=== PATIENT | female | born 1965 | race Caucasian/White ===

== ENCOUNTER 2023-04-07 09:39 | Outpatient (OUT) | payer BC, SELFPAY ==
[2023-04-07 09:55] LABS: Basophils Absolute Auto 0.1 10^3/uL (0.0-0.1); Basophils Percent Auto 0.5 % (0.2-2.0); Eosinophils Absolute Auto 0.2 10^3/uL (0.0-0.7); Eosinophils Percent Auto 1.9 % (0.9-7.0); Hematocrit 43.7 % (36.0-48.0); Hemoglobin 15.1 g/dL (12.0-16.0); Immature Granulocytes Abs Auto 0.08 10^3/uL (0.00-0.03); Immature Granulocytes Pct Auto 0.7 % (0.0-0.5); Lymphocytes Absolute Auto 2.7 10^3/uL (1.2-3.8); Lymphocytes Percent Auto 24.6 % (20.5-60.0); Mean Corpuscular HGB Conc 34.6 g/dL (29.9-35.2); Mean Corpuscular Hemoglobin 32.3 pg (26.7-34.0); Mean Corpuscular Volume 93.6 fL (81.0-99.0); Mean Platelet Volume 9.2 fL (9.5-13.5); Monocytes Absolute Auto 0.6 10^3/uL (0.3-0.8); Monocytes Percent Auto 5.5 % (1.7-12.0); Neutrophils Absolute Auto 7.4 10^3/uL (1.4-6.5); Neutrophils Percent Auto 66.8 % (43.0-75.0); Platelet Count 371 10^3/uL (150-450); Red Blood Count 4.67 10^6/uL (4.20-5.40); Red Cell Distribution Width 13.6 % (11.0-15.0); White Blood Count 11.1 10^3/uL (4.0-11.0)
[2023-04-07 09:57] LABS: Bilirubin Urine NEGATIVE (NEGATIVE); Blood Urine NEGATIVE (NEGATIVE); Clarity Urine CLEAR (CLEAR); Color Urine YELLOW (YELLOW); Glucose Urine UA NEGATIVE (NEGATIVE); Ketones Urine NEGATIVE (NEGATIVE); Leukocyte Esterase Urine NEGATIVE (NEGATIVE); Nitrite Urine NEGATIVE (NEGATIVE); Protein Urine NEGATIVE (NEG/TRACE); Urobilinogen Urine 0.2 EU/dL (0.2-1.0); pH Urine 5.5 (5.0-9.0)
[2023-04-07 10:01] LABS: Urine Microscopic Indicated NO
[2023-04-07 10:45] LABS: Creatinine Urine Random 89.87 mg/dL (20.00-300.00); Microalbum Creatinine Ratio Ur 14.4 mg/g (0.0-29.9); Microalbumin Urine Random <1.3 mg/dL (<=30.0)
[2023-04-07 12:39] LABS: Anion Gap 10.4; Carbon Dioxide 29.5 mmol/L (21.0-32.0); Chloride 102 mmol/L (98-107); Potassium 3.9 mmol/L (3.5-5.1); Sodium 138 mmol/L (136-145)
[2023-04-07 12:40] LABS: Alanine Aminotransferase 28 U/L (14-59); Albumin Globulin Ratio 1.1; Albumin Level 4.1 g/dL (3.4-5.0); Alkaline Phosphatase 97 U/L (46-116); Aspartate Amino Transferase 15 U/L (15-37); BUN Creatinine Ratio 21.7; Bilirubin Total 0.4 mg/dL (0.2-1.0); Calcium 9.5 mg/dL (8.5-10.1); Estimated GFR (African America >60 (>=60); Estimated GFR (Non-African Ame >60 (>=60); Globulin 3.9 g/dL; Glucose 107 mg/dL (74-106)
[2023-04-07 12:41] LABS: Chol HDL Ratio 3.1; Cholesterol 130 mg/dL (<=200); HDL Cholesterol 42 mg/dL (40-60); TSH W/ REFLEX FT4 2.738 (0.358-3.740); Triglycerides 108 mg/dL (<=150); VLDL CHOLESTEROL 21.6 mg/dL
[2023-04-07 13:56] LABS: Estimated Average Glucose 123 mg/dL; Glycohemoglobin A1C 5.9 % (4.5-6.2)
== END 2023-04-07 09:40 | disposition home or self-care (01) ==
LOC: LAB 09:43
PROVIDERS: PCP Nurse Practitioner; Visit Provider Nurse Practitioner
DX: I10 Essential (primary) hypertension (principal); Z13.29 Encounter for screening for other suspected endocrine disorder; E11.9 Type 2 diabetes mellitus without complications
CPT/HCPCS: 36415; 80053; 80061; 81003; 82043; 82570; 83036; 84443; 85025

== ENCOUNTER 2023-06-02 22:01 | Outpatient (REF) | payer BC, SELFPAY ==
--- OUTSIDE RECORDS SUMMARY | 2023-06-02 22:04 | XMS_ITS | CCD ---
Author Name Unknown Address [address] [place] [address] Organization [facility] Care Team Providers Care [employer] Name Role Phone AICHHOLZ, WHEEL BORER LORI Admitting Unavailable AICHHOLZ, WHEEL BORER LORI Attending Unavailable AICHHOLZ, WHEEL BORER LORI Primary Care Unavailable DR BEE WATTS V Consulting Unavailable AICHHOLZ, WHEEL BORER LORI Consulting Unavailable AICHHOLZ, WHEEL BORER LORI Admitting Unavailable AICHHOLZ, WHEEL BORER LORI Attending Unavailable AICHHOLZ, WHEEL BORER LORI Primary Care Unavailable AICHHOLZ, WHEEL BORER LORI Consulting Unavailable AICHHOLZ, WHEEL BORER LORI Admitting Unavailable AICHHOLZ, WHEEL BORER LORI Attending Unavailable AICHHOLZ, WHEEL BORER LORI Primary Care Unavailable AICHHOLZ, WHEEL BORER LORI Consulting Unavailable Louann Rivas Unavailable ELYSSA HOLCOMB Attending Unavailable ELYSSA HOLCOMB Referring Unavailable SHANTA OSHEA Attending Unavailable AICHHOLZ, LORI Attending Unavailable Medications Current Medications Medication Drug Class(es) Dates Sig (Normalized) Sig (Original) atorvastatin 80 mg oral tablet (1 source) HMG-CoA Reductase Inhibitor Atorvastatin Calcium 80 MG Oral for 90 Days Active lisinopril 2.5 mg oral tablet (1 source) Angiotensin Converting Enzyme Inhibitor Lisinopril 2.5 MG Or al for 90 Days Active 0.25 mg, 0.5 mg dose 1.5 ml semaglutide 1.34 mg/ml pen injector (1 source) Ozempic (0.25 or 0.5 MG/DOSE) 2 MG/1.5ML INJECT 0.5 MG SUBCUTANEOUSLY ONCE A WEEK Subcutaneous for 84 Days Active Problems Active Problems Problem Classification Problem Date Documented Da te Episodic/Chronic Diabetes mellitus without complication (5 sources) Type 2 diabetes mellitus without complications; Translations: [TYPE 2 DM WITHOUT COMPLICATIONS] Onset: 10-01-2021 Chronic Occlusion or stenosis of precerebral arteries (7 sources) Occlusion and stenosis of left carotid artery; Translations: [Bilateral stenosis of carotid arteries] Onset: 06-10-2022 Chronic Other screening for suspected conditions (not mental disorders or infectious disease) (1 source) Encounter for screening mammogram for malignant neoplasm of breast; Translations: [ENC SCR MAMMO MALIG NEOPLASM BREAST] Onset: 06-18-2022 Episodic Substance-related disorders (2 sources) Smoker; Translations: [Nicotine dependence, unspecified, uncomplicated] Chronic Past or Other Problems Problem Classification Problem Date Documented Da te Episodic/Chronic Abdominal pain (1 source) Unspecified abdominal pain; Translations: [UNSPECIFIED ABDOMINAL PAIN] Onset: 11-13-2021 Episodic Nausea and vomiting (4 sources) Nausea; Translations: [NAUSEA] Onset: 11-12-2021 Episodic Results Test Name Value Interpretation Reference Range Facility CBC AUTO DIFFon 06-10-2022 BASO # 0.1 103/ul Normal 0.0-0.1 [facility] Comment on above: Performed By: #### C BC #### [facility] [address] [address] [address] Tracie Montalvo Basophils/100 WBC (Bld) 0.7 % Normal 0.2-2.0 [facility] Comment on above: Performed By: #### C BC #### [facility] [address] [place] [address] Dr. Tracie Montalvo EO # 0.1 103/ul Normal 0.0-0.7 [facility] Comment on above: Performed By: #### C BC #### [facility] [address] [address] [address] Tracie Montalvo Eosinophils/100 WBC (Bld) 0.8 % Critically low 0.9-7.0 [facility] Comment on above: Performed By: #### C BC #### [facility] [address] [address] [address] Tracie Montalvo Erythrocyte distribution width (RBC) [Ratio] 13.7 % Normal 11.0-15.0 [facility] Comment on above: Performed By: #### C BC #### [facility] [address] [place] [address] Dr. Tracie Montalvo Hematocrit (Bld) [Volume fraction] 41.7 % Normal 36.0-48.0 [facility] Comment on above: Performed By: #### C BC #### [facility] [address] [place] [address] Dr. Tracie Montalvo Hemoglobin (Bld) [Mass/Vol] 15.1 g/dL Normal 12.0-16.0 [facility] Comment on above: Performed By: #### C BC #### [facility] [address] [place] [address] Dr. Tracie Montalvo IG # 0.10 10e3/ul Critically high 0.00-0.03 [facility] Comment on above: Performed By: #### C BC #### [facility] [address] [place] [address] Dr. Tracie Montalvo IG % 1.0 % Critically high 0.0-0.5 [facility] Comment on above: Performed By: #### C BC #### [facility] [address] [place] [address] Dr. Tracie Montalvo LYMPH # 2.8 103/ul Normal 1.2-3.8 [facility] Comment on above: Performed By: #### C BC #### [facility] [address] [place] [address] Dr. Tracie Montalvo Lymphocytes/100 WBC (Bld) 26.8 % Normal 20.5-60.0 [facility] Comment on above: Performed By: #### C BC #### [facility] [address] [place] [address] Dr. Tracie Montalvo MANUAL DIFF REQ NO Normal [facility] Comment on above: Performed By: #### C BC #### [facility] [address] [place] [address] Dr. Tracie Montalvo MCH (RBC) [Entitic mass] 32.7 pg Normal 26.7-34.0 [facility] Comment on above: Performed By: #### C BC #### [facility] [address] [place] [address] Dr. Tracie Montalvo MCHC (RBC) [Mass/Vol] 36.2 g/dL Critically high 29.9-35.2 [facility] Comment on above: Performed By: #### C BC #### [facility] [address] [address] [address] Tracie Montalvo MCV (RBC) [Entitic vol] 90.3 fL Normal 81.0-99.0 [facility] Comment on above: Performed By: #### C BC #### [facility] [address] [address] [address] Tracie Montalvo MONO # 0.6 103/ul Normal 0.3-0.8 [facility] Comment on above: Performed By: #### C BC #### [facility] [address] [place] [address] Dr. Tracie Montalvo Monocytes/100 WBC (Bld) 6.0 % Normal 1.7-12.0 [facility] Comment on above: Performed By: #### C BC #### [facility] [address] [address] [address] Tracie Montalvo NEUT # 6.8 103/ul Critically high 1.4-6.5 [facility] Comment on above: Performed By: #### C BC #### [facility] [address] [place] [address] Dr. Tracie Montalvo Neutrophils/100 WBC (Bld) 64.7 % Normal 43.0-75.0 [facility] Comment on above: Performed By: #### C BC #### [facility] [address] [address] [address] Tracie Montalvo Platelet mean volume (Bld) [Entitic vol] 9.1 fL Critically low 9.5-13.5 [facility] Comment on above: Performed By: #### C BC #### [facility] [address] [place] [address] Dr. Tracie Montalvo PLT 318 103/ul Normal 150-450 [facility] Comment on above: Performed By: #### C BC #### [facility] [address] [place] [address] Dr. Tracie Montalvo RBC 4.62 106/ul Normal 4.20-5.40 [facility] Comment on above: Performed By: #### C BC #### [facility] [address] [address] [address] Tracie Montalvo WBC 10.4 103/ul Normal 4.0-11.0 [facility] Comment on above: Performed By: #### C BC #### [facility] [address] [address] [address] Tracie Montalvo GLYCOHEMOGLOBIN A1Con 2022 ADA RECOMMENDATION SEE BELOW Normal [facility] Comment on above: Result Comment: ADA RECOMMENDED LIMIT 4.0 - 6.0 ADA THERAPEUTIC TARGET < 7.0 ACTION SUGGESTED > 7.0 Performed By: #### A 1C ####[facility] [address] [address]Dr. Tracie Montalvo Glucose [Mass/Vol] 114 mg/dL Normal [facility] Comment on above: Performed By: #### A 1C ####[facility] [address] [address]Dr. Tracie Montalvo HbA1c (Bld) [Mass fraction] 5.6 % Normal 4.5-6.2 [facility] Comment on above: Performed By: #### A 1C ####[facility] [address] [id number] Tracie Montalvo LIPID PROFILEon 06-10-2022 CHOL-HDL RATIO NORM SEE BELOW Normal [facility] Comment on above: Result Comment: 3.3 - 4.4 LOW RISK 4.4 - 7.1 AVERAGE RISK 7.1 - 11.0 MODERATE RISK >11.0 HIGH RISK Performed By: #### C MP, LIPID, TSH #### [facility] [address] [address] [address] Tracie Montalvo Cholesterol [Mass/Vol] 151 mg/dL Normal <=200 [facility] Comment on above: Performed By: #### C MP, LIPID, TSH #### [facility] [address] [address] [address] Tracie Montalvo Cholesterol in HDL [Mass/Vol] 33 mg/dL Critically low 40-60 [facility] Comment on above: Performed By: #### C MP, LIPID, TSH #### [facility] [address] [address] [address] Tracie Montalvo Cholesterol in LDL [Mass/Vol] 77.4 mg/dL Normal [facility] Comment on above: Performed By: #### C MP, LIPID, TSH #### [facility] [address] [address] [address] Tracie Montalvo Cholesterol.total/Cho lesterol in HDL [Mass ratio] 4.6 {ratio} Normal [facility] Comment on above: Performed By: #### C MP, LIPID, TSH #### [facility] [address] [address] [address] Tracie Montalvo HDL NORMAL > or = 60 mg/dl - LO W CARDIOVASCULAR RISK <40 mg/dl - HIGH CARDIOVASCULAR RISK Normal [facility] Comment on above: Performed By: #### C MP, LIPID, TSH #### [facility] [address] [address] [address] Tracie Montalvo LDL CALC NORMAL SEE BELOW Normal [facility] Comment on above: Result Comment: <100 mg/dl OPTIMAL 100 - 129 mg/dl NEAR OR ABOVE OPTIMAL 130 - 159 mg/dl BORDERLINE HIGH 160 - 189 mg/dl HIGH >190 mg/dl VERY HIGH Performed By: #### C MP, LIPID, TSH #### [facility] [address] [address] [address] Tracie Montalvo Triglyceride [Mass/Vol] 203 mg/dL Critically high <=150 [facility] Comment on above: Performed By: #### C MP, LIPID, TSH #### [facility] [address] [address] [address] Tracie Montalvo VLDL CALC 40.6 mg/dL Normal [facility] Comment on above: Performed By: #### C MP, LIPID, TSH #### [facility] [address] [address] [address] Tracie Montalvo MG MAMM SCREEN 3D CYN CADon 06-10-2022 MG MAMM SCREEN 3D CYN CAD Patient: MAHESH BENTLEY Exam Date: 06/10/2022 : 1965 Gender:F Ordering : JASMIN MON WHEEL BORER Admission #: [id number] Family : Order #: [id number] CLICK HERE TO VIEW EXAM RADIOLOGY REPORT PROCEDURE: MAMMOGRAM SCREENING 3D BILATERAL CAD COMPARISON: MG MAMM SCREEN CYN W CAD, 04/03/2020. MG MAMM SCREEN 3D CYN CAD, 05/14/2021. INDICATIONS: Screening mammography Calculator Name NCI Breast Cancer Risk Assessment Tool 5 Year Breast Cancer Risk 1.40% Lifetime Breast Cancer Risk 9.80% Personal Breast Cancer No Personal Ovarian Cancer No Treatments None Family Cancers None LOCATION: [facility] BREAST COMPOSITION: Heterogeneously dense,which may obscure small masses. FINDINGS: DIAGNOSTIC CATEGORY 2--BENIGN FINDING. NO CHANGE FROM COMPARISON. Scattered benign-appearing nodules are present. Scattered benign-appearing calcifications are present. Scattered benign-appearing lymph nodes are present. RIGHT BREAST: No significant suspicious finding. LEFT BREAST: No significant suspicious finding. RECOMMENDATIONS: ROUTINE MAMMOGRAM AND CLINICAL EVALUATION IN 12 MONTHS. PLEASE NOTE: A NORMAL MAMMOGRAM DOES NOT EXCLUDE THE POSSIBILITY OF BREAST CANCER. A CLINICALLY SUSPICIOUS PALPABLE LUMP SHOULD BE BIOPSIED. Dictated by: Bee Watts MD on 06/10/2022 at 11:14 Approved by: Bee Watts MD on 06/10/2022 at 11:28 Normal [facility] MICROALBUMIN, RAND URon - mALB <1.3 Normal <=30.0 [facility] Comment on above: Performed By: #### M ALBR #### [facility] [address] [place] [address] Dr. Tracie Montalvo PROF 14(COMP METB)on 023 Albumin [Mass/Vol] 3.9 g/dL Normal 3.4-5.0 [facility] Comment on above: Performed By: #### C MP, LIPID, TSH #### [facility] [address] [address] [address] Tracie Montalvo Albumin/Globulin [Mass ratio] 1.1 {ratio} Normal [facility] Comment on above: Performed By: #### C MP, LIPID, TSH #### [facility] [address] [address] [address] Tracie Montalvo ALP [Catalytic activity/Vol] 79 U/L Normal 46-116 [facility] Comment on above: Performed By: #### C MP, LIPID, TSH #### [facility] [address] [address] [address] Tracie Montalvo ALT [Catalytic activity/Vol] 50 U/L Normal 14-59 [facility] Comment on above: Performed By: #### C MP, LIPID, TSH #### [facility] [address] [address] [address] Tracie Montalvo Anion gap [Moles/Vol] 12.9 mmol/L Normal [facility] Comment on above: Performed By: #### C MP, LIPID, TSH #### [facility] [address] [place] [address] Dr. Tracie Montalvo AST [Catalytic activity/Vol] 16 U/L Normal 15-37 [facility] Comment on above: Performed By: #### C MP, LIPID, TSH #### [facility] [address] [place] [address] Dr. Tracie Montalvo Bilirubin [Mass/Vol] 0.4 mg/dL Normal 0.2-1.0 [facility] Comment on above: Performed By: #### C MP, LIPID, TSH #### [facility] [address] [place] [address] Dr. Tracie Montalvo Calcium [Mass/Vol] 9.5 mg/dL Normal 8.5-10.1 [facility] Comment on above: Performed By: #### C MP, LIPID, TSH #### [facility] [address] [place] [address] Dr. Tracie Montalvo Chloride [Moles/Vol] 104 mmol/L Normal 98-107 [facility] Comment on above: Performed By: #### C MP, LIPID, TSH #### [facility] [address] [place] [address] Dr. Tracie Montalvo CO2 [Moles/Vol] 27.2 mmol/L Normal 21.0-32.0 [facility] Comment on above: Performed By: #### C MP, LIPID, TSH #### [facility] [address] [place] [address] Dr. Tracie Montalvo Creatinine [Mass/Vol] 0.64 mg/dL Normal 0.55-1.02 [facility] Comment on above: Performed By: #### C MP, LIPID, TSH #### [facility] [address] [address] [address] Tracie Montalvo EGFR-AF CAMEROONIAN >60 Normal >=60 [facility] Comment on above: Performed By: #### C MP, LIPID, TSH #### [facility] [address] [address] [address] Tracie Montalvo EGFR-NON AF CAMEROONIAN >60 Normal >=60 [facility] Comment on above: Performed By: #### C MP, LIPID, TSH #### [facility] [address] [address] [address] Tracie Montalvo Globulin (S) [Mass/Vol] 3.5 g/dL Normal [facility] Comment on above: Performed By: #### C MP, LIPID, TSH #### [facility] [address] [address] [address] Tracie Montalvo Glucose [Mass/Vol] 94 mg/dL Normal 74-106 [facility] Comment on above: Performed By: #### C MP, LIPID, TSH #### [facility] [address] [address] [address] Tracie Montalvo Potassium [Moles/Vol] 4.1 mmol/L Normal 3.5-5.1 [facility] Comment on above: Performed By: #### C MP, LIPID, TSH #### [facility] [address] [place] [address] Dr. Tracie Montalvo Protein [Mass/Vol] 7.4 g/dL Normal 6.4-8.2 [facility] Comment on above: Performed By: #### C MP, LIPID, TSH #### [facility] [address] [place] [address] Dr. Tracie Montalvo Sodium [Moles/Vol] 140 mmol/L Normal 136-145 [facility] Comment on above: Performed By: #### C MP, LIPID, TSH #### [facility] [address] [place] [address] Dr. Tracie Montalvo Urea nitrogen [Mass/Vol] 8.0 mg/dL Normal 7.0-18.0 [facility] Comment on above: Performed By: #### C MP, LIPID, TSH #### [facility] [address] [place] [address] Dr. Tracie Montalvo Urea nitrogen/Creatinine [Mass ratio] 12.5 mg/mg Normal [facility] Comment on above: Performed By: #### C MP, LIPID, TSH #### [facility] [address] [place] [address] Dr. Tracie Montalvo TSHon 06-10-2022 TSH 2.317 uIU/mL Normal 0.358-3.740 [facility] Comment on above: Performed By: #### C MP, LIPID, TSH #### [facility] [address] [place] [address] Dr. Tracie Montalvo UA RANDOM W/MICROSCOPICon BACTERIA NONE SEEN Normal NONE SEEN [facility] Comment on above: Performed By: #### U AMIC #### [facility] [address] [place] [address] Dr. Tracie Montalvo Bilirubin Ql (U) Negative Normal NEGATIVE [facility] Comment on above: Performed By: #### U AMIC #### [facility] [address] [place] [address] Dr. Tracie Montalvo CAST NONE SEEN Normal NONE SEEN [facility] Comment on above: Performed By: #### U AMIC #### [facility] [address] [place] [address] Dr. Tracie Montalvo Clarity (U) CLEAR Normal CLEAR [facility] Comment on above: Performed By: #### U AMIC #### [facility] [address] [place] [address] Dr. Tracie Montalvo Color (U) LT. YELLOW Normal YELLOW [facility] Comment on above: Performed By: #### U AMIC #### [facility] [address] [place] [address] Dr. Tracie Montalvo Crystals LM Nom (Urine sed) NONE SEEN Normal NONE SEEN [facility] Comment on above: Performed By: #### U AMIC #### [facility] [address] [address] [address] Tracie Montalvo Epithelial cells LM Ql (Urine sed) NONE SEEN Normal NONE SEEN /RARE [facility] Comment on above: Performed By: #### U AMIC #### [facility] [address] [address] [address] Tarcie Montalvo Glucose Ql (U) Negative Normal NEGATIVE [facility] Comment on above: Performed By: #### U AMIC #### [facility] [address] [address] [address] Tracie Montalvo Hemoglobin Ql (U) Negative Normal NEGATIVE [facility] Comment on above: Performed By: #### U AMIC #### [facility] [address] [address] [address] Tracie Montalvo Ketones Ql (U) Negative Normal NEGATIVE [facility] Comment on above: Performed By: #### U AMIC #### [facility] [address] [address] [address] Tracie Montalvo LEUKOCYTES Negative Normal NEGATIVE [facility] Comment on above: Performed By: #### U AMIC #### [facility] [address] [address] [address] Tracie Montalvo MUCOUS NONE SEEN Normal NONE SEEN [facility] Comment on above: Performed By: #### U AMIC #### [facility] [address] [address] [address] Tracie Montalvo Nitrite Ql (U) Negative Normal NEGATIVE [facility] Comment on above: Performed By: #### U AMIC #### [facility] [address] [address] [address] Tracie Montalvo pH (U) 5.5 [pH] Normal 5-9 [facility] Comment on above: Performed By: #### U AMIC #### [facility] [address] [address] [address] Tracie Montalvo RBC 0-2 Normal 0-2 [facility] Comment on above: Performed By: #### U AMIC #### [facility] [address] [address] [address] Tracie Montalvo SPEC GRAVITY 1.015 Normal 1.005-<=1.[address] [facility] Comment on above: Performed By: #### U AMIC #### [facility] [address] [address] [address] Tracie Montalvo UA PROTEIN Negative Normal NEGATIVE/ TRACE [facility] Comment on above: Performed By: #### U AMIC #### [facility] [address] [address] [address] Tracie Montalvo Urobilinogen Qn (U) 0.2 {Larry'U}/dL Normal 0.2 - 1. 0 [facility] Comment on above: Performed By: #### U AMIC #### [facility] [address] [place] [address] Dr. Tracie Montalvo WBC NONE SEEN Normal NONE SEEN [facility] Comment on above: Performed By: #### U AMIC #### [facility] [address] [address] [address] Tracie Montalvo US CAROTID ART BILon 023 US CAROTID ART CYN EXAMINATION: US PENA TID ART CYN HISTORY: Left carotid artery occlusion COMPARISON: No relevant comparison available. TECHNIQUE: Duplex Doppler ultrasound analysis of carotid and vertebral arteries. . Bilateral carotid arterial duplex examination was performed using B-mode, color flow and spectral analysis. Carotid stenosis is reported according to validated velocity parameters, similar to NASCET criteria. FINDINGS: RIGHT CAROTID ARTERY No significant atherosclerotic plaque Subclavian: PSV: 270.3 cm/s cm/s EDV: 21.7 cm/s cm/s CCA: Prox: PSV: 92.7 cm/s cm/s EDV: 22.8 cm/s cm/s Mid: PSV: 111.6 cm/s cm/s EDV: 42.6 cm/s cm/s Distal: PSV: 99.7 cm/s cm/s EDV: 38.6 cm/s cm/s BULB: PSV: 84.0 cm/s cm/s EDV: 32.7 cm/s cm/s ICA: Prox: PSV: 111.4 cm/s cm/s EDV: 32.7 cm/s cm/s Mid: PSV: 109.4 cm/s cm/s EDV: 30.7 cm/s cm/s Distal: PSV: 98.3 cm/s cm/s EDV: 43.1 cm/s cm/s ECA: PSV: 150.8 cm/s cm/s EDV: 40.6 cm/s cm/s VERTEBRAL: PSV: 53.7 cm/s cm/s EDV: 20.6 cm/s cm/s ICA/CCA ratio: PSV: 1.1 EDV: 0.8 LEFT CAROTID ARTERY Mild to moderate atherosclerotic plaque. Maximum area reduction 56% in the bulb Subclavian: PSV: 160.8 cm/s cm/s EDV: 15.0 cm/s CCA: Prox: PSV: 113.5 cm/s cm/s EDV: 32.7 cm/s Mid: PSV: 111.6 cm/s cm/s EDV: 30.7 cm/s Distal: PSV: 105.6 cm/s cm/s EDV: 32.7 cm/s BULB: PSV: 113.5 cm/s cm/s EDV: 34.7 cm/s ICA: Prox: PSV: 91.4 cm/s cm/s EDV: 31.7 cm/s Mid: PSV: 94.7 cm/s cm/s EDV: 41.3 cm/s Distal: PSV: 94.7 cm/s cm/s EDV: 34.9 cm/s ECA: PSV: 97.9 cm/s EDV: 15.5 VERTEBRAL: PSV: 60.7 cm/s cm/s EDV: 18.8 cm/s ICA/CCA ratio: PSV: 1.1 EDV: 1.1 IMPRESSION: 0-49% flow stenosis bilateral internal carotid arteries Spectral Doppler US Thresholds (Reference: Gavin EG, et al. Radiology 2000; 214:247-252) Stenosis (%) PSV (cm/sec) VICA/VCCA 0-49 <150 <2.5 50-69 150-225 2.5-4.0 >70 >225 >4.0 Electronically authenticated by: BEE WATTS Date: 2022-06-10 16:15 Normal [facility] 11-12-2021 Amylase [Catalytic activity/Vol] 45 U/L Normal 25-115 [facility] Comment on above: Performed By: #### C LORI QUIÑONES, LIPA ####[facility] [address] [address]Dr. Tracie Montalvo GLYCOHEMOGLOBIN A1Con 2021 ADA RECOMMENDATION SEE BELOW Normal [facility] Comment on above: Result Comment: ADA RECOMMENDED LIMIT 4.0 - 6.0 ADA THERAPEUTIC TARGET < 7.0 ACTION SUGGESTED > 7.0 Performed By: #### A 1C #### [facility] [address] [address] [address] Tracie Montalvo Glucose [Mass/Vol] 128 mg/dL Normal [facility] Comment on above: Performed By: #### A 1C #### [facility] [address] [address] [address] Tracie Montalvo HbA1c (Bld) [Mass fraction] 6.1 % Normal 4.5-6.2 [facility] Comment on above: Performed By: #### A 1C #### [facility] [address] [address] [address] Tracie Montalvo LIPASEon 11-12-2021 Lipase [Catalytic activity/Vol] 201.0 U/L Normal 73.0-393.0 [facility] Comment on above: Performed By: #### C LORI QUIÑONES, LIPA #### [facility] [address] [address] [address] Tracie Montalvo PROF 14(COMP METB)on 022 Albumin [Mass/Vol] 4.2 g/dL Normal 3.4-5.0 [facility] Comment on above: Performed By: #### C NURIA LORI, LIPA ####[facility] [address] [place] [address]Dr. Tracie Montalvo Albumin/Globulin [Mass ratio] 1.1 {ratio} Normal [facility] Comment on above: Performed By: #### C NURIA LORI, LIPA ####[facility] [address] [place] [address] [address]Dr. Tracie Montalvo ALP [Catalytic activity/Vol] 76 U/L Normal 46-116 [facility] Comment on above: Performed By: #### C LORI QUIÑONES, LIPA ####[facility] [address] [place] [address]Dr. Tracie Montalvo ALT [Catalytic activity/Vol] 31 U/L Normal 14-59 [facility] Comment on above: Performed By: #### C NURIA LORI, LIPA ####[facility] [address] [place] [address]Dr. Tracie Montalvo Anion gap [Moles/Vol] 14.5 mmol/L Normal Th e [facility] Comment on above: Performed By: #### C LORI QUIÑONES LIPA ####[facility] [address] [place] [address]Dr. Tracie Montalvo AST [Catalytic activity/Vol] 13 U/L Critically low 15-37 [facility] Comment on above: Performed By: #### C NURIA LORI, LIPA ####[facility] [address] [place] [address]Dr. Tracie Montalvo Bilirubin [Mass/Vol] 0.3 mg/dL Normal 0.2-1.0 [facility] Comment on above: Performed By: #### C NURIA LORI, LIPA ####[facility] [address] [place] [address]Dr. Tracie Montalvo Calcium [Mass/Vol] 9.7 mg/dL Normal 8.5-10.1 [facility] Comment on above: Performed By: #### C NURIA LORI, LIPA ####[facility] [address] [place] [address]Dr. Tracie Montalvo Chloride [Moles/Vol] 102 mmol/L Normal 98-107 [facility] Comment on above: Performed By: #### C NURIA LORI, LIPA ####[facility] [address] [place] [address]Dr. Tracie Montalvo CO2 [Moles/Vol] 26.7 mmol/L Normal 21.0-32.0 [facility] Comment on above: Performed By: #### C NURIA LORI, LIPA ####[facility] [address] [id number]. Tracie Montalvo Creatinine [Mass/Vol] 0.74 mg/dL Normal 0.55-1.02 [facility] Comment on above: Performed By: #### C MP, LORI, LIPA ####[facility] [address] [address]Dr. Tracie Montalvo EGFR-AF [place]IAN >60 Normal >=60 [facility] Comment on above: Performed By: #### C MP, LORI, LIPA ####[facility] [address] [address] [id number]. Tracie Montalvo EGFR-NON AF CAMEROONIAN >60 Normal >=60 [facility] Comment on above: Performed By: #### C MP, LORI, LIPA ####[facility] [address] [place] [address]Dr. Tracie Montalvo Globulin (S) [Mass/Vol] 3.7 g/dL Normal [facility] Comment on above: Performed By: #### C MP, LORI, LIPA ####[facility] [address] [place] [address]Dr. Tracie Montalvo Glucose [Mass/Vol] 98 mg/dL Normal 74-106 [facility] Comment on above: Performed By: #### C MP, LORI, LIPA ####[facility] [address] [id number]. Tracie Montalvo Potassium [Moles/Vol] 4.2 mmol/L Normal 3.5-5.1 [facility] Comment on above: Performed By: #### C MP, LORI, LIPA ####[facility] [address] [address] [id number]. Tracie Montalvo Protein [Mass/Vol] 7.9 g/dL Normal 6.4-8.2 [facility] Comment on above: Performed By: #### C MP, LORI, LIPA ####[facility] [address] [place] [address]Dr. Tracie Montalvo Sodium [Moles/Vol] 139 mmol/L Normal 136-145 [facility] Comment on above: Performed By: #### C LORI QUIÑONES, LIPA ####[facility] [address] [place] [address]Dr. Tracie Montalvo Urea nitrogen [Mass/Vol] 15.0 mg/dL Normal 7.0-18.0 [facility] Comment on above: Performed By: #### C MP LORI, LIPA ####[facility] [address] [place] [address]Dr. Tracie Montalvo Urea nitrogen/Creatinine [Mass ratio] 20.3 mg/mg Normal [facility] Comment on above: Performed By: #### C LORI QUIÑONES, LIPA ####[facility] [address] [place] [address]Dr. Tracie Montalvo GLYCOHEMOGLOBIN A1Con 2021 ADA RECOMMENDATION SEE BELOW Normal [facility] Comment on above: Result Comment: ADA RECOMMENDED LIMIT 4.0 - 6.0 ADA THERAPEUTIC TARGET < 7.0 ACTION SUGGESTED > 7.0 Performed By: #### A 1C ####[facility] [address] [place] [address]Dr. Tracie Montalvo Glucose [Mass/Vol] 128 mg/dL Normal [facility] Comment on above: Performed By: #### A 1C ####[facility] [address] [place] [address]Dr. Tracie Montalvo HbA1c (Bld) [Mass fraction] 6.1 % Normal 4.5-6.2 [facility] Comment on above: Performed By: #### A 1C ####[facility] [address] [place] [address]Dr. Tracie Montalvo Coding Summary.on 08-28-2018 Coding Summary. 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 However, the narrative phrase printed from the coding software may appear abbreviated, or result in slightly different terminology. Coded By: Milly Childs Date Saved: 08/28/2018 12:26 pm Normal [facility] MA Mamm Diag w/CAD if perfor med RTon 08-28-2018 MA Mamm Diag w/CAD if performed RT Exam Date/Time: 08/24/2018 11:13 EDT Reason for Exam: ABNORMAL MAMM RIGHT Report IMPRESSION: BIRADS 2 BENIGN FINDINGS, NORMAL INTERVAL FOLLOW-UP FINAL PATHOLOGIC DIAGNOSIS: Right breast lesion #1. 2:00, florid ductal hyperplasia and microcalcifications. Right breast lesion #2. 2:00, florid ductal hyperplasia and microcalcifications. Follow-up: 12 MONTH RECALL CLINICAL HISTORY: ABNORMAL MAMM RIGHT. COMPARISONS: Outside studies including diagnostic right breast mammograms and ultrasound 08/10/2018. TECHNIQUE: Full field CC and ML digital mammograms were obtained of the right breast. FINDINGS: Biopsy marking clips are noted within the medial aspect of the right breast at anterior and middle depths. There are no other significant changes identified given differences in technique and positioning. Dense Breast: No CAD analysis was performed and used in the interpretation. Board Certified Radiologists. Accredited by the ACR and FDA. MAMMOGRAPHY IS VERY IMPORTANT TO YOUR HEALTH. THE CURRENT [place] [employer] OF [employer] AND [employer]WORK GUIDELINES RECOMMENDS ANNUAL MAMMOGRAPHY BEGINNING AT AGE 40. THIS FACILITY UTILIZES A REMINDER SYSTEM TO ENSURE ALL PATIENTS RECEIVE REMINDER NOTIFICATIONS AT THE APPROPRIATE TIME BASED ON THE RECOMMENDATIONS OF THIS EXAM. Exam Date/Time: 08/24/2018 11:13 EDT Report \X09\ FINAL REPORT Dictated: 08/28/2018 1:24 pm Fer Johnson MD Signed (Electronic Signature): 08/28/2018 1:24 pm Signed by: Fer Johnson MD Transcribed by: TY Technologist: GUALBERTO Assessment: BI-RADS Category 2-Benign finding Recommendation: Normal interval follow-up Normal [facility] US Breast biopsy Vac Asst, F irst Lesionon 08-28-2018 US Breast biopsy Vac Asst, First Lesion Exam Date/Time: 08/24/2018 11:29 EDT Reason for Exam: ABNORMAL MAMM RIGHT Addendum ADDENDUM: DISREGARD PREVIOUS REPORT. IMPRESSION: ULTRASOUND-GUIDED RIGHT BREAST BIOPSY X 2. BIOPSY RESULTS ARE BENIGN (SEE DIAGNOSTIC MAMMOGRAM REPORT). CLINICAL HISTORY: ABNORMAL MAMM RIGHT. COMPARISON: Outside studies; most recently 08/10/2018. PROCEDURE: Informed consent was obtained. Sterile technique, local lidocaine anesthesia and ultrasound guidance were used to place a 12 gauge vacuum-assisted biopsy needle directly adjacent to the solid and cystic nodule approximately 4 cm at the 2 o'clock position of the RIGHT breast. Several core samples were obtained in the usual fashion. A marking clip was then deployed. Similar technique was used to complete the biopsy a small hypoechoic nodule within the 2:00 position approximately 3 cm from the nipple. A second marking clip was then deployed. The patient tolerated the procedure without evidence of an immediate complication. Postbiopsy mammograms demonstrated the clips to be in good position. She was discharged home in stable condition with usual instructions. FINAL REPORT Dictated: 08/28/2018 1:28 pm Fer Johnson MD Signed (Electronic Signature): 08/28/2018 1:28 pm Signed by: Fer Johnson MD Transcribed by: TY Technologist: ALMAZ Report IMPRESSION: ULTRASOUND-GUIDED LEFT BREAST BIOPSY X 2. Exam Date/Time: 08/24/2018 11:29 EDT Report BIOPSY RESULTS ARE PENDING. CLINICAL HISTORY: ABNORMAL MAMM RIGHT. COMPARISON: Outside studies; most recently 08/10/2018. PROCEDURE: Informed consent was obtained. Sterile technique, local lidocaine anesthesia and ultrasound guidance were used to place a 12 gauge vacuum-assisted biopsy needle directly adjacent to the solid and cystic nodule approximately 4 cm at the 2 o'clock position of the left breast. Several core samples were obtained in the usual fashion. A marking clip was then deployed. Similar technique was used to complete the biopsy a small hypoechoic nodule within the 2:00 position approximately 3 cm from the nipple. A second marking clip was then deployed. The patient tolerated the procedure without evidence of an immediate complication. Postbiopsy mammograms demonstrated the clips to be in good position. She was discharged home in stable condition with usual instructions. FINAL REPORT Dictated: 08/24/2018 12:56 pm Fer Johnson MD Signed (Electronic Signature): 08/24/2018 12:56 pm Signed by: Fer Johnson MD Transcribed by: TY Technologist: ALMAZ Report last revised on 08/28/2018 13:28 EDT by Fer Johnson MD [facility] Coding Summary.on 08-21-2018 Coding Summary. CODING DATE: 019 [facility] STATUS: Home (Routine DC) PAYOR: Thomas APC DESCRIPTION 5311 Level 1 Lower GI Procedures ADMIT DX: REASON FOR VISIT DX: Z12.11 Encounter for screening for malignant neoplasm of colon FINAL DX: PRINCIPAL: Z12.11 Encounter for screening for malignant neoplasm of colon SECONDARY: K91.71 Accidental puncture and laceration of a digestive system organ or structure during a digestive system procedure K63.1 Perforation of intestine (nontraumatic) Z80.0 Family history of malignant neoplasm of digestive organs Y92.234 Operating room of hospital as the place of occurrence of the external cause PYMT PROC APC STAT DESCRIPTION DOCTOR NAME DATE 50578 Suture of large Kameron OAKLEY MD 08/17/2018 intestine (colorrhaphy) for perforated ulcer, diverticulum, wound, injury or rupture (single or multiple perforations); without colostomy 95435 Transversus abdominis Lopez Casarez DOJosee 08/17/2018 plane (TAP) block (abdominal plane block, rectus sheath block) bilateral; by injections (includes imaging guidance, when performed) XP Separate practitioner, a service that is distinct because it was performed by a different practitioner 91621 Anesthesia for Lopez Casarez DODuncanRick 08/17/2018 intraperitoneal procedures in lower abdomen including laparoscopy; not otherwise specified G0121 5311 T Colorectal cancer Kameron OAKLEY MD 08/17/2018 screening; colonoscopy on individual not meeting criteria for high risk 74 Discontinued Out-Patient [facility] ([facility] Procedure After Administration of Anesthesia NOTE: The code number assigned matches the documented diagnosis and / or procedure in the patient's chart. However, the narrative phrase printed from the coding software may appear abbreviated, or result in slightly different terminology. Revised Coded By: Milly Childs Revised Date Saved: 08/20/2018 03:34 pm [facility] ABO/Rh History Checkon 08-18 ABO/Rh History Check Patient discharged prior Normal [facility] Comment on above: Performed By: #### 2 [id number], [id number], [id number] ####[facility] [address] [place] [address] Inpatient Clinical Summaryon 08-18-2018 Inpatient Clinical Summary [address] [address] Clinical Summary Person Information: Name: ABDOULAYE BENTLEY Age: 53 Years : 1965 12:00 AM Sex: Female PCP: NONE, XXXX Marital Status: Phone: [phone] Race: White Ethnicity: Non- or Language: [place]er Visit Id: Visit Reason: SCREENING Speciality: Acuity: Enc Type: Ambulatory/Same Day Surgery Med Service: Surgery Arrival: 08/17/2018 6:56 AM Discharge: Dispo Type: Address: [address] [place] [id number] Provider Notes: Diagnosis: Perforation of sigmoid colon Problems Active Smoker Smoking Status: Current Every Day Smoker Functional Status: Sensory Deficits: No hearing deficits, No visual deficits History of Falls: Mobility Assistance Prior to Admission: Independent ADLs: Independent Current Level of Assistance for Self-Care/Mobility: Cognitive Status: Allergies No Known Medication Allergies Measurements: Height: 160 cm Weight: 87.7 kg Blood Pressure: 121 mmHg / 78 mmHg BMI: 34.1 kg/m2 Procedures Colonoscopy Tubal ligation Exploratory laparotomy (08/17/2018) Immunizations No Immunizations Documented This Visit Final Med List: acetaminophen-oxycodone (Percocet 325 mg-5 mg Tab) 1 Tabs By Mouth every 4 hours as needed as needed for pain for 5 Days. Take one tab by mouth every four hours as needed for pain. Refills: 0. ciprofloxacin (ciprofloxacin 500 mg Tab) 1 Tabs By Mouth 2 times a day for 5 Days. Take one tab by mouth twice a day. Refills: 0. metronidazole (Flagyl 500 mg Tab) 1 Tabs By Mouth every 6 hours for 5 Days. Take one tab by mouth every six hours for ten days. Refills: 0. polyethylene glycol 3350 (MiraLax oral powder for reconstitution) 17 Gram By Mouth every day. dissolve in water before taking. Refills: 0. Care Team Members: Attending Physician: Kameron OAKLEY MD Consulting Physician: Referring Physician: Kameron OAKLEY MD Follow up: With: Address: When: [place] , [place] With: Address: When: Kameron OAKLEY [address], [address] [place] [address] Business (1) 08/24/2018 9:15 AM Comments: Call for any problems. Type Location Start [place] US Breast (FT) FT.ULTRASOUND 08/24/2018 10:00 AM 08/24/2018 11:00 AM Confirmed [place] Diagnostic (FT) FT.MAMMOGRAM 08/24/2018 10:45 AM 08/24/2018 11:15 AM Confirmed Patient Education Information: Cele - Post Op Instructions (CUSTOM) ciprofloxacin, Flagyl, MiraLax, Percocet Normal [facility] Inpatient Patient Summaryon 08-18-2018 Inpatient Patient Summary [address] [address] Patient Discharge Instructions PERSON INFORMATION Name: ABDOULAYE BENTLEY Date of : 1965 12:00 AM Current Date: 08/18/18 11:11:22 PHYSICIANS Admitting Physician: Kameron OAKLEY MD Primary Care Physician: NONE, XXXX PCP Phone Number: Comment: Discharge Diagnosis: Perforation of sigmoid colon Condition at Discharge: Stable ABDOULAYE BENTLEY has been given the following list of follow-up instructions, prescriptions, and patient education materials: PATIENT FOLLOW-UP INFORMATION Diet: Other: Liquids, soups x 3 days. Advance to regular after that. Discharge Activity: Ambulate as tolerated, Expect mild pain, Expect minimal amount of drainage and/or bleeding, Do not lift more than 5 lbs Discharge Restrictions: No driving for 24 hrs, Do not operate machinery or tools, Do not make important decisions for 24 hours Wound Care Instructions: Remove dressing as instructed Remove Your Dressing In 1 Days Call Your Doctor For: Return to Work: IF UNABLE TO CONTACT YOUR PHYSICIAN AND YOU FEEL IT IS AN EMERGENCY, GO TO THE NEAREST EMERGENCY ROOM OR CALL 911 Home Treatment: Devices/Equipment: Special Services: Additional Instructions: Discharge Instructions-OUTPT Entered On: 08/17/2018 7:12 EDT Performed On: 08/17/2018 7:12 EDT by Kameron OAKLEY MD Discharge Instructions Discharge Diet(s) : Drink liquids and eat a light meal Discharge Restrictions : No driving for 24 hrs, Do not operate machinery or tools, Do not make important decisions for 24 hours Kameron OAKLEY MD - 08/17/2018 7:12 EDT Primary Care Physician to provide the following pending test results: None Follow up: With: Address: When: [place] , [place] With: Address: When: Kameron OAKLEY [address], [address] [place] [address] Business (1) 08/24/2018 9:15 AM Comments: Call for any problems. In the event that this physician does not participate in your insurance network, please consult with your insurance company to find a nearby participating provider. Type Location Start [facility] Breast (FT) FT.ULTRASOUND 08/24/2018 10:00 AM 08/24/2018 11:00 AM Confirmed [place] Diagnostic (FT) FT.MAMMOGRAM 08/24/2018 10:45 AM 08/24/2018 11:15 AM Confirmed Comment: MC Johansen ANN, have received the attached patient education materials/instructions and have verbalized understanding: Patient Signature Date Clinican/Nurse Signature _ Date HERE ARE THE MEDICATION CHANGES THAT OCCURRED DURING YOUR HOSPITAL STAY New Medications [facility] [place], [place] [id number], [phone] acetaminophen-oxycodone (Percocet 325 mg-5 mg Tab) 1 Tabs By Mouth every 4 hours as needed as needed for pain for 5 Days. Take one tab by mouth every four hours as needed for pain. Refills: 0. Last Dose: __Next Dose: __ ciprofloxacin (ciprofloxacin 500 mg Tab) 1 Tabs By Mouth 2 times a day for 5 Days. Take one tab by mouth twice a day. Refills: 0. Last Dose: __Next Dose: __ metronidazole (Flagyl 500 mg Tab) 1 Tabs By Mouth every 6 hours for 5 Days. Take one tab by mouth every six hours for ten days. Refills: 0. Last Dose: __Next Dose: __ polyethylene glycol 3350 (MiraLax oral powder for reconstitution) 17 Gram By Mouth every day. dissolve in water before taking. Refills: 0. Last Dose: __Next Dose: __ Comment: MEDICATION LIST PROVIDED FOR YOU IS A LIST OF YOUR CURRENT MEDICATIONS. PLEASE CARRY THIS WITH YOU AT ALL TIMES. acetaminophen-oxycodone (Percocet 325 mg-5 mg Tab) 1 Tabs By Mouth every 4 hours as needed as needed for pain for 5 Days. Take one tab by mouth every four hours as needed for pain. Refills: 0. ciprofloxacin (ciprofloxacin 500 mg Tab) 1 Tabs By Mouth 2 times a day for 5 Days. Take one tab by mouth twice a day. Refills: 0. metronidazole (Flagyl 500 mg Tab) 1 Tabs By Mouth every 6 hours for 5 Days. Take one tab by mouth every six hours for ten days. Refills: 0. polyethylene glycol 3350 (MiraLax oral powder for reconstitution) 17 Gram By Mouth every day. dissolve in water before taking. Refills: 0. Pharmacy Information: Other: [facility] Comment: PATIENT EDUCATION INFORMATION Instructions: [place], [place] Kameron Oakley MD, FACS POST OPERATIVE INSTRUCTIONS Regardless of how big or small the surgery you have had, your body and the wound(s) require time to heal. Please use common sense and limit your activity accordingly. If you are in doubt about a certain activity or it causes pain, DON?T DO IT, and ask your doctor about it at your next office visit. Keep the wound dry and covered for ___24 hours. You may then remove the bandage and shower. Pat the area dry and either leave the wound open to air, or re-cover it with a dry clean gauze pad. You may notice a small amount of blood or drainage on the dressing, which is normal. If there is continuous bleeding, however, or soaking of the bandage with blood or fluid, call your surgeon. Leave any Steri-strips (little white tapes) on the wound until seen in the office. Do not soak the wound in the tub or swim until given the okay by your surgeon to do so. If you have a drain in the wound, do not shower or get the wound wet. Do your best to keep the wound covered with a dry clean bandage. If you develop a fever and/or the wound becomes increasingly tender, red or drains any fluid, you may have an infection. In that case, call your surgeon. You may take Acetaminophen/Tylenol (up to 1000 mg) or Ibuprofen (Advil, Motrin) (up to 600 mg), for mild to moderate pain every six hours as needed. For more severe pain, you may have been given a prescription for Percocet or Vicodin. These all have Acetaminophen in them, so don?t take long with additional Acetaminophen/Tylenol. Kameron Oakley MD Page 2 POST OPERATIVE INSTRUCTIONS If you have had major abdominal surgery, it will take 6-8 weeks for good healing. No driving, sexual activity, or lifting of more than 10-20 pounds is allowed for the first 2-3 weeks. Your activity may then be gradually increased, based on your rate of recovery. Wound healing actually continues for many months. At first, the scar is often quite red. You may also notice a bump or ridge under the incision. This is normal and will go away with time. You may also have some numbness or extra/sensitivity around the incision, which should also go away with time. For the least amount of eventual scarring of the incisional area, be careful about sun exposure to the area for 6-12 months. You may be in the sun, just try to remember to apply sunscreen over the scar. Call the office to make a post-operative appointment for ____Fri, Aug 24 If you have any questions or problems prior to being seen in the office, please call. Your surgeon can be reached by calling: Hospital: or (ask the cutting machine operator for your surgeon) Office: Reviewed: 08-03 Revised: 12-07 Medication Leaflets: ciprofloxacin (oral) (SIP hannah FLOX a sin) Cipro, Cipro XR, Proquin XR What is the most important information I should know about ciprofloxacin? Ciprofloxacin can cause serious side effects, including tendon problems, nerve damage, serious mood or behavior changes, or low blood sugar. Stop using this medicine and call your doctor at once if you have symptoms such as: headache, hunger, irritability, numbness, tingling, burning pain, confusion, agitation, paranoia, problems with memory or concentration, thoughts of suicide, or sudden pain or movement problems in any of your joints. In rare cases, ciprofloxacin may cause damage to your aorta, which could lead to dangerous bleeding or . Get emergency medical help if you have severe and constant pain in your chest, stomach, or back. What is ciprofloxacin? Ciprofloxacin is a fluoroquinolone (zktr-e-IDKF-o-lone) antibiotic that fights bacteria in the body. Ciprofloxacin is used to treat different types of bacterial infections. Ciprofloxacin is also used to treat people who have been exposed to anthrax or certain types of plague. Fluoroquinolone antibiotics can cause serious or disabling side effects that may not be reversible. Ciprofloxacin should be used only for infections that cannot be treated with a safer antibiotic. Ciprofloxacin may also be used for purposes not listed in this medication guide. What should I discuss with my healthcare provider before taking ciprofloxacin? You should not use ciprofloxacin if you are allergic to it, or if: ?? you also take tizanidine; or ? you are allergic to other fluoroquinolones (gemifloxacin, levofloxacin, moxifloxacin, norfloxacin, ofloxacin, and others). Ciprofloxacin may cause swelling or tearing of a tendon (the fiber that connects bones to muscles in the body), especially in the Achilles' tendon of the heel. This can happen during treatment or up to several months after you stop taking ciprofloxacin. Tendon problems may be more likely in certain people (children and older adults, or people who use steroid medicine or have had an organ transplant). Tell your doctor if you have ever had: ?? tendon problems, bone problems, arthritis, or other joint problems (especially in children); ? blood circulation problems, aneurysm, narrowing or hardening of the arteries; ? heart problems, high blood pressure; ? a genetic disease such as Marfan syndrome or Ehler's-Danlos syndrome; ? diabetes; ? a muscle or nerve disorder, such as myasthenia gravis; ? kidney disease; ? seizures or epilepsy; ? a head injury or brain tumor; ? long QT syndrome (in you or a family member); or ? low levels of potassium in your blood (hypokalemia). Do not give this medicine to a child without medical advice. It is not known whether this medicine will harm an unborn baby. Tell your doctor if you are . You should not breast-feed while using this medicine. How should I take ciprofloxacin? Follow all directions on your prescription label and read all medication guides or instruction sheets. Use the medicine exactly as directed. You may take ciprofloxacin with or without food, at the same time each day. Shake the oral suspension (liquid) for 15 seconds before you measure a dose. Use the dosing syringe provided, or use a medicine dose-measuring device (not a kitchen spoon). Do not give ciprofloxacin oral suspension through a feeding tube. Swallow the extended-release tablet whole and do not crush, chew, or break it. Use this medicine for the full prescribed length of time, even if your symptoms quickly improve. Skipping doses can increase your risk of infection that is resistant to medication. Ciprofloxacin will not treat a viral infection such as the flu or a common cold. Do not share ciprofloxacin with another person. Store at room temperature away from moisture and heat. Do not allow the liquid medicine to freeze. Throw away any unused liquid after 14 days. What happens if I miss a dose? Take the medicine as soon as you can, but skip the missed dose if it is almost time for your next dose. Do not take two doses at one time. What happens if I overdose? Seek emergency medical attention or call the Poison Help line at . What should I avoid while taking ciprofloxacin? Do not take ciprofloxacin with dairy products such as milk or yogurt, or with calcium- fortified juice. You may eat or drink these products with your meals, but do not use them alone when taking ciprofloxacin. They could make the medication less effective. Using caffeine while taking ciprofloxacin can increase the effects of the caffeine. Antibiotic medicines can cause diarrhea, which may be a sign of a new infection. If you have diarrhea that is watery or bloody, call your doctor before using anti-diarrhea medicine. Ciprofloxacin could make you sunburn more easily. Avoid sunlight or tanning beds. Wear protective clothing and use sunscreen (SPF 30 or higher) when you are outdoors. Tell your doctor if you have severe burning, redness, itching, rash, or swelling after being in the sun. Avoid driving or hazardous activity until you know how this medicine will affect you. Your reactions could be impaired. What are the possible side effects of ciprofloxacin? Get emergency medical help if you have signs of an allergic reaction (hives, difficult breathing, swelling in your face or throat) or a severe skin reaction (fever, sore throat, burning in your eyes, skin pain, red or purple skin rash that spreads and causes blistering and peeling). Ciprofloxacin can cause serious side effects, including tendon problems, side effects on your nerves (which may cause permanent nerve damage), serious mood or behavior changes (after just one dose), or low blood sugar (which can lead to coma). Stop taking this medicine and call your doctor at once if you have: ?? low blood sugar--headache, hunger, sweating, irritability, dizziness, nausea, fast heart rate, or feeling anxious or shaky; ? nerve symptoms in your hands, arms, legs, or feet--numbness, weakness, tingling, burning pain; ? serious mood or behavior changes--nervousness, confusion, agitation, paranoia, hallucinations, memory problems, trouble concentrating, thoughts of suicide; or ? signs of tendon rupture--sudden pain, swelling, bruising, tenderness, stiffness, movement problems, or a snapping or popping sound in any of your joints (rest the joint until you receive medical care or instructions). In rare cases, ciprofloxacin may cause damage to your aorta, the main blood artery of the body. This could lead to dangerous bleeding or . Get emergency medical help if you have severe and constant pain in your chest, stomach, or back. Also, stop using ciprofloxacin and call your doctor at once if you have: ?? severe stomach pain, diarrhea that is watery or bloody; ? fast or pounding heartbeats, fluttering in your chest, shortness of breath, and sudden dizziness (like you might pass out); ? the first sign of any skin rash, no matter how mild; ? muscle weakness, breathing problems; ? little or no urination; ? jaundice (yellowing of the skin or eyes); or ? increased pressure inside the skull--severe headaches, ringing in your ears, dizziness, nausea, vision problems, pain behind your eyes. Common side effects may include: ?? nausea, vomiting, diarrhea, stomach pain; ? vaginal itching or discharge; ? headache; or ? abnormal liver function tests. This is not a complete list of side effects and others may occur. Call your doctor for medical advice about side effects. You may report side effects to FDA at 6-896-NJG-2963. What other drugs will affect ciprofloxacin? Some medicines can make ciprofloxacin much less effective when taken at the same time. If you take any of the following medicines, take your ciprofloxacin dose 2 hours before or 6 hours after you take the other medicine. ?? the ulcer medicine sucralfate, or antacids that contain calcium, magnesium, or aluminum (such as Maalox, Milk of Magnesia, Mylanta, Pepcid Complete, Rolaids, Tums, and others); ? didanosine (Videx) powder or chewable tablets; ? lanthanum carbonate or sevelamer; or ? vitamin or mineral supplements that contain calcium, iron, magnesium, or zinc. Tell your doctor about all your other medicines, especially: ?? cyclosporine, methotrexate, metoclopramide, phenytoin, probenecid, ropinirole, sildenafil, or theophylline; ? a blood thinner (warfarin, Coumadin, Jantoven); ? a diuretic or 'water pill'; ? heart rhythm medication; ? insulin or oral diabetes medicine (check your blood sugar regularly); ? medicine to treat depression or mental illness; ? steroid medicine (such as prednisone); or ? NSAIDs (nonsteroidal anti-inflammatory drugs)--ibuprofen (Advil, Motrin), naproxen (Aleve), celecoxib, diclofenac, indomethacin, meloxicam, and others. This list is not complete. Other drugs may affect ciprofloxacin, including prescription and kygb-rog-yykdgxe medicines, vitamins, and herbal products. Not all possible drug interactions are listed here. Where can I get more information? Your pharmacist can provide more information about ciprofloxacin. Remember, keep this and all other medicines out of the reach of children, never share your medicines with others, and use this medication only for the indication prescribed. Every effort has been made to ensure that the information provided by [employer] is accurate, up-to-date, and complete, but no guarantee is made to that effect. Drug information contained herein may be time sensitive. [employer] information has been compiled for use by healthcare practitioners and consumers in the [place] and therefore [employer] does not warrant that uses outside of the [place] are appropriate, unless specifically indicated otherwise. [employer] drug information does not endorse drugs, diagnose patients or recommend therapy. [employer] drug information is an informational resource designed to assist licensed healthcare practitioners in caring for their patients and/or to serve consumers viewing this service as a supplement to, and not a substitute for, the expertise, skill, knowledge and judgment of healthcare practitioners. The absence of a warning for a given drug or drug combination in no way should be construed to indicate that the drug or drug combination is safe, effective or appropriate for any given patient. [employer] does not assume any responsibility for any aspect of healthcare administered with the aid of information [employer] provides. The information contained herein is not intended to cover all possible uses, directions, precautions, warnings, drug interactions, allergic reactions, or adverse effects. If you have questions about the drugs you are taking, check with your doctor, nurse or pharmacist. Copyright 3134-6506 [employer]. Version: 22.01. Revision Date: 05/04/2018. metronidazole (me etta haynes) FIRST Metronidazole, Flagyl, Flagyl 375 What is the most important information I should know about metronidazole? You should not use metronidazole if you have taken disulfiram (Antabuse) within the past 2 weeks. Do not drink alcohol or consume foods or medicines that contain propylene glycol while you are taking metronidazole and for at least 3 days after you stop taking it. What is metronidazole? Metronidazole is an antibiotic that is used to treat bacterial infections of the vagina, stomach, liver, skin, joints, brain, and respiratory tract. Metronidazole will not treat a vaginal yeast infection. Metronidazole may also be used for purposes not listed in this medication guide. What should I discuss with my healthcare provider before taking metronidazole? You should not take metronidazole if you are allergic to it, or if you have taken disulfiram (Antabuse) within the past 2 weeks. Do not take metronidazole during the first trimester of . This medicine can harm an unborn baby. Tell your doctor if you are . Tell your doctor if you have ever had: ?? liver or kidney disease; ? Cockayne syndrome (a rare genetic disorder); ? a stomach or intestinal disease such as Crohn's disease; ? a blood cell disorder such as anemia (lack of red blood cells) or low white blood cell (WBC) counts; ? a fungal infection anywhere in your body; or ? a nerve disorder. In animal studies, metronidazole caused certain types of tumors, some of which were cancerous. However, very high doses are used in animal studies. It is not known whether these effects would occur in people using regular doses. Ask your doctor about your risk. Metronidazole can pass into breast milk and may harm a nursing baby. You should not breast-feed within 24 hours after using metronidazole. If you use a breast pump during this time, throw out any milk you collect. Do not feed it to your baby. Do not give this medicine to a child without medical advice. How should I take metronidazole? Follow all directions on your prescription label and read all medication guides or instruction sheets. Use the medicine exactly as directed. Shake the oral suspension (liquid) before you measure a dose. Use the dosing syringe provided, or use a medicine dose-measuring device (not a kitchen spoon). Do not crush, chew, or break an extended-release tablet. Swallow it whole. If you are treating a vaginal infection, your sexual partner may also need to take metronidazole (even if no symptoms are present) or you could become reinfected. Metronidazole is usually given for up to 10 days in a row. You may need to repeat this dosage several weeks later. Use this medicine for the full prescribed length of time, even if your symptoms quickly improve. Skipping doses can increase your risk of infection that is resistant to medication. Metronidazole will not treat a viral infection such as the flu or a common cold. This medicine can affect the results of certain medical tests. Tell any doctor who treats you that you are using metronidazole. Store at room temperature away from moisture and heat. What happens if I miss a dose? Take the medicine as soon as you can, but skip the missed dose if it is almost time for your next dose. Do not take two doses at one time. What happens if I overdose? Seek emergency medical attention or call the Poison Help line at . Overdose symptoms may include nausea, vomiting, and loss of balance or coordination. What should I avoid while taking metronidazole? Do not drink alcohol or consume food or medicines that contain propylene glycol while you are taking metronidazole. You may have unpleasant side effects such as headaches, stomach cramps, nausea, vomiting, and flushing (warmth, redness, or tingly feeling). Avoid alcohol or propylene glycol for at least 3 days after you stop taking metronidazole. Check the labels of any medicines or food products you use to make sure they do not contain alcohol or propylene glycol. What are the possible side effects of metronidazole? Get emergency medical help if you have signs of an allergic reaction: hives; difficult breathing; swelling of your face, lips, tongue, or throat. Call your doctor at once if you have: ?? diarrhea; ? painful or difficult urination; ? trouble sleeping, depression, irritability; ? headache, dizziness, weakness; ? a light-headed feeling (like you might pass out); or ? blisters or ulcers in your mouth, red or swollen gums, trouble swallowing. Stop taking the medicine and call your doctor right away if you have neurologic side effects (more likely to occur while taking metronidazole buttermaker): ?? numbness, tingling, or burning pain in your hands or feet; ? vision problems, pain behind your eyes, seeing flashes of light; ? muscle weakness, problems with coordination; ? trouble speaking or understanding what is said to you; ? a seizure; or ? fever, neck stiffness, and increased sensitivity to light. Metronidazole can cause life-threatening liver problems in people with Cockayne syndrome. If you have this condition, stop taking metronidazole and contact your doctor if you have signs of liver failure--nausea, stomach pain (upper right side), dark urine, maciel-colored stools, or jaundice (yellowing of the skin or eyes). Side effects may be more likely in older adults. Common side effects may include: ?? nausea, vomiting, loss of appetite, stomach pain; ? diarrhea, constipation; ? unpleasant metallic taste; ? rash, itching; ? vaginal itching or discharge; ? mouth sores; or ? swollen, red, or 'hairy' tongue. This is not a complete list of side effects and others may occur. Call your doctor for medical advice about side effects. You may report side effects to FDA at [phone]-WHJ-8697. What other drugs will affect metronidazole? Sometimes it is not safe to use certain medications at the same time. Some drugs can affect your blood levels of other drugs you take, which may increase side effects or make the medications less effective. Tell your doctor about all your other medicines, especially: ?? busulfan; ? lithium; or ? a blood thinner--warfarin, Coumadin, Jantoven. This list is not complete. Other drugs may affect metronidazole, including prescription and gnmt-cfo-uggkvzt medicines, vitamins, and herbal products. Not all possible drug interactions are listed here. Where can I get more information? Your pharmacist can provide more information about metronidazole. Remember, keep this and all other medicines out of the reach of children, never share your medicines with others, and use this medication only for the indication prescribed. Every effort has been made to ensure that the information provided by [employer] is accurate, up-to-date, and complete, but no guarantee is made to that effect. Drug information contained herein may be time sensitive. [employer] information has been compiled for use by healthcare practitioners and consumers in the [place] and therefore [employer] does not warrant that uses outside of the [place] are appropriate, unless specifically indicated otherwise. [employer] drug information does not endorse drugs, diagnose patients or recommend therapy. [employer] drug information is an informational resource designed to assist licensed healthcare practitioners in caring for their patients and/or to serve consumers viewing this service as a supplement to, and not a substitute for, the expertise, skill, knowledge and judgment of healthcare practitioners. The absence of a warning for a given drug or drug combination in no way should be construed to indicate that the drug or drug combination is safe, effective or appropriate for any given patient. [employer] does not assume any responsibility for any aspect of healthcare administered with the aid of information [facility] provides. The information contained herein is not intended to cover all possible uses, directions, precautions, warnings, drug interactions, allergic reactions, or adverse effects. If you have questions about the drugs you are taking, check with your doctor, nurse or pharmacist. Copyright 1060-2201 [employer]. Version: 12.02. Revision Date: 02/16/2018. polyethylene glycol 3350 (shirlene ee ETH il een GLYE kol) ClearLax, GaviLAX, Gialax, GlycoLax, MiraLax, [id number], [employer] ClearLax What is the most important information I should know about polyethylene glycol 3350? You should not use this medicine if you have a bowel obstruction or intestinal blockage. If you have any of these conditions, you could have dangerous or life-threatening side effects from polyethylene glycol 3350. Do not use polyethylene glycol 3350 more than once per day. Call your doctor if you are still constipated or irregular after using this medication for 7 days in a row. What is polyethylene glycol 3350? Polyethylene glycol 3350 is a laxative solution that increases the amount of water in the intestinal tract to stimulate bowel movements. Polyethylene glycol 3350 is used as a laxative to treat occasional constipation or irregular bowel movements. Polyethylene glycol 3350 may also be used for purposes not listed in this medication guide. What should I discuss with my healthcare provider before taking polyethylene glycol 3350? You should not use this medicine if you are allergic to polyethylene glycol, or if you have a bowel obstruction or intestinal blockage. If you have any of these conditions, you could have dangerous or life-threatening side effects from polyethylene glycol 3350. People with eating disorders (such as anorexia or bulimia) should not use this medication without the advice of a doctor. To make sure this medicine is safe for you, tell your doctor if you have: ?? nausea, vomiting, or severe stomach pain; ? ulcerative colitis; ? irritable bowel syndrome; ? kidney disease; or ? if you have had a sudden change in bowel habits that has lasted 2 weeks or longer. FDA category C. It is not known whether polyethylene glycol 3350 will harm an unborn baby. Tell your doctor if you are or plan to become while using this medication. It is not known whether polyethylene glycol 3350 passes into breast milk or if it could harm a nursing baby. Tell your doctor if you are breast-feeding a baby. How should I take polyethylene glycol 3350? Follow all directions on your prescription label. Do not use this medicine in larger or smaller amounts or for longer than recommended. To use the powder form of this medicine, measure your dose with the medicine cap on the bottle. This cap should contain dose rojas on the inside of it. Pour the powder into 4 to 8 ounces of a cold or hot beverage such as water, juice, soda, coffee, or tea. Stir this mixture and drink it right away. Do not save for later use. Polyethylene glycol 3350 should produce a bowel movement within 1 to 3 days of using the medication. Polyethylene glycol 3350 normally causes loose or even watery stools. Do not use polyethylene glycol 3350 more than once per day. Call your doctor if you are still constipated or irregular after using this medication for 7 days in a row. Store at room temperature away from moisture and heat. What happens if I miss a dose? Take the missed dose as soon as you remember. Skip the missed dose if it is almost time for your next scheduled dose. Do not take extra medicine to make up the missed dose. What happens if I overdose? Seek emergency medical attention or call the Poison Help line at . What should I avoid while taking polyethylene glycol 3350? Follow your doctor's instructions about any restrictions on food, beverages, or activity. What are the possible side effects of polyethylene glycol 3350? Get emergency medical help if you have signs of an allergic reaction: hives; difficult breathing; swelling of your face, lips, tongue, or throat. Stop taking this medicine and call your doctor at once if you have: ?? severe or bloody diarrhea; ? rectal bleeding; ? blood in your stools; or ? severe and worsening stomach pain. Common side effects may include: ?? bloating, gas, upset stomach; ? dizziness; or ? increased sweating. This is not a complete list of side effects and others may occur. Call your doctor for medical advice about side effects. You may report side effects to FDA at 4-970-DQR-5866. What other drugs will affect polyethylene glycol 3350? Other drugs may interact with polyethylene glycol 3350, including prescription and ujnp-yvz-ulnskgu medicines, vitamins, and herbal products. Tell each of your health care providers about all medicines you use now and any medicine you start or stop using. Where can I get more information? Your pharmacist can provide more information about polyethylene glycol 3350. Remember, keep this and all other medicines out of the reach of children, never share your medicines with others, and use this medication only for the indication prescribed. Every effort has been made to ensure that the information provided by [employer] is accurate, up-to-date, and complete, but no guarantee is made to that effect. Drug information contained herein may be time sensitive. [employer] information has been compiled for use by healthcare practitioners and consumers in the [place] and therefore [employer] does not warrant that uses outside of the [place] are appropriate, unless specifically indicated otherwise. [employer] drug information does not endorse drugs, diagnose patients or recommend therapy. [employer] drug information is an informational resource designed to assist licensed healthcare practitioners in caring for their patients and/or to serve consumers viewing this service as a supplement to, and not a substitute for, the expertise, skill, knowledge and judgment of healthcare practitioners. The absence of a warning for a given drug or drug combination in no way should be construed to indicate that the drug or drug combination is safe, effective or appropriate for any given patient. [employer] does not assume any responsibility for any aspect of healthcare administered with the aid of information [employer] provides. The information contained herein is not intended to cover all possible uses, directions, precautions, warnings, drug interactions, allergic reactions, or adverse effects. If you have questions about the drugs you are taking, check with your doctor, nurse or pharmacist. Copyright 9740-4533 [employer] [employer]. Version: 2.04. Revision Date: 07/31/2016. acetaminophen and oxycodone (a SEET a MIN oh fen and OX i KOE done) Endocet 10/325, Endocet 2.5/325, Endocet 5/325, Endocet 7.5/325, Nalocet, Percocet 10/325, Percocet 2.5/325, Percocet 5/325, Percocet 7.5/325, Primalev, Primlev, Roxicet, Xartemis XR What is the most important information I should know about acetaminophen and oxycodone? MISUSE OF OPIOID MEDICINE CAN CAUSE ADDICTION, OVERDOSE, OR . Keep the medication in a place where others cannot get to it. An overdose of acetaminophen can damage your liver or cause . Call your doctor at once if you have pain in your upper stomach, loss of appetite, dark urine, or jaundice (yellowing of your skin or eyes). Taking opioid medicine during may cause life-threatening withdrawal symptoms in the . Fatal side effects can occur if you use opioid medicine with alcohol, or with other drugs that cause drowsiness or slow your breathing. Stop taking this medicine and call your doctor right away if you have skin redness or a rash that spreads and causes blistering and peeling. What is acetaminophen and oxycodone? Oxycodone is an opioid pain medication, sometimes called a narcotic. Acetaminophen is a less potent pain reliever that increases the effects of oxycodone. Acetaminophen and oxycodone is a combination medicine used to relieve moderate to severe pain. Acetaminophen and oxycodone may also be used for purposes not listed in this medication guide. What should I discuss with my healthcare provider before taking acetaminophen and oxycodone? You should not use this medicine if you are allergic to acetaminophen or oxycodone, or if you have: ?? severe asthma or breathing problems; or ? a blockage in your stomach or intestines. Tell your doctor if you have ever had: ?? liver disease; ? a drug or alcohol addiction; ? kidney disease; ? a head injury or seizures; ? urination problems; or ? problems with your thyroid, pancreas, or gallbladder. If you use opioid medicine while you are , your baby could become dependent on the drug. This can cause life-threatening withdrawal symptoms in the baby after it is born. Babies born dependent on opioids may need medical treatment for several weeks. Do not breast-feed. This medicine can pass into breast milk and cause drowsiness, breathing problems, or in a nursing baby. How should I take acetaminophen and oxycodone? Follow all directions on your prescription label. Never take this medicine in larger amounts, or for longer than prescribed. An overdose can damage your liver or cause . Tell your doctor if the medicine seems to stop working as well in relieving your pain. Never share this medicine with another person, especially someone with a history of drug abuse or addiction. MISUSE CAN CAUSE ADDICTION, OVERDOSE, OR . Keep the medicine in a place where others cannot get to it. Selling or giving away acetaminophen and oxycodone is against the law. Measure liquid medicine carefully. Use the dosing syringe provided, or use a medicine dose-measuring device (not a kitchen spoon). If you need surgery or medical tests, tell the doctor ahead of time that you are using this medicine. You should not stop using this medicine suddenly. Follow your doctor's instructions about tapering your dose. Store at room temperature away from moisture and heat. Keep track of your medicine. You should be aware if anyone is using it improperly or without a prescription. Do not keep leftover opioid medication. Just one dose can cause in someone using this medicine accidentally or improperly. Ask your pharmacist where to locate a drug take-back disposal program. If there is no take-back program, flush the unused medicine down the toilet. What happens if I miss a dose? Since this medicine is used for pain, you are not likely to miss a dose. Skip any missed dose if it is almost time for your next dose. Do not use two doses at one time. What happens if I overdose? Seek emergency medical attention or call the Poison Help line at . An overdose of acetaminophen and oxycodone can be fatal. The first signs of an acetaminophen overdose include loss of appetite, nausea, vomiting, stomach pain, sweating, and confusion or weakness. Later symptoms may include pain in your upper stomach, dark urine, and yellowing of your skin or the whites of your eyes. Overdose can also cause severe muscle weakness, pinpoint pupils, very slow breathing, extreme drowsiness, or coma. What should I avoid while taking acetaminophen and oxycodone? Avoid driving or operating machinery until you know how this medicine will affect you. Dizziness or drowsiness can cause falls, accidents, or severe injuries. Do not drink alcohol. Dangerous side effects or could occur. Ask a doctor or pharmacist before using any other medicine that may contain acetaminophen (sometimes abbreviated as APAP). Taking certain medications together can lead to a fatal overdose. What are the possible side effects of acetaminophen and oxycodone? Get emergency medical help if you have signs of an allergic reaction: hives; difficulty breathing; swelling of your face, lips, tongue, or throat. Opioid medicine can slow or stop your breathing, and may occur. A person caring for you should seek emergency medical attention if you have slow breathing with long pauses, blue colored lips, or if you are hard to wake up. In rare cases, acetaminophen may cause a severe skin reaction that can be fatal. This could occur even if you have taken acetaminophen in the past and had no reaction. Stop taking this medicine and call your doctor right away if you have skin redness or a rash that spreads and causes blistering and peeling. Call your doctor at once if you have: ?? noisy breathing, sighing, shallow breathing; ? a light-headed feeling, like you might pass out; ? weakness, tiredness, fever, unusual bruising or bleeding; ? confusion, unusual thoughts or behavior; ? problems with urination; ? liver problems--nausea, upper stomach pain, tiredness, loss of appetite, dark urine, maciel-colored stools, jaundice (yellowing of the skin or eyes); or ? low cortisol levels-- nausea, vomiting, loss of appetite, dizziness, worsening tiredness or weakness. Seek medical attention right away if you have symptoms of serotonin syndrome, such as: agitation, hallucinations, fever, sweating, shivering, fast heart rate, muscle stiffness, twitching, loss of coordination, nausea, vomiting, or diarrhea. Serious side effects may be more likely in older adults and those who are overweight, malnourished, or debilitated. Long-term use of opioid medication may affect fertility (ability to have children) in men or women. It is not known whether opioid effects on fertility are permanent. Common side effects include: ?? dizziness, drowsiness, feeling tired; ? feelings of extreme happiness or sadness; ? nausea, vomiting, stomach pain; ? constipation; or ? headache. This is not a complete list of side effects and others may occur. Call your doctor for medical advice about side effects. You may report side effects to FDA at 9-562-MWT-7981. What other drugs will affect acetaminophen and oxycodone? You may have breathing problems or withdrawal symptoms if you start or stop taking certain other medicines. Tell your doctor if you also use an antibiotic, antifungal medication, heart or blood pressure medication, seizure medication, or medicine to treat HIV or hepatitis C. Opioid medication can interact with many other drugs and cause dangerous side effects or . Be sure your doctor knows if you also use: ?? cold or allergy medicines, bronchodilator asthma/COPD medication, or a diuretic ('water pill'); ? medicines for motion sickness, irritable bowel syndrome, or overactive bladder; ? other narcotic medications--opioid pain medicine or prescription cough medicine; ? a sedative like Valium--diazepam, alprazolam, lorazepam, Xanax, Klonopin, Versed, and others; ? drugs that make you sleepy or slow your breathing--a sleeping pill, muscle relaxer, medicine to treat mood disorders or mental illness; ? drugs that affect serotonin levels in your body--a stimulant, or medicine for depression, Parkinson's disease, migraine headaches, serious infections, or nausea and vomiting. This list is not complete. Other drugs may affect acetaminophen and oxycodone, including prescription and [id number] medicines, vitamins, and herbal products. Not all possible interactions are listed here. Where can I get more information? Your doctor or pharmacist can provide more information about acetaminophen and oxycodone. Remember, keep this and all other medicines out of the reach of children, never share your medicines with others, and use this medication only for the indication prescribed. Every effort has been made to ensure that the information provided by [employer]. ('[employer]') is accurate, up-to-date, and complete, but no guarantee is made to that effect. Drug information contained herein may be time sensitive. [employer] information has been compiled for use by healthcare practitioners and consumers in the [place] and therefore [employer] does not warrant that uses outside of the [place] are appropriate, unless specifically indicated otherwise. [employer] drug information does not endorse drugs, diagnose patients or recommend therapy. [employer] drug information is an informational resource designed to assist licensed healthcare practitioners in caring for their patients and/or to serve consumers viewing this service as a supplement to, and not a substitute for, the expertise, skill, knowledge and judgment of healthcare practitioners. The absence of a warning for a given drug or drug combination in no way should be construed to indicate that the drug or drug combination is safe, effective or appropriate for any given patient. [employer] does not assume any responsibility for any aspect of healthcare administered with the aid of information [employer] provides. The information contained herein is not intended to cover all possible uses, directions, precautions, warnings, drug interactions, allergic reactions, or adverse effects. If you have questions about the drugs you are taking, check with your doctor, nurse or pharmacist. Copyright 2746-3000 [employer]. Version: 18.02. Revision Date: 03/25/2018. Thank you for choosing [facility] [place] Main OR Intraoperative Recor don 08-18-2018 Main OR Intraoperative Record IntraOp Document Type FT Summary Primary Physician: Kameron OAKLEY MD Finalized Date/Time: 08/18/18 15:00:16 Pt. Name: ABDOULAYE BENTLEY/Sex: 1965 Female Med Rec #: [id number] Physician: Kameron OAKLEY MD Financial #: [id number] Pt. Type: A Room/Bed: [place] [address] Admit/Disch: 08/17/18 06:56:00 - 08/18/18 11:36:00 Institution: Case Times FT Entry 1 Patient Times In Room 08/17/18 08:34:00 Out Room 08/17/18 10:02:00 Procedure Times Start 08/17/18 09:09:00 Stop 08/17/18 09:56:00 Anesthesia Times Start 08/17/18 08:34:00 Stop 08/17/18 10:02:00 Block Timeout w08/17/18 08:50:00 Anesthesia Last Modified By: Margaret Ceja CST 08/17/18 10:09:26 General Comments: 0850: TAP BLOCK PERFORMED BY DR. BASURTO AFTER SUCCESSFUL INTUBATION. ULTRASOUND GUIDED BY ASSISTANCE BY CHRIS OSCAR.- CHRIS NEFF 08/18/18 Chart opened to review and send charges J Marcial FINANCIAL SALES ADVISOR Case Attendance FT Entry 1 Entry 2 Entry 3 Case Attendee Rustam CAA, Jyothi OAKLEY MD, Kameron PARKER MD, Shruthi Dominguez Role Performed Slat Basket Top Maker Surgeon - Primary Surgeon - Assist 1 Time In 08/17/18 08:34:00 08/17/18 08:34:00 08/17/18 08:34:00 Time Out 08/17/18 10:02:00 08/17/18 10:02:00 08/17/18 09:58:00 Procedure COLON RESECTION(.) COLON RESECTION(.) COLON RESECTION(.) Comments dr. basurto supervising Last Modified By: Jarvis RN, Simran Conley RN, Simran Conley RN, Simran Jaimes 08/17/18 10:09:47 08/17/18 10:09:47 08/17/18 10:09:47 Entry 4 Entry 5 Entry 6 Case Attendee Jarvis PEREZ, Simran Ceja FINANCIAL SALES ADVISOR, Margaret Wylie RN, CNOR, [place] Role Performed Singeing Torch Operator - Primary Scrub - Primary Singeing Torch Operator - Other Time In 08/17/18 08:34:00 08/17/18 08:34:00 08/17/18 08:34:00 Time Out 08/17/18 10:02:00 08/17/18 10:02:00 08/17/18 09:35:00 Procedure COLON RESECTION(.) COLON RESECTION(.) COLON RESECTION(.) Comments Last Modified By: Jarvis RN, Simran Conley RN, Simran Conley RN, Simran Jaimes 08/17/18 10:09:47 08/17/18 10:09:47 08/17/18 10:09:47 Perioperative Protocols FT Pre-Care Text: Implements protective measures prior to operative or invasive procedure, confirms identity before the operative or invasive procedure, verifies operative procedure, surgical site, and laterality Entry 1 Procedure(s) COLON RESECTION(.) Patient Identity Birthday, Blood Band, Verified (select at ID Band Check, Patient least 2): Participation, Other/See Comments Consents / H and P Anesthesia Consent, Operative Site N/A Verified HandP, Surgery/Procedure Marking Verified Consent, Other/See Comments Surgical Site Yes Laterality Verified n/a Verified Procedure Verified Yes Correct Patient Yes Position Verified Availability Equipment, Medication Prep Dry Yes Verified (If Applicable) PreOp Antibiotic Yes Time Out Rustam WINSTON, Jyothi Cordero, Given Participants CELE PACHECO, KEITH Booker MD, Jarvis Zhang RN, Rustam Lr Carly C, Stocker RN, [place] SAINI Time Out Complete 08/17/18 09:05:00 Outcomes Met? Yes Last Modified By: Simran Conley RN 08/17/18 09:12:43 Post-Care Text: The patient is free from signs and symptoms of injury caused by extraneous objects General Comments: Consents verifiend with family member present. CHRIS Neff Allergy Information FT Pre-Care Text: Verifies allergies Entry 1 Allergies Reviewed? Yes Allergies Reviewed Self/Patient With Outcomes Met? Yes Last Modified By: Simran Conley RN 08/17/18 09:11:38 Post-Care Text: The patient received appropriate medication(s) safely administered during the perioperative period General Comments: verified with family member present. CHRIS Neff Surgical Procedures FT Entry 1 Procedure Description Procedure COLON RESECTION Modifiers . Surgeon Description exploratory laparotomy with repair of SIGMOID COLON Primary Procedure Yes Primary Surgeon CELE PACHECO, Kameron Simon Start 08/17/18 09:09:00 Stop 08/17/18 09:56:00 Anesthesia Type General Surgical Service General Wound Class 3 - Contaminated Last Modified By: Simran Conley RN 08/17/18 10:08:57 General Case Data FT Pre-Care Text: Classifies surgical wound, implements aseptic technique, initiates traffic control Entry 1 Case Information OR OR 5 FT Case Level Level 4 Wound Class 3 - Contaminated Specialty General ASA Class 2E Preop Diagnosis perforated bowel Postop Same As Preop Yes Postop Diagnosis perforated bowel Outcomes Met? Yes Last Modified By: Simran Conley RN 08/17/18 10:09:58 Post-Care Text: The patient is free from signs and symptoms of infection Skin Assessment (Pre Procedure) FT Pre-Care Text: Implements protective measures to prevent skin/ tissue injury due to thermal or mechanical sources Evaluates for signs and symptoms of physical injury to skin and tissue Entry 1 Skin Integrity Warm, [place], Other/See Skin Abnormality Yes Comments Outcomes Met? Yes Last Modified By: Simran Conley RN 08/17/18 09:32:21 Post-Care Text: The patient is free from signs and symptoms of injury caused by extraneous objects Patient Positioning FT Pre-Care Text: Identifies physical alterations that require additional precautions for procedure-specific positioning, verifies presence of prosthetics or corrective devices, positions the patient, evaluates the patient for signs and symptoms of injury as a result of positioning Entry 1 Procedure COLON RESECTION(.) Body Position Supine Feet Uncrossed? Yes Left Arm Position Extended on Padded Arm Board Right Arm Position Extended on Padded Arm Left Leg Position Secured in Stirrup Board Right Leg Position Secured in Stirrup Positioning Device Safety Strap, Pillow Under Head Large, Stirrups Yellow Fins Press Points Checked Yes By Jyothi Avila SCHMIDT MD, Jarvis Booker RN, Inessa Lr RN, [place] SAINI Outcomes Met? Yes Last Modified By: Simran Conley RN 08/18/18 15:00:04 Post-Care Text: The patient is free from signs and symptoms of injury related to positioning General Comments: positioned pt in stirrups with legs extended per Dr. Oakley's request. CHRIS Neff Patient Care Devices FT Pre-Care Text: Implements protective measures to prevent skin/ tissue injury due to thermal or mechanical sources Entry 1 Entry 2 Entry 3 Equipment Type CAUTERY UNIT[F] MISTRAL FORCED AIR MONITOR CHARGE SURGERY WARMING SYSTEM UNIT[F] [F] Equipment Number boom or 5 m4 Equipment Setting Outcomes Met? Yes Yes Yes Last Modified By: Jarvis PEREZ, Simran Conley RN, Simran Chen RN 08/17/18 08:09:08 08/17/18 08:09:08 08/17/18 08:09:08 Entry 4 Entry 5 Entry 6 Equipment Type SOLUTION BASIN VENA FLOW UNIT[F] LIGASURE GENERATOR[F] WARMER[F] Equipment Number c3 Equipment Setting Outcomes Met? Yes Yes Yes Last Modified By: Simran Conley RN, RN, Simran Chen RN 08/17/18 08:09:08 08/17/18 08:09:08 08/17/18 09:56:39 Entry 7 Entry 8 Equipment Type GLIDESCOPE, SONOSITE ULTRASOUND INTUBATING[F] UNIT[F] Equipment Number Equipment Setting Outcomes Met? Yes Yes Last Modified By: Simran Conley RN, RN, Karen M 04/22/19 10:15:48 08/17/18 10:15:48 Post-Care Text: The patient is free from signs and symptoms of injury caused by extraneous objects Transport To OR FT Pre-Care Text: Transports according to individual needs. Evaluates for signs and symptoms of skin and tissue injury as a result of transfer or transport Entry 1 Via Patient Bed Safety Precautions Side Rails Up Outcomes Met? Yes Last Modified By: Simran Conley RN 08/17/18 08:20:25 Post-Care Text: The patient is free from signs and symptoms of injury related to transfer/transport Cautery FT Pre-Care Text: Implements protective measures to prevent injury due to electrical sources, and evaluates for signs and symptoms of electrical injury Entry 1 ESU Identification ESU Settings Cut 0 Coag 35 ESU Grounding Pad Site Left Thigh Hair Removal Pad No Site Pre Pad Site Clear and Intact Post Pad Site Clear and Intact Condition Condition Grounding Pad Simran Conley RN Placed By Outcomes Met? Yes Last Modified By: Simran Conley RN 08/17/18 09:25:19 Post-Care Text: The patient if free from signs and symptoms of electrical injury General Comments: ligasure used with C3 cautery Counts Verification FT Pre-Care Text: Performs required counts Entry 1 Entry 2 Entry 3 Procedure(s) COLON RESECTION(.) COLON RESECTION(.) COLON RESECTION(.) Type Initial Closing Final Items Instruments, Sponges, Instruments, Sponges, Instruments, Sponges, Sharps Sharps Sharps Status Correct Correct Correct Time By Simran Conley RN, Farris RN, Karen M, Farris RN, Karen M, Barney FINANCIAL SALES ADVISOR, Margaret Ceja FINANCIAL SALES ADVISOR, Margaret Ceja CST, Margaret Outcomes Met? Yes Yes Yes Last Modified By: Simran Conley RN, RN, Karen M Farris RN, Karen M 08/17/18 09:30:28 08/17/18 09:49:19 08/17/18 09:49:19 Post-Care Text: The patient is free from signs and symptoms of injury caused by extraneous objects Skin Prep FT Pre-Care Text: Performs skin preparations Entry 1 Procedure COLON RESECTION(.) Prep Area abdomen Prep Agents Chloraprep/Dry Prior to Draping Hair Removal Methods Not Indicated By Inessa PEREZ, CNOR, Outcomes Met? Yes [place] Last Modified By: Simran Conley RN 08/17/18 09:25:52 Post-Care Text: The patient is free from signs and symptoms of infection Departure From OR FT Pre-Care Text: Transports according to individual needs. Evaluates for signs and symptoms of skin and tissue injury as a result of transfer or transport. Entry 1 Via Patient Bed Safety Precautions Side Rails Up PostOp Destination PACU Transported By Simran Conley RN Skin. Condition Other/See Comments Description same as pre op Airway Maintenance Oxygen in Use? Yes Airway Device Simple Mask Flow Rate 10 L/min Outcomes Met? Yes Last Modified By: Simran Conley RN 08/17/18 09:35:15 Post-Care Text: The patient is free from signs and symptoms of injury related to transfer/transport General Comments: HANDOFF REPORT GIVEN TO PACU NURSE. CHRIS NEFF Dressing/Packing FT Pre-Care Text: Administers care to wound sites Entry 1 Type Dressing Items DRESSING SILVERLON SILVER PAD 2 X 12 [WPD-212][F] Site and Details ABDOMEN: BRANDI, Outcomes Met? Yes SILVERON, 4X4 TAPS Last Modified By: Simran Conley RN 08/17/18 09:54:47 Post-Care Text: The patient is free from signs and symptoms of infection Medication Administration FT Pre-Care Text: Verifies allergies, administers prescribed medications and solutions, administers prescribed antibiotic therapy and immunizing agents as ordered, evaluates response to medications Administers prescribed medications and solutions Entry 1 Expiration Date Yes Outcomes Met? Yes Verified Last Modified By: Simran Conley RN 08/17/18 08:11:11 Post-Care Text: The patient received appropriate medication(s) safely administered during the perioperative period For [place] please see scanned medication reconcilliation form for medications used at the field during the procedure. Drains/Tubes FT Pre-Care Text: Administers care to invasive device sites Entry 1 Device Type TUBE NASOGASTIC SUMP Location oral 18FR [[id number]][F] Quantity 1 Inserted By Jyothi Avila Present on Arrival? No Immediate DC? No DC'd at End of Case? Yes DC'd By Jyothi Avila Outcomes Met? Yes Last Modified By: Simran Conley RN 08/17/18 09:34:00 Post-Care Text: The patient is free from signs and symptoms of infection Urinary Catheter Pre-Care Text: Patient is prepped using sterile technique. Entry 1 Urinary Catheter zoya Present Upon Arrival No Inserted Insertion Date/Time 08/17/18 08:42:00 Urine Residual 25 Insertion Site Uretheral Urine dark yellow Characteristics Inserted By Simran Conley RN Discontinued? No Outcomes Met? Yes Last Modified By: Simran Conley RN 08/17/18 09:33:26 Post-Care Text: The patient is free from signs of trauma. Cultures and Specimens FT Pre-Care Text: Manages specimen handling and disposition Manages culture specimen collection Entry 1 Cultures Ordered Yes Culture Disposition Designated OR Area Culture Source URINE Specimens Ordered No Specimen Disposition Designated OR Area Frozen Section Times Outcomes Met? Yes Last Modified By: Simran Conley RN 08/17/18 10:10:20 Post-Care Text: The patient is free from signs and symptoms of injury caused by extraneous objects The patient is free from signs and symptoms of infection General Comments: NO SPECIMEN. CHRIS NEFF Temperature Control Entry 1 Temperature Control BLANKET MISTRAL AIR Quantity 1 Aid TORSO [[id number]][F] Fluid/[place] Unit Mistral warming system Setting high Body Site Upper anterior torso Last Modified By: Simran Conley RN 08/17/18 09:26:50 Case Comments Finalized By: Simran Conley RN Document Signatures Signed By: Simran Conley RN 08/17/18 10:10 Simran Conley RN 08/17/18 10:16 Margaret Ceja CST 08/18/18 12:34 Margaret Ceja CST 08/18/18 12:30 Simran Conley RN 08/18/18 15:00 Normal [facility] [place] Main OR Intraoperative Record IntraOp Document Type FT Summary Primary Physician: Kameron OALKEY MD Finalized Date/Time: 08/18/18 14:07:09 Pt. Name: ABDOULAYE BENTLEY/Sex: 1965 Female Med Rec #: [id number] Physician: Kameron OAKLEY MD Financial #: [id number] Pt. Type: A Room/Bed: [place] [address] Admit/Disch: 08/17/18 06:56:00 - 08/18/18 11:36:00 Institution: Case Times FT Entry 1 Patient Times In Room 08/17/18 07:26:00 Out Room 08/17/18 07:43:00 Procedure Times Start 08/17/18 07:30:00 Stop 08/17/18 07:37:00 Anesthesia Times Start 08/17/18 07:26:00 Stop 08/17/18 07:43:00 Last Modified By: Margaret Ceja CST 08/17/18 07:43:11 General Comments: 08/18/18 Chart opened to review and send charges Zan Ceja CST Case Attendance FT Entry 1 Entry 2 Entry 3 Case Attendee Laina ZAPATA DO, Donato OAKLEY MD, Kameron Sims RN, Shanta Dominguez Role Performed Anesthesiologist of Surgeon - Primary Singeing Torch Operator - Primary Record Time In 08/17/18 07:26:00 08/17/18 07:26:00 08/17/18 07:26:00 Time Out 08/17/18 07:43:00 08/17/18 07:40:00 08/17/18 07:43:00 Procedure COLONOSCOPY(.) COLONOSCOPY(.) COLONOSCOPY(.) Comments Last Modified By: Levi RN, Shanta Sims RN, Shanta Elizabeth RN 08/17/18 07:43:13 08/17/18 07:43:13 08/17/18 07:43:13 Entry 4 Case Attendee Carlos JO/Trudy BARILLAS Role Performed Scrub - Primary Time In 08/17/18 07:26:00 Time Out 08/17/18 07:43:00 Procedure COLONOSCOPY(.) Comments Last Modified By: Shanta Sims RN 08/17/18 07:43:13 General Comments: Baljit March [facility] student present for procedure. Winston Sims RNproduct safety administrator Protocols FT Pre-Care Text: Implements protective measures prior to operative or invasive procedure, confirms identity before the operative or invasive procedure, verifies operative procedure, surgical site, and laterality Entry 1 Procedure(s) COLONOSCOPY(.) Patient Identity Birthday, ID Band Verified (select at Check, Patient least 2): Participation Consents / H and P Anesthesia Consent, Operative Site N/A Verified HandP, Surgery/Procedure Marking Verified Consent Surgical Site Yes Laterality Verified No Verified Procedure Verified Yes Correct Patient Yes Position Verified Availability Equipment, Medication Prep Dry n/a Verified (If Applicable) PreOp Antibiotic No Time Out Donato Marina JR, DO, SCHMIDT MD, Eric R, Coy RN, Emily A, Timmons FINANCIAL SALES ADVISOR/SA, Trudy Time Out Complete 08/17/18 07:30:00 Outcomes Met? Yes Last Modified By: Shanta Sims RN 08/17/18 07:30:29 Post-Care Text: The patient is free from signs and symptoms of injury caused by extraneous objects Allergy Information FT Pre-Care Text: Verifies allergies Entry 1 Allergies Reviewed? Yes Allergies Reviewed Self/Patient With Outcomes Met? Yes Last Modified By: Shanta Sims RN 08/17/18 07:06:00 Post-Care Text: The patient received appropriate medication(s) safely administered during the perioperative period Surgical Procedures FT Entry 1 Procedure Description Procedure COLONOSCOPY Modifiers . Surgeon Description colonoscopy Primary Procedure Yes Primary Surgeon CELE PACHECO, Kameron Simon Start 08/17/18 07:30:00 Stop 08/17/18 07:37:00 Anesthesia Type General Surgical Service General Wound Class 2 - Clean-Contaminated Last Modified By: Shanta Sims RN 08/17/18 07:38:05 General Case Data FT Pre-Care Text: Classifies surgical wound, implements aseptic technique, initiates traffic control Entry 1 Case Information OR ENDO 2 FT Case Level Level 2 Wound Class 2 - Clean-Contaminated Specialty General ASA Class 2 Preop Diagnosis SCREENING Postop Diagnosis normal colonoscopy to sigmoid colon Outcomes Met? Yes Last Modified By: Shanta Sims RN 08/17/18 07:40:00 Post-Care Text: The patient is free from signs and symptoms of infection Skin Assessment (Pre Procedure) FT Pre-Care Text: Implements protective measures to prevent skin/ tissue injury due to thermal or mechanical sources Evaluates for signs and symptoms of physical injury to skin and tissue Entry 1 Skin Integrity Intact, [place], Warm, and Skin Abnormality No Dry Outcomes Met? Yes Last Modified By: Shanta Sims RN 08/17/18 06:57:05 Post-Care Text: The patient is free from signs and symptoms of injury caused by extraneous objects Patient Positioning FT Pre-Care Text: Identifies physical alterations that require additional precautions for procedure-specific positioning, verifies presence of prosthetics or corrective devices, positions the patient, evaluates the patient for signs and symptoms of injury as a result of positioning Entry 1 Procedure COLONOSCOPY(.) Additional patient assisted with Information positioning self on cart Body Position Lateral, right side up Feet Uncrossed? Yes Left Arm Position Resting at Side Right Arm Position Resting at Side Left Leg Position Extended Right Leg Position Extended Positioning Device Pillow Under Head Large Press Points Checked Yes By Donato Marina JR, DO Outcomes Met? Yes Levi Zuluaga RN, Emily A, Timmons FINANCIAL SALES ADVISOR/SA, Trudy Last Modified By: Shanta Sims RN 08/17/18 07:32:03 Post-Care Text: The patient is free from signs and symptoms of injury related to positioning Patient Care Devices FT Pre-Care Text: Implements protective measures to prevent skin/ tissue injury due to thermal or mechanical sources Entry 1 Entry 2 Equipment Type ENDOSCOPY VIDEO MONITOR CHARGE SURGERY SYSTEM[F] [F] Equipment Number endo room 2 Equipment Setting Outcomes Met? Yes Yes Last Modified By: Shanta Sims RN, RN, Emily A 08/17/18 06:56:01 08/17/18 06:56:01 Post-Care Text: The patient is free from signs and symptoms of injury caused by extraneous objects Transport To OR Pre-Care Text: Transports according to individual needs. Evaluates for signs and symptoms of skin and tissue injury as a result of transfer or transport Entry 1 Via Cart By Shanta Sims RN Safety Precautions Side Rails Up Outcomes Met? Yes Last Modified By: Shanta Sims RN 08/17/18 06:56:24 Post-Care Text: The patient is free from signs and symptoms of injury related to transfer/transport Departure From OR Pre-Care Text: Transports according to individual needs. Evaluates for signs and symptoms of skin and tissue injury as a result of transfer or transport. Entry 1 Via Cart Safety Precautions Side Rails Up PostOp Destination PACU Transported By Shanta Sims RN Patient Status Stable Skin. Condition Intact, [place], Warm, and Dry Airway Maintenance Oxygen in Use? No Outcomes Met? Yes Last Modified By: Shanta Sims RN 08/17/18 06:58:20 Post-Care Text: The patient is free from signs and symptoms of injury related to transfer/transport General Comments: report given to fashion journalistrn. Winston sims rn Medication Administration FT Pre-Care Text: Verifies allergies, administers prescribed medications and solutions, administers prescribed antibiotic therapy and immunizing agents as ordered, evaluates response to medications Administers prescribed medications and solutions Entry 1 Route of Admin Field Expiration Date Yes Verified Outcomes Met? Yes Last Modified By: Shanta Sims RN 08/17/18 06:56:18 Post-Care Text: The patient received appropriate medication(s) safely administered during the perioperative period For Rafy please see scanned medication reconcilliation form for medications used at the field during the procedure. Normal [facility] Operative Reporton 9 Operative Report Result type: Progres s Note-Physician Result date: August 17, 2018 09:04 EDT Result status: Auth (Verified) Result title: TAP block Performed by: Rick Basurto Jr., DO on August 17, 2018 09:06 EDT Verified by: Rick Basurto Jr., DO on August 17, 2018 09:06 EDT Encounter info: [id number], Krunal Nichole, Ambulatory/Same Day Surgery, 08/17/2018 - * Final Report * MOVED TO CORRECT FOLDER TAP block Patient: ABDOULAYE BENTLEY Age: 53 years Sex: Female : 1965 Associated Diagnoses: None Author: Rick Basurto Jr., DO Postoperative Information Date/ Time: 08/17/18 08:52:00 Preoperative Diagnosis: Acute postoperative pain.. Postoperative Diagnosis: Acute postoperative pain. Procedure: Bilateral TAP block. Anesthesia Method: GETA. Performed by: Rick Basurto Jr., DO. Medications: see anesthesia record. Complications: None. Notes: The patient was interviewed and examined prior to the planned operation. Anesthesia options were discussed including transverse abdominal plane (TAP) block for postoperative analgesia. This discussion included a description of the procedure, risks and benefits, as well as alternatives to the block. The patients questions were addressed and the patient elected to proceed with preoperative interscalene administration of local anesthetic agent. After induction of general anesthesia, with the patient placed in a supine position and monitored with continuous pulse oximetry, non-invasive blood pressure, and electrocardiography and following time-out, the patient's pertinent anatomic landmarks were identified. The right lateral abdomen was prepped with chloroprep. Ultrasound guidance was employed with the probe placed in a transverse fashion laterally in the sub-costal region above the iliac crest. The abdominal muscle layers were identified. Medial to the ultrasound probe, a 21 gauge x 100 mm needle was introduced under ultrasonic gudance. The needle was advanced laterally through the external oblique and internal oblique to the superior surface of the transversus abdominus. With intermittent attempts for aspiration of blood, _30_ cc of a mix of 0.25% plain Bupivacaine (15 mL) plus 1.3% liposomal Bupivaine (20 mL) diluted normal saline (35 mL). No signs or symptoms of intravascular injection were elicited during the procedure. The left lateral abdomen was prepped and injected in the same fashion as the first side, with ultrasound guidance. _20_ cc of the same local anesthetic mix was employed on this side. The patient tolerated the procedure well. Following the TAP block, preparations continued for the proposed operation.. Signature Line Electronically Signed By: Rick Basurto Jr., DO Date and Time Signed: 08/17/18 09:06 EDT [facility] Comment on above: Result Comment: Elec tronically Signed By: Rick Basurto Jr., DO\.br\Date and Time Signed: 08/18/18 14:25 EDT Operative Report Date of Surgery: 08/17/2018 SURGEON: Kameron Oakley MD, FACS BUSINESS SALES CONSULTANT: Jennifer Parker M.D., FACS PREOPERATIVE DIAGNOSIS: Perforated sigmoid colon due to colonoscopy POSTOPERATIVE DIAGNOSIS: Perforated sigmoid colon due to colonoscopy OPERATION: 1. Exploratory laparotomy 2. Suture repair of sigmoid perforation ANESTHESIA: General with TAP block and local ANESTHESIOLOGIST: Rick Basurto Jr., D.O. INDICATIONS: This is a 53 year old white female who underwent a screening colonoscopy earlier this morning. A perforation of the sigmoid colon was recognized during the attempted colonoscopy. The patient was brought to an urgent basis to surgery for repair. PROCEDURE: She was given 500 mg of Flagyl and 400 mg of Cipro I.V. prior to starting the procedure. Under general anesthesia she was prepped and draped in the usual sterile manner with ChloraPrep after TAP block was performed bilaterally by Dr. Basurto. Hillman catheter and orogastric tube were placed. The skin was further anesthetized with 0.25% Marcaine Plain mixed with Exparel and a lower midline incision made. Dissection was carried out down to the level of the peritoneum which was opened carefully the length of the incision. Upon opening the abdominal cavity no significant fluid or air was noted. The patient was placed in slight Trendelenburg position and the Bookwalter self-retaining retractor placed and the small bowel packed out of the pelvis. There was omental adhesion to the sigmoid colon just proximal to the perforation which was divided with electrocautery. There were dense adhesions which appeared congenital to the lateral side wall on the patient's left side adjacent to the perforation. The perforation was easily identified on the antimesenteric surface of the mid-sigmoid colon. This was outside the pelvic brim and easily accessible once the lateral peritoneal adhesions were divided with electrocautery. The perforation was longitudinal in nature and measured approximately 3 cm in length. This was closed primarily with a running lock 2-0 Vicryl full thickness suture and then reinforced with interrupted 3-0 Silk Lembert sutures. The perforation was closed longitudinally. It did not appear that the lumen was compromised or narrowed with this closure. There was a small amount of greenish liquid fluid leakage which was promptly suctioned from the pelvis. After completion of the closure the pelvis was irrigated with copious amounts of Normal Saline which was then aspirated as best as possible. Good hemostasis was noted. No other abnormalities were noted. A contracted uterus and ovaries were noted without abnormality. The peritoneum was closed with a running 0 Vicryl suture. The fascia was then closed with short running #1 PDS suture. Subcutaneous layer was reapproximated with interrupted 3-0 Vicryl suture and the skin closed with brandi with sterile dressing applied and abdominal binder placed. The patient tolerated the procedure well and was transferred to the Recovery Room in stable condition. Kameron Oakley MD, FACS [facility] Dictated: 08/17/2018 #[id number] Typed: 08/17/2018 #[id number] cc: Kameron Oakley MD, FACS [facility] Comment on above: Result Comment: Elec tronically Signed By: Kameron OAKLEY MD.br\Date and Time Signed: 08/18/18 07:09 EDT Progress Note-Physicianon Protein mass conc Patient: ABDOULAYE BENTLEY Age: 53 years Sex: Female : 1965 Associated Diagnoses: None Author: Kameron OAKLEY MD Basic Information Surgery POD#1 No complaints. Had 1 Percocet @ 0300. Pain well controlled with oral analgesics. Had liquid stool (residual prep) this am. Tolerating liquids. Dressing dry, intact. A/P: S/P repair sigmoid perforation - stable for DC. Normal [facility] Comment on above: Result Comment: Elec tronically Signed By: Kameron OAKLEY MD\.br\Date and Time Signed: 08/18/18 10:59 EDT Protein mass conc Patient: ABDOULAYE BENTLEY Age: 53 years Sex: Female : 1965 Associated Diagnoses: None Author: Rick Basurto Jr., DO Postoperative Information Date/ Time: 08/17/18 08:52:00 Preoperative Diagnosis: Acute postoperative pain.. Postoperative Diagnosis: Acute postoperative pain. Procedure: Bilateral TAP block. Anesthesia Method: GETA. Performed by: Rick Basurto Jr., DO. Medications: see anesthesia record. Complications: None. Notes: The patient was interviewed and examined prior to the planned operation. Anesthesia options were discussed including transverse abdominal plane (TAP) block for postoperative analgesia. This discussion included a description of the procedure, risks and benefits, as well as alternatives to the block. The patients questions were addressed and the patient elected to proceed with preoperative interscalene administration of local anesthetic agent. After induction of general anesthesia, with the patient placed in a supine position and monitored with continuous pulse oximetry, non-invasive blood pressure, and electrocardiography and following time-out, the patient's pertinent anatomic landmarks were identified. The right lateral abdomen was prepped with chloroprep. Ultrasound guidance was employed with the probe placed in a transverse fashion laterally in the sub-costal region above the iliac crest. The abdominal muscle layers were identified. Medial to the ultrasound probe, a 21 gauge x 100 mm needle was introduced under ultrasonic gudance. The needle was advanced laterally through the external oblique and internal oblique to the superior surface of the transversus abdominus. With intermittent attempts for aspiration of blood, _30_ cc of a mix of 0.25% plain Bupivacaine (15 mL) plus 1.3% liposomal Bupivaine (20 mL) diluted normal saline (35 mL). No signs or symptoms of intravascular injection were elicited during the procedure. The left lateral abdomen was prepped and injected in the same fashion as the first side, with ultrasound guidance. _20_ cc of the same local anesthetic mix was employed on this side. The patient tolerated the procedure well. Following the TAP block, preparations continued for the proposed operation.. Normal [facility] Comment on above: Result Comment: Elec tronically Signed By: Rick Basurto Jr., DO\.olivia\Date and Time Signed: 08/17/18 09:06 EDT error - wrong folder ABO/Rhon 08-17-2018 ABO/Rh AB NEG [facility] Comment on above: Performed By: #### 2 [id number], [id number], [id number], [id number] ####[facility] [address] [place] [address] ABSCon 08-17-2018 ABSC Gel Interp Negative Normal [facility] Comment on above: Performed By: #### 2 [id number], [id number], [id number], [id number] ####[facility] [id number] [place] [address] Auto Diffon 08-17-2018 Basophils #/vol (Bld) 0.3 % Normal 0.0-2.0 [facility] Comment on above: Order Comment: Order Added by Discern Expert. Performed By: #### 2 [id number], [id number], [id number], [id number] #### [facility] [address] [place] [address] Basophils/Leukocytes Auto Pure number fraction (Bld) 0.1 E9/L Normal 0.0-0.2 [facility] Comment on above: Order Comment: Order Added by Discern Expert. Performed By: #### 2 [id number], [id number], [id number], [id number] #### [facility] [address] [place] [address] Eosinophils/100 WBC (Bld) 1.3 % Normal 0.0-8.0 [facility] Comment on above: Order Comment: Order Added by Discern Expert. Performed By: #### 2 [id number], [id number], [id number], [id number] #### [facility] Laboratory [address] [place] [address] Eosinophils/Leukocyte s Auto Pure number fraction (Bld) 0.2 E9/L Normal 0.0-0.5 [facility] Comment on above: Order Comment: Order Added by Discern Expert. Performed By: #### 2 [id number], [id number], [id number], [id number] #### [facility] [address] [place] [address] Lymphocytes/100 WBC (Bld) 16.3 % Normal 14.0-50.0 [facility] Comment on above: Order Comment: Order Added by Neal Expert. Performed By: #### 2 560903, [id number], [id number], [id number] #### [facility] [address] [place] [address] Lymphocytes/Leukocyte s Auto Pure number fraction (Bld) 2.7 E9/L Normal 1.0-4.0 [facility] Comment on above: Order Comment: Order Added by Neal Expert. Performed By: #### 2 [id number], [id number], [id number], [id number] #### [facility] [address] [place] [address] Monocytes/100 WBC (Bld) 5.3 % Normal 4.0-14.0 [facility] Comment on above: Order Comment: Order Added by Discern Expert. Performed By: #### 2 [id number], [id number], [id number], [id number] #### [facility] [address] [place] [address] Monocytes/Leukocytes Auto Pure number fraction (Bld) 0.9 E9/L Normal 0.2-1.0 [facility] Comment on above: Order Comment: Order Added by Neal Expert. Performed By: #### 2 825291, [id number], [id number], [id number] #### [facility] Laboratory [address] [place] [address] Neutrophils/100 WBC (Bld) 76.8 % High 36.0-75.0 [facility] Comment on above: Order Comment: Order Added by Discern Expert. Performed By: #### 2 592513, [id number], [id number], [id number] #### [facility] [address] [place] [address] Neutrophils/Leukocyte s Auto Pure number fraction (Bld) 12.9 E9/L High 2.0-7.5 [facility] Comment on above: Order Comment: Order Added by Discern Expert. Performed By: #### 2 [id number], [id number], [id number], [id number] #### [facility] [address] [place] [address] BMPon 08-17-2018 Anion gap molar conc 13 mmol/L Normal 6-16 [facility] Comment on above: Performed By: #### 2 844043, [id number], [id number], [id number] #### [facility] [address] [place] [address] Calcium mass conc 9.0 mg/dL Normal 8.9-11.1 [facility] Comment on above: Performed By: #### 2 912543, [id number], [id number], [id number] #### [facility] [address] [place] [address] Chloride molar conc 106 mmol/L Normal 101-111 [facility] Comment on above: Performed By: #### 2 622543, [id number], [id number], [id number] #### [facility] [address] [place] [address] CO2 molar conc 23 mmol/L Normal 21-31 [facility] Comment on above: Performed By: #### 2 160211, [id number], 5694010, [id number] #### [facility] [address] [place] [address] Creatinine mass conc 0.7 mg/dL Normal 0.5-1.3 [facility] Comment on above: Performed By: #### 2 908915, [id number], [id number], [id number] #### [facility] [address] [place] [address] Glucose mass conc 149 mg/dL Normal 55-199 [facility] Comment on above: Result Comment: If t his glucose result represents a fasting glucose, interpretation should refer to the following reference range: 55-99 mg/dL Performed By: #### 2 081510, [id number], [id number], [id number] #### [facility] [address] [place] [address] Potassium molar conc 3.7 mmol/L Normal 3.5-5.3 [facility] Comment on above: Performed By: #### 2 498681, [id number], [id number], [id number] #### [facility] [address] [place] [address] Sodium molar conc 138 mmol/L Normal 135-145 [facility] Comment on above: Performed By: #### 2 360219, [id number], 6962825, [id number] #### [facility] [address] [place] [address] Urea nitrogen mass conc 13 mg/dL Normal 5-21 [facility] Comment on above: Performed By: #### 2 373369, [id number], 5573781, [id number] #### [facility] [address] [place] [address] Urea nitrogen/Creatinine mass ratio 19 No Units Normal 10-20 [facility] Comment on above: Performed By: #### 2 916609, [id number], [id number], [id number] #### [facility] [address] [place] [address] Blood Bank ID#on 08-17-2018 BBID# [id number] [facility] Comment on above: Performed By: #### 2 [id number], [id number], [id number], [id number] ####[facility] [address] [place] [address] CBC w/ Auto Diffon 9 Erythrocyte distribution width Ratio (RBC) 13.5 % Normal 10.9-14.2 [facility] Comment on above: Performed By: #### 2 476717, [id number], 9361284, 0375732 #### [facility] [address] [place] [address] Hematocrit Volume Fraction (Bld) 45.0 % Normal 34.0-46.0 [facility] Comment on above: Performed By: #### 2 [id number], [id number], 0556174, [id number] #### [facility] [address] [place] [address] Hemoglobin mass conc (Bld) 16.1 g/dL High 12.0-16.0 [facility] Comment on above: Performed By: #### 2 [id number], [id number], 8152668, [id number] #### [facility] Laboratory [address] [place] [address] MCH Entitic mass (RBC) 33.8 pg Normal 27.0-34.0 [facility] [place] Comment on above: Performed By: #### 2 [id number] #### [facility] [place] Laboratory [address] [place] [address] MCHC mass conc (RBC) 35.8 g/dL High 33.3-35.7 [facility] Comment on above: Performed By: #### 2 [id number], [id number] #### [facility] [place] Laboratory [address] [place] [address] MCV Entitic volume (RBC) 94.4 fL Normal 80.0-100.0 [facility] [place] Comment on above: Performed By: #### 2 [id number], [id number], [id number] #### [facility] [place] Laboratory [address] [place] [address] Platelet mean volume Entitic volume (Bld) 7.4 fL Normal 6.4-10.8 [facility] Comment on above: Performed By: #### 2 [id number], [id number], [id number] #### [facility] [place] Laboratory [address] [place] [address] Platelets #/vol (Bld) 300.0 E9/L Normal 150.0-500.0 [facility] Comment on above: Performed By: #### 2 [id number], [id number], [id number] #### [facility] [place] Laboratory [address] [place] [address] RBC #/vol (Bld) 4.8 E12/L Normal 4.3-5.9 [facility] Comment on above: Performed By: #### 2 [id number], [id number], [id number], [id number] #### [facility] [place] Laboratory [address] [place] [address] WBC corrected for nucl RBC Auto #/vol (Bld) 16.8 E9/L High 4.0-11.0 [facility] [place] Comment on above: Result Comment: Slid e reviewed by cmk. 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 Pt lives in [place] and does not have PCP. Importance of PCP discussed, and PCP list provided. Pt states usually sees Barbara Pia, who always ordered blood work or any further testing which needs done. Pt states will find PCP near home [facility] for future follow up. Observation status discussed. Insurance information veriified, and pt denies any concerns or DC needs. Normal [facility] Main OR PACU I Recordon 07-28 Main OR PACU I Record PACU Phase I Docum ent Type FT Summary Primary Physician: Kameron OAKLEY MD Finalized Date/Time: 08/17/18 10:51:47 Pt. Name: ABDOULAYE BENTLEY/Sex: 1965 Female Med Rec #: [id number] Physician: Kameron OAKLEY MD Financial #: [id number] Pt. Type: O Room/Bed: N310/01 Admit/Disch: 08/17/18 06:56:30 - Institution: Case Times PACU I FT Pre-Care Text: Identifies barriers to communication and implements measures to provide psychological support Develops individualized plan of care, and ensures continuity of care Maintains patient's dignity and privacy, and maintains patient confidentiality Identifies and reports philosophical, cultural, and spiritual beliefs and values Identifies individual values and wishes concerning care Implements aseptic technique, and administers prescribed antibiotic therapy and immunizing agents as ordered Evaluates postoperative tissue perfusion Implements thermoregulation measures, and monitors body temperature Evaluates postoperative respiratory status Evaluates postoperative cardiac status Evaluates postoperative neurological status Assesses pain control, collaborated in initiating patient-controlled analgesia and implements alternative methods of pain control Verifies allergies, administers prescribed medications and solutions, evaluates response to medications Entry 1 In PACU I 08/17/18 10:04:00 Discharge from PACU 08/17/18 10:34:00 I Outcomes Met? Yes Last Modified By: Shana Plunkett RN 08/17/18 10:51:33 Post-Care Text: The patient demonstrates knowledge of the expected response to the operative or invasive procedure The patient's care is consistent with the individualized perioperative plan of care The patient's right to privacy is maintained The patient's value system, lifestyle, ethnicity, and culture are considered, respected, and incorporated into the perioperative plan of care The patient participates in decisions affecting his or her perioperative plan of care The patient is free from signs and symptoms of infection The patient has wound/tissue perfusion consistent with or improved from baseline levels established preoperatively The patient is at or returning to normothermia at the conclusion of the immediate postoperative period The patient's respiratory function is consistent with or improved from baseline levels established preoperatively The patient's cardiovascular status is consistent with or improved from baseline levels established preoperatively The patient's cardiovascular status is consistent with or improved from baseline levels established preoperatively The patient demonstrates and/or reports adequate pain control throughout the perioperative period The patient received appropriate medication(s), safely administered during the perioperative period Acuity Level PACU I FT Entry 1 Start Time 08/17/18 10:04:00 Stop Time 08/17/18 10:34:00 Acuity Level Acuity Level I Last Modified By: Shana Plunkett RN 08/17/18 10:51:46 Finalized By: Shana Plunkett RN Document Signatures Signed By: Shana Plunkett RN 08/17/18 10:51 Normal [facility] [place] Main OR PACU I Record PACU Phase I Docum ent Type FT Summary Primary Physician: Kameron OAKLEY MD Finalized Date/Time: 08/17/18 08:24:49 Pt. Name: ABDOULAYE BENTLEY /Sex: 1965 Female Med Rec #: [id number] Physician: Kameron OAKLEY MD Financial #: [id number] Pt. Type: A Room/Bed: [facility]/ Admit/Disch: 08/17/18 06:56:30 - Institution: Case Times PACU I FT Pre-Care Text: Identifies barriers to communication and implements measures to provide psychological support Develops individualized plan of care, and ensures continuity of care Maintains patient's dignity and privacy, and maintains patient confidentiality Identifies and reports philosophical, cultural, and spiritual beliefs and values Identifies individual values and wishes concerning care Implements aseptic technique, and administers prescribed antibiotic therapy and immunizing agents as ordered Evaluates postoperative tissue perfusion Implements thermoregulation measures, and monitors body temperature Evaluates postoperative respiratory status Evaluates postoperative cardiac status Evaluates postoperative neurological status Assesses pain control, collaborated in initiating patient-controlled analgesia and implements alternative methods of pain control Verifies allergies, administers prescribed medications and solutions, evaluates response to medications Entry 1 In PACU I 08/17/18 07:45:00 Discharge from PACU 08/17/18 08:15:00 I Outcomes Met? Yes Last Modified By: Jerilyn Zamudio RN 08/17/18 08:24:37 Post-Care Text: The patient demonstrates knowledge of the expected response to the operative or invasive procedure The patient's care is consistent with the individualized perioperative plan of care The patient's right to privacy is maintained The patient's value system, lifestyle, ethnicity, and culture are considered, respected, and incorporated into the perioperative plan of care The patient participates in decisions affecting his or her perioperative plan of care The patient is free from signs and symptoms of infection The patient has wound/tissue perfusion consistent with or improved from baseline levels established preoperatively The patient is at or returning to normothermia at the conclusion of the immediate postoperative period The patient's respiratory function is consistent with or improved from baseline levels established preoperatively The patient's cardiovascular status is consistent with or improved from baseline levels established preoperatively The patient's cardiovascular status is consistent with or improved from baseline levels established preoperatively The patient demonstrates and/or reports adequate pain control throughout the perioperative period The patient received appropriate medication(s), safely administered during the perioperative period Acuity Level PACU I FT Entry 1 Start Time 08/17/18 07:45:00 Stop Time 08/17/18 08:15:00 Acuity Level Acuity Level I Last Modified By: Jerilyn Zamudio RN 08/17/18 08:24:48 Finalized By: Jerilyn Zamudio RN Document Signatures Signed By: Jerilyn Zamudio RN 08/17/18 08:24 Normal [facility] [place] Main OR Preoperative Recordo n 08-17-2018 Main OR Preoperative Record PreOp Document Type FT Summary Primary Physician: Kameron OAKLEY MD Finalized Date/Time: 08/17/18 10:56:03 Pt. Name: ABDOULAYE BENTLEY/Sex: 1965 Female Med Rec #: [id number] Physician: Kameron OAKLEY MD Financial #: [id number] Pt. Type: O Room/Bed: [place] [address] Admit/Disch: 08/17/18 06:56:30 - Institution: Case Times PreOp FT Pre-Care Text: Verifies consent for planned procedure, identifies individual values and wishes concerning care, includes family members in perioperative teaching Entry 1 Patient Times. In Pre Surgery 08/17/18 08:20:00 Out Pre Surgery 08/17/18 08:32:00 Outcomes Met? Yes Last Modified By: Simran Conley RN 08/17/18 10:56:01 Post-Care Text: The patient participates in decisions affecting his or her perioperative plan of care Finalized By: Simran Conley RN Document Signatures Signed By: Simran Conley RN 08/17/18 10:56 Normal [facility] [place] Main OR Preoperative Record Holding Area Document Type FT Summary Primary Physician: Kameron OAKLEY MD Finalized Date/Time: 08/17/18 07:18:23 Pt. Name: ABDOULAYE BENTLEY/Sex: 1965 Female Med Rec #: [id number] Physician: Kameron OAKLEY MD Financial #: [id number] Pt. Type: O Room/Bed: / Admit/Disch: 08/17/18 06:56:30 - Institution: Case Times Holding FT Pre-Care Text: Verifies consent for planned procedure, identifies individual values and wishes concerning care, includes family members in perioperative teaching Secures patient's records' belongings, and valuables, maintains patient's dignity and privacy, and maintains patient confidentiality Entry 1 In Holding 08/17/18 07:05:00 Outcomes Met? Yes Last Modified By: Jacque Brewer RN 08/17/18 07:17:34 Post-Care Text: The patient participates in decisions affecting his or her perioperative plan of care The patient's right to privacy is maintained Surgery Checklist FT Entry 1 Patient Birthday, ID Band Procedure History and Physical, Identification: Check, Patient Verification: Surgical Consent, With Participation Patient NPO after Midnight: Yes Personal Items: Contact Lenses, Jewelry Personal Items ear rings, 2 rings Complaints of Pain: No Comment: Operative Site n/a Availability Equipment Marking: Verified: Does Patient Smoke Yes If Yes to Smoking. 3-4 cigs Cigars or Cigarettes. How much per day? Patient states Yes Comment - Adult Dad postop adult Supervision supervision available Case Cancelled in No Holding Area see comments below for reason Last Modified By: Jacque Brewer RN 08/17/18 07:18:18 Finalized By: Jacque Brewer RN Document Signatures Signed By: Jacque Brewer RN 08/17/18 07:18 Normal [facility] [place] Operative Reporton 9 Operative Report Date of Surgery: 08/17/2018 SURGEON: Kameron Oakley MD, FACS PREOPERATIVE DIAGNOSIS: Screening colonoscopy POSTOPERATIVE DIAGNOSIS: Sigmoid perforation OPERATION: Attempted colonoscopy ANESTHESIA: General ANESTHESIOLOGIST: Donato Marina Jr., D.O. INDICATIONS: This is a 53-year-old white female who presents for initial screening colonoscopy. PROCEDURE: The patient was brought to the Endoscopy Suite and under anesthesia, placed in the left lateral decubitus position. After a normal rectal examination, the colonoscope was advanced to the mid sigmoid colon. There was a very tortuous angled turn in the sigmoid colon. I attempted multiple times to push the colonoscope around this point unsuccessfully. On the last attempt, the colonoscope was noted to perforate through the sigmoid colon into the abdominal cavity. This was immediately recognized and the scope removed. I notified the anesthesiologist and nursing staff and made arrangements for urgent laparotomy and repair of this perforation. The patient tolerated the procedure well. She was transferred back to the Endoscopy Recovery Unit in stable condition. This was discussed multiple times with her and her father and consent obtained. Kameron Oakley MD, FACS gls Dictated: 08/17/2018 #[id number] Typed: 08/17/2018 #[id number] cc: Kameron Oakley MD, FACS [facility] Comment on above: Result Comment: Elec tronically Signed By: Kameron OAKLEY MD\.br\Date and Time Signed: 08/17/18 16:01 EDT Progress Note-Physicianon Protein mass conc Patient: ABDOULAYE BENTLEY Age: 53 years Sex: Female : 1965 Associated Diagnoses: None Author: Kameron OAKLEY MD Postoperative Information Date/ Time: 08/17/18 10:06:00 Preoperative Diagnosis: Perforation of sigmoid colon ([id number] K63.1, Discharge, Medical). Postoperative Diagnosis: same. Performed by: Kameron OAKLEY MD Senior Director Finance: Shruthi PARKER MD Estimated Blood Loss: 5 ml. Complications: None. Suture repair of sigmoid perforation [facility] Comment on above: Result Comment: Elec tronically Signed By: Kameron OAKLEY MD.br\Date and Time Signed: 08/17/18 10:07 EDT Protein mass conc Patient: ABDOULAYE BENTLEY Age: 53 years Sex: Female : 1965 Associated Diagnoses: None Author: Donato Marina JR, DO Postoperative Information Post Operative Note: Post Anesthesia Care Unit. Anesthetic utilized: General, Monitored anesthesia care. Health Status Allergies: Allergic Reactions (Selected) No Known Medication Allergies Current medications: (Selected) Inpatient Medications Ordered Sodium Chloride 0.9% IV Perri 1000 mL 1,000 mL: 1,000 mL, IV, 20 mL/hr, Routine, Start date 08/17/18 7:11:00 EDT, 50 hour(s), Total volume (mL): 1,000 Problem list: No problem items selected or recorded. Physical Examination Intake and Output Denies significant n/v and is tolerating p.o. Vital Signs (last 24 hrs) Last Charted Temp Tympanic L 36.4 DegC (AUG 17 07:16) SBP 120 mmHg (AUG 17 07:16) DBP 78 mmHg (AUG 17:16) SpO2 93 % (AUG 17:) Height 160 cm (AUG 17:40) Weight 83.9 kg (AUG 17:40) BMI 32.77 kg/m2 (AUG 17:40) Respiratory: Adequate air exchange with yazdanism of preoperative function.. Cardiovascular: Cardiovascular function is stable and has returned to preoperative levels.. Neurologic: Pt has returned to preoperative baseline.. Review / Management Condition: Stable. Assessment Anesthetic outcome No anesthetic complications noted. ENDOSCOPIC PERFORATION. CHELY EXPL LAP. Plan Transfer/ Discharge: Condition TO SURGERY FOR EXPL LAP. STABLE. Normal [facility] [place] Comment on above: Result Comment: Elec tronically Signed By: Donato Marina JR, DO\.br\Date and Time Signed: 08/17/18 08:37 EDT Protein mass conc Patient: ABDOULAYE BENTLEY Age: 53 years Sex: Female : 1965 Associated Diagnoses: None Author: Rick Basurto Jr., DO Preoperative Information Time patient last ate or drank:=== (NPO since midnight) Anesthesia history: Patient History: No prior problems with anesthesia.. Re-eval prior to induction: Inital eval reviewed: No significant interval change, Surgical H&P documented and on chart. Surgical consent signed and on chart.. Anesthesia results Review of Systems Cardiovascular: Negative except as documented in history of present illness. Respiratory: Negative. Neurologic: Negative. Health Status Allergies: Allergic Reactions (Selected) No Known Medication Allergies, Allergies (1) Active Reaction No Known Medication Allergies None Documented Current medications: (Selected) Inpatient Medications Ordered Dilaudid 2 mg Injection: 0.4 mg = 0.2 mL, Injection, IV Push, q4min PRN Pain for 5 day(s), Stop date 08/22/18 7:50:00 EDT, Routine, Start date 08/17/18 7:51:00 EDT, up to 2mg Exparel 1.3% (13.3 mg/mL) injectable suspension: 266 mg = 20 mL, Injection, Misc, Once, Stop date 08/17/18 8:00:00 EDT, Routine, Start date 08/17/18 8:00:00 EDT Lactated Ringers IV Perri 1000 mL 1,000 mL: 1,000 mL, IV, 100 mL/hr, Routine, Start date 08/17/18 7:45:00 EDT, 10 hour(s), Total volume (mL): 1,000 Sensorcaine 0.25% PF Injection: 75 mg, 30 mL, Injection, Misc, Once, Stop date 08/17/18 8:00:00 EDT, Routine, Start date 08/17/18 8:00:00 EDT Sodium Chloride 0.9% IV Perri 1000 mL 1,000 mL: 1,000 mL, IV, 20 mL/hr, Routine, Start date 08/17/18 7:11:00 EDT, 50 hour(s), Total volume (mL): 1,000 sodium chloride 0.9% Inj 20 mL: 20 mL, Injection, Misc, Once, Stop date 08/17/18 8:00:00 EDT, Routine, Start date 08/17/18 8:00:00 EDT Histories Past Medical History: No active or resolved past medical history items have been selected or recorded. Family History: No family history items have been selected or recorded. Procedure history: No active procedure history items have been selected or recorded. Social History Social & Psychosocial Habits No Data Available . Physical Examination Measurements from flowsheet : Measurements 08/17/2018 06:40 EDT Height/Length Measured 160 cm Body Mass Index Measured 32.77 kg/m2 Weight Measured 83.9 kg Airway: Mallampati classification: III (soft palate, base of uvula visible). Respiratory: Lungs are clear to auscultation. Cardiovascular: Regular rhythm. Review / Management Results review Plan [employer] Anesthesiologists (ASA) physical status classification: Class II, E. Anesthetic Preoperative Plan Anesthesia: General. , Regional TAP block. Anesthetic plan, risks, benefits, and alternatives discussed with the patient and/or family. Patient verbalized understanding. Adverse reactions, complications, and alternatives discujssed. Consent signed and on chart.. Jessica [facility] [place] Comment on above: Result Comment: Elec tronically Signed By: Rick Basurto Jr., DO\.br\Date and Time Signed: 08/17/18 08:14 EDT Protein mass conc Patient: ABDOULAYE BENTLEY Age: 53 years Sex: Female : 1965 Associated Diagnoses: None Author: Kameron OAKLEY MD Postoperative Information Date/ Time: 08/17/18 07:50:00 Preoperative Diagnosis: SCREENING FOR MALIGNANT NEOPLASMS OF COLON ([id number] Z12.11, Working, Medical). Procedure: Colonoscopy. Postoperative Diagnosis: sigmoid perforation. Performed by: Kameron Oakley MD. Estimated Blood Loss: 0 ml. Complications: sigmoid perforation. Normal [facility] [place] Comment on above: Result Comment: Elec tronically Signed By: Kameron OAKLEY MD\.br\Date and Time Signed: 08/17/18 07:51 EDT Protein mass conc Patient: ABDOULAYE BENTLEY Age: 53 years Sex: Female : 1965 Associated Diagnoses: None Author: Donato Marina JR, DO Preoperative Information Anesthesia history: Patient History: Pt./ family denies any personal or family hx of problems/difficulties with anesthesia.. Re-eval prior to induction: Inital eval reviewed: No significant interval change, NPO 10 hours, except for GI. prep which ( when administered ), was completed at least 4 hours prior to the procedure.. Anesthesia results Review of Systems Constitutional: See nursing assessment.. Cardiovascular: Cardiac risk assessment performed. Pt. denies any significant change in their cv hx.. Respiratory: Pt. denies any signicant change in their respiratory status.. Neurologic: Pt. denies any acute neurological changes.. Health Status Allergies: Allergic Reactions (Selected) No Known Medication Allergies, Allergies (1) Active Reaction No Known Medication Allergies None Documented Current medications: (Selected) Inpatient Medications Ordered Sodium Chloride 0.9% IV Perri 1000 mL 1,000 mL: 1,000 mL, IV, 20 mL/hr, Routine, Start date 08/17/18 7:11:00 EDT, 50 hour(s), Total volume (mL): 1,000, Medications (1) Active Scheduled: (0) Continuous: (1) Sodium Chloride 0.9% 1,000 mL 1,000 mL, IV, 20 mL/hr PRN: (0) Problem list: No problem items selected or recorded., No qualifying data available Histories Past Medical History: No active or resolved past medical history items have been selected or recorded. Family History: No family history items have been selected or recorded. Procedure history: No active procedure history items have been selected or recorded. Social History Social & Psychosocial Habits No Data Available . Physical Examination Vital Signs (last 24 hrs) Last Charted Temp Tympanic L 36.4 DegC (AUG 17:16) SBP 120 mmHg (AUG 17:) DBP 78 mmHg (AUG 17:) SpO2 93 % (AUG 17:) Height 160 cm (AUG 17:40) Weight 83.9 kg (AUG 17) BMI 32.77 kg/m2 (AUG 17) Airway: Normal oral/pharyngeal anatomy.. Respiratory: Adequate air exchange.. Cardiovascular: Adequate perfusion and function. Review / Management Results review: No qualifying data available . Plan [employer] Anesthesiologists (ASA) physical status classification: Class II. Anesthetic Preoperative Plan Anesthesia: Monitored anesthesia care and general anesthesia if required.. Anesthetic plan, risks, benefits, and alternatives discussed with the patient and/or family. Pt. and/or family present and agree to proceed as planned.. Discussed the importance of abstaining from tobacco products, and offered counseling if desired.. Normal [facility] [place] Comment on above: Result Comment: Elec tronically Signed By: Donato Marina JR, DO\.br\Date and Time Signed: 08/17/18 07:33 EDT Protein mass conc Patient: ABDOULAYE BENTLEY Age: 53 years Sex: Female : 1965 Associated Diagnoses: None Author: Kameron OAKLEY MD Basic Information No change in H&P Normal [facility] [place] Comment on above: Result Comment: Elec tronically Signed By: Kameron OAKLEY MD\.br\Date and Time Signed: 08/17/18 07:11 EDT UA With Cult Reflexon 2018 Bilirubin Ql (U) Negative Normal Negative [facility] Comment on above: Performed By: #### 1 [id number] ####[facility] [place] [id number] [place] [address] Clarity Nom (U) CLOUDY Abnormal Clear [facility] Comment on above: Performed By: #### 1 [id number] ####[facility] [place] [id number] [place] [address] Color Nom (U) YELLOW Normal Yellow [facility] Comment on above: Performed By: #### 1 [id number] ####[facility] [place] [id number] [place] [address] Crystals LM Ql (Urine sed) Present Normal [facility] [place] Comment on above: Performed By: #### 1 [id number] ####[place] [id number] [place] [address] Epithelial cells.squamous LM.HPF #/area (Urine sed) 0-2 Normal 0-2 [facility] [place] Comment on above: Performed By: #### 1 [id number] ####[facility] [place] [id number] [place] [address] Glucose Test strip mass conc (U) Negative Normal Negative [facility] [place] Comment on above: Performed By: #### 1 [id number] ####[facility] [place] [id number] [place] [address] Hemoglobin Ql (U) Negative Normal Negative [facility] [place] Comment on above: Performed By: #### 1 [id number] ####[facility] [place] [id number] [facility] [address] Ketones mass conc (U) Negative Normal Negative [facility] Comment on above: Performed By: #### 1 [id number] ####[facility] [place] [address] [place] [address] Lyford.plasma/Lithiu m.RBC mass ratio (Bld) 0-3 Normal 0-3 [facility] [place] Comment on above: Performed By: #### 1 [id number] ####[facility] [place] [address] [place] [address] Nitrite Ql (U) Negative Normal Negative [facility] Comment on above: Performed By: #### 1 [id number] ####[address] [address] pH (U) 5.5 [pH] 5.0-9.0 [facility] [place] Comment on above: Performed By: #### 1 [id number] ####[address] [address] Protein mass conc (U) Negative Normal Negative [facility] Comment on above: Performed By: #### 1 [id number] ####[address] [address] Specific gravity Relative Density (U) 1.020 1.005-1.030 [facility] Comment on above: Performed By: #### 1 [id number] ####[address] [address] UA Spec Desc [place] Normal [facility] [place] Comment on above: Performed By: #### 1 [id number] ####[address] [address] Urobilinogen Qn (U) 0.2 {Larry'U}/dL Normal 0.0-1.0 [facility] Comment on above: Performed By: #### 1 [id number] ####[address] [address] WBC Auto Ql (U) Negative Normal Negative [facility] Comment on above: Performed By: #### 1 [id number] ####[address] [address] WBC LM.HPF #/area (Urine sed) 0-5 Normal 0-5 [facility] [place] Comment on above: Performed By: #### 1 [id number] ####[address] [address] eGFRon 08-17-2018 GFR/1.73 sq M predicted among blacks MDRD vol rate/area (S/P/Bld) mL/min/{1.73_m2} Normal >=59 [facility] Comment on above: Order Comment: Order added by Discern Expert. Result Comment: eGFR is race adjusted. AA=. Performed By: #### 2 [id number] #### [facility] [place] Laboratory [address] [place] [address] GFR/1.73 sq M predicted among non-blacks MDRD vol rate/area (S/P/Bld) mL/min/{1.73_m2} Normal >=59 [facility] Comment on above: Order Comment: Order added by Discern Expert. Result Comment: Churn Drill Operator amilcar kidney disease could be indicated at eGFR's of less than 60 mL/min/1.73m2. Kidney failure is indicated at less than 15 mL/min/1.73m2. Performed By: #### 2 [id number], [id number] #### [facility] [place] [address] [place] [address] Vital Signs Date Time Vital Sign Value Performing Clinician Facility 07-22-2022 11:00-0400 Body height 160.02 cm Louann Rivas Other [facility] Other 07-22-2022 11:00-0400 Body mass index (BMI) [Ratio] 31.88 kg/m2 Louann Rivas [facility] Other 07-22-2022 11:00-0400 Body temperature 97.8 [degF] [facility]ann Rivas Other [facility] Other 07-22-2022 11:00-0400 Body weight 81.65 kg Louann Rivas Other [facility] Other 07-22-2022 11:00-0400 Diastolic blood pressure 62 mm[Hg] Louann Rivas Other [facility] Other 07-22-2022 11:00-0400 SaO2% (BldA) [Mass fraction] 98 % Louann Rivas Other [facility] Other 07-22-2022 11:00-0400 Systolic blood pressure 110 mm[Hg] Louann Rivas Other [facility] Other Encounters Encounter Date Encounter Type Care Provider Facility Start: 05-19-2023 End: 05-19-2023 ambulatory SHANTA OSHEA Not Available Start: 05-05-2023 End: 05-06-2023 ambulatory ELYSSA HOLCOMB Not Available Start: 04-07-2023 End: 04-07-2023 ambulatory LORI AICHHOLZ Not Available Start: 07-22-2022 End: 07-22-2022 ambulatory Louann Rivas Other [facility] Other Start: 07-22-2022 [facility] visit new patient Louann schaefer [facility] Start: 06-10-2022 End: 06-11-2022 ambulatory WHEEL BORER LORI AICHHOLZ Facility:[facility] Start: 11-12-2021 End: 11-13-2021 ambulatory WHEEL BORER LORI AICHHOLZ Facility:[facility] Start: 10-01-2021 End: 10-02-2021 ambulatory WHEEL BORER LORI AICHHOLZ Facility:[facility] Payers Date Payer Category Payer Unknown [id number] 2.16.84 [id number] 1965 Unknown [id number] 2.16.84 [id number] 1965 Unknown [id number] 2.16.84 [id number] 1965 Unknown [id number] 2.16.84 [id number] 1967 Unknown [id number] 2.16.84 [id number] 1967 Unknown [id number] [id number] 1967 Unknown [id number] [id number] 1957 Unknown [id number] Social History Date Type Detail Facility Sex Assigned At [facility] Other Evaluation note 07-22-2022 Note Date & Type Note Facility 07-22-2022 Evaluation note Encounter Date Diagnosis Assessment Notes Jun, Carotid stenosis, bilateral (ICD-10 - I65.23) We reviewed today's carotid duplex studies which showed less than 50% stenosis of bilateral ICA. She remains asymptomatic of her carotid occlusive disease and has recently been started on good medical therapy with statin and aspirin medications daily. Her primary care provider did start her on 80 mg statin medication. Recommended guidelines from the Society of vascular medicine indicate good medical therapy with high intensity statin medication of at least 40 mg. With patient being asymptomatic and less than 50% stenosed bilaterally, I believe 40 mg would be sufficient for continued care. I discussed this with the patient and will notify her primary care provider for continued therapy. She should continue daily 81 as well. We discussed carotid occlusive disease at length and all of her questions were addressed. She was educated on signs and symptoms of carotid occlusive disease and when would be appropriate to return for further evaluation prior to her next scheduled appointment. We will continue to follow her along on a routine basis and have her back again next year with repeat studies. She knows to call us in the meantime with any issues or concerns. Jun, Current smoker (ICD-10 - F17.200) We reviewed the health risks associated with tobacco smoking. Patient understands her risks. She is motivated to quit. She was provided with information on the [employer] tobacco program and she is in agreement to contact them and work on smoking cessation. [facility] Other History general Narrative - Reported Note Date & Type Note Facility History general Narrative - Reported Type Medical History type II diabetes Surgical History PERFORATED COLON-DUE TO COLONOS COPY Hospitalization History see above [facility] Other Summary Purpose Family History No Family History Records FoundNo Family History Records FoundNo Family History Records Found Advance Directives No Advanced Directives Records FoundNo Advanced Directives Records FoundNo Advanced Directives Records Found Additional Source Comments INFORMATION SOURCE (unrecogn ized section and content) DATE CREATED AUTHOR 10/07/2018 Krunal Nichole [facility] DATE CREATED AUTHOR AUTHOR'S ORGANIZ ATION 06/19/2022 [facility] DATE CREATED AUTHOR AUTHOR'S ORGANIZ ATION 05/20/2023 [facility] REASON FOR VISIT (unrecogniz ed section and content) ASYMPTOMATIC CAROTID ARTERY STENOSIS FOR RECORDS PERTAINING TO PATIENTS WHO ARE OR HAVE BEEN ENROLLED IN A CHEMICAL DEPENDENCY/SUBSTANCEABUSE PROGRAM, SOME INFORMATION MAY BE OMITTED. This clinical summary was aggregated from multiple sources. Caution should be exercised in using it in the provision of clinical care. This summary normalizes information from multiple sources, and as a consequence, information in this document may materially change the coding, format and clinical context of patient data. In addition, data may be omitted in some cases. CLINICAL DECISIONS SHOULD BE BASED ON THE PRIMARY CLINICAL RECORDS. [employer] [facility] provides no warranty or guarantee of the accuracy or completeness of information in this document.
[2023-06-06 21:07] LABS: Age Gdln ACOG Testing Note (.); HPV Aptima Negative (Negative); IGP, Aptima HPV, rfx 16/18,45 Note (.)
== END 2023-06-02 22:02 | disposition home or self-care (01) ==
LOC: LAB 22:01
PROVIDERS: PCP Nurse Practitioner; Visit Provider Nurse Practitioner
DX: Z12.4 Encounter for screening for malignant neoplasm of cervix (principal)
CPT/HCPCS: G0145

== ENCOUNTER 2023-06-23 11:15 | Outpatient (OUT) | payer BC, SELFPAY ==
--- NOTE | 2023-06-23 11:19 | MM_ITS ---
Patient Name: MAHESH BENTLEY MR#: [id number] : 1965 Exam Date: 06/23/2023 Ordering Doctor: JASMIN Shelton CNP RADIOLOGY REPORT PROCEDURE: MM TOMOSYNTHESIS SCREENING BI COMPARISON: MG MAMM SCREEN 3D CYN CAD, 06/10/2022. MG MAMM SCREEN 3D CYN CAD, 05/14/2021. INDICATIONS: screening Calculator Name NCI Breast Cancer Risk Assessment Tool 5 Year Breast Cancer Risk 1.50% Lifetime Breast Cancer Risk 9.50% Personal Breast Cancer No Personal Ovarian Cancer No Treatments None Family Cancers None LOCATION: [facility] BREAST COMPOSITION: Heterogeneously dense,which may obscure small masses. FINDINGS: DIAGNOSTIC CATEGORY 2--BENIGN FINDING. NO CHANGE FROM COMPARISON. Scattered benign-appearing nodules are present. Scattered benign-appearing calcifications are present. Scattered benign-appearing lymph nodes are present. RIGHT BREAST: No significant suspicious finding. LEFT BREAST: No significant suspicious finding. RECOMMENDATIONS: ROUTINE MAMMOGRAM AND CLINICAL EVALUATION IN 12 MONTHS. PLEASE NOTE: A NORMAL MAMMOGRAM DOES NOT EXCLUDE THE POSSIBILITY OF BREAST CANCER. A CLINICALLY SUSPICIOUS PALPABLE LUMP SHOULD BE BIOPSIED. Dictated by: Bert Wesley MD on 06/23/2023 at 14:19 Approved by: Bert Wesley MD on 06/23/2023 at 14:20
== END 2023-06-23 11:16 | disposition home or self-care (01) ==
LOC: MAMMO 11:15
PROVIDERS: PCP Nurse Practitioner; Visit Provider Nurse Practitioner
DX: Z12.31 Encounter for screening mammogram for malignant neoplasm of breast (principal)
CPT/HCPCS: 77063; 77067

== ENCOUNTER 2023-12-01 11:25 | Outpatient (OUT) | payer BC, SELFPAY ==
--- OUTSIDE RECORDS SUMMARY | 2023-12-01 11:44 | XMS_ITS | CCD ---
Author Organization [facility] Care Team Providers Care Resin Painter Name Role Phone AICHHOLZ, PIPE COVERER FELISA Admitting Unavailable AICHHOLZ, PIPE COVERER FELISA Attending Unavailable AICHHOLZ, PIPE COVERER FELISA Primary Care Unavailable DR BEE WATTS V Consulting Unavailable AICHHOLZ, PIPE COVERER FELISA Consulting Unavailable AICHHOLZ, PIPE COVERER FELISA Admitting Unavailable AICHHOLZ, PIPE COVERER FELISA Attending Unavailable AICHHOLZ, PIPE COVERER FELISA Primary Care Unavailable AICHHOLZ, PIPE COVERER FELISA Consulting Unavailable AICHHOLZ, PIPE COVERER FELISA Admitting Unavailable AICHHOLZ, PIPE COVERER FELISA Attending Unavailable AICHHOLZ, PIPE COVERER FELISA Primary Care Unavailable AICHHOLZ, PIPE COVERER FELISA Consulting Unavailable Louann Rivas Unavailable AMI Rivas Attending Provider Felisa Shelton Primary Care Provider Louann Rivas Attending Unavailable Louann Rivas Admitting Unavailable Felisa Shelton Primary Care Unavailable ELYSSA HOLCOMB Attending Unavailable ELYSSA HOLCOMB Referring Unavailable ESTHELA OSHEA Attending Unavailable AICHHOLZ, FELISA Attending Unavailable JR. LAL GEORGE C Attending UnavailLORI Morrison Attending Unavailable AICHHOLZ, FELISA Attending Unavailable AICHHOLZ, FELISA Attending Unavailable JR. LAL GEORGE C Attending Unavaila LORI Westbrook Attending Unavailable LORI SALAS Attending Unavailable AICHHOLZ, FELISA Attending Unavailable Medications Current Medications Medication Drug Class(es) Dates Sig (Normalized) Sig (Original) aspirin 81 mg delayed release oral tablet (2 sources) Platelet Aggregation Inhibitor, Nonsteroidal Anti-inflammatory Drug Start: 07-28-2023 Aspirin (Adult Low Dose Aspirin) 81 mg tablet,delayed release (/DAVID) Active 81 MG PO Daily July 28, 2023 12:00am atorvastatin 40 mg oral tablet (3 sources) HMG-CoA Reductase Inhibitor Start: 07-28-2023 Atorvastatin Active 40 MG PO July 28, 2023 12:00am Atorvastatin Nathanael cium 80 MG Oral for 90 Days Active lisinopril 2.5 mg oral tablet (3 sources) Angiotensin Converting Enzyme Inhibitor Start: 07-28-2023 Lisinopril Active 2. 5 MG PO July 28, 2023 12:00am Lisinopril 2.5 M G Oral for 90 Days Active phentermine hydrochloride 37.5 mg oral tablet (2 sources) Sympathomimetic Amine Anorectic Start: 07-28-2023 Phentermine Active 37.5 MG PO July 28, 2023 12:00am 0.25 mg, 0.5 mg dose 1.5 ml semaglutide 1.34 mg/ml pen injector (1 source) Ozempic (0.25 or 0.5 MG/DOSE) 2 MG/1.5ML INJECT 0.5 MG SUBCUTANEOUSLY ONCE A WEEK Subcutaneous for 84 Days Active Semaglutide (2 sources) Start: 07-28-2023 Semaglutide (O zempic) 1 mg/dose (4 mg/3 mL) pen injector Active MG SUBCUT July 28, 2023 12:00am Problems Active Problems Problem Classification Problem Date Documented Da te Episodic/Chronic Diabetes mellitus without complication (5 sources) Type 2 diabetes mellitus without complications; Translations: [TYPE 2 DM WITHOUT COMPLICATIONS] Onset: 10-01-2021 Chronic Occlusion or stenosis of precerebral arteries (10 sources) Occlusion and stenosis of left carotid artery; Translations: [Bilateral stenosis of carotid arteries] Onset: 06-10-2022 Chronic Other screening for suspected conditions (not mental disorders or infectious disease) (1 source) Encounter for screening mammogram for malignant neoplasm of breast; Translations: [ENC SCR MAMMO MALIG NEOPLASM BREAST] Onset: 06-18-2022 Episodic Substance-related disorders (5 sources) Smoker; Translations: [Nicotine dependence, unspecified, uncomplicated] Chronic Past or Other Problems Problem Classification Problem Date Documented Da te Episodic/Chronic Abdominal pain (1 source) Unspecified abdominal pain; Translations: [UNSPECIFIED ABDOMINAL PAIN] Onset: 11-13-2021 Episodic Nausea and vomiting (4 sources) Nausea; Translations: [NAUSEA] Onset: 11-12-2021 Episodic Results Test Name Value Interpretation Reference Range Facility US carotid doppler BIon 04-0 US carotid doppler BI [facility] Main [place] [address] [place] [id number] Ultrasound Report Signed Patient: Abdoulaye Bentley MR#: [id number] : 1965 Acct:[id number] Age/Sex: 58 / F ADM Date: 07/28/23 Loc: [facility] Room: Type: [facility] Attending Dr: Louann Rivas SURGICAL SUPERVISOR-C Ordering Provider: Louann Rivas APRN Date of Service: 07/28/23 US/US carotid doppler BI: I65.23 Copies to: Louann Rivas APRN CAROTID DUPLEX INDICATION: Follow-up known carotid occlusive disease PROCEDURE: Color-flow duplex scanning is used to interrogate the extracranial carotid arterial system, as well as both vertebral arteries. Both carotid bifurcations show some smooth homogeneous plaque formation. The proximal right internal carotid artery shows a highest peak systolic velocity of 88.8 cm/s with an end-diastolic velocity of 24 cm/s . The mid internal carotid artery measures 56.8 cm/s peak systolic with an end diastolic velocity of 24.7 cm/s . The distal segment measures 89.5 cm/s peak systolic with an end diastolic velocity of 38.4 cm/s . The velocities of the right common carotid artery are 111 cm/s peak systolic and 37.3 cm/s end-diastolic and 106 cm/s peak systolic and 39.8 cm/s end diastolic distally. The peak systolic velocity ratio of the internal to the common carotid artery is 0.84 . The external carotid artery measures 125 cm/s peak systolic. The right vertebral artery is patent at 58.1 cm/s peak systolic with antegrade flow. The proximal left internal carotid artery shows a highest peak systolic velocity of 92.2 cm/s with an end-diastolic velocity of 33.4 cm/s . The mid internal carotid artery measures 105 cm/s peak systolic with an end diastolic velocity of 37.3 cm/s . The distal segment measures 61 cm/s peak systolic with an end diastolic velocity of 23.3 cm/s . The velocities of the left common carotid artery are 140 cm/s peak systolic and 36.4 cm/s end-diastolic and 117 cm/s peak systolic and 38.4 cm/s end diastolic distally. The peak systolic velocity ratio of the internal to the common carotid artery is 0.9 . The external carotid artery measures 97.1 cm/s peak systolic. The left vertebral artery is patent at 55.7 cm/s peak systolic with antegrade flow. US/US carotid doppler BI IMPRESSION: MILD PLAQUE FORMATION IS NOTED BILATERALLY, WITH LESS THAN 50% STENOSIS OF BOTH EXTRACRANIAL INTERNAL CAROTID ARTERY. BOTH VERTEBRAL ARTERIES ARE PATENT WITH ANTEGRADE FLOW. Impression dictated by: Humza Suresh M.D.07/29/2023 12:36 PM Dictation Location: [place] [address] Tech: Carine Tona Transcribed By: MARANDA 07/29/23 1236 Dictated By: Humza Suresh MD 07/29/23 1235 Signed By: 07/29/23 1236 Normal [facility] CBC AUTO DIFFon 06-10-2022 BASO # 0.1 103/ul Normal 0.0-0.1 [facility] Comment on above: Performed By: #### C BC #### [facility] [address] [place] [address] Dr. Tracie Montalvo Basophils/100 WBC (Bld) 0.7 % Normal 0.2-2.0 [facility] Comment on above: Performed By: #### C BC #### [facility] [address] [address] [address] Tracie oMntalvo EO # 0.1 103/ul Normal 0.0-0.7 [facility] Comment on above: Performed By: #### C BC #### [facility] [address] [address] [address] Tracie Montalvo Eosinophils/100 WBC (Bld) 0.8 % Critically low 0.9-7.0 [facility] Comment on above: Performed By: #### C BC #### [facility] [address] [place] [address] Dr. Tracie Montalvo Erythrocyte distribution width (RBC) [Ratio] 13.7 % Normal 11.0-15.0 [facility] Comment on above: Performed By: #### C BC #### [facility] [address] [place] [address] [address] Tracie Montalvo Hematocrit (Bld) [Volume fraction] 41.7 % Normal 36.0-48.0 [facility] Comment on above: Performed By: #### C BC #### [facility] [address] [place] [address] [address] Tracie Montalvo Hemoglobin (Bld) [Mass/Vol] 15.1 g/dL Normal 12.0-16.0 [facility] Comment on above: Performed By: #### C BC #### [facility] [address] [place] [address] Dr. Tracie Montalvo IG # 0.10 10e3/ul Critically high 0.00-0.03 [facility] Comment on above: Performed By: #### C BC #### [facility] [address] [place] [address] Dr. Tracie Montalvo IG % 1.0 % Critically high 0.0-0.5 [facility] Comment on above: Performed By: #### C BC #### [facility] [address] [place] [address] [address] Tracie Montalvo LYMPH # 2.8 103/ul Normal 1.2-3.8 [facility] Comment on above: Performed By: #### C BC #### [facility] [address] [place] [address] Dr. Tracie Montalvo Lymphocytes/100 WBC (Bld) 26.8 % Normal 20.5-60.0 [facility] Comment on above: Performed By: #### C BC #### [facility] [address] [place] [address] Dr. Tracie Montalvo MANUAL DIFF REQ NO Normal [facility] Comment on above: Performed By: #### C BC #### [facility] [address] [place] [address] Dr. Tracie Montalvo MCH (RBC) [Entitic mass] 32.7 pg Normal 26.7-34.0 [facility] Comment on above: Performed By: #### C BC #### [facility] [address] [place] [address] [address] Tracie Montalvo MCHC (RBC) [Mass/Vol] 36.2 g/dL Critically high 29.9-35.2 [facility] Comment on above: Performed By: #### C BC #### [facility] [address] [address] [address] Tracie Montalvo MCV (RBC) [Entitic vol] 90.3 fL Normal 81.0-99.0 [facility] Comment on above: Performed By: #### C BC #### [facility] [address] [place] [address] [address] Tracie Montalvo MONO # 0.6 103/ul Normal 0.3-0.8 [facility] Comment on above: Performed By: #### C BC #### [facility] [address] [place] [address] Dr. Tracie Montalvo Monocytes/100 WBC (Bld) 6.0 % Normal 1.7-12.0 [facility] Comment on above: Performed By: #### C BC #### [facility] [address] [address] [address] Tracie Montalvo NEUT # 6.8 103/ul Critically high 1.4-6.5 [facility] Comment on above: Performed By: #### C BC #### [facility] [address] [place] [address] Dr. Tracie Montalvo Neutrophils/100 WBC (Bld) 64.7 % Normal 43.0-75.0 [facility] Comment on above: Performed By: #### C BC #### [facility] [address] [address] [address] Tracie Montalvo Platelet mean volume (Bld) [Entitic vol] 9.1 fL Critically low 9.5-13.5 [facility] Comment on above: Performed By: #### C BC #### [facility] [address] [place] [address] [address] Tracie Montalvo PLT 318 103/ul Normal 150-450 [facility] Comment on above: Performed By: #### C BC #### [facility] [address] [place] [address] [address] Tracie Montalvo RBC 4.62 106/ul Normal 4.20-5.40 [facility] Comment on above: Performed By: #### C BC #### [facility] [address] [address] [address] Tracie Montalvo WBC 10.4 103/ul Normal 4.0-11.0 [facility] Comment on above: Performed By: #### C BC #### [facility] [address] [address] [address] Tracie Montalvo GLYCOHEMOGLOBIN A1Con 2022 ADA RECOMMENDATION SEE BELOW Normal [facility] Comment on above: Result Comment: ADA RECOMMENDED LIMIT 4.0 - 6.0 ADA THERAPEUTIC TARGET < 7.0 ACTION SUGGESTED > 7.0 Performed By: #### A 1C ####[facility] [id number] [place] [address]Dr. Tracie Montalvo Glucose [Mass/Vol] 114 mg/dL Normal [facility] Comment on above: Performed By: #### A 1C ####[facility] [id number] [place] [address]Dr. Tracie Montalvo HbA1c (Bld) [Mass fraction] 5.6 % Normal 4.5-6.2 [facility] Comment on above: Performed By: #### A 1C ####[facility] [id number] [place] [address]Dr. Tracie Montalvo LIPID PROFILEon 06-10-2022 CHOL-HDL RATIO NORM SEE BELOW Normal [facility] Comment on above: Result Comment: 3.3 - 4.4 LOW RISK 4.4 - 7.1 AVERAGE RISK 7.1 - 11.0 MODERATE RISK >11.0 HIGH RISK Performed By: #### C MP, LIPID, TSH #### [facility] [address] [address] [address] Tracie Montalvo Cholesterol [Mass/Vol] 151 mg/dL Normal <=200 [facility] Comment on above: Performed By: #### C MP, LIPID, TSH #### [facility] [address] [address] [address] Tracie Montalvo Cholesterol in HDL [Mass/Vol] 33 mg/dL Critically low 40-60 [facility] Comment on above: Performed By: #### C MP, LIPID, TSH #### [facility] [address] [place] [address] Dr. Tracie Montalvo Cholesterol in LDL [Mass/Vol] 77.4 mg/dL Normal [facility] Comment on above: Performed By: #### C MP, LIPID, TSH #### [facility] [address] [place] [address] Dr. Tracie Montalvo Cholesterol.total/Cho lesterol in HDL [Mass ratio] 4.6 {ratio} Normal [facility] Comment on above: Performed By: #### C MP, LIPID, TSH #### [facility] [address] [place] [address] Dr. Tracie Montalvo HDL NORMAL > or = 60 mg/dl - LO W CARDIOVASCULAR RISK <40 mg/dl - HIGH CARDIOVASCULAR RISK Normal [facility] Comment on above: Performed By: #### C MP, LIPID, TSH #### [facility] [address] [place] [address] Dr. Tracie Montalvo LDL CALC NORMAL SEE BELOW Normal [facility] Comment on above: Result Comment: <100 mg/dl OPTIMAL 100 - 129 mg/dl NEAR OR ABOVE OPTIMAL 130 - 159 mg/dl BORDERLINE HIGH 160 - 189 mg/dl HIGH >190 mg/dl VERY HIGH Performed By: #### C MP, LIPID, TSH #### [facility] [address] [address] [address] Tracie Montalvo Triglyceride [Mass/Vol] 203 mg/dL Critically high <=150 [facility] Comment on above: Performed By: #### C MP, LIPID, TSH #### [facility] [address] [place] [address] Dr. Tracie Montalvo VLDL CALC 40.6 mg/dL Normal [facility] Comment on above: Performed By: #### C MP, LIPID, TSH #### [facility] [address] [address] [address] Tracie Montalvo MG MAMM SCREEN 3D CYN CADon 06-10-2022 MG MAMM SCREEN 3D CYN CAD Patient: MAHESH BENTLEY Exam Date: 06/10/2022 : 1965 Gender:F Ordering : JASMIN FELISA SHELTON PIPE COVERER Admission #: [id number] Family : Order #: [id number] CLICK HERE TO VIEW EXAM RADIOLOGY REPORT [...] No Treatments None Family Cancers None LOCATION: [facility] BREAST COMPOSITION: Heterogeneously dense,which may obscure [...] Watts MD on 06/10/2022 at 11:28 Normal [facility] MICROALBUMIN, RAND URon - mALB <1.3 Normal <=30.0 [facility] Comment on above: Performed By: #### M ALBR #### [facility] [address] [address] [address] Tracie Montalvo PROF 14(COMP METB)on 023 Albumin [Mass/Vol] 3.9 g/dL Normal 3.4-5.0 [facility] Comment on above: Performed By: #### C MP, LIPID, TSH #### [facility] [address] [address] [address] Tracie Montalvo Albumin/Globulin [Mass ratio] 1.1 {ratio} Normal [facility] Comment on above: Performed By: #### C MP, LIPID, TSH #### [facility] [address] [place] [address] [address] Tracie Montalvo ALP [Catalytic activity/Vol] 79 U/L Normal 46-116 [facility] Comment on above: Performed By: #### C MP, LIPID, TSH #### [facility] [address] [address] [address] Tracie Montalvo ALT [Catalytic activity/Vol] 50 U/L Normal 14-59 [facility] Comment on above: Performed By: #### C MP, LIPID, TSH #### [facility] [address] [place] [address] [address] Tracie Montalvo Anion gap [Moles/Vol] 12.9 mmol/L Normal [facility] Comment on above: Performed By: #### C MP, LIPID, TSH #### [facility] [address] [address] [address] Tracie Montalvo AST [Catalytic activity/Vol] 16 U/L Normal 15-37 [facility] Comment on above: Performed By: #### C MP, LIPID, TSH #### [facility] [address] [address] [address] Tracie Montalvo Bilirubin [Mass/Vol] 0.4 mg/dL Normal 0.2-1.0 [facility] Comment on above: Performed By: #### C MP, LIPID, TSH #### [facility] [address] [address] [address] Tracie Montalvo Calcium [Mass/Vol] 9.5 mg/dL Normal 8.5-10.1 [facility] Comment on above: Performed By: #### C MP, LIPID, TSH #### [facility] [address] [address] [address] Tracie Montalvo Chloride [Moles/Vol] 104 mmol/L Normal 98-107 [facility] Comment on above: Performed By: #### C MP, LIPID, TSH #### [facility] [address] [address] [address] Tracie Montalvo CO2 [Moles/Vol] 27.2 mmol/L Normal 21.0-32.0 [facility] Comment on above: Performed By: #### C MP, LIPID, TSH #### [facility] [address] [address] [address] Tracie Montalvo Creatinine [Mass/Vol] 0.64 mg/dL Normal 0.55-1.02 [facility] Comment on above: Performed By: #### C MP, LIPID, TSH #### [facility] [address] [address] [address] Tracie Montalvo EGFR-AF P[place] >60 Normal >=60 [facility] Comment on above: Performed By: #### C MP, LIPID, TSH #### [facility] [address] [address] [address] Tracie Montalvo EGFR-NON AF [place] >60 Normal >=60 [facility] Comment on above: Performed By: #### C MP, LIPID, TSH #### [facility] [address] [address] [address] Tracie Montalvo Globulin (S) [Mass/Vol] 3.5 g/dL Normal [facility] Comment on above: Performed By: #### C MP, LIPID, TSH #### [facility] [address] [address] [address] Tracie Montalvo Glucose [Mass/Vol] 94 mg/dL Normal 74-106 [facility] Comment on above: Performed By: #### C MP, LIPID, TSH #### [facility] [address] [address] [address] Tracie Montalvo Potassium [Moles/Vol] 4.1 mmol/L Normal 3.5-5.1 [facility] Comment on above: Performed By: #### C MP, LIPID, TSH #### [facility] [address] [address] [address] Tracie Montalvo Protein [Mass/Vol] 7.4 g/dL Normal 6.4-8.2 [facility] Comment on above: Performed By: #### C MP, LIPID, TSH #### [facility] [address] [address] [address] Tracie Montalvo Sodium [Moles/Vol] 140 mmol/L Normal 136-145 [facility] Comment on above: Performed By: #### C MP, LIPID, TSH #### [facility] [address] [address] [address] Tracie Montalvo Urea nitrogen [Mass/Vol] 8.0 mg/dL Normal 7.0-18.0 [facility] Comment on above: Performed By: #### C MP, LIPID, TSH #### [facility] [address] [place] [address] Dr. Tracie Montalvo Urea nitrogen/Creatinine [Mass ratio] 12.5 mg/mg Normal [facility] Comment on above: Performed By: #### C MP, LIPID, TSH #### [facility] [address] [place] [address] Dr. Tracie Montalvo TSHon 06-10-2022 TSH 2.317 uIU/mL Normal 0.358-3.740 [facility] Comment on above: Performed By: #### C MP, LIPID, TSH #### [facility] [address] [place] [address] Dr. Tracie Montalvo UA RANDOM W/MICROSCOPICon BACTERIA NONE SEEN Normal NONE SEEN [facility] Comment on above: Performed By: #### U AMIC #### [facility] [address] [place] [address] Dr. Tracie Montalvo Bilirubin Ql (U) Negative Normal NEGATIVE [facility] Comment on above: Performed By: #### U AMIC #### [facility] [address] [place] [address] Dr. Tracie Montalvo CAST NONE SEEN Normal NONE SEEN [facility] Comment on above: Performed By: #### U AMIC #### [facility] [address] [place] [address] Dr. Tracie Montalvo Clarity (U) CLEAR Normal CLEAR [facility] Comment on above: Performed By: #### U AMIC #### [facility] [address] [place] [address] Dr. Tracie Montalvo Color (U) LT. YELLOW Normal YELLOW [facility] Comment on above: Performed By: #### U AMIC #### [facility] [address] [address] [address] Tracie Montalvo Crystals LM Nom (Urine sed) NONE SEEN Normal NONE SEEN [facility] Comment on above: Performed By: #### U AMIC #### [facility] [address] [place] [address] Dr. Tracie Montalvo Epithelial cells LM Ql (Urine sed) NONE SEEN Normal NONE SEEN /RARE [facility] Comment on above: Performed By: #### U AMIC #### [facility] [address] [address] [address] Tracie Montalvo Glucose Ql (U) Negative Normal NEGATIVE [facility] Comment on above: Performed By: #### U AMIC #### [facility] [address] [place] [address] Dr. Tracie Montalvo Hemoglobin Ql (U) Negative Normal NEGATIVE [facility] Comment on above: Performed By: #### U AMIC #### [facility] [address] [place] [address] Dr. Tracie Montalvo Ketones Ql (U) Negative Normal NEGATIVE [facility] Comment on above: Performed By: #### U AMIC #### [facility] [address] [place] [address] Dr. Tracie Montalvo LEUKOCYTES Negative Normal NEGATIVE [facility] Comment on above: Performed By: #### U AMIC #### [facility] [address] [place] [address] Dr. Tracie Montalvo MUCOUS NONE SEEN Normal NONE SEEN [facility] Comment on above: Performed By: #### U AMIC #### [facility] [address] [place] [address] Dr. Tracie Montalvo Nitrite Ql (U) Negative Normal NEGATIVE [facility] Comment on above: Performed By: #### U AMIC #### [facility] [address] [place] [address] Dr. Tracie Montalvo pH (U) 5.5 [pH] Normal 5-9 [facility] Comment on above: Performed By: #### U AMIC #### [facility] [address] [place] [address] Dr. Tracie Montalvo RBC 0-2 Normal 0-2 [facility] Comment on above: Performed By: #### U AMIC #### [facility] [address] [address] [address] Tracie Montalvo SPEC GRAVITY 1.015 Normal 1.005-<=1.025 [facility] Comment on above: Performed By: #### U AMIC #### [facility] [address] [address] [address] Tracie Montalvo UA PROTEIN Negative Normal NEGATIVE/ TRACE [facility] Comment on above: Performed By: #### U AMIC #### [facility] [address] [address] [address] Tracie Montalvo Urobilinogen Qn (U) 0.2 {Larry'U}/dL Normal 0.2 - 1. 0 [facility] Comment on above: Performed By: #### U AMIC #### [facility] [address] [place] [address] Dr. Tracie Montalvo WBC NONE SEEN Normal NONE SEEN [facility] Comment on above: Performed By: #### U AMIC #### [facility] [address] [place] [address] Dr. Tracie Montalvo US CAROTID ART BILon [...] by: BEE WATTS Date: 2022-06-10 16:15 Normal [facility] AMYLASEon 11-12-2021 Amylase [Catalytic activity/Vol] 45 U/L Normal 25-115 [facility] Comment on above: Performed By: #### C LORI QUIÑONES LIPA ####[facility] [id number] [place] [address]Dr. Tracie Montalvo GLYCOHEMOGLOBIN A1Con 2021 ADA RECOMMENDATION SEE BELOW Normal [facility] Comment on above: Result Comment: ADA RECOMMENDED LIMIT 4.0 - 6.0 ADA THERAPEUTIC TARGET < 7.0 ACTION SUGGESTED > 7.0 Performed By: #### A 1C #### [facility] [address] [place] [address] Dr. Tracie Montalvo Glucose [Mass/Vol] 128 mg/dL Normal [facility] Comment on above: Performed By: #### A 1C #### [facility] [address] [place] [address] Dr. Tracie Montalvo HbA1c (Bld) [Mass fraction] 6.1 % Normal 4.5-6.2 [facility] Comment on above: Performed By: #### A 1C #### [facility] [address] [place] [address] Dr. Tracie Montalvo LIPASEon 11-12-2021 Lipase [Catalytic activity/Vol] 201.0 U/L Normal 73.0-393.0 [facility] Comment on above: Performed By: #### C LORI QUIÑONES LIPA #### [facility] [address] [place] [address] Dr. Tracie Montalvo PROF 14(COMP METB)on 022 Albumin [Mass/Vol] 4.2 g/dL Normal 3.4-5.0 [facility] Comment on above: Performed By: #### C LORI QUIÑONES LIPA ####[facility] [address] [place] [address]Dr. Tracie Montalvo Albumin/Globulin [Mass ratio] 1.1 {ratio} Normal [facility] Comment on above: Performed By: #### C LORI QUIÑONES LIPA ####[facility] [address] [place] [address]Dr. Tracie Montalvo ALP [Catalytic activity/Vol] 76 U/L Normal 46-116 [facility] Comment on above: Performed By: #### C MP, LORI, LIPA ####[facility] [address] [place] [address]Dr. Tracie Montalvo ALT [Catalytic activity/Vol] 31 U/L Normal 14-59 [facility] Comment on above: Performed By: #### C MP, LORI, LIPA ####[facility] [address] [place] [address]Dr. Tracie Montalvo Anion gap [Moles/Vol] 14.5 mmol/L Normal [facility] Comment on above: Performed By: #### C MP, LORI, LIPA ####[facility] [address] [place] [address]Dr. Tracie Montalvo AST [Catalytic activity/Vol] 13 U/L Critically low 15-37 [facility] Comment on above: Performed By: #### C MP, LORI, LIPA ####[facility] [address] [place] [address]Dr. Tracie Montalvo Bilirubin [Mass/Vol] 0.3 mg/dL Normal 0.2-1.0 [facility] Comment on above: Performed By: #### C MP, OLRI, LIPA ####[facility] [address] [place] [address]Dr. Tracie Montalvo Calcium [Mass/Vol] 9.7 mg/dL Normal 8.5-10.1 [facility] Comment on above: Performed By: #### C MP, LORI, LIPA ####[facility] [address] [place] [address]Dr. Tracie Montalvo Chloride [Moles/Vol] 102 mmol/L Normal 98-107 [facility] Comment on above: Performed By: #### C MP, LORI, LIPA ####[facility] [address] [place] [address]Dr. Tracie Montalvo CO2 [Moles/Vol] 26.7 mmol/L Normal 21.0-32.0 [facility] Comment on above: Performed By: #### C MP, LORI, LIPA ####[facility] [address] [place] [address]Dr. Tracie Montalvo Creatinine [Mass/Vol] 0.74 mg/dL Normal 0.55-1.02 [facility] Comment on above: Performed By: #### C MP, LORI, LIPA ####[facility] [address] [place] [address]Dr. Tracie Montalvo EGFR-AF [place] >60 Normal >=60 [facility] Comment on above: Performed By: #### C MP, LORI, LIPA ####[facility] [address] [place] [address]Dr. Tracie Montalvo EGFR-NON AF [place] >60 Normal >=60 [facility] Comment on above: Performed By: #### C MP LORI, LIPA ####[facility] [address] [place], [place] [address]Dr. Tracie Montalvo Globulin (S) [Mass/Vol] 3.7 g/dL Normal [facility] Comment on above: Performed By: #### C NURIA LORI, LIPA ####[facility] [address] [place], [place] [address]Dr. Tracie Montalvo Glucose [Mass/Vol] 98 mg/dL Normal 74-106 [facility] Comment on above: Performed By: #### C MP, LORI, LIPA ####[facility] [address] [place] [address]Dr. Tracie Montalvo Potassium [Moles/Vol] 4.2 mmol/L Normal 3.5-5.1 [facility] Comment on above: Performed By: #### C MP, LORI, LIPA ####[facility] [address] [place] [address]Dr. Tracie Montalvo Protein [Mass/Vol] 7.9 g/dL Normal 6.4-8.2 [facility] Comment on above: Performed By: #### C MP, LORI, LIPA ####[facility] [address] [place] [address]Dr. Tracie Montalvo Sodium [Moles/Vol] 139 mmol/L Normal 136-145 [facility] Comment on above: Performed By: #### C LORI QUIÑONES LIPA ####[facility] [address] [place] [address]Dr. Tracie Montalvo Urea nitrogen [Mass/Vol] 15.0 mg/dL Normal 7.0-18.0 [facility] Comment on above: Performed By: #### C LORI QUIÑONES LIPA ####[facility] [address] [place] [address]Dr. Tracie Montalvo Urea nitrogen/Creatinine [Mass ratio] 20.3 mg/mg Normal [facility] Comment on above: Performed By: #### C LORI QUIÑONES LIPA ####[facility] [address] [place] [address]Dr. Trcaie Montalvo GLYCOHEMOGLOBIN A1Con 2021 ADA RECOMMENDATION SEE BELOW Normal [facility] Comment on above: Result Comment: ADA RECOMMENDED LIMIT 4.0 - 6.0 ADA THERAPEUTIC TARGET < 7.0 ACTION SUGGESTED > 7.0 Performed By: #### A 1C ####[facility] [address] [place] [address]Dr. Tracie Montalvo Glucose [Mass/Vol] 128 mg/dL Normal [facility] Comment on above: Performed By: #### A 1C ####[facility] [address] [place] [address]Dr. Tracie Montalvo HbA1c (Bld) [Mass fraction] 6.1 % Normal 4.5-6.2 [facility] Comment on above: Performed By: #### A 1C ####[facility] [address] [place] [address]Dr. Tracie Montalvo Coding Summary.on 08-28-2018 Coding Summary. CODING DATE: 019 FINAL [facility] STATUS: Home (Routine DC) PAYOR: Dominic APC DESCRIPTION 5072 Level 2 Excision/ Biopsy/ Incision [...] Childs Date Saved: 08/28/2018 12:26 pm Normal [facility] MA Mamm Diag w/CAD if perfor med [...] VERY IMPORTANT TO YOUR HEALTH. THE CURRENT [place] [employer]PREHENSIVE CANCER [...] 2-Benign finding Recommendation: Normal interval follow-up Normal [facility] US Breast biopsy Vac Asst, F irst [...] 08/28/2018 13:28 EDT by Fer Johnson MD Normal [facility] Coding Summary.on 08-21-2018 Coding Summary. CODING DATE: 019 FINAL [facility] DSC STATUS: Home (Routine DC) PAYOR: [place] APC DESCRIPTION 5311 Level 1 Lower GI [...] PROC APC STAT DESCRIPTION DOCTOR NAME DATE 67527 Suture of large Kameron OAKLEY MD 08/17/2018 intestine (colorrhaphy) for perforated ulcer, diverticulum, wound, injury or rupture (single or multiple perforations); without colostomy 23179 Transversus abdominis Lopez Clemens DO, Rick 08/17/2018 plane (TAP) block (abdominal plane block, rectus sheath block) bilateral; by injections (includes imaging guidance, when performed) XP Separate practitioner, a service that is distinct because it was performed by a different practitioner 26068 Anesthesia for Lopez Clemens DO, Rick 08/17/2018 intraperitoneal procedures in lower abdomen including [...] Childs Revised Date Saved: 08/20/2018 03:34 pm Normal [facility] ABO/Rh History Checkon 08-18 ABO/Rh History Check Patient discharged prior Normal [facility] Comment on above: Performed By: #### 2 [id number], [id number], [id number], [id number] ####[facility] [address] [place] [address] Inpatient Clinical Summaryon 08-18-2018 Inpatient Clinical Summary [address] [address] Clinical Summary Person Information: Name: ABDOULAYE BENTLEY Age: 53 Years : 1965 12:00 AM Sex: Female PCP: ANGELA, XXXX Marital Status: Phone: [phone] Race: White Ethnicity: Non- or Language: Omani Visit Id: Visit Reason: SCREENING Speciality: Acuity: Enc Type: Ambulatory/Same Day Surgery Med Service: Surgery Arrival: 08/17/2018 6:56 AM Discharge: Dispo Type: Address: [address] [place] [phone] Provider Notes: Diagnosis: Perforation of sigmoid colon [...] Follow up: With: Address: When: THOMAS MILLER [place] With: Address: When: Kameron OAKLEY [address] [place] [address], [address] [place] [address] Business (1) 08/24/2018 9:15 AM Comments: Call for any problems. Type Location Start Finish State US Breast (FT) FT.ULTRASOUND 08/24/2018 10:00 AM 08/24/2018 11:00 AM Confirmed MA Diagnostic (FT) FT.MAMMOGRAM 08/24/2018 10:45 AM 08/24/2018 11:15 AM Confirmed Patient Education Information: Cele - Post Op Instructions (CUSTOM) ciprofloxacin, Flagyl, MiraLax, Percocet Normal [facility] Inpatient Patient Summaryon 08-18-2018 Inpatient Patient Summary [address] [address] Patient Discharge Instructions PERSON INFORMATION [...] None Follow up: With: Address: When: XXXX SAURAV MILLER With: Address: When: Kameron OAKLEY [address] [place] [address], [address] [place] [address] [facility] (1) 08/24/2018 9:15 AM Comments: Call for any problems. In the event that this physician does not participate in your insurance network, please consult with your insurance company to find a nearby participating provider. Type Location [facility] US Breast (FT) FT.ULTRASOUND 08/24/2018 10:00 AM 08/24/2018 11:00 AM Confirmed MA Diagnostic (FT) FT.MAMMOGRAM 08/24/2018 10:45 AM 08/24/2018 11:15 AM Confirmed Comment: MC Johansen ANN, have received the attached patient education materials/instructions and have verbalized understanding: Patient Signature Date Clinican/Nurse Signature _ Date HERE ARE THE MEDICATION CHANGES THAT OCCURRED DURING YOUR HOSPITAL STAY New Medications [facility] [place], [place] [id number], [phone] acetaminophen-oxycodone (Percocet 325 mg-5 mg Tab) 1 [...] demian hardwick Comment: PATIENT EDUCATION INFORMATION Instructions: [place], [place] Kameron Oakley MD, FACS POST OPERATIVE [...] office to make a post-operative appointment for ____Mon, Aug 24 If you have any questions or problems prior to being seen in the office, please call. Your surgeon can be reached by calling: Hospital: or (ask the leveling machine operator for your surgeon) Office: Reviewed: [...] What is ciprofloxacin? Ciprofloxacin is a fluoroquinolone (zakv-u-HAMI-o-lone) antibiotic that fights bacteria in the body. [...] may report side effects to FDA at 3-283-PLF-4256. What other drugs will affect ciprofloxacin? Some [...] drugs may affect ciprofloxacin, including prescription and sxml-got-vkzttxg medicines, vitamins, and herbal products. Not all [...] to ensure that the information provided by [employer]. ('Multum') is accurate, up-to-date, and complete, but no guarantee is made to that effect. Drug information contained herein may be time sensitive. [employer] information has been compiled for use by healthcare practitioners and consumers in the [place] and therefore [employer] does not warrant that uses outside of the [place] are appropriate, unless specifically indicated otherwise. [employer] drug information does not endorse drugs, diagnose patients or recommend therapy. [employer] drug information is an informational resource designed [...] effective or appropriate for any given patient. [employer] does not assume any responsibility for any aspect of healthcare administered with the aid of information [employer] provides. The information contained herein is not intended to cover all possible uses, directions, precautions, warnings, drug interactions, allergic reactions, or adverse effects. If you have questions about the drugs you are taking, check with your doctor, nurse or pharmacist. Copyright 8795-0571 [employer]. Version: 22.. Revision Date: 05/04/2018. metronidazole (me troe NI da zole) FIRST Metronidazole, Flagyl, Flagyl 375 What is [...] (more likely to occur while taking metronidazole long-term): ?? numbness, tingling, or burning pain in [...] may report side effects to FDA at 7-764-QFN-8782. What other drugs will affect metronidazole? Sometimes [...] drugs may affect metronidazole, including prescription and imti-arn-bvnpeal medicines, vitamins, and herbal products. Not all [...] to ensure that the information provided by [employer]. ('Sandlot Solution[employer]um') is accurate, up-to-date, and complete, but no guarantee is made to that effect. Drug information contained herein may be time sensitive. [employer] information has been compiled for use by healthcare practitioners and consumers in the [place] and therefore [employer] does not warrant that uses outside of the [place] are appropriate, unless specifically indicated otherwise. [employer] drug information does not endorse drugs, diagnose patients or recommend therapy. [employer] drug information is an informational resource designed [...] effective or appropriate for any given patient. [facility] does not assume any responsibility for any aspect of healthcare administered with the aid of information [facility] provides. The information contained herein is not intended to cover all possible uses, directions, precautions, warnings, drug interactions, allergic reactions, or adverse effects. If you have questions about the drugs you are taking, check with your doctor, nurse or pharmacist. Copyright 2567-8540 [facility]. Version: 12.02. Revision Date: 02/16/2018. polyethylene glycol 3350 (shirlene ee ETH il een GLYE kol) ClearLax, GaviLAX, Gialax, GlycoLax, MiraLax, BOK7684, SunMark ClearLax What is the most important [...] may report side effects to FDA at 0-921-HZU-0668. What other drugs will affect polyethylene glycol 3350? Other drugs may interact with polyethylene glycol 3350, including prescription and nnpn-prp-ssbayml medicines, vitamins, and herbal products. Tell each [...] to ensure that the information provided by [employer]. ('Mult[employer]') is accurate, up-to-date, and complete, but no guarantee is made to that effect. Drug information contained herein may be time sensitive. [employer] information has been compiled for use by healthcare practitioners and consumers in the [place] and therefore [employer] does not warrant that uses outside of the [place] are appropriate, unless specifically indicated otherwise. [employer]'s drug information does not endorse drugs, diagnose patients or recommend therapy. [employer] drug information is an informational resource designed [...] effective or appropriate for any given patient. [employer] does not assume any responsibility for any aspect of healthcare administered with the aid of information [employer] provides. The information contained herein is not intended to cover all possible uses, directions, precautions, warnings, drug interactions, allergic reactions, or adverse effects. If you have questions about the drugs you are taking, check with your doctor, nurse or pharmacist. Copyright 1332-1427 [employer]. Version: 2.04. Revision Date: 07/31/2016. acetaminophen and [...] may report side effects to FDA at 1-037-BIW-4610. What other drugs will affect acetaminophen and [...] affect acetaminophen and oxycodone, including prescription and qxlb-dca-zniwzcn medicines, vitamins, and herbal products. Not all [...] to ensure that the information provided by [employer]. ('Sandlot [employer]') is accurate, up-to-date, and complete, but no guarantee is made to that effect. Drug information contained herein may be time sensitive. [employer] information has been compiled for use by healthcare practitioners and consumers in the [place] and therefore [employer] does not warrant that uses outside of the [place] are appropriate, unless specifically indicated otherwise. [employer]'s drug information does not endorse drugs, diagnose patients or recommend therapy. [employer] drug information is an informational resource designed [...] effective or appropriate for any given patient. [employer] does not assume any responsibility for any aspect of healthcare administered with the aid of information [facility] provides. The information contained herein is not intended to cover all possible uses, directions, precautions, warnings, drug interactions, allergic reactions, or adverse effects. If you have questions about the drugs you are taking, check with your doctor, nurse or pharmacist. Copyright 8480-7099 [employer]. Version: 18.02. Revision Date: 03/25/2018. Thank you for choosing [facility] Normal [facility] Main OR Intraoperative Recor don 08-18-2018 Main OR Intraoperative Record IntraOp Document Type FT Summary Primary Physician: Kameron OAKLEY MD Finalized Date/Time: 08/18/18 15:00:16 Pt. Name: ABDOULAYE BENTLEY/Sex: 1965 Female Med Rec #: [id number] Physician: Kameron OAKLEY MD Financial #: [id number] Pt. Type: A Room/Bed: [place] [address] Admit/Disch: 08/17/18 06:56:00 - 08/18/18 11:36:00 Institution: Case Times FT Entry 1 Patient Times In Room 08/17/18 08:34:00 Out Room 08/17/18 10:02:00 Procedure Times Start 08/17/18 09:09:00 Stop 08/17/18 09:56:00 Anesthesia Times Start 08/17/18 08:34:00 Stop 08/17/18 10:02:00 Block Timeout w08/17/18 08:50:00 Anesthesia Last Modified By: Margaret Ceaj CST 08/17/18 10:09:26 General Comments: 0850: TAP BLOCK PERFORMED BY DR. BASURTO AFTER SUCCESSFUL INTUBATION. ULTRASOUND GUIDED BY ASSISTANCE BY DAYNE,CHRIS.- CHRIS NEFF 08/18/18 Chart opened to review and send charges Zan Ceja CST Case Attendance FT Entry 1 Entry 2 Entry 3 Case Attendee Rustam WINSTON, Jyothi OAKLEY MD, Kameron PARKER MD, Shruthi Dominguez Role Performed Scanning Clerk Surgeon - Primary Surgeon - Assist 1 [...] 6 Case Attendee Jarvis PEREZ, Simran Ceja TELEVISION NEWSCAST DIRECTOR, Margaret Wylie RN, CNOR, [place] Role Performed Environmental Solutions Engineer - Primary Scrub - Primary Environmental Solutions Engineer - Other Time In 08/17/18 08:34:00 08/17/18 08:34:00 08/17/18 08:34:00 Time Out 08/17/18 10:02:00 08/17/18 10:02:00 08/17/18 09:35:00 Procedure COLON RESECTION(.) COLON RESECTION(.) COLON RESECTION(.) Comments Last Modified By: Jarvis PEREZ, Simran Conley RN, Simran Conley RN, Simran [...] PACHECO, KEITH Booker MD, Jarvis Zhang RN, Karen M, Brown CAA, Carly C, Inessa PEREZ, America SAINI Time Out Complete 08/17/18 09:05:00 [...] and tissue Entry 1 Skin Integrity Warm, [place], Other/See Skin Abnormality Yes Comments Outcomes Met? [...] with legs extended per Dr. Oakley's request. Cathie,RN Patient Care Devices FT Pre-Care Text: Implements [...] By: Simran Conley RN, RN, Karen M 08/17/18 10:15:48 08/17/18 10:15:48 Post-Care Text: The patient [...] Karen M, Farris RN, Karen M, Barney TELEVISION NEWSCAST DIRECTOR, Margaret Ceja TELEVISION NEWSCAST DIRECTOR, Margaret Ceja TELEVISION NEWSCAST DIRECTOR, Margaret Outcomes Met? Yes Yes Yes Last [...] X 12 [WPD-212][F] Site and Details ABDOMEN: RENNY, Outcomes Met? Yes SILVERON, 4X4 TAPS Last [...] safely administered during the perioperative period For Hector-Leslie please see scanned medication reconcilliation form for medications used at the field during the procedure. Drains/Tubes FT Pre-Care Text: Administers care to invasive device sites Entry 1 Device Type TUBE NASOGASTIC SUMP Location oral 18FR [[id number]][F] Quantity 1 Inserted By Jyothi Avila Present [...] BLANKET MISTRAL AIR Quantity 1 Aid TORSO [[id number]][F] Fluid/Lookout Unit Mistral warming system Setting high Body Site Upper anterior torso Last Modified By: Simran Conley RN 08/17/18 09:26:50 Case Comments Finalized By: Simran Conley RN Document Signatures Signed By: Simran Conley RN 08/17/18 10:10 Simran Conley RN 08/17/18 10:16 Margaret Ceja CST 08/18/18 12:34 Margaret Ceja CST 08/18/18 12:30 Simran Conley RN 08/18/18 15:00 Normal [facility] Main OR Intraoperative Record IntraOp Document Type FT Summary Primary Physician: Kameron OAKLEY MD Finalized Date/Time: 08/18/18 14:07:09 Pt. Name: ABDOULAYE BENTLEY/Sex: 1965 Female Med Rec #: [id number] Physician: CELE PACHECO, Kameron Simon Financial #: [id number] Pt. Type: A Room/Bed: [facility]/ Admit/Disch: 08/17/18 06:56:00 - 08/18/18 11:36:00 Institution: [...] Attendee Laina ZAPATA DO, Donato OAKLEY MD, Esthela Dinero RN Role Performed Anesthesiologist of Surgeon - Primary Environmental Solutions Engineer - Primary Record Time In 08/17/18 07:26:00 08/17/18 07:26:00 08/17/18 07:26:00 Time Out 08/17/18 07:43:00 08/17/18 07:40:00 08/17/18 07:43:00 Procedure COLONOSCOPY(.) COLONOSCOPY(.) COLONOSCOPY(.) Comments Last Modified By: Levi RN, Esthela Sims RN, Esthela Elizabeth RN 08/17/18 07:43:13 08/17/18 07:43:13 08/17/18 07:43:13 Entry 4 Case Attendee Carlos JO/Trudy BARILLAS Role Performed Scrub - Primary Time In 08/17/18 07:26:00 Time Out 08/17/18 07:43:00 Procedure COLONOSCOPY(.) Comments Last Modified By: Esthela Sims RN 08/17/18 07:43:13 General Comments: [facility]. Winston Sims RNelectronic engraver Protocols FT Pre-Care Text: Implements protective measures [...] Out Donato Marina JR, DO, SCHMIDT MD, Levi Booker RN, Emily A, Timmons TELEVISION NEWSCAST DIRECTOR/SA, Trudy Time Out Complete 08/17/18 07:30:00 Outcomes Met? Yes Last Modified By: Esthela Sims RN 08/17/18 07:30:29 Post-Care Text: The patient is free from signs and symptoms of injury caused by extraneous objects Allergy Information FT Pre-Care Text: Verifies allergies Entry 1 Allergies Reviewed? Yes Allergies Reviewed Self/Patient With Outcomes Met? Yes Last Modified By: Esthela Sims RN 08/17/18 07:06:00 Post-Care Text: The patient received appropriate medication(s) safely administered during the perioperative period Surgical Procedures FT Entry 1 Procedure Description Procedure COLONOSCOPY Modifiers . Surgeon Description colonoscopy Primary Procedure Yes Primary Surgeon Kameron OAKLEY MD Start 08/17/18 07:30:00 Stop 08/17/18 07:37:00 Anesthesia Type General Surgical Service General Wound Class 2 - Clean-Contaminated Last Modified By: Esthela Sims RN 08/17/18 07:38:05 General Case Data FT Pre-Care Text: Classifies surgical wound, implements aseptic technique, initiates traffic control Entry 1 Case Information OR ENDO 2 FT Case Level Level 2 Wound Class 2 - Clean-Contaminated Specialty General ASA Class 2 Preop Diagnosis SCREENING Postop Diagnosis normal colonoscopy to sigmoid colon Outcomes Met? Yes Last Modified By: Esthela Sims RN 08/17/18 07:40:00 Post-Care Text: The patient is free from signs and symptoms of infection Skin Assessment (Pre Procedure) FT Pre-Care Text: Implements protective measures to prevent skin/ tissue injury due to thermal or mechanical sources Evaluates for signs and symptoms of physical injury to skin and tissue Entry 1 Skin Integrity Intact, [place], Warm, and Skin Abnormality No Dry Outcomes Met? Yes Last Modified By: Esthela Sims RN 08/17/18 06:57:05 Post-Care Text: The [...] Yes Levi Zuluaga RN, Emily A, Timmons TELEVISION NEWSCAST DIRECTOR/SA, Trudy Last Modified By: Esthela Sims RN 08/17/18 07:32:03 Post-Care Text: The [...] Outcomes Met? Yes Yes Last Modified By: Esthela Sims RN, RN, Emily A 08/17/18 06:56:01 08/17/18 06:56:01 Post-Care Text: The patient is free from signs and symptoms of injury caused by extraneous objects Transport To OR Pre-Care Text: Transports according to individual needs. Evaluates for signs and symptoms of skin and tissue injury as a result of transfer or transport Entry 1 Via Cart By Esthela Sims RN Safety Precautions Side Rails Up Outcomes Met? Yes Last Modified By: Esthela Sims RN 08/17/18 06:56:24 Post-Care Text: The patient is free from signs and symptoms of injury related to transfer/transport Departure From OR Pre-Care Text: Transports according to individual needs. Evaluates for signs and symptoms of skin and tissue injury as a result of transfer or transport. Entry 1 Via Cart Safety Precautions Side Rails Up PostOp Destination PACU Transported By Esthela Sims RN Patient Status Stable Skin. Condition Intact, [place], Warm, and Dry Airway Maintenance Oxygen in Use? No Outcomes Met? Yes Last Modified By: Esthela Sims RN 08/17/18 06:58:20 Post-Care Text: The patient is free from signs and symptoms of injury related to transfer/transport General Comments: report given to information technology internrn. Winston sims rn Medication Administration FT Pre-Care Text: Verifies allergies, administers prescribed medications and solutions, administers prescribed antibiotic therapy and immunizing agents as ordered, evaluates response to medications Administers prescribed medications and solutions Entry 1 Route of Admin Field Expiration Date Yes Verified Outcomes Met? Yes Last Modified By: Esthela Sims RN 08/17/18 06:56:18 Post-Care Text: The patient received appropriate medication(s) safely administered during the perioperative period For [facility] please see scanned medication reconcilliation form for medications used at the field during the procedure. Normal [facility] Operative Reporton 9 Operative Report Result type: Progres s Note-Physician Result date: August 17, 2018 09:04 EDT Result status: Auth (Verified) Result title: TAP block Performed by: Rick Basurto Jr., DO on August 17, 2018 09:06 EDT Verified by: Rick Basurto Jr., DO on August 17, 2018 09:06 EDT Encounter info: [id number], Hector Dionisio, Ambulatory/Same Day Surgery, 08/17/2018 - * Final [...] Date and Time Signed: 08/17/18 09:06 EDT [facility] Comment on above: Result Comment: Elec tronically Signed By: Rick Basurto Jr., DO\.br\Date and Time Signed: 08/18/18 14:25 EDT Operative Report Date of Surgery: 08/17/2018 SURGEON: Kameron Oakley MD, FACS DISEASE MANAGEMENT NURSE: Jennifer Parker M.D., FACS PREOPERATIVE DIAGNOSIS: Perforated [...] Vicryl suture and the skin closed with renny with sterile dressing applied and abdominal binder placed. The patient tolerated the procedure well and was transferred to the Recovery Room in stable condition. Kameron Oakley MD, FACS paul Dictated: 08/17/2018 #[id number] Typed: 08/17/2018 #[id number] cc: Kameron Oakley MD, FACS [facility] Comment on above: Result Comment: Elec tronically Signed By: CELE PACHECO, Kameron Stein\Date and Time Signed: 08/18/18 07:09 EDT Progress [...] sigmoid perforation - stable for DC. Normal [facility] Comment on above: Result Comment: Elec tronically Signed By: Kameron OAKLYE MD\.br\Date and Time Signed: 08/18/18 10:59 EDT [...] preparations continued for the proposed operation.. Normal [facility] Comment on above: Result Comment: Elec tronically Signed By: Rick Bsaurto Jr., DO\.br\Date and Time Signed: 08/17/18 09:06 EDT error - wrong folder ABO/Rhon 08-17-2018 ABO/Rh AB NEG [facility] Comment on above: Performed By: #### 2 719519, [id number], [id number], [id number] ####[facility] [address] [place] [address] ABSCon 08-17-2018 ABSC Gel Interp Negative Normal [facility] Comment on above: Performed By: #### 2 357287, [id number], 60754254, 70796001 ####[facility] [address] [place] [address] Auto Diffon 08-17-2018 Basophils #/vol (Bld) 0.3 % Normal 0.0-2.0 [facility] Comment on above: Order Comment: Order Added by Discern Expert. Performed By: #### 2 629876, [id number], 3283545, 7549159 #### [facility] [address] [place] [address] Basophils/Leukocytes Auto Pure number fraction (Bld) 0.1 E9/L Normal 0.0-0.2 [facility] Comment on above: Order Comment: Order Added by Discern Expert. Performed By: #### 2 063199, 37880954, 7867715, 7153704 #### [facility] [address] [place] [address] Eosinophils/100 WBC (Bld) 1.3 % Normal 0.0-8.0 [facility] Comment on above: Order Comment: Order Added by Discern Expert. Performed By: #### 2 355468, 14219030, 1761704, 0458472 #### [facility] [address] [place] [address] Eosinophils/Leukocyte s Auto Pure number fraction (Bld) 0.2 E9/L Normal 0.0-0.5 [facility] Comment on above: Order Comment: Order Added by Discern Expert. Performed By: #### 2 360365, 57338494, 8932056, 6599553 #### [facility] [address] [place] [address] Lymphocytes/100 WBC (Bld) 16.3 % Normal 14.0-50.0 [facility] Comment on above: Order Comment: Order Added by Discern Expert. Performed By: #### 2 423206, 70141564, 2715117, 3786651 #### [facility] [address] [place] [address] Lymphocytes/Leukocyte s Auto Pure number fraction (Bld) 2.7 E9/L Normal 1.0-4.0 [facility] Comment on above: Order Comment: Order Added by Discern Expert. Performed By: #### 2 462298, 97261667, 5734391, 7163743 #### [facility] [address] [place] [address] Monocytes/100 WBC (Bld) 5.3 % Normal 4.0-14.0 [facility] Comment on above: Order Comment: Order Added by Discern Expert. Performed By: #### 2 835089, 37238464, 2314831, 4460250 #### [facility] [address] [place] [address] Monocytes/Leukocytes Auto Pure number fraction (Bld) 0.9 E9/L Normal 0.2-1.0 [facility] Comment on above: Order Comment: Order Added by Discern Expert. Performed By: #### 2 651284, 87738814, 8315768, 6914449 #### [facility] [address] [place] [address] Neutrophils/100 WBC (Bld) 76.8 % High 36.0-75.0 [facility] Comment on above: Order Comment: Order Added by Discern Expert. Performed By: #### 2 981600, 52521073, 9925763, 1912823 #### [facility] [address] [place] [address] Neutrophils/Leukocyte s Auto Pure number fraction (Bld) 12.9 E9/L High 2.0-7.5 [facility] Comment on above: Order Comment: Order Added by Discern Expert. Performed By: #### 2 554449, 30145607, 8322713, 8286298 #### [facility] [address] [place] [address] BMPon 08-17-2018 Anion gap molar conc 13 mmol/L Normal 6-16 [facility] Comment on above: Performed By: #### 2 692209, 02146192, 5877780, 7372123 #### [facility] [address] [place] [address] Calcium mass conc 9.0 mg/dL Normal 8.9-11.1 [facility] Comment on above: Performed By: #### 2 650478, 41086389, 9431763, 5075486 #### [facility] [address] [place] [address] Chloride molar conc 106 mmol/L Normal 101-111 [facility] Comment on above: Performed By: #### 2 063434, 58995119, 4413603, 6397947 #### [facility] [address] [place] [address] CO2 molar conc 23 mmol/L Normal 21-31 [facility] Comment on above: Performed By: #### 2 174686, 35542669, 4454790, 9191355 #### [facility] [address] [place] [address] Creatinine mass conc 0.7 mg/dL Normal 0.5-1.3 [facility] Comment on above: Performed By: #### 2 996430, 33453697, 4077794, 1526392 #### [facility] [address] [place] [address] Glucose mass conc 149 mg/dL Normal 55-199 [facility] Comment on above: Result Comment: If t his glucose result represents a fasting glucose, interpretation should refer to the following reference range: 55-99 mg/dL Performed By: #### 2 098052, 16905197, 5086322, 0615656 #### [facility] [address] [place] [address] Potassium molar conc 3.7 mmol/L Normal 3.5-5.3 [facility] Comment on above: Performed By: #### 2 602695, 68980308, 2041940, 7481892 #### [facility] [address] [place] [address] Sodium molar conc 138 mmol/L Normal 135-145 [facility] Comment on above: Performed By: #### 2 870119, 05766506, 7605789, 3245208 #### [facility] [address] [place] [address] Urea nitrogen mass conc 13 mg/dL Normal 5-21 [facility] Comment on above: Performed By: #### 2 771439, 57137967, 1704485, 0923969 #### [facility] [address] [place] [address] Urea nitrogen/Creatinine mass ratio 19 No Units Normal 10-20 [facility] Comment on above: Performed By: #### 2 044371, 10206604, 6212045, 0478721 #### [facility] [address] [place] [address] Blood Bank ID#on 08-17-2018 BBID# [id number] [facility] Comment on above: Performed By: #### 2 897734, 94899207, 70172503, 75848687 ####[facility] [address] [place] [address] CBC w/ Auto Diffon 04-22-201 9 Erythrocyte distribution width Ratio (RBC) 13.5 % Normal 10.9-14.2 [facility] Comment on above: Performed By: #### 2 004655, 03115965, 1576415, 0084026 #### [facility] [address] [place] [address] Hematocrit Volume Fraction (Bld) 45.0 % Normal 34.0-46.0 [facility] Comment on above: Performed By: #### 2 260021, 49292414, 9428039, 1898623 #### [facility] [address] [place] [address] Hemoglobin mass conc (Bld) 16.1 g/dL High 12.0-16.0 [facility] Comment on above: Performed By: #### 2 034882, 49364756, 5702567, 3460368 #### [facility] [address] [place] [address] MCH Entitic mass (RBC) 33.8 pg Normal 27.0-34.0 [facility] Comment on above: Performed By: #### 2 645120, 15376881, 6422576, 3112258 #### [facility] [address] [place] [address] MCHC mass conc (RBC) 35.8 g/dL High 33.3-35.7 [facility] Comment on above: Performed By: #### 2 837591, 00956359, 9492208, 9433286 #### [facility] [address] [place] [address] MCV Entitic volume (RBC) 94.4 fL Normal 80.0-100.0 [facility] Comment on above: Performed By: #### 2 990422, 79880876, 4696229, 5972790 #### [facility] [address] [place] [address] Platelet mean volume Entitic volume (Bld) 7.4 fL Normal 6.4-10.8 [facility] Comment on above: Performed By: #### 2 880052, 68792934, 0328761, 1814388 #### [facility] [address] [place] [address] Platelets #/vol (Bld) 300.0 E9/L Normal 150.0-500.0 [facility] Comment on above: Performed By: #### 2 794047, 23349713, 3237570, 0184073 #### [facility] [address] [place] [address] RBC #/vol (Bld) 4.8 E12/L Normal 4.3-5.9 [facility] Comment on above: Performed By: #### 2 733420, 93083950, 2943640, 8578963 #### [facility] [address] [place] [address] WBC corrected for nucl RBC Auto #/vol (Bld) 16.8 E9/L High 4.0-11.0 [facility] Comment on above: Result Comment: Slid e reviewed by cmk. Performed By: #### 2 148178, 24161561, 5392671, 6012956 #### [facility] [address] [place] [address] Interdisciplinary Note - Leonid e Manageron 08-17-2018 Interdisciplinary Note - Director Of Academic Support Pt is awake and alert in bed, and no family present at this time. Pt lives in [place] and does not have PCP. Importance of PCP discussed, and PCP list provided. Pt states usually sees Barbara Palacio, who always ordered blood work or any further testing which needs done. Pt states will find PCP near home [facility] for future follow up. Observation status discussed. Insurance information veriified, and pt denies any concerns or DC needs. Normal [facility] Main OR PACU I Recordon 07-28 Main OR PACU I Record PACU Phase I Docum ent Type FT Summary Primary Physician: Kameron OAKLEY MD Finalized Date/Time: 08/17/18 10:51:47 Pt. Name: ABDOULAYE BENTLEY/Sex: 1965 Female Med Rec #: [id number] Physician: Kameron OAKLEY MD Financial #: [id number] Pt. Type: O Room/Bed: [place] [address] Admit/Disch: 08/17/18 06:56:30 - Institution: Case Times [...] By: Shana Plunkett RN 08/17/18 10:51 Normal [facility] Main OR PACU I Record PACU Phase I Docum ent Type FT Summary Primary Physician: Kameron OAKLEY MD Finalized Date/Time: 08/17/18 08:24:49 Pt. Name: ABDOULAYE BENTLEY/Sex: 1965 Female Med Rec #: [id number] Physician: Kameron OAKLEY MD Financial #: [id number] Pt. Type: A Room/Bed: [place] [address] Admit/Disch: 08/17/18 06:56:30 - Institution: Case Times [...] Signed By: Jerilyn Zamudio RN 08/17/18 08:24 [facility] Main OR Preoperative Recordo n 08-17-2018 Main OR Preoperative Record PreOp Document Type FT Summary Primary Physician: Kameron OAKLEY MD Finalized Date/Time: 08/17/18 10:56:03 Pt. Name: ABDOULAYE BENTLEY/Sex: 1965 Female Med Rec #: [id number] Physician: Kameron OAKLEY MD Financial #: [id number] Pt. Type: O Room/Bed: [place] [address] Admit/Disch: 08/17/18 06:56:30 - Institution: Case Times [...] Signed By: Simran Conley RN 08/17/18 10:56 [facility] Main OR Preoperative Record Holding Area Document Type FT Summary Primary Physician: Kameron OAKLEY MD Finalized Date/Time: 08/17/18 07:18:23 Pt. Name: ABDOULAYE BENTLEY D.O.B./Sex: 1965 Female Med Rec #: [id number] Physician: Kameron OAKLEY MD Financial #: [id number] Pt. Type: O Room/Bed: / Admit/Disch: 08/17/18 [...] By: Jacque Brewer RN 08/17/18 07:18 Normal [facility] Operative Reporton 9 Operative Report Date of [...] Kameron Oakley MD, FACS gls Dictated: 08/17/2018 #[id number] Typed: 08/17/2018 #[id number] cc: Kameron Oakley MD, FACS [facility] Comment on above: Result Comment: Elec tronically Signed By: Kameron OAKLEY MD.br\Date and Time Signed: 08/17/18 16:01 EDT Progress Note-Physicianon Protein mass conc Patient: ABDOULAYE BENTLEY Age: 53 years Sex: Female : 1965 Associated Diagnoses: None Author: Kameron OAKLEY MD Postoperative Information Date/ Time: 08/17/18 10:06:00 Preoperative Diagnosis: Perforation of sigmoid colon ([id number] K63.1, Discharge, Medical). Postoperative Diagnosis: same. Performed by: Kameron OAKLEY MD Ems Driver: Shruthi PARKER MD Estimated Blood Loss: 5 ml. Complications: None. Suture repair of sigmoid perforation [facility] Comment on above: Result Comment: Elec tronically Signed By: Kameron OAKLEY MDbr\Date and Time Signed: 08/17/18 10:07 EDT Protein [...] (AUG 17 07:16) SBP 120 mmHg (AUG 17:) DBP 78 mmHg (AUG 17:) SpO2 93 % (AUG 17:) Height 160 cm (AUG 17:40) Weight 83.9 kg (AUG 17:40) BMI 32.77 kg/m2 (AUG 17:) Respiratory: Adequate air exchange with rastafari of preoperative function.. Cardiovascular: Cardiovascular function is stable and has returned to preoperative levels.. Neurologic: Pt has returned to preoperative baseline.. Review / Management Condition: Stable. Assessment Anesthetic outcome No anesthetic complications noted. ENDOSCOPIC PERFORATION. CHELY EXPL LAP. Plan Transfer/ Discharge: Condition TO SURGERY FOR EXPL LAP. STABLE. Normal [facility] Comment on above: Result Comment: Elec tronically Signed By: Donato Marina JR, DO.olivia\Date and Time Signed: 08/17/18 08:37 EDT Protein [...] rhythm. Review / Management Results review Plan [place] [employer]hesi[employer] (ASA) physical status classification: Class II, E. Anesthetic Preoperative Plan Anesthesia: General. , Regional TAP block. Anesthetic plan, risks, benefits, and alternatives discussed with the patient and/or family. Patient verbalized understanding. Adverse reactions, complications, and alternatives discujssed. Consent signed and on chart.. Normal [facility] Comment on above: Result Comment: Elec tronically Signed By: Rick Basurto Jr., DO\.br\Date and Time Signed: 08/17/18 08:14 EDT Protein mass conc Patient: ABDOULAYE BENTLEY Age: 53 years Sex: Female : 1965 Associated Diagnoses: None Author: Kameron OAKLEY MD Postoperative Information Date/ Time: 08/17/18 07:50:00 Preoperative Diagnosis: SCREENING FOR MALIGNANT NEOPLASMS OF COLON (NUL31-CC Z12.11, Working, Medical). Procedure: Colonoscopy. Postoperative Diagnosis: sigmoid perforation. Performed by: Kameron Oakley MD. Estimated Blood Loss: 0 ml. Complications: sigmoid perforation. Normal [facility] Comment on above: Result Comment: Elec [...] DegC (AUG 17:16) SBP 120 mmHg (AUG 17:16) DBP 78 mmHg (AUG 17:) SpO2 93 % (AUG 17:) Height 160 cm (AUG 17 06:40) Weight 83.9 kg (AUG 17 06:40) BMI 32.77 kg/m2 (AUG 17:40) Airway: Normal oral/pharyngeal anatomy.. Respiratory: Adequate air exchange.. Cardiovascular: Adequate perfusion and function. Review / Management Results review: No qualifying data available . Plan [place] [employer]esthesiologists (ASA) physical status classification: Class II. Anesthetic Preoperative Plan Anesthesia: Monitored anesthesia care and general anesthesia if required.. Anesthetic plan, risks, benefits, and alternatives discussed with the patient and/or family. Pt. and/or family present and agree to proceed as planned.. Discussed the importance of abstaining from tobacco products, and offered counseling if desired.. Normal [facility] Comment on above: Result Comment: Elec tronically Signed By: Donato Marina JR, DO\.br\Date and Time Signed: 08/17/18 07:33 EDT Protein mass conc Patient: ABDOULAYE BENTLEY Age: 53 years Sex: Female : 1965 Associated Diagnoses: None Author: Kameron OAKLEY MD Basic Information No change in H&P Normal [facility] Comment on above: Result Comment: Elec tronically Signed By: Kameron OAKLEY MD\.br\Date and Time Signed: 08/17/18 07:11 EDT UA With Cult Reflexon 2018 Bilirubin Ql (U) Negative Normal Negative [facility] Comment on above: Performed By: #### 1 [id number] ####[facility] [address] [place] [address] Clarity Nom (U) CLOUDY Abnormal Clear [facility] Comment on above: Performed By: #### 1 [id number] ####[facility] [address] [place] [address] Color Nom (U) YELLOW Normal Yellow [facility] Comment on above: Performed By: #### 1 0425432 ####[facility] [address] [place] [address] Crystals LM Ql (Urine sed) Present Normal [facility] Comment on above: Performed By: #### 1 0665500 ####[address] [place] [address] Epithelial cells.squamous LM.HPF #/area (Urine sed) 0-2 Normal 0-2 [facility] Comment on above: Performed By: #### 1 4250440 ####[facility] [address] [place] [address] Glucose Test strip mass conc (U) Negative Normal Negative [facility] Comment on above: Performed By: #### 1 7982517 ####[place] [address] [place] [address] Hemoglobin Ql (U) Negative Normal Negative [facility] Comment on above: Performed By: #### 1 [id number] ####[facility] [address] [place] [address] Ketones mass conc (U) Negative Normal Negative Fis [facility] Comment on above: Performed By: #### 1 6210856 ####[facility] [address] [place] [address] [place].plasma/Lithiu m.RBC mass ratio (Bld) 0-3 Normal 0-3 [facility] Comment on above: Performed By: #### 1 7509457 ####[facility] [address] [place] [address] Nitrite Ql (U) Negative Normal Negative [facility] Comment on above: Performed By: #### 1 0231098 ####[facility] [address] [place] [address] pH (U) 5.5 [pH] 5.0-9.0 [facility] Comment on above: Performed By: #### 1 7675824 ####[facility] [address] [place] [address] Protein mass conc (U) Negative Normal Negative Fis [facility] Comment on above: Performed By: #### 1 2794702 ####[place] [address] [place] [address] Specific gravity Relative Density (U) 1.020 1.005-1.030 [facility] Comment on above: Performed By: #### 1 0102122 ####[address] [address] UA Spec Desc [place] Normal [facility] Comment on above: Performed By: #### 1 8328450 ####[address] [address] Urobilinogen Qn (U) 0.2 {Larry'U}/dL Normal 0.0-1.0 [facility] Comment on above: Performed By: #### 1 3609880 ####[facility] [address] [place] [address] WBC Auto Ql (U) Negative Normal Negative [facility] Comment on above: Performed By: #### 1 6938538 ####[address] [address] WBC LM.HPF #/area (Urine sed) 0-5 Normal 0-5 [facility] Comment on above: Performed By: #### 1 8356207 ####[address] [address] eGFRon 08-17-2018 GFR/1.73 sq M predicted among blacks MDRD vol rate/area (S/P/Bld) mL/min/{1.73_m2} Normal >=59 [facility] Comment on above: Order Comment: Order added by Discern Expert. Result Comment: eGFR is race adjusted. AA=. Performed By: #### 2 717950, 40026504, 2021836, 5401793 #### [facility] [address] [place] [address] GFR/1.73 sq M predicted among non-blacks MDRD vol rate/area (S/P/Bld) mL/min/{1.73_m2} Normal >=59 [facility] Comment on above: Order Comment: Order added by Discern Expert. Result Comment: Set Designer amilcar kidney disease could be indicated at eGFR's of less than 60 mL/min/1.73m2. Kidney failure is indicated at less than 15 mL/min/1.73m2. Performed By: #### 2 505934, 88543100, 2037435, 6057497 #### [facility] [address] [place] [address] Vital Signs Date Time Vital Sign Value Performing Clinician Facility 07-28-2023 11:44-0400 Body temperature 98 [degF] Felisa Aichholz Work Phone: [facility] 07-28-2023 11:44-0400 Diastolic blood pressure 72 mm[Hg] Felisa Aichholz Work Phone: [facility] 07-28-2023 11:44-0400 Heart rate 84 /min Felisa Aichholz Work Phone: [facility] 07-28-2023 11:44-0400 SaO2% (BldA) [Mass fraction] 96 % Felisa Aichholz Work Phone: [facility] 07-28-2023 11:44-0400 Systolic blood pressure 114 mm[Hg] Felisa Aichholz Work Phone: [facility] 07-22-2022 11:00-0400 Body height 160.02 cm Louann Rivas Other [email or web address] Other 07-22-2022 11:00-0400 Body mass index (BMI) [Ratio] 31.88 kg/m2 Louann Rivas Other [email or web address] Other 07-22-2022 11:00-0400 Body temperature 97.8 [degF] Louann Rivas Other [email or web address] Other 07-22-2022 11:00-0400 Body weight 81.65 kg Louann Rivas Other [email or web address] Other 07-22-2022 11:00-0400 Diastolic blood pressure 62 mm[Hg] Louann Rivas Other [email or web address] Other 07-22-2022 11:00-0400 SaO2% (BldA) [Mass fraction] 98 % Louann Rivas Other [email or web address] Other 07-22-2022 11:00-0400 Systolic blood pressure 110 mm[Hg] Louann Rivas Other [email or web address] Other Encounters Encounter Date Encounter Type Care Provider Facility Start: 09-29-2023 End: 09-29-2023 ambulatory FELISA SHELTON Not Available Start: 08-25-2023 End: 08-25-2023 ambulatory LORI SALAS Not Available Start: 07-28-2023 End: 07-28-2023 ambulatory Louann Rivas Facility:[facility] Start: 07-28-2023 End: 07-28-2023 ambulatory Felisa Shelton Work Phone: [facility] Work Phone: Start: 07-28-2023 End: 07-28-2023 Patient encounter procedure Felisa Shelton Work Phone: [facility] Vascular Surgery Work Phone: Start: 07-28-2023 End: 07-28-2023 ambulatory LORI SALAS Not Available Start: 07-14-2023 End: 07-14-2023 ambulatory RONY CLEMENS Gil LAL Not Available Start: 07-07-2023 End: 07-07-2023 ambulatory FELISA AICHHOLZ Not Available Start: 06-30-2023 End: 06-30-2023 ambulatory LORI SALAS Not Available Start: 06-16-2023 End: 06-16-2023 ambulatory JR. RONY LAL Not Available Start: 06-02-2023 End: 06-02-2023 ambulatory FELISA AICHHOLZ Not Available Start: 05-19-2023 End: 05-19-2023 ambulatory ESTHELA GANEleno Not Available Start: 05-05-2023 End: 05-05-2023 ambulatory ELYSSA HOLCOMB Not Available Start: 04-07-2023 End: 04-07-2023 ambulatory FELISA AICHHOLZ Not Available Start: 07-22-2022 End: 07-22-2022 ambulatory Louann Rivas Other [email or web address] Other Start: 07-22-2022 [facility] visit new patient Louann schaefer [facility] Vascular Surgery Start: 06-10-2022 End: 06-11-2022 ambulatory PIPE COVERER FELISA AICHHOLZ Facility:[facility] Start: 11-12-2021 End: 11-13-2021 ambulatory PIPE COVERER FELISA AICHHOLZ Facility:[facility] Start: 10-01-2021 End: 10-02-2021 ambulatory PIPE COVERER FELISA AICHHOLZ Facility:[facility] Plan of Treatment Date Care Activity Detail Author Start: 07-28-2023 Doppler ultrasonogra phy of bilateral carotid arteries US carotid doppler BI [facility] Start: 07-28-2023 US.doppler Carotid a rteries - bilateral [facility] Payers Date Payer Category Payer Self-pay 1965 Unknown [id number] 2.16.84 [id number] 1965 Unknown [id number] 2.16.84 0.1.417095.3.579.2.593 1967 Unknown [id number] 2.16.84 0.1.083021.3.579.2.593 1967 Unknown [id number] 2.16.84 0.1.557702.3.579.2.1259 1967 Unknown [id number] 2.16.84 0.1.572263.3.579.2.1259 1967 Unknown [id number] 2.16.84 0.1.952714.3.579.2.1259 1967 Unknown [id number] 2.16.84 0.1.812178.3.579.2.1259 1967 Unknown [id number] 2.16.84 0.1.914849.3.579.2.1259 1967 Unknown [id number] 2.16.84 0.1.803618.3.579.2.1259 1967 Unknown [id number] 2.16.84 0.1.211852.3.579.2.1259 1967 Unknown [id number] 2.16.84 0.1.467437.3.579.2.1259 1967 Unknown [id number] 2.16.84 0.1.709762.3.579.2.1259 1967 Unknown [id number] 2.16.84 0.1.272315.3.579.2.1259 1967 Unknown [id number] 2.16.840 .1.418663.3.579.2.1259 1967 Unknown [id number] 2.16.840 .1.114464.3.579.2.1259 1959 Unknown [id number] Unknown [id number] 2.16.8 40.1.528292.3.579.2.531 Social History Date Type Detail Facility Sex Assigned At [email or web address] Other Start: 1965 Sex Assigned At Female F [facility] Medical Equipment Procedure Code Equipment Code Equipment Origin al Text Equipment Identifier Dates Blood Sugar Diagnostic (Onetouch Verio Test Strips) strip Start: 07-28-2023 Blood Sugar Diagnostic (Onetouch Verio Test Strips) strip Start: 07-28-2023 Evaluation note 07-22-2022 Note Date & Type [...] She was provided with information on the [place] tobacco program and she is in agreement to contact them and work on smoking cessation. [employer] [facility] [employer] [facility] Other Evaluation note Note Date & Type Note Facility Evaluation note No assessment information availa [facility] Work Phone: Evaluation note Note Date & Type Note Facility Evaluation note Diagnosis Onset Date Arteriosclerosis of left carotid artery acute Current smoker acute [facility] Work Phone: History general Narrative - Reported Note Date & Type Note Facility History general Narrative - Reported Type Medical History type II diabetes Surgical History PERFORATED COLON-DUE TO COLONOS COPY Hospitalization History see above [email or web address] Other Summary Purpose Family History No Family History Records Found Relationship Condition Age at Onset Recorded Date/T jersey Not Specified Unknown Advance Directives No Advanced Directives Records Found Advance Directive Response Recorded Date/ Time Advance Directives No July 27 10:59am Chief Complaint and Reason for Visit Chief Complaint 1 YR F/U; CAROTID DU PLEX;9:00AM I65.23 Chief Complaint 1 YR F/U; CAROTID DU PLEX;9:00AM I65.23 Reason for Visit Arteriosclerosis of left carotid artery Current smoker Additional Source Comments INFORMATION SOURCE (unrecogn ized section and content) DATE CREATED AUTHOR 10/07/2018 [facility] DATE CREATED AUTHOR AUTHOR'S ORGANIZ ATION 06/19/2022 [facility] DATE CREATED AUTHOR AUTHOR'S ORGANIZ ATION 08/06/[address] [facility] DATE CREATED AUTHOR AUTHOR'S ORGANIZ ATION 09/29/2023 [facility] EPIC REASON FOR VISIT (unrecogniz ed section and content) ASYMPTOMATIC CAROTID ARTERY STENOSIS Care Teams (unrecognized sec tion and content) Team Status: Active Member Role Status Dates Felisa Shelton Primary Care Provider Active Team Status: Inactive Member Role Status Dates Humza Suresh MD Attending Provider Active S tart: July 28, 2023 End: July 28, 2023 Felisa Shelton Primary Care Provider Active Sta rt: July 28, 2023 End: July 28, 2023 Team Status: Active Member Role Status Dates AMI Kulkarni Attending Provider Active Start: July 28, 2023 Felisa Shelton Primary Care Provider Active Sta rt: July 28, 2023 Team Status: Inactive Member Role Status Dates AMI Kulkarni Attending Provider Active Start: July 28, 2023 End: July 28, 2023 Felisa Shelton Primary Care Provider Active Sta rt: July 28, 2023 End: July 28, 2023 Goals (unrecognized section and content) Goals may be documented in a n alternate section FOR RECORDS PERTAINING TO PATIENTS WHO ARE [...] BE BASED ON THE PRIMARY CLINICAL RECORDS. [employer] [facility]. provides no warranty or guarantee of the accuracy or completeness of information in this document.
[2023-12-01 12:08] LABS: Estimated Average Glucose 105 mg/dL; Glycohemoglobin A1C 5.3 % (4.5-6.2)
== END 2023-12-01 11:26 | disposition home or self-care (01) ==
LOC: LAB 11:26
PROVIDERS: PCP Nurse Practitioner; Visit Provider Nurse Practitioner
DX: E11.9 Type 2 diabetes mellitus without complications (principal)
CPT/HCPCS: 36415; 83036

== ENCOUNTER 2024-02-24 16:24 | Emergency (ER) | payer BC, SELFPAY ==
[2024-02-24 16:27] VITALS: BP 119/80; PULSE 99; TEMP 36.6; O2SAT 98; BMI 30.1
--- NOTE | 2024-02-24 16:39 | CT_ITS ---
[address] [address] Patient Name: MAHESH BENTLEY MRN: [id number] date: 1965 Sex: F Assigned Patient Location: ER Current Patient Location: ER Accession/Order Number: [id number] Exam Date: 02/24/2024 17:16 Report Date: 02/24/2024 19:02 At the request of: GEOVANNA TELLO Procedure: CT abdomen pelvis w con CT ABDOMEN/PELVIS WITH IV CONTRAST. INDICATION: Right lower quadrant abdominal pain. COMPARISON: There are no other studies available for comparison. TECHNIQUE: Contiguous axial images were obtained from the lung bases to the pelvic floor following the intravenous administration of contrast. Coronal and sagittal reformations are provided. FINDINGS: LOWER LUNGS: Clear. LIVER/BILIARY TREE: No mass. No intrahepatic ductal dilatation. GALLBLADDER: Contracted gallbladder. No radiopaque stone. CBD: Normal CBD. SPLEEN: Normal in size. PANCREAS: No acute findings. No peripancreatic fluid or inflammation. No pancreatic duct dilatation. No discrete mass. ADRENALS: There is a mildly hyperdense left adrenal nodule measuring 2.6 cm. KIDNEYS: No hydronephrosis. No radiopaque calculus. STOMACH AND BOWEL: Stomach is unremarkable. No dilated bowel loops. There is focal thickening and inflammation of the proximal ascending colon. There is a fatty attenuating oval shape lesion in the middle of the inflammation measuring 1.7 cm. No fluid collection or perforation. APPENDIX: Normal appendix. PERITONEAL CAVITY: There is stranding and minimal free fluid surrounding the proximal ascending colon.. ABDOMINAL WALL: No subcutaneous stranding. No subcutaneous fluid collection. LYMPH NODES: No mesenteric or retroperitoneal lymphadenopathy by CT criteria. ABDOMINAL AORTA: No aneurysm. PELVIS: No acute abnormality. MUSCULOSKELETAL: No acute osseous abnormality. CT/CT abdomen pelvis w con IMPRESSION: 1. Findings are suggestive of acute epiploic appendagitis of the proximal right colon. 2. Normal appendix. Electronically authenticated by: ASAD JONES Date: 02/24/2024 19:02
--- NOTE | 2024-02-24 16:41 | ED_ITS ---
HPI - Abdominal Pain General Chief Complaint: Abdominal Pain Stated Complaint: flank pain Time Seen by Provider: 02/24/24 16:32 Source: patient Mode of arrival: walk-in Limitations: no limitations History of Present Illness HPI narrative: Patient is a 58-year-old female who presents to the emergency department for 2 to 3-day history of right lower quadrant abdominal pain without radiation. She states the pain is constant. She has had no fevers, chills, nausea, vomiting, urinary symptoms. She states about 12 to 18 months ago she had a colonoscopy done at [facility]. She states that her colon was perforated during the colonoscopy which required an open procedure to repair it. She is concerned that her pain today is a complication of that. She has had no other abdominal surgeries. She is not concerned for . No medications taken prior to arrival. She drove herself here from work. Related Data Previous Rx's ?Medication ?Instructions ?Recorded hydrocodone 5 mg-acetaminophen 325 1 tab PO Q6H PRN pain 3 days #12 02/24/24 mg tablet tabs ketorolac 10 mg tablet 10 mg PO TID PRN pain #10 tabs 02/24/24 Allergies Allergy/AdvReac Type Severity Reaction Status Date / Time No Known Drug Allergies Allergy Verified 02/24/24 16:27 Review of Systems ROS Constitutional Denies: fever or chills Ears, nose, mouth, and throat Denies: throat pain Cardiovascular Denies: chest pain Respiratory Denies: shortness of breath Gastrointestinal Reports: abdominal pain; Denies: nausea, vomiting or diarrhea Genitourinary Denies: painful urination Musculoskeletal Denies: back pain or neck pain Integumentary/Breast Denies: rash Neurological Denies: numbness in extremities or weakness in extremities Hematologic/Lymphatic Denies: easy bruising or easy bleeding PFSH PFSH Social History Little interest or pleasure in doing things: not at all Feeling down, depressed, or hopeless: not at all Exam Narrative Exam Narrative: Gen.: Awake, alert, in no distress Head: Normocephalic, atraumatic ENT: Moist mucous membranes Respiratory: No respiratory distress, lungs clear bilaterally Cardio: Regular rate and rhythm Gastrointestinal: Abdomen is soft, moderately tender in the right lower quadrant with voluntary guarding, no pain out of proportion Extremities: Moves extremities equally Psych: Normal mood and affect Neuro: No focal neuro deficit Skin: Warm, dry, intact Constitutional Vital Signs, click to edit/add: Last Vital Signs Temp 97.8 F 02/24/24 16:27 Pulse 85 02/24/24 19:24 Resp 16 02/24/24 19:24 BP 95/63 02/24/24 19:24 Pulse Ox 96 02/24/24 19:24 O2 Del Method Room Air 02/24/24 19:24 Course Vital Signs Vital signs: Vital Signs Temperature 97.8 F 02/24/24 16:27 Pulse Rate 99 H 02/24/24 16:27 Respiratory Rate 20 02/24/24 16:27 Blood Pressure 119/80 02/24/24 16:27 Pulse Oximetry 98 02/24/24 16:27 Oxygen Delivery Method Room Air 02/24/24 16:27 Temperature 97.8 F 02/24/24 16:27 Pulse Rate 85 02/24/24 19:24 Respiratory Rate 16 02/24/24 19:24 Blood Pressure 95/63 02/24/24 19:24 Pulse Oximetry 96 02/24/24 19:24 Oxygen Delivery Method Room Air 02/24/24 19:24 MDM - Abdominal Pain MDM Narrative Medical decision making narrative: Patient was sent for CT with IV contrast, lab studies are stable. She was found to have a normal appendix and epiploic appendagitis. She was given education and reassurance with pain control and NSAIDs for home. She is hemodynamically stable at time of discharge. Follow-up with primary care and return to the emergency department if symptoms change or worsen. SUPERVISED APC VISIT, PHYSICIAN ATTESTATION: Based on the medical record the care appears appropriate. ? Medical Records Attestation: I reviewed the patient's medical records. Lab Data Attestation: I reviewed the patient's lab results. Labs: Lab Results 02/24/24 02/24/24 Range/Units 16:45 16:54 WBC 10.8 (4.0-11.0) 10^3/uL RBC 4.27 (4.20-5.40) 10^6/uL Hgb 13.8 (12.0-16.0) g/dL Hct 38.8 (36.0-48.0) % MCV 90.9 (81.0-99.0) fL MCH 32.3 (26.7-34.0) pg MCHC 35.6 H (29.9-35.2) g/dL RDW 13.3 (11.0-15.0) % Plt Count 356 (150-450) 10^3/uL MPV 9.3 L (9.5-13.5) fL Neut % (Auto) 70.9 (43.0-75.0) % Lymph % (Auto) 19.9 L (20.5-60.0) % [place] % (Auto) 7.3 (1.7-12.0) % Eos % (Auto) 1.2 (0.9-7.0) % Baso % (Auto) 0.3 (0.2-2.0) % Neut # (Auto) 7.6 H (1.4-6.5) 10^3/uL Lymph # (Auto) 2.2 (1.2-3.8) 10^3/uL [place] # (Auto) 0.8 (0.3-0.8) 10^3/uL Eos # (Auto) 0.1 (0.0-0.7) 10^3/uL Baso # (Auto) 0.0 (0.0-0.1) 10^3/uL Abs Immat Gran (auto) 0.04 H (0.00-0.03) 10^3/uL Imm/Tot Granulo (auto) 0.4 (0.0-0.5) % PT 10.8 (9.0-11.6) sec INR 1.02 Sodium 140 (136-145) mmol/L Potassium 3.6 (3.5-5.1) mmol/L Chloride 104 (98-107) mmol/L Carbon Dioxide 25.6 (21.0-32.0) mmol/L Anion Gap 14.0 BUN 19.0 H (7.0-18.0) mg/dL Creatinine 0.97 (0.55-1.02) mg/dL Est GFR ( Amer) >60 (>=60 mL/min/1.73m^2) Est GFR (Non-Af Amer) 59 L (>=60 mL/min/1.73m^2) BUN/Creatinine Ratio 19.6 Glucose 123 H (74-106) mg/dL Lactate 0.6 (0.4-2.0) mmol/L Calcium 9.0 (8.5-10.1) mg/dL Total Bilirubin 0.5 (0.2-1.0) mg/dL AST 17 (15-37) U/L ALT 28 (14-59) U/L Alkaline Phosphatase 90 (46-116) U/L Total Protein 7.2 (6.4-8.2) g/dL Albumin 3.6 (3.4-5.0) g/dL Globulin 3.6 g/dL Albumin/Globulin Ratio 1.0 Lipase 49.0 (16.0-77.0) U/L Urine Color Lt. yellow (YELLOW) Urine Clarity Clear (CLEAR) Urine pH 5.5 (5.0-9.0) Ur Specific Gerton >=1.030 A (1.005-1.025) Urine Protein Negative (NEG/TRACE) mg/dL Urine Glucose (UA) Negative (NEGATIVE) mg/dL Urine Ketones Negative (NEGATIVE) mg/dL Urine Occult Blood Negative (NEGATIVE) Urine Nitrite Negative (NEGATIVE) Urine Bilirubin Negative (NEGATIVE) Urine Urobilinogen 0.2 (0.2-1.0) EU/dL Ur Leukocyte Esterase Trace A (NEGATIVE) Urine RBC 0-2 (0-2) #/HPF Urine WBC 2-5 A (NONE SEEN) #/HPF Ur Squamous Epith Cells Few A (NONE/RARE) #/LPF Urine Crystals None seen (None Seen) #/HPF Urine Bacteria Small A (NONE SEEN) #/HPF Urine Casts None seen (NONE SEEN) #/LPF Urine Mucus None seen (NONE SEEN) Ur Culture Indicated? Yes Imaging Data CT scan - abdomen: Attestation: I have reviewed the pertinent imaging results. Radiologist's impression: ITS Impressions Abdomen/Pelvis CT 02/24/24 16:39 IMPRESSION: 1. Findings are suggestive of acute epiploic appendagitis of the proximal right colon. 2. Normal appendix. Electronically authenticated by: ASAD JONES Date: 02/24/2024 19:02 Discharge Plan Discharge Chief Complaint: Abdominal Pain Clinical Impression: Abdominal pain, Epiploic appendagitis Patient Disposition: Home, Self-Care Time of Disposition Decision: 19:25 Condition: Good Prescriptions / Home Meds: New hydrocodone-acetaminophen 5-325 mg tablet 1 tab PO Q6H PRN (Reason: pain) 3 Days Qty: 12 0RF Rx Instructions: DX: R10.9 ketorolac 10 mg tablet 10 mg PO TID PRN (Reason: pain) Qty: 10 0RF Print Language: Kinyarwanda Instructions: Epiploic Appendagitis (ED) Referrals: Felisa Shelton IMPORT EXPORT COORDINATOR [Primary Care Provider] - 1 week
[2024-02-24 17:03] LABS: Basophils Percent Auto 0.3 % (0.2-2.0); Eosinophils Absolute Auto 0.1 10^3/uL (0.0-0.7); Eosinophils Percent Auto 1.2 % (0.9-7.0); Hematocrit 38.8 % (36.0-48.0); Hemoglobin 13.8 g/dL (12.0-16.0); Immature Granulocytes Abs Auto 0.04 10^3/uL (0.00-0.03); Immature Granulocytes Pct Auto 0.4 % (0.0-0.5); Lymphocytes Absolute Auto 2.2 10^3/uL (1.2-3.8); Lymphocytes Percent Auto 19.9 % (20.5-60.0); Mean Corpuscular HGB Conc 35.6 g/dL (29.9-35.2); Mean Corpuscular Hemoglobin 32.3 pg (26.7-34.0); Mean Corpuscular Volume 90.9 fL (81.0-99.0); Mean Platelet Volume 9.3 fL (9.5-13.5); Monocytes Absolute Auto 0.8 10^3/uL (0.3-0.8); Monocytes Percent Auto 7.3 % (1.7-12.0); Neutrophils Absolute Auto 7.6 10^3/uL (1.4-6.5); Neutrophils Percent Auto 70.9 % (43.0-75.0); Platelet Count 356 10^3/uL (150-450); Red Blood Count 4.27 10^6/uL (4.20-5.40); Red Cell Distribution Width 13.3 % (11.0-15.0); White Blood Count 10.8 10^3/uL (4.0-11.0)
[2024-02-24 17:04] LABS: Bilirubin Urine NEGATIVE (NEGATIVE); Blood Urine NEGATIVE (NEGATIVE); Clarity Urine CLEAR (CLEAR); Color Urine LT. YELLOW (YELLOW); Glucose Urine UA NEGATIVE (NEGATIVE); Ketones Urine NEGATIVE (NEGATIVE); Leukocyte Esterase Urine TRACE (NEGATIVE); Nitrite Urine NEGATIVE (NEGATIVE); Protein Urine NEGATIVE (NEG/TRACE); Specific Gravity Urine >=1.030 (1.005-1.025); Urobilinogen Urine 0.2 EU/dL (0.2-1.0); pH Urine 5.5 (5.0-9.0)
[2024-02-24] MEDS: HYOSCYAMINE SULFATE 0.125 MG TAB.SUBL SL (17:04)
[2024-02-24] MEDS: KETOROLAC TROMETHAMINE 30 MG/ML VIAL IVP (17:04)
[2024-02-24] MEDS: 0.9 % SODIUM CHLORIDE 1,000 ML 999 ML IV (17:04)
[2024-02-24 17:05] LABS: Urine Microscopic Indicated YES
[2024-02-24 17:18] LABS: Alanine Aminotransferase 28 U/L (14-59); Albumin Level 3.6 g/dL (3.4-5.0); Alkaline Phosphatase 90 U/L (46-116); Aspartate Amino Transferase 17 U/L (15-37); BUN Creatinine Ratio 19.6; Bilirubin Total 0.5 mg/dL (0.2-1.0); Carbon Dioxide 25.6 mmol/L (21.0-32.0); Chloride 104 mmol/L (98-107); Estimated GFR (African America >60 (>=60 mL/min/1.73m^2); Estimated GFR (Non-African Ame 59 (>=60 mL/min/1.73m^2); Globulin 3.6 g/dL; Glucose 123 mg/dL (74-106); Potassium 3.6 mmol/L (3.5-5.1); Sodium 140 mmol/L (136-145); Total Protein 7.2 g/dL (6.4-8.2)
[2024-02-24 17:21] LABS: Bacteria Urine SMALL #/HPF (NONE SEEN); Cast Seen? NONE SEEN #/LPF (NONE SEEN); Crystals Seen? None Seen #/HPF (None Seen); Mucus Urine NONE SEEN (NONE SEEN); RBC Urine 0-2 #/HPF (0-2); Squamous Epithelial Cell Urine FEW #/LPF (NONE/RARE)
[2024-02-24 17:21] LABS: Lactate/Lactic Acid 0.6 mmol/L (0.4-2.0)
[2024-02-24 17:22] LABS: Urine Culture Indicated YES
[2024-02-24 17:23] LABS: INR 1.02; Prothrombin Time 10.8 sec (9.0-11.6)
[2024-02-24 18:34] VITALS: BP 99/62; PULSE 87; O2SAT 100
[2024-02-24 19:24] VITALS: BP 95/63; PULSE 85; O2SAT 96
[2024-02-24] MEDS: OXYCODONE HCL/ACETAMINOPHEN 5MG/325MG 2 TAB PO (19:33)
== END 2024-02-24 19:39 | disposition home or self-care (01) ==
PROVIDERS: Physician Assistant; Emergency Provider Emergency Medicine Emergency Medical Services; PCP Nurse Practitioner
DX: R10.9 Unspecified abdominal pain (principal); K63.89 Other specified diseases of intestine
CPT/HCPCS: 36415; 74177; 80053; 81001; 83605; 83690; 85025; 85610; 87086; 96374; 99285; J1885; Q9967

== ENCOUNTER 2024-04-16 06:49 | Emergency (ER) | payer BC, SELFPAY ==
[2024-04-16 06:52] VITALS: BP 116/81; PULSE 92; TEMP 36.4; O2SAT 100; BMI 29.3
--- OUTSIDE RECORDS SUMMARY | 2024-04-16 06:55 | XMS_ITS | CCD ---
Author Organization [facility] Care Team Providers Care Job Press Feeder Name Role Phone AICHHOLZ, ANESTHESIOLOGY CRNA FELISA Admitting Unavailable AICHHOLZ, ANESTHESIOLOGY CRNA FELISA Attending Unavailable AICHHOLZ, ANESTHESIOLOGY CRNA FELISA Primary Care Unavailable DR BEE WATTS V Consulting Unavailable AICHHOLZ, ANESTHESIOLOGY CRNA FELISA Consulting Unavailable AICHHOLZ, ANESTHESIOLOGY CRNA FELISA Admitting Unavailable AICHHOLZ, ANESTHESIOLOGY CRNA FELISA Attending Unavailable AICHHOLZ, ANESTHESIOLOGY CRNA FELISA Primary Care Unavailable AICHHOLZ, ANESTHESIOLOGY CRNA FELISA Consulting Unavailable AICHHOLZ, ANESTHESIOLOGY CRNA FELISA Admitting Unavailable AICHHOLZ, ANESTHESIOLOGY CRNA FELISA Attending Unavailable AICHHOLZ, ANESTHESIOLOGY CRNA FELISA Primary Care Unavailable AICHHOLZ, ANESTHESIOLOGY CRNA FELISA Consulting Unavailable Louann Rivas Unavailable AMI Rivas Attending Provider Felisa Shelton Primary Care Provider [phone] Louann Rivas Attending Unavailable Louann Rivas Admitting Unavailable Felisa Shelton Primary Care Unavailable ELYSSA [place]COMB Attending Unavailable ELYSSA [place] Referring Unavailable ESTHELA OSHEA Attending Unavailable AICHHOLZ, FELISA Attending Unavailable JR. LAL GEORGE C Attending Unavaila LORI [place] Attending Unavailable AICHHOLZ, FELISA Attending Unavailable AICHHOLZ, FELISA Attending Unavailable JR. LAL GEORGE C Attending Unavaila LORI [place] Attending Unavailable LORI SALAS Attending Unavailable AICHHOLZ, FELISA Attending Unavailable LORI SALAS Attending Unavailable AICHHOLZ, FELISA Attending Unavailable AICHHOLZ, FELISA Attending Unavailable Medications Current Medications Medication Drug Class(es) Dates Sig (Normalized) Sig (Original) aspirin 81 mg delayed release oral tablet (2 sources) Platelet Aggregation Inhibitor, Nonsteroidal Anti-inflammatory Drug Start: 07-28-2023 Aspirin (Adult Low Dose Aspirin) 81 mg tablet,delayed release (DR/EC) Active 81 MG PO Daily July 28, [...] doppler BIon 04-0 US carotid doppler BI [facility] Main [place] [address] [place] [id number] Ultrasound Report Signed Patient: Abdoulaye Bentley MR#: [id number] : 1965 Acct:[id number] Age/Sex: 58 / F ADM Date: 07/28/23 Loc: [facility] Room: Type: [facility] Attending Dr: Louann Rivas SENIOR VALIDATION ENGINEER-C Ordering Provider: Louann Rivas APRN Date of [...] Humza Suresh M.D.07/29/2023 12:36 PM Dictation Location: [place] [address] Tech: Carine Tona Transcribed By: MARANDA 07/29/23 1236 Dictated By: Humza Suresh MD 07/29/23 1235 Signed By: 07/29/23 1236 Normal [facility] CBC AUTO DIFFon 06-10-2022 BASO # 0.1 103/ul Normal 0.0-0.1 [facility] Comment on above: Performed By: #### C BC #### [facility] [address] [place] [address] Dr. Tracie Montalvo Basophils/100 WBC (Bld) 0.7 % Normal 0.2-2.0 [facility] Comment on above: Performed By: #### C BC #### [facility] [address] [place] [address] Dr. Tracie Montalvo EO # 0.1 103/ul Normal 0.0-0.7 [facility] Comment on above: Performed By: #### C BC #### [facility] [address] [place] [address] Dr. Tracie Montalvo Eosinophils/100 WBC (Bld) 0.8 % Critically low 0.9-7.0 [facility] Comment on above: Performed By: #### C BC #### [facility] [address] [place] [address] Dr. Tracie Montalvo Erythrocyte distribution width (RBC) [Ratio] 13.7 % Normal 11.0-15.0 [facility] Comment on above: Performed By: #### C BC #### [facility] [address] [place] [address] Dr. Tracie Montalvo Hematocrit (Bld) [Volume fraction] 41.7 % Normal 36.0-48.0 [facility] Comment on above: Performed By: #### C BC #### [facility] [address] [place] [address] Dr. Tracie Montalvo Hemoglobin (Bld) [Mass/Vol] 15.1 g/dL Normal 12.0-16.0 [facility] Comment on above: Performed By: #### C BC #### [facility] [address] [place] [address] Dr. Tracie Montalvo IG # 0.10 10e3/ul Critically high 0.00-0.[address] [facility] Comment on above: Performed By: #### C BC #### [facility] [address] [place] [address] Dr. Tracie Montalvo IG % 1.0 % Critically high 0.0-0.5 [facility] Comment on above: Performed By: #### C BC #### [facility] [address] [place] [address] Dr. Tracie Montalvo LYMPH # 2.8 103/ul Normal 1.2-3.8 [facility] Comment on above: Performed By: #### C BC #### [facility] [address] [place] [address] Dr. Tracie Montalvo Lymphocytes/100 WBC (Bld) 26.8 % Normal 20.5-60.0 [facility] Comment on above: Performed By: #### C BC #### [facility] [address] [place] [address] Dr. Tracie Montalvo MANUAL DIFF REQ NO Normal [facility] Comment on above: Performed By: #### C BC #### [facility] [address] [place] [address] Dr. Tracie Montalvo MCH (RBC) [Entitic mass] 32.7 pg Normal 26.7-34.0 [facility] Comment on above: Performed By: #### C BC #### [facility] [address] [place] [address] [address] Tracie Montalvo MCHC (RBC) [Mass/Vol] 36.2 g/dL Critically high 29.9-35.2 [facility] Comment on above: Performed By: #### C BC #### [facility] [address] [place] [address] [address] Tracie Montalvo MCV (RBC) [Entitic vol] 90.3 fL Normal 81.0-99.0 [facility] Comment on above: Performed By: #### C BC #### [facility] [address] [place] [address] [address] Tracie Montalvo MONO # 0.6 103/ul Normal 0.3-0.8 [facility] Comment on above: Performed By: #### C BC #### [facility] [address] [place] [address] [address] Tracie Montalvo Monocytes/100 WBC (Bld) 6.0 % Normal 1.7-12.0 [facility] Comment on above: Performed By: #### C BC #### [facility] [address] [place] [address] [address] Tracie Montalvo NEUT # 6.8 103/ul Critically high 1.4-6.5 [facility] Comment on above: Performed By: #### C BC #### [facility] [address] [place] [address] [address] Tracie Montalvo Neutrophils/100 WBC (Bld) 64.7 % Normal 43.0-75.0 [facility] Comment on above: Performed By: #### C BC #### [facility] [address] [place] [address] [address] Tracie Montalvo Platelet mean volume (Bld) [Entitic vol] 9.1 fL Critically low 9.5-13.5 [facility] Comment on above: Performed By: #### C BC #### [facility] [address] [place] [address] [address] Tracie Montalvo PLT 318 103/ul Normal 150-450 [facility] Comment on above: Performed By: #### C BC #### [facility] [address] [place] [address] [address] Tracie Montalvo RBC 4.62 106/ul Normal 4.20-5.40 [facility] Comment on above: Performed By: #### C BC #### [facility] [address] [place] [address] [address] Tracie Montalvo WBC 10.4 103/ul Normal 4.0-11.0 [facility] Comment on above: Performed By: #### C BC #### [facility] [address] [place] [address] [address] Tracie Montalvo GLYCOHEMOGLOBIN A1Con 2022 ADA RECOMMENDATION SEE BELOW Normal [facility] Comment on above: Result Comment: ADA RECOMMENDED LIMIT 4.0 - 6.0 ADA THERAPEUTIC TARGET < 7.0 ACTION SUGGESTED > 7.0 Performed By: #### A 1C ####[facility] [address] [place] [address]Dr. Tracie Montalvo Glucose [Mass/Vol] 114 mg/dL Normal [facility] Comment on above: Performed By: #### A 1C ####[facility] [address] [place] [address]Dr. Tracie Montalvo HbA1c (Bld) [Mass fraction] 5.6 % Normal 4.5-6.2 [facility] Comment on above: Performed By: #### A 1C ####[facility] [address] [place] [address]Dr. Tracie Montalvo LIPID PROFILEon 06-10-2022 CHOL-HDL RATIO NORM SEE BELOW Normal [facility] Comment on above: Result Comment: 3.3 - 4.4 LOW RISK 4.4 - 7.1 AVERAGE RISK 7.1 - 11.0 MODERATE RISK >11.0 HIGH RISK Performed By: #### C MP, LIPID, TSH #### [facility] [address] [place] [address] [address] Tracie Montalvo Cholesterol [Mass/Vol] 151 mg/dL Normal <=200 [facility] Comment on above: Performed By: #### C MP, LIPID, TSH #### [facility] [address] [place] [address] [address] Tracie Montalvo Cholesterol in HDL [Mass/Vol] 33 mg/dL Critically low 40-60 [facility] Comment on above: Performed By: #### C MP, LIPID, TSH #### [facility] [address] [place] [address] [address] Tracie Montalvo Cholesterol in LDL [Mass/Vol] 77.4 mg/dL Normal [facility] Comment on above: Performed By: #### C MP, LIPID, TSH #### [facility] [address] [place] [address] [address] Tracie Montalvo Cholesterol.total/Cho lesterol in HDL [Mass ratio] 4.6 {ratio} Normal [facility] Comment on above: Performed By: #### C MP, LIPID, TSH #### [facility] [address] [place] [address] Dr. Tracie Montalvo HDL NORMAL > or = 60 mg/dl - LO W CARDIOVASCULAR RISK <40 mg/dl - HIGH CARDIOVASCULAR RISK Normal [facility] Comment on above: Performed By: #### C MP, LIPID, TSH #### [facility] [address] [place] [address] [address] Tracie Montalvo LDL CALC NORMAL SEE BELOW Normal [facility] Comment on above: Result Comment: <100 mg/dl OPTIMAL 100 - 129 mg/dl NEAR OR ABOVE OPTIMAL 130 - 159 mg/dl BORDERLINE HIGH 160 - 189 mg/dl HIGH >190 mg/dl VERY HIGH Performed By: #### C MP, LIPID, TSH #### [facility] [address] [place] [address] [address] Tracie Montalvo Triglyceride [Mass/Vol] 203 mg/dL Critically high <=150 [facility] Comment on above: Performed By: #### C MP, LIPID, TSH #### [facility] [address] [place] [address] [address] Tracie Montalvo VLDL CALC 40.6 mg/dL Normal [facility] Comment on above: Performed By: #### C MP, LIPID, TSH #### [facility] [address] [place] [address] [address] Tracie Montalvo MG MAMM SCREEN 3D CYN CADon 06-10-2022 MG MAMM SCREEN 3D CYN CAD Patient: MAHESH BENTLEY Exam Date: 06/10/2022 : 1965 Gender:F Ordering : JASMIN FELISA SHELTON ANESTHESIOLOGY CRNA Admission #: [id number] Family : Order #: [id number] CLICK HERE TO VIEW EXAM RADIOLOGY REPORT [...] Treatments None Family Cancers None LOCATION: [facility] BREAST COMPOSITION: Heterogeneously dense,which may obscure [...] Watts MD on 06/10/2022 at 11:28 Normal [facility] MICROALBUMIN, RAND URon 02- mALB <1.3 Normal <=30.0 [facility] Comment on above: Performed By: #### M ALBR #### [facility] [address] [place], [place] [address] Dr. Tracie Montalvo PROF 14(COMP METB)on 023 Albumin [Mass/Vol] 3.9 g/dL Normal 3.4-5.0 [facility] Comment on above: Performed By: #### C MP, LIPID, TSH #### [facility] [address] [place], [place] [address] Dr. Tracie Montalvo Albumin/Globulin [Mass ratio] 1.1 {ratio} Normal [facility] Comment on above: Performed By: #### C MP, LIPID, TSH #### [facility] [address] [place] [address] [address] Tracie Montalvo ALP [Catalytic activity/Vol] 79 U/L Normal 46-116 [facility] Comment on above: Performed By: #### C MP, LIPID, TSH #### [facility] [address] [place] [address] [address] Tracie Montalvo ALT [Catalytic activity/Vol] 50 U/L Normal 14-59 [facility] Comment on above: Performed By: #### C MP, LIPID, TSH #### [facility] [address] [place] [address] [address] Tracie Montalvo Anion gap [Moles/Vol] 12.9 mmol/L Normal [facility] Comment on above: Performed By: #### C MP, LIPID, TSH #### [facility] [address] [place] [address] [address] Tracie Montalvo AST [Catalytic activity/Vol] 16 U/L Normal 15-37 [facility] Comment on above: Performed By: #### C MP, LIPID, TSH #### [facility] [address] [place] [address] [address] Tracie Montalvo Bilirubin [Mass/Vol] 0.4 mg/dL Normal 0.2-1.0 [facility] Comment on above: Performed By: #### C MP, LIPID, TSH #### [facility] [address] [place] [address] [address] Tracie Montalvo Calcium [Mass/Vol] 9.5 mg/dL Normal 8.5-10.1 [facility] Comment on above: Performed By: #### C MP, LIPID, TSH #### [facility] [address] [place] [address] [address] Tracie Montalvo Chloride [Moles/Vol] 104 mmol/L Normal 98-107 [facility] Comment on above: Performed By: #### C MP, LIPID, TSH #### [facility] [address] [place] [address] [address] Tracie Montalvo CO2 [Moles/Vol] 27.2 mmol/L Normal 21.0-32.0 [facility] Comment on above: Performed By: #### C MP, LIPID, TSH #### [facility] [address] [place] [address] [address] Tracie Montalvo Creatinine [Mass/Vol] 0.64 mg/dL Normal 0.55-1.02 [facility] Comment on above: Performed By: #### C MP, LIPID, TSH #### [facility] [address] [place] [address] [address] Tracie Montalvo EGFR-AF CITIZ[place] >60 Normal >=60 [facility] Comment on above: Performed By: #### C MP, LIPID, TSH #### [facility] [address] [place] [address] [address] Tracie Montalvo EGFR-NON AF [place]IZ[place] >60 Normal >=60 [facility] Comment on above: Performed By: #### C MP, LIPID, TSH #### [facility] [address] [place] [address] [address] Tracie Montalvo Globulin (S) [Mass/Vol] 3.5 g/dL Normal [facility] Comment on above: Performed By: #### C MP, LIPID, TSH #### [facility] [address] [place] [address] [address] Tracie Montalvo Glucose [Mass/Vol] 94 mg/dL Normal 74-106 [facility] Comment on above: Performed By: #### C MP, LIPID, TSH #### [facility] [address] [place] [address] [address] Tracie Montalvo Potassium [Moles/Vol] 4.1 mmol/L Normal 3.5-5.1 [facility] Comment on above: Performed By: #### C MP, LIPID, TSH #### [facility] [address] [place] [address] [address] Tracie Montalvo Protein [Mass/Vol] 7.4 g/dL Normal 6.4-8.2 [facility] Comment on above: Performed By: #### C MP, LIPID, TSH #### [facility] [address] [place] [address] [address] Tracie Montalvo Sodium [Moles/Vol] 140 mmol/L Normal 136-145 [facility] Comment on above: Performed By: #### C MP, LIPID, TSH #### [facility] [address] [place] [address] Dr. Tracie Montalvo Urea nitrogen [Mass/Vol] 8.0 mg/dL Normal 7.0-18.0 [facility] Comment on above: Performed By: #### C MP, LIPID, TSH #### [facility] [address] [place] [address] Dr. Tracie Montalvo Urea nitrogen/Creatinine [Mass ratio] 12.5 mg/mg Normal [facility] Comment on above: Performed By: #### C MP, LIPID, TSH #### [facility] [address] [place] [address] Dr. Tracie Montalvo TSHon 06-10-2022 TSH 2.317 uIU/mL Normal 0.358-3.740 [facility] Comment on above: Performed By: #### C MP, LIPID, TSH #### [facility] [address] [place] [address] Dr. Tracie Montalvo UA RANDOM W/MICROSCOPICon BACTERIA NONE SEEN Normal NONE SEEN [facility] Comment on above: Performed By: #### U AMIC #### [facility] [address] [place] [address] Dr. Tracie Montalvo Bilirubin Ql (U) Negative Normal NEGATIVE [facility] Comment on above: Performed By: #### U AMIC #### [facility] [address] [place] [address] Dr. Tracie Montalvo CAST NONE SEEN Normal NONE SEEN [facility] Comment on above: Performed By: #### U AMIC #### [facility] [address] [place] [address] Dr. Tracie Montalvo Clarity (U) CLEAR Normal CLEAR [facility] Comment on above: Performed By: #### U AMIC #### [facility] [address] [place] [address] Dr. Tracie Montalvo Color (U) LT. YELLOW Normal YELLOW [facility] Comment on above: Performed By: #### U AMIC #### [facility] [address] [place] [address] [address] Tracie Montalvo Crystals LM Nom (Urine sed) NONE SEEN Normal NONE SEEN [facility] Comment on above: Performed By: #### U AMIC #### [facility] [address] [place] [address] [address] Tracie Montalvo Epithelial cells LM Ql (Urine sed) NONE SEEN Normal NONE SEEN /RARE [facility] Comment on above: Performed By: #### U AMIC #### [facility] [address] [place] [address] [address] Tracie Montalvo Glucose Ql (U) Negative Normal NEGATIVE [facility] Comment on above: Performed By: #### U AMIC #### [facility] [address] [place] [address] Dr. Tracie Montalvo Hemoglobin Ql (U) Negative Normal NEGATIVE [facility] Comment on above: Performed By: #### U AMIC #### [facility] [address] [place] [address] [address] Tracie Montalvo Ketones Ql (U) Negative Normal NEGATIVE [facility] Comment on above: Performed By: #### U AMIC #### [facility] [address] [place] [address] [address] Tracie Montalvo LEUKOCYTES Negative Normal NEGATIVE [facility] Comment on above: Performed By: #### U AMIC #### [facility] [address] [place] [address] [address] Tracie Montalvo MUCOUS NONE SEEN Normal NONE SEEN [facility] Comment on above: Performed By: #### U AMIC #### [facility] [address] [place] [address] [address] Tracie Montalvo Nitrite Ql (U) Negative Normal NEGATIVE [facility] Comment on above: Performed By: #### U AMIC #### [facility] [address] [place] [address] Dr. Tracie Montalvo pH (U) 5.5 [pH] Normal 5-9 [facility] Comment on above: Performed By: #### U AMIC #### [facility] [address] [place] [address] [address] Tracie Montalvo RBC 0-2 Normal 0-2 [facility] Comment on above: Performed By: #### U AMIC #### [facility] [address] [place] [address] Dr. Tracie Montalvo SPEC GRAVITY 1.015 Normal 1.005-<=1.025 [facility] Comment on above: Performed By: #### U AMIC #### [facility] [address] [place] [address] Dr. Tracie Montalvo UA PROTEIN Negative Normal NEGATIVE/ TRACE [facility] Comment on above: Performed By: #### U AMIC #### [facility] [address] [place] [address] Dr. Tracie Montalvo Urobilinogen Qn (U) 0.2 {Larry'U}/dL Normal 0.2 - 1. 0 [facility] Comment on above: Performed By: #### U AMIC #### [facility] [address] [place] [address] Dr. Tracie Montalvo WBC NONE SEEN Normal NONE SEEN [facility] Comment on above: Performed By: #### U AMIC #### [facility] [address] [place] [address] Dr. Tracie Montalvo US CAROTID ART BILon [...] by: BEE WATTS Date: 2022-06-10 16:15 Normal [facility] AMYLASEon 11-12-2021 Amylase [Catalytic activity/Vol] 45 U/L Normal 25-115 [facility] Comment on above: Performed By: #### C NURIA LORI, LIPA ####[facility] [address] [place] [address]Dr. Tracie Montalvo GLYCOHEMOGLOBIN A1Con 2021 ADA RECOMMENDATION SEE BELOW Normal [facility] Comment on above: Result Comment: ADA RECOMMENDED LIMIT 4.0 - 6.0 ADA THERAPEUTIC TARGET < 7.0 ACTION SUGGESTED > 7.0 Performed By: #### A 1C #### [facility] [address] [place] [address] Dr. Tracie Montalvo Glucose [Mass/Vol] 128 mg/dL Normal [facility] Comment on above: Performed By: #### A 1C #### [facility] [address] [place] [address] Dr. Tracie Montalvo HbA1c (Bld) [Mass fraction] 6.1 % Normal 4.5-6.2 [facility] Comment on above: Performed By: #### A 1C #### [facility] [address] [place] [address] Dr. Tracie Montalvo LIPASEon 11-12-2021 Lipase [Catalytic activity/Vol] 201.0 U/L Normal 73.0-393.0 [facility] Comment on above: Performed By: #### C NURIA LORI, LIPA #### [facility] [address] [place] [address] [address] Tracie Montalvo PROF 14(COMP METB)on 022 Albumin [Mass/Vol] 4.2 g/dL Normal 3.4-5.0 [facility] Comment on above: Performed By: #### C NURIA LORI, LIPA ####[facility] [address] [place] [address]Dr. Tracie Montalvo Albumin/Globulin [Mass ratio] 1.1 {ratio} Normal [facility] Comment on above: Performed By: #### C MP, LORI, LIPA ####[facility] [address] [place] [address]Dr. Tracie Montalvo ALP [Catalytic activity/Vol] 76 U/L Normal 46-116 [facility] Comment on above: Performed By: #### C MP, LORI, LIPA ####[facility] [address] [place] [address]Dr. Tracie Montalvo ALT [Catalytic activity/Vol] 31 U/L Normal 14-59 [facility] Comment on above: Performed By: #### C MP, LORI, LIPA ####[facility] [address] [place] [address]Dr. Tracie Montalvo Anion gap [Moles/Vol] 14.5 mmol/L Normal [facility] Comment on above: Performed By: #### C MP, LORI, LIPA ####[facility] [address] [place], [place] [address]Dr. Tracie Selvin AST [Catalytic activity/Vol] 13 U/L Critically low 15-37 [facility] Comment on above: Performed By: #### C MP, LORI, LIPA ####[facility] [address] [place], [place] [address]Dr. Tracie Montalvo Bilirubin [Mass/Vol] 0.3 mg/dL Normal 0.2-1.0 [facility] Comment on above: Performed By: #### C MP, LORI, LIPA ####[facility] [address] [place], [place] [address]Dr. Tracie Montalvo Calcium [Mass/Vol] 9.7 mg/dL Normal 8.5-10.1 [facility] Comment on above: Performed By: #### C MP, LORI, LIPA ####[facility] [address] [place], [place] [address]Dr. Tracie Montalvo Chloride [Moles/Vol] 102 mmol/L Normal 98-107 [facility] Comment on above: Performed By: #### C MP, LORI, LIPA ####[facility] [address] [place], [place] [address]Dr. Tracie Montalvo CO2 [Moles/Vol] 26.7 mmol/L Normal 21.0-32.0 [facility] Comment on above: Performed By: #### C LORI QUIÑONES LIPA ####[facility] [address] [place] [address]Dr. Tracie Montalvo Creatinine [Mass/Vol] 0.74 mg/dL Normal 0.55-1.02 [facility] Comment on above: Performed By: #### C LORI QUIÑONES, LIPA ####[facility] [address] [place] [id number]. Tracie Montalvo EGFR-AF [place]IZ[place] >60 Normal >=60 [facility] Comment on above: Performed By: #### C LORI QUIÑONES LIPA ####[facility] [address] [place] [address]Dr. Tracie Montalvo EGFR-NON AF [place]IZEN OF [place] >60 Normal >=60 [facility] Comment on above: Performed By: #### C LORI QUIÑONES LIPA ####[facility] [address] [place] [address]Dr. Tracie Montalvo Globulin (S) [Mass/Vol] 3.7 g/dL Normal [facility] Comment on above: Performed By: #### C LORI QUIÑONES, LIPA ####[facility] [address] [place] [address]Dr. Tracie Montalvo Glucose [Mass/Vol] 98 mg/dL Normal 74-106 [facility] Comment on above: Performed By: #### C LORI QUIÑONES, LIPA ####[facility] [address] [place] [address]Dr. Tracie Montalvo Potassium [Moles/Vol] 4.2 mmol/L Normal 3.5-5.1 [facility] Comment on above: Performed By: #### C LORI QUIÑONES, LIPA ####[facility] [address] [place] [address]Dr. Tracie Montalvo Protein [Mass/Vol] 7.9 g/dL Normal 6.4-8.2 [facility] Comment on above: Performed By: #### C LORI QUIÑONES, LIPA ####[facility] [address] [place] [address]Dr. Tracie Montalvo Sodium [Moles/Vol] 139 mmol/L Normal 136-145 [facility] Comment on above: Performed By: #### C MP, LORI, LIPA ####[facility] [address] [place] [address]Dr. Tracie Montalvo Urea nitrogen [Mass/Vol] 15.0 mg/dL Normal 7.0-18.0 [facility] Comment on above: Performed By: #### C MP, LORI, LIPA ####[facility] [address] [place] [address]Dr. Tracie Montalvo Urea nitrogen/Creatinine [Mass ratio] 20.3 mg/mg Normal [facility] Comment on above: Performed By: #### C MP, LORI, LIPA ####[facility] [address] [place] [address]Dr. Tracie Montalvo GLYCOHEMOGLOBIN A1Con 2021 ADA RECOMMENDATION SEE BELOW Normal [facility] Comment on above: Result Comment: ADA RECOMMENDED LIMIT 4.0 - 6.0 ADA THERAPEUTIC TARGET < 7.0 ACTION SUGGESTED > 7.0 Performed By: #### A 1C ####[facility] [address] [place] [address]Dr. Tracie Montalvo Glucose [Mass/Vol] 128 mg/dL Normal [facility] Comment on above: Performed By: #### A 1C ####[facility] [address] [place] [address]Dr. Tracie Montalvo HbA1c (Bld) [Mass fraction] 6.1 % Normal 4.5-6.2 [facility] Comment on above: Performed By: #### A 1C ####[facility] [address] [place], [place] [address]Dr. Tracie Montalvo Coding Summary.on 08-28-2018 Coding Summary. CODING DATE: 019 [facility] STATUS: Home (Routine DC) PAYOR: Dominic APC [...] Childs Date Saved: 08/28/2018 12:26 pm Normal [facility] MA Mamm Diag w/CAD if perfor med [...] VERY IMPORTANT TO YOUR HEALTH. THE CURRENT CITIZEN OF [place] [employer] [...] 2-Benign finding Recommendation: Normal interval follow-up Normal [facility] US Breast biopsy Vac Asst, F [...] Fer Johnson MD Transcribed by: TY Technologist: HW Report last revised on 08/28/2018 13:28 EDT by Fer Johnson MD [facility] Coding Summary.on 08-21-2018 Coding Summary. CODING DATE: 019 FINAL [facility] DSC STATUS: Home (Routine DC) PAYOR: [place] [facility] DESCRIPTION 5311 Level 1 Lower GI Procedures [...] PROC APC STAT DESCRIPTION DOCTOR NAME DATE 30321 Suture of large Kameron OAKLEY MD 08/17/2018 intestine (colorrhaphy) for perforated ulcer, diverticulum, wound, injury or rupture (single or multiple perforations); without colostomy 21932 Transversus abdominis Rick Basurto Jr., DO 08/17/2018 plane (TAP) block (abdominal plane block, rectus sheath block) bilateral; by injections (includes imaging guidance, when performed) XP Separate practitioner, a service that is distinct because it was performed by a different practitioner 12676 Anesthesia for Rick Basurto Jr., DO 08/17/2018 intraperitoneal procedures in lower abdomen including [...] Revised Date Saved: 08/20/2018 03:34 pm Normal [facility] ABO/Rh History Checkon 08-18 ABO/Rh History Check Patient discharged prior Normal [facility] Comment on above: Performed By: #### 2 [id number], [id number], [id number], [id number] ####[facility] [address] [place] [address] Inpatient Clinical Summaryon 08-18-2018 Inpatient Clinical Summary [address] [address] Clinical Summary Person Information: Name: ABDOULAYE BENTLEY Age: 53 Years : 1965 12:00 AM Sex: Female PCP: NONE, XXXX Marital Status: Phone: [phone] Race: White Ethnicity: Non- or Language: Syriac Visit Id: Visit Reason: SCREENING Speciality: Acuity: Enc Type: Ambulatory/Same Day Surgery Med Service: Surgery Arrival: 08/17/2018 6:56 AM Discharge: Dispo Type: Address: [address] [place] [id number] Provider Notes: Diagnosis: Perforation of sigmoid colon [...] Follow up: With: Address: When: THOMAS MILLER [place] With: Address: When: Kameron OAKLEY [address] [place] [address], [address] [place] [address] Business (1) 08/24/2018 9:15 AM Comments: Call for any problems. Type Location Start Finish State US Breast (FT) FT.ULTRASOUND 08/24/2018 10:00 AM 08/24/2018 11:00 AM Confirmed MA Diagnostic (FT) FT.MAMMOGRAM 08/24/2018 10:45 AM 08/24/2018 11:15 AM Confirmed Patient Education Information: Cele - Post Op Instructions (CUSTOM) ciprofloxacin, Flagyl, MiraLax, Percocet Normal [facility] Inpatient Patient Summaryon 08-18-2018 Inpatient Patient Summary [address] [address] Patient Discharge Instructions PERSON INFORMATION [...] Follow up: With: Address: When: XXXX ANGELA [place] With: Address: When: Kameron Warner [facility], [address] [place] [address] [facility] (1) 08/24/2018 9:15 AM Comments: Call for any problems. In the event that this physician does not participate in your insurance network, please consult with your insurance company to find a nearby participating provider. Type Location [facility] US Breast (FT) FT.ULTRASOUND 08/24/2018 10:00 AM 08/24/2018 11:00 AM Confirmed MA Diagnostic (FT) FT.MAMMOGRAM 08/24/2018 10:45 AM 08/24/2018 11:15 AM Confirmed Comment: MC Johansen ANN, have received the attached patient education materials/instructions and have verbalized understanding: Patient Signature Date Clinican/Nurse Signature _ Date HERE ARE THE MEDICATION CHANGES THAT OCCURRED DURING YOUR HOSPITAL STAY New Medications [facility] [facility] [place], [place] [id number], [phone] acetaminophen-oxycodone (Percocet 325 mg-5 mg Tab) 1 [...] demian hardwick Comment: PATIENT EDUCATION INFORMATION Instructions: [place], [place] Kameron Oakley MD, FACS POST OPERATIVE [...] reached by calling: Hospital: or (ask the varitype operator for your surgeon) Office: Reviewed: 08-03 [...] What is ciprofloxacin? Ciprofloxacin is a fluoroquinolone (rigy-a-HNWW-o-lone) antibiotic that fights bacteria in the body. [...] may report side effects to FDA at 6-877-SGM-5849. What other drugs will affect ciprofloxacin? Some [...] drugs may affect ciprofloxacin, including prescription and speh-pzn-shuznty medicines, vitamins, and herbal products. Not all [...] to ensure that the information provided by [employer]. ('[employer]') is accurate, up-to-date, and complete, but no guarantee is made to that effect. Drug information contained herein may be time sensitive. [employer] information has been compiled for use by healthcare practitioners and consumers in the [place] and therefore [employer] does not warrant that uses outside of the [place] are appropriate, unless specifically indicated otherwise. [employer] drug information does not endorse drugs, diagnose patients or recommend therapy. [employer] drug information is an informational resource designed [...] effective or appropriate for any given patient. [employer] does not assume any responsibility for any aspect of healthcare administered with the aid of information [employer] provides. The information contained herein is not intended to cover all possible uses, directions, precautions, warnings, drug interactions, allergic reactions, or adverse effects. If you have questions about the drugs you are taking, check with your doctor, nurse or pharmacist. Copyright 8896-7252 [employer]. Version: 22.. Revision Date: 05/04/2018. metronidazole (me [...] (more likely to occur while taking metronidazole intermediate designer): ?? numbness, tingling, or burning pain in [...] may report side effects to FDA at 1-216-OPR-0229. What other drugs will affect metronidazole? Sometimes [...] drugs may affect metronidazole, including prescription and dnru-rcl-iadrcmj medicines, vitamins, and herbal products. Not all [...] to ensure that the information provided by [employer]. ('[employer]') is accurate, up-to-date, and complete, but no guarantee is made to that effect. Drug information contained herein may be time sensitive. [employer] information has been compiled for use by healthcare practitioners and consumers in the [place] and therefore [employer] does not warrant that uses outside of the [place] are appropriate, unless specifically indicated otherwise. [employer]'s drug information does not endorse drugs, diagnose patients or recommend therapy. [employer] drug information is an informational resource designed [...] effective or appropriate for any given patient. [facility] does not assume any responsibility for any aspect of healthcare administered with the aid of information [facility] provides. The information contained herein is not intended to cover all possible uses, directions, precautions, warnings, drug interactions, allergic reactions, or adverse effects. If you have questions about the drugs you are taking, check with your doctor, nurse or pharmacist. Copyright 8205-4318 [facility] [employer]. Version: 12.. Revision Date: 02/16/2018. polyethylene glycol 3350 (shirlene ee ETH il een GLYE kol) ClearLax, GaviLAX, Gialax, GlycoLax, MiraLax, [id number], SunMark ClearLax What is the most important [...] may report side effects to FDA at 4-411-PYD-5928. What other drugs will affect polyethylene glycol 3350? Other drugs may interact with polyethylene glycol 3350, including prescription and htto-ygl-ogljgct medicines, vitamins, and herbal products. Tell each [...] to ensure that the information provided by [employer]. ('[employer]') is accurate, up-to-date, and complete, but no guarantee is made to that effect. Drug information contained herein may be time sensitive. [employer] information has been compiled for use by healthcare practitioners and consumers in the [place] and therefore [employer] does not warrant that uses outside of the [place] are appropriate, unless specifically indicated otherwise. [employer] drug information does not endorse drugs, diagnose patients or recommend therapy. [employer] drug information is an informational resource designed [...] effective or appropriate for any given patient. [employer] does not assume any responsibility for any aspect of healthcare administered with the aid of information [employer] provides. The information contained herein is not intended to cover all possible uses, directions, precautions, warnings, drug interactions, allergic reactions, or adverse effects. If you have questions about the drugs you are taking, check with your doctor, nurse or pharmacist. Copyright 6392-2695 [employer]. Version: 2.04. Revision Date: 07/31/2016. acetaminophen and [...] may report side effects to FDA at 9-081-BMU-0973. What other drugs will affect acetaminophen and [...] affect acetaminophen and oxycodone, including prescription and kwle-osy-ikgfuhb medicines, vitamins, and herbal products. Not all [...] to ensure that the information provided by [employer]. ('[employer]') is accurate, up-to-date, and complete, but no guarantee is made to that effect. Drug information contained herein may be time sensitive. [employer] information has been compiled for use by healthcare practitioners and consumers in the [place] and therefore [employer] does not warrant that uses outside of the [place] are appropriate, unless specifically indicated otherwise. [employer] drug information does not endorse drugs, diagnose patients or recommend therapy. [employer] drug information is an informational resource designed [...] effective or appropriate for any given patient. [employer] does not assume any responsibility for any aspect of healthcare administered with the aid of information [facility] provides. The information contained herein is not intended to cover all possible uses, directions, precautions, warnings, drug interactions, allergic reactions, or adverse effects. If you have questions about the drugs you are taking, check with your doctor, nurse or pharmacist. Copyright 4370-6852 [employer]. Version: 18.02. Revision Date: 03/25/2018. Thank you for choosing [facility] Normal [facility] Main OR Intraoperative Recor don 08-18-2018 Main OR Intraoperative Record IntraOp Document Type FT Summary Primary Physician: Kameron OAKLEY MD Finalized Date/Time: 08/18/18 15:00:16 Pt. Name: ABDOULAYE BENTLEY/Sex: 1965 Female Med Rec #: [id number] Physician: Kameron OAKLEY MD Financial #: [id number] Pt. Type: A Room/Bed: [place] [address] Admit/Disch: 08/17/18 06:56:00 - 08/18/18 11:36:00 Institution: [...] to review and send charges Zan Ceja BRANDING MACHINE OPERATOR Case Attendance FT Entry 1 Entry 2 Entry 3 Case Attendee Rustam WINSTON, Jyothi OAKLEY MD, Kameron PARKER MD, Shruthi Dominguez Role Performed Photography Manager Surgeon - Primary Surgeon - Assist 1 [...] 6 Case Attendee Jarvis PEREZ, Simran Ceja BRANDING MACHINE OPERATOR, Margaret Wylie RN, CNOR, America Role Performed Quarter Inspector - Primary Scrub - Primary Quarter Inspector - Other Time In 08/17/18 08:34:00 08/17/18 [...] Jarvis Zhang RN, Rustam Lr Carly C, Inessa PEREZ, JUDYORAmerica Time Out Complete 08/17/18 09:05:00 Outcomes Met? [...] and tissue Entry 1 Skin Integrity Warm, Valliant, Other/See Skin Abnormality Yes Comments Outcomes Met? [...] Avila SCHMIDT MD, Jarvis Booker RN, Inessa rL RN, America SAINI Outcomes Met? Yes Last Modified By: Simran Conley RN 08/18/18 15:00:04 Post-Care Text: The patient is free from signs and symptoms of injury related to positioning General Comments: positioned pt in stirrups with legs extended per Dr. Oakley's request. Cathie,CHRIS Patient Care Devices FT Pre-Care Text: Implements [...] Karen M, Farris RN, Karen M, Barney BRANDING MACHINE OPERATOR, Margaret Ceja BRANDING MACHINE OPERATOR, Margaret Ceja BRANDING MACHINE OPERATOR, Margaret Outcomes Met? Yes Yes Yes Last [...] safely administered during the perioperative period For [facility] please see scanned medication reconcilliation form for medications used at the field during the procedure. Drains/Tubes FT Pre-Care Text: Administers care to invasive device sites Entry 1 Device Type TUBE NASOGASTIC SUMP Location oral 18FR [[id number]][F] Quantity 1 Inserted By Jyothi Avila Present [...] BLANKET MISTRAL AIR Quantity 1 Aid TORSO [[id number]][F] Fluid/Bruno Unit Mistral warming system Setting high Body Site Upper anterior torso Last Modified By: Simran Conley RN 08/17/18 09:26:50 Case Comments Finalized By: Simran Conley RN Document Signatures Signed By: Simran Conley RN 08/17/18 10:10 Simran Conley RN 08/17/18 10:16 Margaret Ceja CST 08/18/18 12:34 Margaret Ceja CST 08/18/18 12:30 Simran Conley RN 08/18/18 15:00 Normal [facility] Main OR Intraoperative Record IntraOp Document Type FT Summary Primary Physician: Kameron OAKLEY MD Finalized Date/Time: 08/18/18 14:07:09 Pt. Name: ABDOULAYE BENTLEY/Sex: 1965 Female Med Rec #: [id number] Physician: CELE PACHECO, Kameron Simon Financial #: [id number] Pt. Type: A Room/Bed: [place] [address] Admit/Disch: 08/17/18 06:56:00 - 08/18/18 11:36:00 Institution: [...] Role Performed Anesthesiologist of Surgeon - Primary Quarter Inspector - Primary Record Time In 08/17/18 07:26:00 [...] RN 08/17/18 07:43:13 General Comments: Baljit [facility] [employer] student present for procedure. Winston Sims RNrn triage Protocols FT Pre-Care Text: Implements protective measures [...] MD, Levi Booker RN, Emily A, Timmons BRANDING MACHINE OPERATOR/SA, Trudy Time Out Complete 08/17/18 07:30:00 Outcomes [...] and tissue Entry 1 Skin Integrity Intact, Valliant, Warm, and Skin Abnormality No Dry Outcomes [...] Yes Levi Zuluaga RN, Emily A, Timmons BRANDING MACHINE OPERATOR/SA, Trudy Last Modified By: Esthela Sims RN [...] RN Patient Status Stable Skin. Condition Intact, Valliant, Warm, and Dry Airway Maintenance Oxygen in Use? No Outcomes Met? Yes Last Modified By: Esthela Sims RN 08/17/18 06:58:20 Post-Care Text: The patient is free from signs and symptoms of injury related to transfer/transport General Comments: report given to four corner stayer machine operatorrn. Winston sims rn Medication Administration FT Pre-Care [...] safely administered during the perioperative period [facility] please see scanned medication reconcilliation form for medications used at the field during the procedure. Normal [facility] Operative Reporton 04-23-201 9 Operative Report Result type: Progres s Note-Physician Result date: August 17, 2018 09:04 EDT Result status: Auth (Verified) Result title: TAP block Performed by: Rick Basurto Jr., DO on August 17, 2018 09:06 EDT Verified by: Rick Basurto Jr., DO on August 17, 2018 09:06 EDT Encounter info: [id number], Krunal Nichole, Ambulatory/Same Day Surgery, 08/17/2018 - [...] Date and Time Signed: 08/17/18 09:06 EDT [facility] Comment on above: Result Comment: Elec tronically Signed By: Rick Basurto Jr., DO\.br\Date and Time Signed: 08/18/18 14:25 EDT Operative Report Date of Surgery: 08/17/2018 SURGEON: Kameron Oakley MD, FACS SELF PAY COLLECTOR: Jennifer Parker M.D., FACS PREOPERATIVE DIAGNOSIS: Perforated [...] Kameron Oakley MD, FACS paul Dictated: 08/17/2018 #[id number] Typed: 08/17/2018 #[id number] cc: Kameron Oakley MD, FACS [facility] Comment on above: Result Comment: Elec tronically Signed By: Kameron OAKLEY MD\.br\Date and Time Signed: 08/18/18 07:09 EDT Progress [...] sigmoid perforation - stable for DC. Normal [facility] Comment on above: Result Comment: [...] preparations continued for the proposed operation.. Normal [facility] Comment on above: Result Comment: Elec tronically Signed By: Lopez Clemens DO, Rick Cartagena\.br\Date and Time Signed: 08/17/18 09:06 EDT error - wrong folder ABO/Rhon 08-17-2018 ABO/Rh AB NEG [facility] Comment on above: Performed By: #### 2 055742, [id number], [id number], [id number] ####[facility] [address] [place] [address] ABSCon 08-17-2018 ABSC Gel Interp Negative Normal [facility] Comment on above: Performed By: #### 2 614235, [id number], [id number], [id number] ####[facility] [address] [place] [address] Auto Diffon 08-17-2018 Basophils #/vol (Bld) 0.3 % Normal 0.0-2.[address] [facility] Comment on above: Order Comment: Order Added by Discern Expert. Performed By: #### 2 258079, [id number], 1357373, [id number] #### [facility] Laboratory [address] [place] [address] Basophils/Leukocytes Auto Pure number fraction (Bld) 0.1 E9/L Normal 0.0-0.2 [facility] Comment on above: Order Comment: Order Added by Discern Expert. Performed By: #### 2 392027, [id number], 2533847, [id number] #### [facility] [address] [place] [address] Eosinophils/100 WBC (Bld) 1.3 % Normal 0.0-8.0 [facility] Comment on above: Order Comment: Order Added by Discern Expert. Performed By: #### 2 466223, [id number], 5760071, 1737063 #### [facility] [address] [place] [address] Eosinophils/Leukocyte s Auto Pure number fraction (Bld) 0.2 E9/L Normal 0.0-0.5 [facility] Comment on above: Order Comment: Order Added by Discern Expert. Performed By: #### 2 870816, 23594934, 4398692, 1114818 #### [facility] [address] [place] [address] Lymphocytes/100 WBC (Bld) 16.3 % Normal 14.0-50.0 [facility] Comment on above: Order Comment: Order Added by Neal Expert. Performed By: #### 2 117045, 32430416, 2089732, 7607052 #### [facility] [address] [place] [address] Lymphocytes/Leukocyte s Auto Pure number fraction (Bld) 2.7 E9/L Normal 1.0-4.0 [facility] Comment on above: Order Comment: Order Added by Discern Expert. Performed By: #### 2 841824, 58211903, 8805037, [id number] #### [facility] [address] [place] [address] Monocytes/100 WBC (Bld) 5.3 % Normal 4.0-14.0 [facility] Comment on above: Order Comment: Order Added by Discern Expert. Performed By: #### 2 450019, [id number], 0120555, 9973638 #### [facility] [address] [place] [address] Monocytes/Leukocytes Auto Pure number fraction (Bld) 0.9 E9/L Normal 0.2-1.0 [facility] Comment on above: Order Comment: Order Added by Discern Expert. Performed By: #### 2 062690, 66923077, 8097522, 2535874 #### [facility] [address] [place] [address] Neutrophils/100 WBC (Bld) 76.8 % High 36.0-75.0 [facility] Comment on above: Order Comment: Order Added by Discern Expert. Performed By: #### 2 270981, 45165696, 7296298, 4900718 #### [facility] [address] [place] [address] Neutrophils/Leukocyte s Auto Pure number fraction (Bld) 12.9 E9/L High 2.0-7.5 [facility] Comment on above: Order Comment: Order Added by Discern Expert. Performed By: #### 2 697459, 37607095, 2884837, 6816021 #### [facility] [address] [place] [address] BMPon 08-17-2018 Anion gap molar conc 13 mmol/L Normal 6-16 [facility] [place] [facility] Comment on above: Performed By: #### 2 061254, 84368793, 5103666, 9792707 #### [facility] [address] [place] [address] Calcium mass conc 9.0 mg/dL Normal 8.9-11.1 [facility] Comment on above: Performed By: #### 2 593862, 35741394, 2603095, 5429089 #### [facility] [address] [place] [address] Chloride molar conc 106 mmol/L Normal 101-111 [facility] Comment on above: Performed By: #### 2 908166, 47335730, 6659751, 3687048 #### [facility] [address] [place] [address] CO2 molar conc 23 mmol/L Normal 21-31 [facility] Comment on above: Performed By: #### 2 413128, 64141307, 0318440, 2096551 #### [facility] [address] [place] [address] Creatinine mass conc 0.7 mg/dL Normal 0.5-1.3 [facility] [place] [facility] Comment on above: Performed By: #### 2 877512, 53053388, 5698456, 1846542 #### [facility] [address] [place] [address] Glucose mass conc 149 mg/dL Normal 55-199 [facility] Comment on above: Result Comment: If t his glucose result represents a fasting glucose, interpretation should refer to the following reference range: 55-99 mg/dL Performed By: #### 2 375994, 91710813, 6329911, 6487288 #### [facility] [address] [place] [address] Potassium molar conc 3.7 mmol/L Normal 3.5-5.3 [facility] [place] [facility] Comment on above: Performed By: #### 2 989880, 45188452, 0945986, 6838486 #### [facility] [address] [place] [address] Sodium molar conc 138 mmol/L Normal 135-145 [facility] Comment on above: Performed By: #### 2 251699, 56239970, 1760904, 8546032 #### [facility] [address] [place] [address] Urea nitrogen mass conc 13 mg/dL Normal 5-21 [facility] Comment on above: Performed By: #### 2 309667, 53992852, 8754047, 6364063 #### [facility] [address] [place] [address] Urea nitrogen/Creatinine mass ratio 19 No Units Normal 10-20 [facility] Comment on above: Performed By: #### 2 562010, 33512136, 6213649, 9680105 #### [facility] [address] [place] [address] Blood Bank ID#on 08-17-2018 BBID# [id number] [facility] Comment on above: Performed By: #### 2 649839, 93253675, 70322039, [id number] ####[facility] [address] [place] [address] CBC w/ Auto Diffon 9 Erythrocyte distribution width Ratio (RBC) 13.5 % Normal 10.9-14.2 [facility] Comment on above: Performed By: #### 2 298628, 20095324, 2174704, 9211179 #### [facility] [address] [place] [address] Hematocrit Volume Fraction (Bld) 45.0 % Normal 34.0-46.0 [facility] Comment on above: Performed By: #### 2 746024, 56547924, 2590810, 3526267 #### [facility] [address] [place] [id number] Hemoglobin mass conc (Bld) 16.1 g/dL High 12.0-16.0 [facility] Comment on above: Performed By: #### 2 [id number], [id number], [id number], [id number] #### [facility] Laboratory [address] [place] [address] MCH Entitic mass (RBC) 33.8 pg Normal 27.0-34.0 [facility] Comment on above: Performed By: #### 2 [id number], [id number], [id number], [id number] #### [facility] Laboratory [address] [place] [address] MCHC mass conc (RBC) 35.8 g/dL High 33.3-35.7 [facility] Comment on above: Performed By: #### 2 [id number], [id number], [id number], [id number] #### [facility] [address] [place] [address] MCV Entitic volume (RBC) 94.4 fL Normal 80.0-100.0 [facility] Comment on above: Performed By: #### 2 [id number], [id number], [id number], [id number] #### [facility] [address] [place] [address] Platelet mean volume Entitic volume (Bld) 7.4 fL Normal 6.4-10.8 [facility] Comment on above: Performed By: #### 2 [id number], [id number], [id number], [id number] #### [facility] [address] [place] [address] Platelets #/vol (Bld) 300.0 E9/L Normal 150.0-500.0 [facility] Comment on above: Performed By: #### 2 [id number], [id number], [id number], [id number] #### [facility] [address] [place] [address] RBC #/vol (Bld) 4.8 E12/L Normal 4.3-5.9 [facility] Comment on above: Performed By: #### 2 664186, [id number], 7652565, 3908402 #### [facility] [address] [place] [address] WBC corrected for nucl RBC Auto #/vol (Bld) 16.8 E9/L High 4.0-11.0 [facility] Comment on above: Result Comment: Slid e reviewed by cmk. Performed By: #### 2 [id number], [id number], [id number], [id number] #### [facility] [address] [place] [address] Interdisciplinary Note - Leonid e Manageron 08-17-2018 Interdisciplinary Note - Assistant Maintenance Manager Pt is awake and alert in bed, and no family present at this time. Pt lives in [place] and does not have PCP. Importance of PCP discussed, and PCP list provided. Pt states usually sees Barbara Palacio, who always ordered blood work or any further testing which needs done. Pt states will find PCP near home town of [place] for future follow up. Observation status discussed. Insurance information veriified, and pt denies any concerns or DC needs. Normal [facility] Main OR PACU I Recordon 07-28 Main OR PACU I Record PACU Phase I Docum ent Type FT Summary Primary Physician: Kameron OAKLEY MD Finalized Date/Time: 08/17/18 10:51:47 Pt. Name: ABDOULAYE BENTLEYO.B./Sex: 1965 Female Med Rec #: [id number] Physician: Kameron OAKLEY MD Financial #: [id number] Pt. Type: O Room/Bed: Admit/Disch: 08/17/18 06:56:30 - Institution: Case Times [...] I Outcomes Met? Yes Last Modified By: Dimitrios PEREZ, Shana Payton 08/17/18 10:51:33 Post-Care Text: The patient demonstrates [...] By: Shana Plunkett RN 08/17/18 10:51 Normal [facility] Main OR PACU I Record PACU Phase I Docum ent Type FT Summary Primary Physician: Kameron OAKLEY MD Finalized Date/Time: 08/17/18 08:24:49 Pt. Name: ABDOULAYE BENTLEY/Sex: 1965 Female Med Rec #: [id number] Physician: Kameron OAKLEY MD Financial #: [id number] Pt. Type: A Room/Bed: [place] [address] Admit/Disch: 08/17/18 06:56:30 - Institution: Case Times [...] Signed By: Jerilyn Zamudio RN 08/17/18 08:24 [facility] Main OR Preoperative Recordo n 08-17-2018 Main OR Preoperative Record PreOp Document Type FT Summary Primary Physician: Kameron OAKLEY MD Finalized Date/Time: 08/17/18 10:56:03 Pt. Name: ABDOULAYE BENTLEY/Sex: 1965 Female Med Rec #: [id number] Physician: Kameron OAKLEY MD Financial #: [id number] Pt. Type: O Room/Bed: [place] [address] Admit/Disch: 08/17/18 06:56:30 - Institution: Case Times [...] Signed By: Simran Conley RN 08/17/18 10:56 [facility] Main OR Preoperative Record Holding Area Document Type FT Summary Primary Physician: Kameron OAKLEY MD Finalized Date/Time: 08/17/18 07:18:23 Pt. Name: ABDOULAYE BENTLEY Deyanira/Sex: 1965 Female Med Rec #: [id number] Physician: Kameron OAKLEY MD Financial #: [id number] Pt. Type: O Room/Bed: / Admit/Disch: 08/17/18 [...] By: Jacque Brewer RN 08/17/18 07:18 Normal [facility] Operative Reporton 08-17-201 9 Operative Report Date of Surgery: 08/17/2018 [...] Kameron Oakley MD, FACS gls Dictated: 08/17/2018 #[id number] Typed: 08/17/2018 #[id number] cc: Kameron Oakley MD, FACS [facility] Comment on above: Result Comment: Elec tronically Signed By: Kameron OAKLEY MD\.br\Date and Time Signed: 08/17/18 16:01 EDT Progress Note-Physicianon Protein mass conc Patient: ABDOULAYE BENTLEY Age: 53 years Sex: Female : 1965 Associated Diagnoses: None Author: Kameron OAKLEY MD Postoperative Information Date/ Time: 08/17/18 10:06:00 Preoperative Diagnosis: Perforation of sigmoid colon (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 Postoperative Diagnosis: same. Performed by: Kameron OAKLEY MD Scrap Hooker: Shruthi PARKER MD Estimated Blood Loss: 5 ml. Complications: None. Suture repair of sigmoid perforation [facility] Comment on above: Result Comment: Elec tronically Signed By: Kameron OAKLEY MD\.br\Date and Time Signed: 08/17/18 10:07 EDT Protein [...] Charted Temp Tympanic L 36.4 DegC (AUG 17:) SBP 120 mmHg (AUG 17:) DBP 78 mmHg (AUG 17:) SpO2 93 % (AUG 17:) Height 160 cm (AUG 17:40) Weight 83.9 kg (AUG 17:40) BMI 32.77 kg/m2 (AUG 17:) Respiratory: Adequate air exchange with jain of preoperative function.. Cardiovascular: Cardiovascular function is stable and has returned to preoperative levels.. Neurologic: Pt has returned to preoperative baseline.. Review / Management Condition: Stable. Assessment Anesthetic outcome No anesthetic complications noted. ENDOSCOPIC PERFORATION. CHELY EXPL LAP. Plan Transfer/ Discharge: Condition TO SURGERY FOR EXPL LAP. STABLE. Normal [facility] Comment on above: Result Comment: [...] rhythm. Review / Management Results review Plan [place] [employer] (ASA) physical status classification: Class II, E. Anesthetic Preoperative Plan Anesthesia: General. , Regional TAP block. Anesthetic plan, risks, benefits, and alternatives discussed with the patient and/or family. Patient verbalized understanding. Adverse reactions, complications, and alternatives discujssed. Consent signed and on chart.. 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 Procedure: Colonoscopy. Postoperative Diagnosis: sigmoid perforation. Performed by: Kameron Oakley MD. Estimated Blood Loss: 0 ml. Complications: sigmoid perforation. Normal [facility] Comment on above: Result Comment: [...] Charted Temp Tympanic L 36.4 DegC (AUG 17:) SBP 120 mmHg (AUG 17:) DBP 78 mmHg (AUG 17:) SpO2 93 % (AUG 17:) Height 160 cm (AUG 17:40) Weight 83.9 kg (AUG 17:40) BMI 32.77 kg/m2 (AUG 17:40) Airway: Normal oral/pharyngeal anatomy.. Respiratory: Adequate air exchange.. Cardiovascular: Adequate perfusion and function. Review / Management Results review: No qualifying data available . Plan [place] [employer]hes[employer] (ASA) physical status classification: Class II. Anesthetic Preoperative Plan Anesthesia: Monitored anesthesia care and general anesthesia if required.. Anesthetic plan, risks, benefits, and alternatives discussed with the patient and/or family. Pt. and/or family present and agree to proceed as planned.. Discussed the importance of abstaining from tobacco products, and offered counseling if desired.. Normal [facility] Comment on above: Result Comment: Elec tronically Signed By: Donato Marina JR, DO.br\Date and Time Signed: 08/17/18 07:33 EDT Protein mass conc Patient: ABDOULAYE BENTLEY Age: 53 years Sex: Female : 1965 Associated Diagnoses: None Author: Kameron OAKLEY MD Basic Information No change in H&P Normal [facility] Comment on above: Result Comment: Elec tronically Signed By: Kameron OAKLEY MD\.br\Date and Time Signed: 08/17/18 07:11 EDT UA With Cult Reflexon 2018 Bilirubin Ql (U) Negative Normal Negative [facility] Comment on above: Performed By: #### 1 [id number] ####[facility] [address] [facility] [place] [address] Clarity Nom (U) CLOUDY Abnormal Clear [facility] Comment on above: Performed By: #### 1 [id number] ####[facility] [address] [facility] [place] [address] Color Nom (U) YELLOW Normal Yellow [facility] Comment on above: Performed By: #### 1 [id number] ####[facility] [address] [facility] [place] [address] Crystals LM Ql (Urine sed) Present Normal [facility] Comment on above: Performed By: #### 1 [id number] ####[place] [address] [facility] [place] [address] Epithelial cells.squamous LM.HPF #/area (Urine sed) 0-2 Normal 0-2 [facility] Comment on above: Performed By: #### 1 [id number] ####[facility] [address] [facility] [place] [address] Glucose Test strip mass conc (U) Negative Normal Negative [facility] Comment on above: Performed By: #### 1 [id number] ####[facility] [address] [facility] [place] [address] Hemoglobin Ql (U) Negative Normal Negative [facility] Comment on above: Performed By: #### 1 [id number] ####[facility] [address] [facility] [place] [address] Ketones mass conc (U) Negative Normal Negative [facility] Comment on above: Performed By: #### 1 [id number] ####[facility] [address] [facility] [place] [address] [employer] [place].plasma/Lithiu m.RBC mass ratio (Bld) 0-3 Normal 0-3 [facility] Comment on above: Performed By: #### 1 [id number] ####[facility] [address] [place] [address] Nitrite Ql (U) Negative Normal Negative [facility] Comment on above: Performed By: #### 1 [id number] ####[facility] [address] [place] [address] pH (U) 5.5 [pH] 5.0-9.0 [facility] Comment on above: Performed By: #### 1 [id number] ####[facility] [address] [place] [address] Protein mass conc (U) Negative Normal Negative [facility] Comment on above: Performed By: #### 1 [id number] ####[address] [address] Specific gravity Relative Density (U) 1.020 1.005-1.030 [facility] Comment on above: Performed By: #### 1 [id number] ####[address] [address] UA Spec Desc [place] Normal [facility] Comment on above: Performed By: #### 1 [id number] ####[address] [address] Urobilinogen Qn (U) 0.2 {Larry'U}/dL Normal 0.0-1.0 [facility] Comment on above: Performed By: #### 1 [id number] ####[facility] [address] [place] [address] WBC Auto Ql (U) Negative Normal Negative [facility] Comment on above: Performed By: #### 1 [id number] ####[facility] [address] [place] [address] WBC LM.HPF #/area (Urine sed) 0-5 Normal 0-5 [facility] Comment on above: Performed By: #### 1 [id number] ####[place] [address] [place] [address] eGFRon 08-17-2018 GFR/1.73 sq M predicted among blacks MDRD vol rate/area (S/P/Bld) mL/min/{1.73_m2} Normal >=59 [facility] Comment on above: Order Comment: Order added by Discern Expert. Result Comment: eGFR is race adjusted. AA=. Performed By: #### 2 [id number], [id number], [id number], [id number] #### [facility] Laboratory [address] [place] [address] GFR/1.73 sq M predicted among non-blacks MDRD vol rate/area (S/P/Bld) mL/min/{1.73_m2} Normal >=59 [facility] Comment on above: Order Comment: Order added by Discern Expert. Result Comment: Livestock Broker amilcar kidney disease could be indicated at eGFR's of less than 60 mL/min/1.73m2. Kidney failure is indicated at less than 15 mL/min/1.73m2. Performed By: #### 2 [id number], [id number], [id number], [id number] #### [facility] [address] [place] [address] Vital Signs Date Time Vital Sign Value Performing Clinician Facility 07-28-2023 11:44-0400 Body temperature 98 [degF] Felisa Aichholz Work Phone: [facility] 07-28-2023 11:44-0400 Diastolic blood pressure 72 mm[Hg] Felisa Aichholz Work Phone: [facility] 07-28-2023 11:44-0400 Heart rate 84 /min Felisa Aichholz Work Phone: [facility] 07-28-2023 11:44-0400 SaO2% (BldA) [Mass fraction] 96 % Felisa Aichholz Work Phone: [facility] 07-28-2023 11:44-0400 Systolic blood pressure 114 mm[Hg] Felisa Aichholz Work Phone: [facility] 07-22-2022 11:00-0400 Body height 160.02 cm Louann Rivas Other [email or web address] Other 07-22-2022 11:00-0400 Body mass index (BMI) [Ratio] 31.88 kg/m2 Louann Rivas Other [email or web address] Other 07-22-2022 11:00-0400 Body temperature 97.8 [degF] Louann Parrajanel Other [email or web address] Other 07-22-2022 11:00-0400 Body weight 81.65 kg Louann Parrareinaldoolive Other [email or web address] Other 07-22-2022 11:00-0400 Diastolic blood pressure 62 mm[Hg] Louann Parrajanel Other [email or web address] Other 07-22-2022 11:00-0400 SaO2% (BldA) [Mass fraction] 98 % Louann Rivas Other [email or web address] Other 07-22-2022 11:00-0400 Systolic blood pressure 110 mm[Hg] Louann Parrareinaldoolive Other [email or web address] Other Encounters Encounter Date Encounter Type Care Provider Facility Start: 03-29-2024 End: 03-29-2024 ambulatory FELISA AICHHOLZ Not Available Start: 02-25-2024 End: 02-25-2024 ambulatory FELISA AICHHOLZ Not Available Start: 02-09-2024 End: 02-09-2024 ambulatory LORI MARITZA Not Available Start: 09-29-2023 End: 09-29-2023 ambulatory FELISA AICHHOLZ Not Available Start: 08-25-2023 End: 08-25-2023 ambulatory LORI MARITZA Not Available Start: 07-28-2023 End: 07-28-2023 ambulatory Louann Rivas Facility:[facility] Start: 07-28-2023 End: 07-28-2023 ambulatory Felisa Zuluaga Aicmarielaholz Work Phone: [facility] Work Phone: Start: 07-28-2023 End: 07-28-2023 Patient encounter procedure Felisa Aicmarielaholz Work Phone: [facility] Vascular Surgery Work Phone: Start: 07-28-2023 End: 07-28-2023 ambulatory LORI MARITZA Not Available Start: 07-14-2023 End: 07-14-2023 ambulatory RONY CLEMENS STEPVAGRAS Not Available Start: 07-07-2023 End: 07-07-2023 ambulatory FELISA AICHHOLZ Not Available Start: 06-30-2023 End: 06-30-2023 ambulatory LORI MARITZA Not Available Start: 06-16-2023 End: 06-16-2023 ambulatory RONY CLEMENS STEPVARGAS Not Available Start: 06-02-2023 End: 06-02-2023 ambulatory FELISA AICHHOLZ Not Available Start: 05-19-2023 End: 05-19-2023 ambulatory ESTHELA GANEleno Not Available Start: 05-05-2023 End: 05-05-2023 ambulatory ELYSSA Zan HOLCOMB Not Available Start: 04-07-2023 End: 04-07-2023 ambulatory FELISA AICHHOLZ Not Available Start: 07-22-2022 End: 07-22-2022 ambulatory Louann Rivas Other [email or web address] Other Start: 07-22-2022 [facility] visit new patient Louann schaefer [facility] Vascular Surgery Start: 06-10-2022 End: 06-11-2022 ambulatory ANESTHESIOLOGY CRNA FELISA AICHHOLZ Facility:[facility] Start: 11-12-2021 End: 11-13-2021 ambulatory ANESTHESIOLOGY CRNA FELISA AICHHOLZ Facility:[facility] Start: 10-01-2021 End: 10-02-2021 ambulatory ANESTHESIOLOGY CRNA FELISA AICHHOLZ Facility:[facility] Plan of Treatment Date Care Activity Detail Author Start: 07-28-2023 Doppler ultrasonogra phy of bilateral carotid arteries US carotid doppler BI [facility] Start: 07-28-2023 US.doppler Carotid a rteries - bilateral [facility] Payers Date Payer Category Payer Self-pay 1965 Unknown [id number] 2.16.84 [id number] 1965 Unknown [id number] 2.16.84 0.1.686894.3.579.2.593 1965 Unknown [id number] 2.16.84 0.1.082024.3.579.2.593 1965 Unknown [id number] 2.16.84 0.1.399966.3.579.2.1259 1965 Unknown [id number] 2.16.84 0.1.531761.3.579.2.1259 1965 Unknown [id number] 2.16.84 0.1.214562.3.579.2.1259 1965 Unknown [id number] 2.16.84 0.1.871695.3.579.2.1259 1965 Unknown [id number] 2.16.84 0.1.785129.3.579.2.1259 1965 Unknown [id number] 2.16.84 0.1.244346.3.579.2.1259 1965 Unknown [id number] 2.16.84 0.1.029895.3.579.2.1259 1965 Unknown [id number] 2.16.84 0.1.336099.3.579.2.1259 1965 Unknown [id number] 2.16.84 0.1.145319.3.579.2.1259 1965 Unknown [id number] 2.16.84 0.1.602828.3.579.2.1259 1967 Unknown [id number] 2.16.84 0.1.678025.3.579.2.1259 1965 Unknown [id number] 2.16.84 0.1.773975.3.579.2.1259 1965 Unknown [id number] 2.16.84 0.1.742503.3.579.2.1259 1965 Unknown [id number] 2.16.840 .1.549661.3.579.2.1259 1965 Unknown [id number] 2.16.840 .1.649026.3.579.2.1259 1957 Unknown [id number] Unknown [id number] 2.16.8 40.1.669366.3.579.2.531 Social History Date Type Detail Facility Sex Assigned At [email or web address] Other Start: 1965 Sex Assigned At Female [facility] Medical Equipment Procedure Code Equipment Code [...] She was provided with information on the [place] tobacco program and she is in agreement to contact them and work on smoking cessation. [email or web address] Other Evaluation note Note Date & Type Note Facility Evaluation note No assessment information availa [facility] Work Phone: Evaluation note Note Date & Type Note Facility Evaluation note Diagnosis Onset Date Arteriosclerosis of left carotid artery acute Current smoker acute [facility] Work Phone: History general Narrative - Reported Note Date & Type Note Facility History general Narrative - Reported Type Medical History type II diabetes Surgical History PERFORATED COLON-DUE TO COLONOS COPY Hospitalization History see above [email or web address] Other Summary Purpose Family History No Family [...] section and content) DATE CREATED AUTHOR 10/07/2018 [facility] DATE CREATED AUTHOR AUTHOR'S ORGANIZ ATION 06/19/2022 [facility] DATE CREATED AUTHOR AUTHOR'S ORGANIZ ATION 08/06/2023 [facility] DATE CREATED AUTHOR AUTHOR'S ORGANIZ ATION 03/29/2024 [facility] EPIC REASON FOR VISIT (unrecogniz ed [...] BE BASED ON THE PRIMARY CLINICAL RECORDS. [employer] provides no warranty or guarantee of the accuracy or completeness of information in this document.
--- NOTE | 2024-04-16 07:58 | ED.GENADUL1 ---
HPI HPI - General Adult General Chief complaint: Extremity Problem, Nontraumatic Stated complaint: UPPER EXTREMITY PAIN Time Seen by Provider: 04/16/24 07:39 Source: patient Mode of arrival: walk-in Limitations: no limitations History of Present Illness HPI narrative: Patient is a 58-year-old female who is presenting to the ER with chief complaint of right wrist pain that radiates down into the right third and fourth finger, and is radiating into the right forearm as well. Pain started bothering her last evening, through the night and this morning. 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 Patient has been doing a lot of hair getting ready for the holidays, and a lot more business and repetition at work than normally. Patient is right-hand dominant. No injury, no fall. Patient has no other acute complaints at this time. No chest pain or shortness of breath. No shoulder pain. No injury. All systems are negative except as noted/marked. All systems reviewed and otherwise negative. Nurses note and vital signs reviewed and patient is not hypoxic. General: The patient appears well and in no apparent distress. Patient is resting comfortably on cart. Patient is not toxic, lethargic, or listless Skin: Warm, dry, no pallor noted. There is no rash noted. No petechiae, purpura. Patient has chronic skin changes to her hands secondary from being a hairdresser, using dye, no acute abnormalities noted. Patient has normal cap refill to all 5 fingers of the right hand. Head: Normocephalic, atraumatic Eye: Normal conjunctiva, no drainage, EOMI. PERRL Ears, Nose, Mouth, and Throat: oral mucosa is moist. Nares patent. Mouth without vesicles. Cardiovascular: Regular Rate and Rhythm, no murmur, gallop, rub Respiratory: Patient is in no distress, no accessory muscle use, lungs are clear to auscultation, no wheezing, rales or rhonchi Back: non-tender, GI: no tenderness Musculoskeletal: Patient has full range of motion of all of the extremities except to the right hand and wrist. Patient is having a harder time with complete torch shearer to the right hand and wrist. Patient has negative Phalen's test but positive Tinel sign. Patient has numbness and tingling and pain going into the ulnar aspect of the right index finger, right middle finger, and right ring finger. Patient has no significant swelling to the right wrist, limited flexion extension of the right wrist secondary to mild to moderate discomfort with active range of motion. No crepitus noted. Full range of motion of right shoulder and right elbow with no difficulty. Otherwise no motor, sensory, or focal neurological deficits. Neurological: A&O x4, normal speech Psychiatric: Cooperative Related Data Previous Rx's ?Medication ?Instructions ?Recorded hydrocodone 5 mg-acetaminophen 325 1 tab PO Q6H PRN pain 3 days #12 02/24/24 mg tablet tabs ketorolac 10 mg tablet 10 mg PO TID PRN pain #10 tabs 02/24/24 Allergies Allergy/AdvReac Type Severity Reaction Status Date / Time No Known Drug Allergies Allergy Verified 04/16/24 06:56 Opioid HPI Opioid Management Most Recent Opioid Data: No Data to Display [facility] Social History Little interest or pleasure in doing things: not at all Feeling down, depressed, or hopeless: not at all Exam Constitutional Vital Signs, click to edit/add: Last Vital Signs Temp 97.6 F 04/16/24 06:52 Pulse 92 H 04/16/24 06:52 Resp 18 04/16/24 06:52 BP 116/81 04/16/24 06:52 Pulse Ox 100 04/16/24 06:52 O2 Del Method Room Air 04/16/24 06:52 Course Vital Signs Vital signs: Vital Signs Temperature 97.6 F 04/16/24 06:52 Pulse Rate 92 H 04/16/24 06:52 Respiratory Rate 18 04/16/24 06:52 Blood Pressure 116/81 04/16/24 06:52 Pulse Oximetry 100 04/16/24 06:52 Oxygen Delivery Method Room Air 04/16/24 06:52 Temperature 97.6 F 04/16/24 06:52 Pulse Rate 92 H 04/16/24 06:52 Respiratory Rate 18 04/16/24 06:52 Blood Pressure 116/81 04/16/24 06:52 Pulse Oximetry 100 04/16/24 06:52 Oxygen Delivery Method Room Air 04/16/24 06:52 Medical Decision Making MDM Narrative Medical decision making narrative: Patient has evidence of most likely right carpal tunnel syndrome. Education was done at bedside and on discharge paperwork. Patient will follow-up with her PCP. Orthopedic surgery appointment has been made on April 26 as well for this patient. Patient was given a cock up wrist splint. Patient had education done at bedside and on discharge paperwork. Education on carpal tunnel syndrome and surgery was given to her for educational purposes only, I did not tell her that she is going to need surgery, I told her that as a last resort for carpal tunnel syndrome if needed for Discharge Plan Discharge Chief Complaint: Extremity Problem, Nontraumatic Clinical Impression: Carpal tunnel syndrome of right wrist Patient Disposition: Home, Self-Care Time of Disposition Decision: 07:53 Condition: Fair Prescriptions / Home Meds: No Action hydrocodone-acetaminophen 5-325 mg tablet 1 tab PO Q6H PRN (Reason: pain) 3 Days Qty: 12 0RF Rx Instructions: DX: R10.9 ketorolac 10 mg tablet 10 mg PO TID PRN (Reason: pain) Qty: 10 0RF Print Language: Ecuadorean Instructions: Carpal Tunnel Syndrome (DC), Carpal Tunnel Surgery (DC) Additional Instructions: Education on carpal tunnel syndrome and carpal tunnel surgery was given to you for educational purposes. Wear splint at all times for the next 5 to 7 days, take it off for ice or shower. Call PCP for additional help with pain medication as needed, setting up physical therapy, and help with referral to orthopedic surgery if needed. Alternate Tylenol and either Motrin, Advil, or ibuprofen every 4 hours to help with pain. Maximum dose of Tylenol is 3000 mg a day. Maximum dose of either Motrin, Advil, or ibuprofen is 2400 mg a day. Follow-up with orthopedic surgery, Dr. Leonardo,1130AM, 04/26/24. Appointment time has been set up for you on March. Referrals: Felisa Shelton NP [Primary Care Provider] - 1 week
== END 2024-04-16 08:10 | disposition home or self-care (01) ==
PROVIDERS: Emergency Provider Emergency Medicine; PCP Nurse Practitioner
DX: G56.01 Carpal tunnel syndrome, right upper limb (principal)
CPT/HCPCS: 99283

== ENCOUNTER 2024-09-27 08:25 | Outpatient (OUT) | payer BC, SELFPAY ==
--- OUTSIDE RECORDS SUMMARY | 2024-09-27 08:30 | XMS_ITS | Encounter Summary ---
Author Organization [facility] Address [address] [place] [address] Care Team Providers Care Grounds Supervisor Name Role Phone Gt Roberson MD Primary Care Provider [phone] Felisa Shelton DUMBWAITER OPERATOR Unavailable [phone] Gt Roberson MD Primary Care Provider [phone] Felisa Shelton DUMBWAITER OPERATOR Unavailable [phone] Encounter Details Date Type Department Care Team (Late st Contact Info) Description 04/06/2023 Abstract [facility] [address] [place] [address] Felisa Shelton, DUMBWAITER OPERATOR [address] [place] [address] Social History Tobacco Use Types Packs/Day Years Used Date Smoking Tobacco: Every Day Cigarettes Alcohol Use Standard Drinks/Week Comments Yes 0 (1 standard drink = 0.6 oz pur e alcohol) minimal Comments No Sex and Gender Information Value Date Recorded Sex Assigned at Choose not to disclose 02/2023 2:36 PM EDT Legal Sex Female 6:47 PM EDT Gender Identity Choose not to disclose 2:36 PM EDT Sexual Orientation Choose not to disclose 2022 2:36 PM EDT documented as of this encounter Plan of Treatment Upcoming Encounters Date Type Department Care Team (Late Contact Info) Description 05/30/2025 10:35 AM EST Office Visit [facility] [address] [place] [address] Светлана Sanchez, PEST CONTROLLER ASSISTANT-ICT CUSTOMER SUPPORT OFFICER [address] [place] [address] documented as of this encounter Visit Diagnoses Not on filedocumented in this encounter Care Teams Grounds Supervisor Relationship Specialty Start Date End Date Gt Roberson MD PCP - General Family Medicine 11/15/22 06/15/23 Gt Roberson MD [address] [place] [address] PCP - General [facility] Medicine 06/16/23 Felisa Shelton NP [address] [place] [address] PCP - [facility] 11/27/23 Felisa Shelton NP [address] [place] [address] Referring Physician Nurse Practitioner 11/15/22 documented as of this encounter
--- OUTSIDE RECORDS SUMMARY | 2024-09-27 08:30 | XMS_ITS | Encounter Summary ---
Author Organization [facility] Address [address] [place] [address] Care Team Providers Care Drag Sawyer Name Role Phone Felisa Shelton POWER PLANT TECHNICIAN Unavailable [phone] Gt Roberson MD Primary Care Provider [phone] Felisa Shelton POWER PLANT TECHNICIAN Unavailable [phone] Encounter Details Date Type Department Care Team (Late st Contact Info) Description 06/27/2023 Abstract [facility] [address] [place] [address] Felisa Shelton POWER PLANT TECHNICIAN [address] [place] [address] Social History Tobacco Use Types Packs/Day Years Used Date Smoking Tobacco: Every Day Cigarettes 0.3 15 Smokeless Tobacco: Never Alcohol Use Standard Drinks/Week Comments Not Currently 0 (1 standard drink = 0.6 oz pur e alcohol) PHQ-2 Answer Date Recorded Patient Health Questionnaire-2 Score 0 06/02/2023 Comments No Sex and Gender Information Value Date Recorded Sex Assigned at Choose not to disclose 02/2023 2:36 PM EDT Legal Sex Female 6:47 PM EDT Gender Identity Choose not to disclose 2:36 PM EDT Sexual Orientation Choose not to disclose 2022 2:36 PM EDT documented as of this encounter Plan of Treatment Upcoming Encounters Date Type Department Care Team (Late st Contact Info) Description 05/30/2025 10:35 AM EST Office Visit [facility] [address] [place] [address] Светлана Sanchez, NATURAL DEVELOPER-PRESSER AUTOMATIC [address] [place] [address] documented as of this encounter Visit Diagnoses Not on filedocumented in this encounter Care Teams Drag Sawyer Relationship Specialty Start Date End Date Gt Roberson MD [address] [place] [address] PCP - General Family Medicine 06/16/23 Felisa Shelton NP [address] [place] [address] PCP - [facility] 11/27/23 Felisa Shelton NP [address] [place] [address] Referring Physician Nurse Practitioner 11/15/22 documented as of this encounter
--- OUTSIDE RECORDS SUMMARY | 2024-09-27 08:30 | XMS_ITS | Encounter Summary ---
Author Organization [facility] Address [address] [place] [address] Care Team Providers Care Director Specialty Name Role Phone Gt Roberson MD Primary Care Provider [phone] Felisa Shelton THAW SHED HEATER TENDER Unavailable [phone] Gt Roberson MD Primary Care Provider [phone] Felisa Shelton NP Unavailable [phone] Reason for Visit * Reason Comments Med Refill Encounter Details Date Type Department Care Team (Late st Contact Info) Description 03/29/2023 Refill [facility] [address] [place] [address] Felisa Shelton, THAW SHED HEATER TENDER [address] [place] [address] Type 2 diabetes mellitus without complications ([facility]) Social History Tobacco Use Types Packs/Day Years Used Date Smoking Tobacco: Never Assessed Comments No Sex and Gender Information Value Date Recorded Sex Assigned at Choose not to disclose 02/2023 2:36 PM EDT Legal Sex Female 6:47 PM EDT Gender Identity Choose not to disclose 2:36 PM EDT Sexual Orientation Choose not to disclose 2022 2:36 PM EDT documented as of this encounter Miscellaneous Notes * Telephone Encounter - Felisa Shelton NP - 03/30/2023 7:56 AM EST Has not been seen since 05/20 no refills until seen in office documented in this encounter Plan of Treatment Upcoming Encounters Date Type Department Care Team (Late st Contact Info) Description 05/30/2025 10:35 AM EST Office Visit [facility] [address] [place] [address] Светлана Sanchez APRN-CASE MGR [address] [place] [address] documented as of this encounter Visit Diagnoses Diagnosis Type 2 diabetes mellitus without complications documented in this encounter Care Teams Director Specialty Relationship Specialty Start Date End Date Gt Roberson MD PCP - General Family Medicine 11/15/22 06/15/23 Gt Roberson MD [address] [place] [id number] PCP - General Family Medicine 06/16/23 Felisa Shelton NP [address] [place] [address] PCP - [facility] 11/27/23 Felisa Shelton NP [address] [place] [address] Referring Physician Nurse Practitioner 11/15/22 documented as of this encounter
--- OUTSIDE RECORDS SUMMARY | 2024-09-27 08:30 | XMS_ITS | Clinical Summary ---
Author Organization [facility] Healthcare Address [address] [place] [address] Care Team Providers Care Fnp Name Role Phone Felisa Shelton NP Unavailable [phone] Gt Roberson MD Primary Care Provider [phone] Allergies No known active allergies Medications aspirin 81 MG EC tablet Take 81 mg by mouth Daily Active glucose blood (OneTouch Verio) test stripIndications: Type 2 diabetes mellitus without complication, without long-term current use of insulin use 1 TEST STRIP to TEST BLOOD SUGAR once daily 100 strip 3 4 Active Lancets (OneTouch Delica Plus [id number]) miscIndications:T ype 2 diabetes mellitus without complication, without long-term current use of insulin use 1 LANCET to TEST BLOOD SUGAR once daily 100 each 3 4 Active atorvastatin (Lipitor) 40 MG tabletIndications :Type 2 diabetes mellitus without complication, without long-term current use of insulin,Stenosis of left carotid artery Take 1 tablet (40 mg) by mouth at bedtime 90 tablet 4 Active phentermine (Adipex-P) 37.5 MG tabletIndications :Encounter for weight management Take 1 tablet (37.5 mg) by mouth in the morning. Take before meals. 90 tablet 5 Active tretinoin (Retin-A) 0.025 % creamIndications: Rhytides Apply to face, once daily at evening/nigh t time, 30 day supply 20 g 11 5 Active semaglutide (Ozempic, 1 MG/DOSE,) 4 MG/3ML solution pen-injectorIndic ations:Type 2 diabetes mellitus without complication, without long-term current use of insulin,Obesity (BMI 30-39.9) Inject 1 mg under the skin 1 (one) time per week 9 mL 5 10/26/19 25 Active lisinopril 2.5 MG tabletIndications :Type 2 diabetes mellitus without complication, without long-term current use of insulin,Primary hypertension (CMS/HCC) Take 1 tablet (2.5 mg) by mouth in the morning. 90 tablet 5 11/01/19 25 Active Active Problems Problem Noted Date Diagnosed Date Overweight (BMI 25.0-29.9) 03/29/2024 Colon cancer screening 02/25/2024 Assessment & Plan (03/29/2024 6:43 AM EST): Colon cancer screening options were discussed with patient, as well as why colon cancer screening is indicated. Options are Colonoscopy: direct visualization, every 10 years (unless indicated more frequently), risks and benefits were discussed Cologuard: every 3 years, risks and benefits were discussed , contraindications were discussed (family hx of colon cancer, colon polyps) Patient has elected to: cologuard Hx of colonoscopy with colon perforation Epiploic appendagitis 02/25/2024 Assessment & Plan (03/29/2024 9:22 AM EST): Completely resolved Assessment & Plan (02/25/2024 11:41 AM EDT): Feeling better today then yesterday Has not picked up her NSAID and pain medication as of yet She is going to berry picker today At this time she wants to keep her fu appt with me for 04/20, I will contact her in 2 weeks to see if her symptoms have resolved or not She is encouraged to RTO or to ER sooner if worsening in symptoms Former cigarette smoker 09/29/2023 Stenosis of left carotid artery 09/29/2023 Overview (09/29/2023): Carotid US: 06/10/22: mild-mod plaque 56% on the left, right is clear Assessment & Plan (03/29/2024 6:39 AM EST): .Great job at quitting smoking!! Fu with vascular in 2 years from original date of appt Cont ASA, statin and risk factor modification Assessment & Plan (09/29/2023 9:34 AM EDT): Cont ASA 81mg and statin. Great job at quitting smoking!! Fu with vascular in 2 years from original date of appt Well woman exam with routine gynecological exam 06/02/2023 Assessment & Plan (06/02/2023 10:59 AM EST): Fu as per PAP indications Diet, exercise, monthly BSE, Calcium/vit d supplement Encounter for screening mamm ogram for malignant neoplasm of breast 04/07/2023 Primary hypertension 04/07/2023 Assessment & Plan (03/29/2024 6:37 AM EST): Please check blood pressure daily and record DASH diet Limit caffeine Take medication as directed Contact office if chest pain, pressure, dizziness, shortness of breath, swelling legs Recommend slow position changes Assessment & Plan (02/25/2024 11:33 AM EDT): Stable today , will address this at regular fu appt in 04/20 Assessment & Plan (09/29/2023 9:18 AM EDT): At goal, no changes Assessment & Plan (04/07/2023 11:34 AM EST): At goal, no changes Type 2 diabetes mellitus wit hout complication, without long-term current use of insulin 04/07/2023 Assessment & Plan (03/29/2024 6:39 AM EST): Check blood sugars daily, notify if <70 or >200. Take medications (pills or insulin) as directed. Monitor for s/s of hypoglycemia (sweaty, dizziness, nausea, vomiting, or shakiness). Watch for increase in thirst, urination, or appetite. Inspect feet frequently monitoring for open wounds , and also recommend yearly eye exam. Pt should attempt to remain as physically active as chronic conditions allow, as well as trying to follow a diet low in carbohydrates, and simple sugars. Assessment & Plan (02/25/2024 11:34 AM EDT): No med dose changes at this time Reviewed labs from ER visit Will formally address dx at her 04/20 appt Assessment & Plan (09/29/2023 9:19 AM EDT): Check blood sugars daily, notify if <70 or >200. Take medications (pills or insulin) as directed. Monitor for s/s of hypoglycemia (sweaty, dizziness, nausea, vomiting, or shakiness). Watch for increase in thirst, urination, or appetite. Inspect feet frequently monitoring for open wounds , and also recommend yearly eye exam. Pt should attempt to remain as physically active as chronic conditions allow, as well as trying to follow a diet low in carbohydrates, and simple sugars. Check A1c test Assessment & Plan (07/07/2023 9:32 AM EDT): Doing well on ozempic at 1mg no changes A1c is less than 6% 04/19 Fu in 09/2023 Assessment & Plan (04/07/2023 11:41 AM EST): Freq foot exam, yearly eye exam Had labs this morning Wants to increase ozempic to 1mg daily Ganglion cyst of wrist, right 04/07/2023 Assessment & Plan (04/07/2023 11:39 AM EST): Increase in pain, refer to ortho Resolved Problems Problem Noted Date Diagnosed Date Resolved Date Tobacco user 06/02/2023 09/29/2023 Assessment & Plan (09/29/2023 9:19 AM EDT): The patient has been advised of the risks of continued smoking: stroke, NC, all forms of cancer, lung disease, and . Options for quitting smoking include: cold turkey, hypnosis, acupuncture, nicotine replacement meds (gum, lozenges, and patches), Buproprion, and Varenicline. At this time pt is encouraged to evaluate their goals for wanting to quit smoking, and reach out to provider when ready to start this process Obesity (BMI 30-39.9) 06/02/20232023 Assessment & Plan (09/29/2023 9:18 AM EDT): Cont with DRYWALL CONTRACTOR w adipex Assessment & Plan (07/07/2023 9:32 AM EDT): Continue with DRYWALL CONTRACTOR with her adipex Class 1 obesity due to exces s calories without serious comorbidity in adult 04/07/202305/2023 Encounters Date Type Department Care Team Description 08/02/2024 Orders Only [facility] [address] [place] [address] Felisa Shelton NP Encounter for screening mammogram for malignant neoplasm of breast (Primary Dx) 08/02/2024 Refill [facility] [address] [place] [phone] Felisa Shelton NP Type 2 diabetes mellitus without complication, without long-term current use of insulin; Obesity (BMI 30-39.9); Primary hypertension (CMS/HCC) from Last 3 Months Family History Medical History Relation Name Comments Cancer Father Colon Hypertension Father Diabetes Mother Kidney disease Mother Stroke Mother Relation Name Status Comments Father Mother Social History Tobacco Use Types Packs/Day Years Used Date Smoking Tobacco: Every Day Cigarettes 0.3 15 Smokeless Tobacco: Never Tobacco Cessation:Ready to Q uit: Not Asked; Counseling Given: Not Answered Alcohol Use Standard Drinks/Week Comments Not Currently 0 (1 standard drink = 0.6 oz pur e alcohol) PHQ-2 Answer Date Recorded Patient Health Questionnaire-2 Score 0 09/29/2023 Comments No Sex and Gender Information Value Date Recorded Sex Assigned at Choose not to disclose 02/2023 2:36 PM EDT Legal Sex Female 6:47 PM EDT Gender Identity Choose not to disclose 2:36 PM EDT Sexual Orientation Choose not to disclose 2022 2:36 PM EDT Last Filed Vital Signs Vital Sign Reading Time Taken Comments Blood Pressure 106/62 05/10/2024 8:46 AM EST Pulse 93 03/29/2024 8:59 AM EST Temperature 36.8 C (98.3 F) 03/29/2024 8:59 AM EST Respiratory Rate 18 03/29/2024 8:59 AM EST Oxygen Saturation 100% 03/29/2024 8:59 AM EST Inhaled Oxygen Concentration - - Weight 74.3 kg (163 lb 12.8 oz) 05/10/2024 8:46 AM EST Height 160 cm (5' 3 ) 05/10/2024 8:46 AM EST Body Mass Index 29.02 05/10/2024 8:46 AM EST Plan of Treatment Upcoming Encounters Date Type Department Care Team (Late st Contact Info) Description 05/30/2025 10:35 AM EST Office Visit [facility] [address] [place] [address] Светлана Sanchez APRN-STORE DETECTIVE [address] [place] [address] Health Maintenance Due Date Last Done Comments CT Colonography 1965 Colonoscopy 1965 FIT 1967 FOBT 1965 Sigmoidoscopy 1965 Diabetes: Urine Protein Screening 04/07/2024 023 Diabetes: Hemoglobin A1C 06/02/2024 12/01/2023, 03/28 Mammogram 06/23/2024 06/23/2023 Influenza Vaccine (Season Ended) 2024 Diabetes: Retinopathy Screening 05/29/2025 Colorectal Cancer Screening 05/03/2027 FIT-DNA 05/03/2027 05/03/2024, 01/26, 02/06/2021 Cervical Cancer Screening 06/02/2028 HPV/Cotest 06/02/2028 Pap Smear 06/02/2028 06/02/2023, 01/26/2019 Procedures Procedure Name Priority Date/Time Associated Diagnosis Comments LAB COLOGUARD COLON CANCER SCREEN Routine 05/03/2024 7:00 AM EST Colon cancer screening MM TOMOSYNTHESIS SCREENING BI 06/23/2023 2:20 PM EST PAP SMEAR Routine 06/02/2023 12:00 AM EST from Last 3 Months or Most Recently Relevant to Health Maintenance Results * Cologuard?? colon cancer screening (05/03/2024 7:00 AM EST) NONINV COLON CA DNA+OCC BLD SCRN STL-IMP Negative Negative 05/08/2024 12:25 PM EST [facility] (CLIA #:[id number]) Comment: NEGATIVE TEST RESULT. A negative Cologuard result indicates a low likelihood that a colorectal cancer (CRC) or advanced adenoma (adenomatous polyps with more advanced pre-malignant features) is present. The chance that a person with a negative Cologuard test has a colorectal cancer is less than 1 in 1500 (negative predictive value >99.9%) or has an advanced adenoma is less than 5.3% (negative predictive value 94.7%). These data are based on a prospective cross-sectional study of 10,000 individuals at average risk for colorectal cancer who were screened with both Cologuard and colonoscopy. (Carissa Reno al, N Engl J Med 2014;370(14):3721-5442) The normal value (reference range) for this assay is negative. COLOGUARD RE-SCREENING RECOMMENDATION: Periodic colorectal cancer screening is an important part of preventive healthcare for asymptomatic individuals at average risk for colorectal cancer. Following a negative Cologuard result, the [place] [employer] and U.S. Multi-Society Task Force screening guidelines recommend a Cologuard re-screening interval of 3 years. References: [place] [employer] Guideline for Colorectal Cancer Screening: https://www.cancer.org/cancer/cewyr-lqpjnp-cdivke/buffblrcs-pwmyltmwn-nknpzkl/ac s-rec ommendations.html.; Clinton DK, George CR, Belkis ZuluagaK, Colorectal Cancer Screening: Recommendations for Physicians and Patients from the U.S. Multi-Society Task Force on Colorectal Cancer Screening , Am J Gastroenterology 2017; 112:6395-4729. TEST DESCRIPTION: Composite algorithmic analysis of stool DNA-biomarkers with hemoglobin immunoassay. Quantitative values of individual biomarkers are not reportable and are not associated with individual biomarker result reference ranges. Cologuard is intended for colorectal cancer screening of adults of either sex, 45 years or older, who are at average-risk for colorectal cancer (CRC). Cologuard has been approved for use by the U.S. FDA. The performance of Cologuard was established in a cross sectional study of average-risk adults aged 50-84. Cologuard performance in patients ages 45 to 49 years was estimated by sub-group analysis of near-age groups. Colonoscopies performed for a positive result may find as the most clinically significant lesion: colorectal cancer [4.0%], advanced adenoma (including sessile serrated polyps greater than or equal to 1cm diameter) [20%] or non- advanced adenoma [31%]; or no colorectal neoplasia [45%]. These estimates are derived from a prospective cross-sectional screening study of 10,000 individuals at average risk for colorectal cancer who were screened with both Cologuard and colonoscopy. (Carissa Reno al, N Engl J Med 2014;370(14):2381-7553.) Cologuard may produce a false negative or false positive result (no colorectal cancer or precancerous polyp present at colonoscopy follow up). A negative Cologuard test result does not guarantee the absence of CRC or advanced adenoma (pre-cancer). The current Cologuard screening interval is every 3 years. ([place] [employer] and U.S. Multi-Society Task Force). Cologuard performance data in a 10,000 patient pivotal study using colonoscopy as the reference method can be accessed at the following location: www.[employer].Invisible/results. Additional description of the Cologuard test process, warnings and precautions can be found at www.cologuard.com. Stool specimen (specimen) 05/03/2024 7:00 AM EST 05/04/2024 11:08 AM EST Felisa Shelton NP LAB MOLECULAR DIAGNOSTICS ORDER VILMA Final Result .[facility] (CLIA #:[id number]) [address] [address], [facility] (CLIA #:[id number]) [address] [address] * MM TOMOSYNTHESIS SCREENING BI (06/23/2023 2:20 PM EST) Anatomical Region Laterality Modality Other 06/23/2023 2:20 PM EST Narrative 06/23/2023 2:21 PM EST The [address] [address] Mammography Report Signed Patient: MAHESH BENTLEY MR#: [id number] : 1965 Acct:[id number] Age/Sex: 58 / F ADM Date: 06/23/23 Loc: MAMMO Attending Dr: Felisa Shelton NP Ordering Physician: Felisa Shelton NP Results: Date of Service: 06/23/23 Follow Up: Procedure(s): MM tomosynthesis screening BI Accession Number(s): [id number] cc: Felisa Shelton NP Patient Name: MAHESH BENTLEY MR#: [id number] : 1965 Exam Date: 06/23/2023 Ordering Doctor: JASMIN Shelton CNP RADIOLOGY REPORT PROCEDURE: MM TOMOSYNTHESIS SCREENING BI COMPARISON: MG MAMM SCREEN 3D CYN CAD, 06/10/2022. MG MAMM SCREEN 3D CYN CAD, 05/14/2021. INDICATIONS: screening Calculator Name NCI Breast Cancer Risk Assessment Tool 5 Year Breast Cancer Risk 1.50% Lifetime Breast Cancer Risk 9.50% Personal Breast Cancer No Personal Ovarian Cancer No Treatments None Family Cancers None LOCATION: [facility] BREAST COMPOSITION: Heterogeneously dense,which may obscure [...] PALPABLE LUMP SHOULD BE BIOPSIED. Dictated by: Bert Wesley MD on 06/23/2023 at 14:19 Approved by: Bert Wesley MD on 06/23/2023 at 14:20 Dictated By: eBrt Wesley M.D. Signed By: 06/23/23 1421 DD/ 1420 TD/TT: Industrial Safety And Health Specialist: Procedure Note Radiology, Radiologist, - 06/23/2023 [place] [address] Mammography Report Signed Patient: AUDELIA BENTLEYR#: [id number] : 1965Acct:[id number] Age/Sex: 58 / FADM Date: 06/23/23 Loc: MAMMO Attending Dr: Felisa Shelton NP Ordering Physician: Felisa Sheltonesults: Date of Service: 06/23/23Follow Up: Procedure(s): MM tomosynthesis screening BI Accession Number(s): [id number] cc: Felisa Shelton NP Patient Name: MAHESH BENTLEY MR#: [id number] : 1965 Exam Date: 06/23/2023 Ordering Doctor: JASMIN Shelton STORE DETECTIVE RADIOLOGY REPORT PROCEDURE: MM TOMOSYNTHESIS SCREENING BI COMPARISON: MG MAMM SCREEN 3D CYN CAD, 06/10/2022. MG MAMM SCREEN 3DBIL CAD, 05/14/2021. INDICATIONS: screening Calculator Name NCI Breast Cancer Risk Assessment Tool 5 Year Breast Cancer Risk 1.50% Lifetime Breast Cancer Risk 9.50% Personal Breast Cancer No Personal Ovarian Cancer No Treatments None Family Cancers None LOCATION: [facility] BREAST COMPOSITION: Heterogeneously dense,which may obscure smallmasses. FINDINGS: DIAGNOSTIC CATEGORY 2--BENIGN FINDING. NO CHANGE FROM COMPARISON.Scattered benign-appearing nodules are present. Scattered benign-appearing calcifications are present. Scattered benign-appearing lymph nodes are present. RIGHT BREAST: No significant suspicious finding. LEFT BREAST: No significant suspicious finding. RECOMMENDATIONS: ROUTINE MAMMOGRAM AND CLINICAL EVALUATION IN 12 MONTHS. PLEASE NOTE: A NORMAL MAMMOGRAM DOES NOT EXCLUDE THE POSSIBILITY OFBREAST CANCER. A CLINICALLY SUSPICIOUS PALPABLE LUMP SHOULD BE BIOPSIED. Dictated by: Bert Wesley MD on 06/23/2023 at 14:19 Approved by: Bert Wesley MD on 06/23/2023 at 14:20 Dictated By: Bert Wesley M.D. Signed By:06/23/23 1421 DD/ 1420 TD/TT: Industrial Safety And Health Specialist: us Felisa Shelton NP [facility] Final Result * Pap Smear (06/02/2023 12:00 AM EST) Swab us Harvey Declan DO LAB CYTOLOGY ORDERABLES Final Re sult EXTERNAL LAB from Last 3 Months or Most Recently Relevant to Health Maintenance Insurance BCBS Care Teams Fnp Relationship Specialty Start Date End Date Gt Robreson MD [address] [place] [address] PCP - General Family Medicine 06/16/23 Felisa Shelton NP [address] [place] [address] Referring Physician Nurse Practitioner 11/15/22
--- OUTSIDE RECORDS SUMMARY | 2024-09-27 08:30 | XMS_ITS | Encounter Summary ---
Author Organization [facility] Address [address] [place] [address] Care Team Providers Care Tungsten Tender Name Role Phone Gt Roberson MD Primary Care Provider [phone] Felisa Shelton NP Unavailable [phone] Gt Roberson MD Primary Care Provider [phone] Felisa Shelton NP Unavailable [phone] Encounter Details Date Type Department Care Team (Late st Contact Info) Description 05/24/2023 Abstract [facility] [address] [facility] [address] [place] [address] Shanta Pollard MD [address] [facility] [address] [place] [address] Social History Tobacco Use Types Packs/Day Years Used Date Smoking Tobacco: Every Day Cigarettes 0.3 15 Smokeless Tobacco: Never Alcohol Use Standard Drinks/Week Comments Not Currently 0 (1 standard drink = 0.6 oz pur e alcohol) Comments No Sex and Gender Information Value [...] DERM [address] [place] [address] Светлана Sanchez, COMMUNITY ORGANIZATION WORKER-SENIOR VISUAL DESIGNER [address] [place] [address] documented as of this encounter Visit Diagnoses Not on filedocumented in this encounter Care Teams Tungsten Tender Relationship Specialty Start Date End Date Gt Roberson MD PCP - General Family Medicine 11/15/22 06/15/23 Gt Roberson MD [address] [place] [address] PCP - General [facility] Medicine 06/16/23 Felisa Shelton NP [address] [place] [address] PCP - [facility] 11/27/23 Felisa Shelton NP [address] [place] [address] Referring Physician Nurse Practitioner 11/15/22 documented as of this encounter
--- OUTSIDE RECORDS SUMMARY | 2024-09-27 08:30 | XMS_ITS | Encounter Summary ---
Author Organization [facility] Address [address] [facility] [address] [place] [address] Care Team Providers Care Vocational Coordinator Name Role Phone Felisa Shelton CHANGE CONTROL MANAGER Unavailable [phone] Gt Roberson MD Primary Care Provider [phone] Felisa Shelton CHANGE CONTROL MANAGER Unavailable [phone] Encounter Details Date Type Department Care Team (Late st Contact Info) Description 06/23/2023 Clinisync Result Encounter [facility] Department Unsolicited Felisa Shelton, TERESA [address] [place] [address] Social History Tobacco Use Types Packs/Day Years [...] Office Visit [facility] [address] [facility] [address] [place] [address] Светлана Sanchez APRN-ACCOUNTANT BUDGET [address] [place] [address] documented as of this encounter Procedures Procedure Name Priority Date/Time Associated Diagnosis Comments MM TOMOSYNTHESIS SCREENING BI 06/23/2023 2:20 PM EST documented in this encounter Results * MM TOMOSYNTHESIS SCREENING BI (06/23/2023 2:20 PM EST) Anatomical Region Laterality Modality Other 06/23/2023 2:20 PM EST Narrative 06/23/2023 2:21 PM EST The [address] [address] Mammography Report Signed Patient: MAHESH BENTLEY MR#: [id number] : 1965 Acct:[id number] Age/Sex: 58 / F ADM Date: 06/23/23 Loc: MAMMO Attending Dr: Felisa Shelton NP Ordering Physician: Felisa Shelton NP Results: Date of Service: 06/23/23 Follow Up: Procedure(s): MM tomosynthesis screening BI Accession Number(s): [id number] cc: Felisa Shelton NP Patient Name: MAHESH BENTLEY MR#: [id number] : 1965 Exam Date: 06/23/2023 Ordering Doctor: JASMIN Shelton [facility] RADIOLOGY REPORT PROCEDURE: MM TOMOSYNTHESIS SCREENING BI COMPARISON: MG MAMM SCREEN 3D CYN CAD, 06/10/2022. MG MAMM SCREEN 3D CYN CAD, 05/14/2021. INDICATIONS: screening Calculator Name NCI Breast Cancer Risk Assessment Tool 5 Year Breast Cancer Risk 1.50% Lifetime Breast Cancer Risk 9.50% Personal Breast Cancer No Personal Ovarian Cancer No Treatments None Family Cancers None LOCATION: [facility] BREAST COMPOSITION: Heterogeneously dense,which may [...] 14:20 Dictated By: Bert Wesley M.D. Signed By: 06/23/23 1421 DD/ 1420 TD/TT: Vocational Rehab Consultant: Procedure Note Radiology, Radiologist, MD - 06/23/2023 [place] [address] Mammography Report Signed Patient: BHAVIK BENTLEY#: [id number] : 1965Acct:[id number] Age/Sex: 58 / FADM Date: 06/23/23 Loc: MAMMO Attending Dr: Felisa Shelton NP Ordering Physician: Felisa Shelton NPResults: Date of Service: 06/23/23Follow Up: Procedure(s): MM tomosynthesis screening BI Accession Number(s): [id number] cc: Felisa Shelton NP Patient Name: MAHESH BENTLEY MR#: [id number] : 1965 Exam Date: 06/23/2023 Ordering Doctor: JASMIN Shelton ACCOUNTANT BUDGET RADIOLOGY REPORT PROCEDURE: MM TOMOSYNTHESIS SCREENING BI COMPARISON: MG MAMM SCREEN 3D CYN CAD, 06/10/2022. MG MAMM SCREEN 3DBIL CAD, 05/14/2021. INDICATIONS: screening Calculator Name NCI Breast Cancer Risk Assessment Tool 5 Year Breast Cancer Risk 1.50% Lifetime Breast Cancer Risk 9.50% Personal Breast Cancer No Personal Ovarian Cancer No Treatments None Family Cancers None LOCATION: [facility] BREAST COMPOSITION: Heterogeneously dense,which may [...] on 06/23/2023 at 14:19 Approved by: Bert Wesely MD on 06/23/2023 at 14:20 Dictated By: Bert Wesley M.D. Signed By:06/23/23 1421 DD/ 1420 TD/TT: Vocational Rehab Consultant: us Felisa Shelton NP [facility] Final Result documented in this encounter Visit Diagnoses Not on filedocumented in this encounter Care Teams Vocational Coordinator Relationship Specialty Start Date End Date Gt Roberson MD [address] [place] [address] PCP - General Family Medicine 06/16/23 Felisa Shelton NP [address] [place] [address] PCP - [facility] 11/27/23 Felisa Shelton NP [address] [place] [address] Referring Physician Nurse Practitioner 11/15/22 documented as of this encounter
--- OUTSIDE RECORDS SUMMARY | 2024-09-27 08:48 | XMS_ITS | CCD ---
Author Organization [facility] Care Team Providers Care Prosthetic Lab Technician Name Role Phone AICHHOLZ, LEAD BURNER APPRENTICE FELISA Admitting Unavailable AICHHOLZ, LEAD BURNER APPRENTICE FELISA Attending Unavailable AICHHOLZ, LEAD BURNER APPRENTICE FELISA Primary Care Unavailable DR BEE WATTS V Consulting Unavailable AICHHOLZ, LEAD BURNER APPRENTICE FELISA Consulting Unavailable AICHHOLZ, LEAD BURNER APPRENTICE FELISA Admitting Unavailable AICHHOLZ, LEAD BURNER APPRENTICE FELISA Attending Unavailable AICHHOLZ, LEAD BURNER APPRENTICE FELISA Primary Care Unavailable AICHHOLZ, LEAD BURNER APPRENTICE FELISA Consulting Unavailable AICHHOLZ, LEAD BURNER APPRENTICE FELISA Admitting Unavailable AICHHOLZ, LEAD BURNER APPRENTICE FELISA Attending Unavailable AICHHOLZ, LEAD BURNER APPRENTICE FELISA Primary Care Unavailable AICHHOLZ, LEAD BURNER APPRENTICE FELISA Consulting Unavailable Louann Rivas Unavailable AMI Rivas Attending Provider Felsia Shelton Primary Care Provider Louann Rivas Attending Unavailable Louann Rivas Admitting Unavailable Nikita Felisa J Primary Care Unavailable ESTHELA OSHEA Attending Unavailable AICHHOLZ, FELISA Attending Unavailable JR. LAL GEORGE C Attending Unavaila LORI [place] Attending Unavailable AICHHOLZ, FELISA Attending Unavailable JR. LAL GEORGE C Attending Unavaila LORI [place] Attending Unavailable LORI SALAS Attending Unavailable AICHHOLZ, FELISA Attending Unavailable LORI SALAS Attending Unavailable AICHHOLZ, FELISA Attending Unavailable AICHHOLZ, FELISA Attending Unavailable LORI SALAS Attending Unavailable Medications Current Medications Medication Drug [...] doppler BIon 04-0 US carotid doppler BI [facility] Main [address] [address] Ultrasound Report Signed Patient: Abdoulaye Bentley MR#: [id number] : 1965 Acct:[id number] Age/Sex: 58 / F ADM Date: 07/28/23 Loc: [facility] Room: Type: [facility] Attending Dr: Louann Rivas PROPOSAL EDITOR-C Ordering Provider: Louann Rivas APRN Date of [...] Humza Suresh M.D.07/29/2023 12:36 PM Dictation Location: [place] [address] Tech: Carine Tona Transcribed By: MARANDA 07/29/23 1236 Dictated By: Humza Suresh MD 07/29/23 1235 Signed By: 07/29/23 1236 Normal [facility] CBC AUTO DIFFon 06-10-2022 BASO # 0.1 103/ul Normal 0.0-0.1 [facility] Comment on above: Performed By: #### C BC #### [facility] [address] [address] [address] Tracie Montalvo Basophils/100 WBC (Bld) 0.7 % Normal 0.2-2.0 [facility] Comment on above: Performed By: #### C BC #### [facility] [address] [address] [address] Tracie Montalvo EO # 0.1 103/ul Normal 0.0-0.7 [facility] Comment on above: Performed By: #### C BC #### [facility] [address] [address] [address] Tracie Montalvo Eosinophils/100 WBC (Bld) 0.8 % Critically low 0.9-7.0 [facility] Comment on above: Performed By: #### C BC #### [facility] [address] [address] [address] Tracie Montalvo Erythrocyte distribution width (RBC) [Ratio] 13.7 % Normal 11.0-15.0 [facility] Comment on above: Performed By: #### C BC #### [facility] [address] [address] [address] Tracie Montalvo Hematocrit (Bld) [Volume fraction] 41.7 % Normal 36.0-48.0 [facility] Comment on above: Performed By: #### C BC #### [facility] [address] [place] [address] Dr. Tracie Montalvo Hemoglobin (Bld) [Mass/Vol] 15.1 g/dL Normal 12.0-16.0 [facility] Comment on above: Performed By: #### C BC #### [facility] [address] [place] [address] Dr. Tracie Montalvo IG # 0.10 10e3/ul Critically high 0.00-0.03 [facility] Comment on above: Performed By: #### C BC #### [facility] [address] [place] [address] Dr. Tracie Montalvo IG % 1.0 % Critically high 0.0-0.5 [facility] Comment on above: Performed By: #### C BC #### [facility] [address] [place] [address] Dr. Tracie Montalvo LYMPH # 2.8 103/ul Normal 1.2-3.8 [facility] Comment on above: Performed By: #### C BC #### [facility] [address] [place] [address] Dr. Tracie Montalvo Lymphocytes/100 WBC (Bld) 26.8 % Normal 20.5-60.0 [facility] Comment on above: Performed By: #### C BC #### [facility] [address] [place] [address] Dr. Tracie Montalvo MANUAL DIFF REQ NO Normal [facility] Comment on above: Performed By: #### C BC #### [facility] [address] [place] [address] Dr. Tracie Montalvo MCH (RBC) [Entitic mass] 32.7 pg Normal 26.7-34.0 [facility] Comment on above: Performed By: #### C BC #### [facility] [address] [address] [address] Tracie Montalvo MCHC (RBC) [Mass/Vol] 36.2 g/dL Critically high 29.9-35.2 [facility] Comment on above: Performed By: #### C BC #### [facility] [address] [address] [address] Tracie Montalvo MCV (RBC) [Entitic vol] 90.3 fL Normal 81.0-99.0 [facility] Comment on above: Performed By: #### C BC #### [facility] [address] [address] [address] Tracie Montalvo MONO # 0.6 103/ul Normal 0.3-0.8 [facility] Comment on above: Performed By: #### C BC #### [facility] [address] [place] [address] Dr. Tracie Montalvo Monocytes/100 WBC (Bld) 6.0 % Normal 1.7-12.0 [facility] Comment on above: Performed By: #### C BC #### [facility] [address] [address] [address] Tracie Montalvo NEUT # 6.8 103/ul Critically high 1.4-6.5 [facility] Comment on above: Performed By: #### C BC #### [facility] [address] [address] [address] Tracie Montalvo Neutrophils/100 WBC (Bld) 64.7 % Normal 43.0-75.0 [facility] Comment on above: Performed By: #### C BC #### [facility] [address] [address] [address] Tracie Montalvo Platelet mean volume (Bld) [Entitic vol] 9.1 fL Critically low 9.5-13.5 [facility] Comment on above: Performed By: #### C BC #### [facility] [address] [address] [address] Tracie Montalvo PLT 318 103/ul Normal 150-450 [facility] Comment on above: Performed By: #### C BC #### [facility] [address] [address] [address] Tracie Montalvo RBC 4.62 106/ul Normal 4.20-5.40 [facility] Comment on above: Performed By: #### C BC #### [facility] [address] [address] [address] Tracie Montalvo WBC 10.4 103/ul Normal 4.0-11.0 [facility] Comment on above: Performed By: #### C BC #### [facility] [address] [address] [address] Tracie Montalvo GLYCOHEMOGLOBIN A1Con 2022 ADA RECOMMENDATION SEE BELOW Normal [facility] Comment on above: Result Comment: ADA RECOMMENDED LIMIT 4.0 - 6.0 ADA THERAPEUTIC TARGET < 7.0 ACTION SUGGESTED > 7.0 Performed By: #### A 1C ####[facility] [id number] [place] [address]Dr. Tracie Montalvo Glucose [Mass/Vol] 114 mg/dL Normal [facility] Comment on above: Performed By: #### A 1C ####[facility] [address] [place] [address]Dr. Tracie Montalvo HbA1c (Bld) [Mass fraction] 5.6 % Normal 4.5-6.2 [facility] Comment on above: Performed By: #### A 1C ####[facility] [address] [place] [address]Dr. Tracie Montalvo LIPID PROFILEon 06-10-2022 CHOL-HDL RATIO NORM SEE BELOW Normal [facility] Comment on above: Result Comment: 3.3 - 4.4 LOW RISK 4.4 - 7.1 AVERAGE RISK 7.1 - 11.0 MODERATE RISK >11.0 HIGH RISK Performed By: #### C MP, LIPID, TSH #### [facility] [address] [address] [address] Tracie Montalvo Cholesterol [Mass/Vol] 151 mg/dL Normal <=200 [facility] Comment on above: Performed By: #### C MP, LIPID, TSH #### [facility] [address] [address] [address] Tracie Montalvo Cholesterol in HDL [Mass/Vol] 33 mg/dL Critically low 40-60 [facility] Comment on above: Performed By: #### C MP, LIPID, TSH #### [facility] [address] [address] [address] Tracie Montalvo Cholesterol in LDL [Mass/Vol] 77.4 mg/dL Normal [facility] Comment on above: Performed By: #### C MP, LIPID, TSH #### [facility] [address] [address] [address] Tracie Montalvo Cholesterol.total/Cho lesterol in HDL [Mass ratio] 4.6 {ratio} Normal [facility] Comment on above: Performed By: #### C MP, LIPID, TSH #### [facility] [address] [address] [address] Tracie Montalvo HDL NORMAL > or = 60 mg/dl - LO W CARDIOVASCULAR RISK <40 mg/dl - HIGH CARDIOVASCULAR RISK Normal [facility] Comment on above: Performed By: #### C MP, LIPID, TSH #### [facility] [address] [address] [address] Tracie Montalvo LDL CALC NORMAL SEE BELOW Normal [facility] Comment on above: Result Comment: <100 mg/dl OPTIMAL 100 - 129 mg/dl NEAR OR ABOVE OPTIMAL 130 - 159 mg/dl BORDERLINE HIGH 160 - 189 mg/dl HIGH >190 mg/dl VERY HIGH Performed By: #### C MP, LIPID, TSH #### [facility] [address] [address] [address] Tracie Montalvo Triglyceride [Mass/Vol] 203 mg/dL Critically high <=150 [facility] Comment on above: Performed By: #### C MP, LIPID, TSH #### [facility] [address] [address] [address] Tracie Montalvo VLDL CALC 40.6 mg/dL Normal [facility] Comment on above: Performed By: #### C MP, LIPID, TSH #### [facility] [address] [address] [address] Tracie Montalvo MG MAMM SCREEN 3D CYN CADon 06-10-2022 MG MAMM SCREEN 3D CYN CAD Patient: MAHESH BENTLEY Exam Date: 06/10/2022 : 1965 Gender:F Ordering : JASMIN FELISA SHELTON LEAD BURNER APPRENTICE Admission #: [id number] Family : Order #: [id number] CLICK HERE TO VIEW EXAM RADIOLOGY REPORT [...] Treatments None Family Cancers None LOCATION: [facility] BREAST COMPOSITION: Heterogeneously dense,which may obscure small [...] Watts MD on 06/10/2022 at 11:28 Normal [facility] MICROALBUMIN, RAND URon 02- mALB <1.3 Normal <=30.0 [facility] Comment on above: Performed By: #### M ALBR #### [facility] [address] [address] [address] Tracie Montalvo PROF 14(COMP METB)on 023 Albumin [Mass/Vol] 3.9 g/dL Normal 3.4-5.0 [facility] Comment on above: Performed By: #### C MP, LIPID, TSH #### [facility] [address] [address] [address] Tracie Montalvo Albumin/Globulin [Mass ratio] 1.1 {ratio} Normal [facility] Comment on above: Performed By: #### C MP, LIPID, TSH #### [facility] [address] [address] [address] Tracie Montalvo ALP [Catalytic activity/Vol] 79 U/L Normal 46-116 [facility] Comment on above: Performed By: #### C MP, LIPID, TSH #### [facility] [address] [address] [address] Tracie Montalvo ALT [Catalytic activity/Vol] 50 U/L Normal 14-59 [facility] Comment on above: Performed By: #### C MP, LIPID, TSH #### [facility] [address] [address] [address] Tracie Montalvo Anion gap [Moles/Vol] 12.9 mmol/L Normal [facility] Comment on above: Performed By: #### C MP, LIPID, TSH #### [facility] [address] [address] [address] Tracie Montalvo AST [Catalytic activity/Vol] 16 U/L Normal 15-37 [facility] Comment on above: Performed By: #### C MP, LIPID, TSH #### [facility] [address] [address] [address] Tracie Montalvo Bilirubin [Mass/Vol] 0.4 mg/dL Normal 0.2-1.0 [facility] Comment on above: Performed By: #### C MP, LIPID, TSH #### [facility] [address] [address] [address] Tracie Montalvo Calcium [Mass/Vol] 9.5 mg/dL Normal 8.5-10.1 [facility] Comment on above: Performed By: #### C MP, LIPID, TSH #### [facility] [address] [address] [address] Tracie Montalvo Chloride [Moles/Vol] 104 mmol/L Normal 98-107 [facility] Comment on above: Performed By: #### C MP, LIPID, TSH #### [facility] [address] [address] [address] Tracie Montalvo CO2 [Moles/Vol] 27.2 mmol/L Normal 21.0-32.0 [facility] Comment on above: Performed By: #### C MP, LIPID, TSH #### [facility] [address] [address] [address] Tracie Montalvo Creatinine [Mass/Vol] 0.64 mg/dL Normal 0.55-1.02 [facility] Comment on above: Performed By: #### C MP, LIPID, TSH #### [facility] [address] [address] [address] Tracie Montalvo EGFR-AF POLISH >60 Normal >=60 [facility] Comment on above: Performed By: #### C MP, LIPID, TSH #### [facility] [address] [address] [address] Tracie Montalvo EGFR-NON AF POLISH >60 Normal >=60 [facility] Comment on above: Performed By: #### C MP, LIPID, TSH #### [facility] [address] [address] [address] Tracie Montalvo Globulin (S) [Mass/Vol] 3.5 g/dL Normal [facility] Comment on above: Performed By: #### C MP, LIPID, TSH #### [facility] [address] [address] [address] Tracie Montalvo Glucose [Mass/Vol] 94 mg/dL Normal 74-106 [facility] Comment on above: Performed By: #### C MP, LIPID, TSH #### [facility] [address] [address] [address] Tracie Montalvo Potassium [Moles/Vol] 4.1 mmol/L Normal 3.5-5.1 [facility] Comment on above: Performed By: #### C MP, LIPID, TSH #### [facility] [address] [address] [address] Tracie Montalvo Protein [Mass/Vol] 7.4 g/dL Normal 6.4-8.2 [facility] Comment on above: Performed By: #### C MP, LIPID, TSH #### [facility] [address] [address] [address] Tracie Montalvo Sodium [Moles/Vol] 140 mmol/L Normal 136-145 [facility] Comment on above: Performed By: #### C MP, LIPID, TSH #### [facility] [address] [place] [address] Dr. Tracie Montalvo Urea nitrogen [Mass/Vol] 8.0 mg/dL Normal 7.0-18.0 [facility] Comment on above: Performed By: #### C MP, LIPID, TSH #### [facility] [address] [place] [address] Dr. Tracie Montalvo Urea nitrogen/Creatinine [Mass ratio] 12.5 mg/mg Normal [facility] Comment on above: Performed By: #### C MP, LIPID, TSH #### [facility] [address] [place] [address] Dr. Tracie Montalvo TSHon 06-10-2022 TSH 2.317 uIU/mL Normal 0.358-3.740 [facility] Comment on above: Performed By: #### C MP, LIPID, TSH #### [facility] [address] [place] [address] Dr. Tracie Montalvo UA RANDOM W/MICROSCOPICon BACTERIA NONE SEEN Normal NONE SEEN [facility] Comment on above: Performed By: #### U AMIC #### [facility] [address] [place] [address] Dr. Tracie Montalvo Bilirubin Ql (U) Negative Normal NEGATIVE [facility] Comment on above: Performed By: #### U AMIC #### [facility] [address] [place] [address] Dr. Tracie Montalvo CAST NONE SEEN Normal NONE SEEN [facility] Comment on above: Performed By: #### U AMIC #### [facility] [address] [place] [address] Dr. Tracie Montalvo Clarity (U) CLEAR Normal CLEAR [facility] Comment on above: Performed By: #### U AMIC #### [facility] [address] [place] [address] Dr. Tracie Montalvo Color (U) LT. YELLOW Normal YELLOW [facility] Comment on above: Performed By: #### U AMIC #### [facility] [address] [place], [place] [id number] Dr. Tracie Montalvo Crystals LM Nom (Urine sed) NONE SEEN Normal NONE SEEN [facility] Comment on above: Performed By: #### U AMIC #### [facility] [address] [address] [address] Tracie Montalvo Epithelial cells LM Ql (Urine sed) NONE SEEN Normal NONE SEEN /RARE [facility] Comment on above: Performed By: #### U AMIC #### [facility] [address] [address] [address] Tracie Montalvo Glucose Ql (U) Negative Normal NEGATIVE [facility] Comment on above: Performed By: #### U AMIC #### [facility] [address] [place] [address] Dr. Tracie Montalvo Hemoglobin Ql (U) Negative Normal NEGATIVE [facility] Comment on above: Performed By: #### U AMIC #### [facility] [address] [place] [address] Dr. Tracie Montalvo Ketones Ql (U) Negative Normal NEGATIVE [facility] Comment on above: Performed By: #### U AMIC #### [facility] [address] [place] [address] Dr. Tracie Montalvo LEUKOCYTES Negative Normal NEGATIVE [facility] Comment on above: Performed By: #### U AMIC #### [facility] [address] [address] [address] Tracie Montalvo MUCOUS NONE SEEN Normal NONE SEEN [facility] Comment on above: Performed By: #### U AMIC #### [facility] [address] [place] [address] Dr. Tracie Montalvo Nitrite Ql (U) Negative Normal NEGATIVE [facility] Comment on above: Performed By: #### U AMIC #### [facility] [address] [place] [address] Dr. Tracie Montalvo pH (U) 5.5 [pH] Normal 5-9 [facility] Comment on above: Performed By: #### U AMIC #### [facility] [address] [place] [address] Dr. Tracie Montalvo RBC 0-2 Normal 0-2 [facility] Comment on above: Performed By: #### U AMIC #### [facility] [address] [address] [address] Tracie Montalvo SPEC GRAVITY 1.015 Normal 1.005-<=1.025 [facility] Comment on above: Performed By: #### U AMIC #### [facility] [address] [address] [address] Tracie Montalvo UA PROTEIN Negative Normal NEGATIVE/ TRACE [facility] Comment on above: Performed By: #### U AMIC #### [facility] [address] [address] [address] Tracie Montalvo Urobilinogen Qn (U) 0.2 {Larry'U}/dL Normal 0.2 - 1. 0 [facility] Comment on above: Performed By: #### U AMIC #### [facility] [address] [place] [address] Dr. Tracie Montalvo WBC NONE SEEN Normal NONE SEEN [facility] Comment on above: Performed By: #### U AMIC #### [facility] [address] [place] [address] Dr. Tracie Montalvo US CAROTID ART BILon 023 CAROTID ART CYN EXAMINATION: US PENA TID [...] BEE WATTS Date: 2022-06-10 16:15 Normal [facility] AMYLASEon 11-12-2021 Amylase [Catalytic activity/Vol] 45 U/L Normal 25-115 [facility] Comment on above: Performed By: #### C LORI QUIÑONES LIPA ####[facility] [address] [place] [address]Dr. Tracie Montalvo GLYCOHEMOGLOBIN A1Con 2021 ADA RECOMMENDATION SEE BELOW Normal [facility] Comment on above: Result Comment: ADA RECOMMENDED LIMIT 4.0 - 6.0 ADA THERAPEUTIC TARGET < 7.0 ACTION SUGGESTED > 7.0 Performed By: #### A 1C #### [facility] [address] [place] [address] Dr. Tracie Montalvo Glucose [Mass/Vol] 128 mg/dL Normal [facility] Comment on above: Performed By: #### A 1C #### [facility] [address] [place] [address] Dr. Tracie Montalvo HbA1c (Bld) [Mass fraction] 6.1 % Normal 4.5-6.2 [facility] Comment on above: Performed By: #### A 1C #### [facility] [address] [place] [address] Dr. Tracie Montalvo LIPASEon 11-12-2021 Lipase [Catalytic activity/Vol] 201.0 U/L Normal 73.0-393.0 [facility] Comment on above: Performed By: #### C LORI QUIÑONES LIPA #### [facility] [address] [address] [address] Tracie Montalvo PROF 14(COMP METB)on 022 Albumin [Mass/Vol] 4.2 g/dL Normal 3.4-5.0 [facility] Comment on above: Performed By: #### C LORI QUIÑONES LIPA ####[facility] [address] [place] [address]Dr. Tracie Montalvo Albumin/Globulin [Mass ratio] 1.1 {ratio} Normal [facility] Comment on above: Performed By: #### C MP, LORI, LIPA ####[facility] [address] [place] [address]Dr. Tracie Montalvo ALP [Catalytic activity/Vol] 76 U/L Normal 46-116 [facility] Comment on above: Performed By: #### C MP, LORI, LIPA ####[facility] [address] [place] [address]Dr. Tracie Montalvo ALT [Catalytic activity/Vol] 31 U/L Normal 14-59 [facility] Comment on above: Performed By: #### C MP, LORI, LIPA ####[facility] [address] [address]Dr. Tracie Montalvo Anion gap [Moles/Vol] 14.5 mmol/L Normal [facility] Comment on above: Performed By: #### C MP, LORI, LIPA ####[facility] [address] [place] [address]Dr. Tracie Montalvo AST [Catalytic activity/Vol] 13 U/L Critically low 15-37 [facility] Comment on above: Performed By: #### C MP, LORI, LIPA ####[facility] [address] [place] [address]Dr. Tracie Montalvo Bilirubin [Mass/Vol] 0.3 mg/dL Normal 0.2-1.0 [facility] Comment on above: Performed By: #### C MP, LORI, LIPA ####[facility] [address] [place] [address]Dr. Tracie Montalvo Calcium [Mass/Vol] 9.7 mg/dL Normal 8.5-10.1 [facility] Comment on above: Performed By: #### C MP, LORI, LIPA ####[facility] [address] [place] [address]Dr. Tracie Montalvo Chloride [Moles/Vol] 102 mmol/L Normal 98-107 [facility] Comment on above: Performed By: #### C MP, LORI, LIPA ####[facility] [address] [place] [address]Dr. Tracie Montalvo CO2 [Moles/Vol] 26.7 mmol/L Normal 21.0-32.0 [facility] Comment on above: Performed By: #### C MP, LORI, LIPA ####[facility] [address] [place] [address]Dr. Tracie Montalvo Creatinine [Mass/Vol] 0.74 mg/dL Normal 0.55-1.02 [facility] Comment on above: Performed By: #### C MP, LORI, LIPA ####[facility] [address] [place] [address]Dr. Tracie Montalvo EGFR-AF POLISH >60 Normal >=60 [facility] Comment on above: Performed By: #### C MP, LORI, LIPA ####[facility] [address] [place] [address]Dr. Tracie Montalvo EGFR-NON AF POLISH >60 Normal >=60 [facility] Comment on above: Performed By: #### C MP, LORI, LIPA ####[facility] [address] [place] [address]Dr. Tracie Montalvo Globulin (S) [Mass/Vol] 3.7 g/dL Normal [facility] Comment on above: Performed By: #### C MP, LORI, LIPA ####[facility] [address] [place] [address]Dr. Tracie Montalvo Glucose [Mass/Vol] 98 mg/dL Normal 74-106 [facility] Comment on above: Performed By: #### C MP, LORI, LIPA ####[facility] [address] [place] [address]Dr. Tracie Montalvo Potassium [Moles/Vol] 4.2 mmol/L Normal 3.5-5.1 [facility] Comment on above: Performed By: #### C MP, LORI, LIPA ####[facility] [address] [place] [address]Dr. Tracie Montalvo Protein [Mass/Vol] 7.9 g/dL Normal 6.4-8.2 [facility] Comment on above: Performed By: #### C MP, LORI, LIPA ####[facility] [address] [place] [address]Dr. Tracie Montalvo Sodium [Moles/Vol] 139 mmol/L Normal 136-145 [facility] Comment on above: Performed By: #### C LORI QUIÑONES LIPA ####[facility] [address] [place] [address]Dr. Tracie Montalvo Urea nitrogen [Mass/Vol] 15.0 mg/dL Normal 7.0-18.0 [facility] Comment on above: Performed By: #### C LORI QUIÑONES LIPA ####[facility] [address] [place] [address]Dr. Tracie Montalvo Urea nitrogen/Creatinine [Mass ratio] 20.3 mg/mg Normal [facility] Comment on above: Performed By: #### C LORI QUIÑONES LIPA ####[facility] [address] [place] [address]Dr. Tracie Montalvo GLYCOHEMOGLOBIN A1Con 2021 ADA RECOMMENDATION SEE BELOW Normal [facility] Comment on above: Result Comment: ADA RECOMMENDED LIMIT 4.0 - 6.0 ADA THERAPEUTIC TARGET < 7.0 ACTION SUGGESTED > 7.0 Performed By: #### A 1C ####[facility] [address] [place] [address]Dr. Tracie Montalvo Glucose [Mass/Vol] 128 mg/dL Normal [facility] Comment on above: Performed By: #### A 1C ####[facility] [address] [place] [address]Dr. Tracie Montalvo HbA1c (Bld) [Mass fraction] 6.1 % Normal 4.5-6.2 [facility] Comment on above: Performed By: #### A 1C ####[facility] [address] [place] [address]Dr. Tracie Montalvo Coding Summary.on 08-28-2018 Coding Summary. CODING DATE: 019 FINAL [facility] STATUS: Home (Routine DC) PAYOR: Dominic APC [...] Childs Date Saved: 08/28/2018 12:26 pm Normal [facility] [place] Mamm Diag w/CAD if perfor [...] VERY IMPORTANT TO YOUR HEALTH. THE CURRENT [place] [employer] OF RADIOLOGY AND NATIONAL COMPREHENSIVE CANCER [...] finding Recommendation: Normal interval follow-up Normal [facility] US Breast biopsy Vac Asst, F irst [...] 08/28/2018 13:28 EDT by Fer Johnson MD [facility] Coding Summary.on 08-21-2018 Coding Summary. CODING DATE: [address] [facility] DSC STATUS: Home (Routine DC) PAYOR: Peculiar APC DESCRIPTION 5311 Level 1 Lower GI [...] PROC APC STAT DESCRIPTION DOCTOR NAME DATE 98174 Suture of large Kameron OAKLEY MD 08/17/2018 intestine (colorrhaphy) for perforated ulcer, diverticulum, wound, injury or rupture (single or multiple perforations); without colostomy 11310 Transversus abdominis Lopez Clemens DO, Rick 08/17/2018 plane (TAP) block (abdominal plane block, rectus sheath block) bilateral; by injections (includes imaging guidance, when performed) XP Separate practitioner, a service that is distinct because it was performed by a different practitioner 28850 Anesthesia for Lopez Clemens DO, Rick 08/17/2018 [...] Revised Date Saved: 08/20/2018 03:34 pm Normal [facility] ABO/Rh History Checkon 08-18 ABO/Rh History Check Patient discharged prior Normal [facility] Comment on above: Performed By: #### 2 [id number], [id number], [id number], [id number] ####[facility] [address] [place] [address] Inpatient Clinical Summaryon 08-18-2018 Inpatient Clinical Summary [address] [address] Clinical Summary Person Information: Name: ABDOULAYE BENTLEY Age: 53 Years : 1965 12:00 AM Sex: Female PCP: NONE, XXXX Marital Status: Phone: [phone] Race: White Ethnicity: Non- or Language: Wallisian Visit Id: Visit Reason: SCREENING Speciality: Acuity: Enc Type: Ambulatory/Same Day Surgery Med Service: Surgery Arrival: 08/17/2018 6:56 AM Discharge: Dispo Type: Address: [address] [place] [id number] Provider Notes: Diagnosis: Perforation of sigmoid colon [...] [place] With: Address: When: Kameron OAKLEY [address] [place] [address], [address] [place] [address] Business (1) 08/24/2018 9:15 AM Comments: Call for any problems. Type Location Start Finish State US Breast (FT) FT.ULTRASOUND 08/24/2018 10:00 AM 08/24/2018 11:00 AM Confirmed [place] Diagnostic (FT) FT.MAMMOGRAM 08/24/2018 10:45 AM 08/24/2018 11:15 AM Confirmed Patient Education Information: Cele - Post Op Instructions (CUSTOM) ciprofloxacin, Flagyl, MiraLax, Percocet Normal [facility] Inpatient Patient Summaryon 08-18-2018 Inpatient Patient Summary [address] [address] Patient Discharge Instructions PERSON INFORMATION [...] Follow up: With: Address: When: XXXX [place] With: Address: When: Kameron OAKLEY [address] [place] [address], [address] [place] [address] [facility] (1) 08/24/2018 9:15 AM Comments: Call for any problems. In the event that this physician does not participate in your insurance network, please consult with your insurance company to find a nearby participating provider. Type Location Start [facility] US Breast (FT) FT.ULTRASOUND 08/24/2018 10:00 AM 08/24/2018 11:00 AM Confirmed [place] Diagnostic (FT) FT.MAMMOGRAM 08/24/2018 10:45 AM 08/24/2018 11:15 AM Confirmed Comment: MC Johansen ANN, have received the attached patient education materials/instructions and have verbalized understanding: Patient Signature Date Clinican/Nurse Signature _ Date HERE ARE THE MEDICATION CHANGES THAT OCCURRED DURING YOUR HOSPITAL STAY New Medications [facility] [facility] [address] [place], [place] [id number], [phone] acetaminophen-oxycodone (Percocet 325 mg-5 mg Tab) 1 [...] taking. Refills: 0. Pharmacy Information: Other: [facility] Comment: PATIENT EDUCATION INFORMATION Instructions: [place], [place] Kameron Oakley MD, FACS POST OPERATIVE [...] reached by calling: Hospital: or (ask the band head saw operator for your surgeon) Office: Reviewed: 08-03 [...] What is ciprofloxacin? Ciprofloxacin is a fluoroquinolone (bkuv-t-XITT-o-lone) antibiotic that fights bacteria in the body. [...] may report side effects to FDA at 8-488-DSZ-4022. What other drugs will affect ciprofloxacin? Some [...] drugs may affect ciprofloxacin, including prescription and bnnj-cjk-oiufvve medicines, vitamins, and herbal products. Not all [...] to ensure that the information provided by [employer]. ('[employer]') is accurate, up-to-date, and complete, but no guarantee is made to that effect. Drug information contained herein may be time sensitive. [employer] information has been compiled for use by healthcare practitioners and consumers in the [place] and therefore [employer] does not warrant that uses outside of the [place] are appropriate, unless specifically indicated otherwise. [employer] drug information does not endorse drugs, diagnose patients or recommend therapy. [employer] drug information is an informational resource designed [...] effective or appropriate for any given patient. [employer] does not assume any responsibility for any aspect of healthcare administered with the aid of information [employer] provides. The information contained herein is not intended to cover all possible uses, directions, precautions, warnings, drug interactions, allergic reactions, or adverse effects. If you have questions about the drugs you are taking, check with your doctor, nurse or pharmacist. Copyright 5125-5894 [employer]. Version: 22.. Revision Date: 05/04/2018. metronidazole (me [...] (more likely to occur while taking metronidazole retirement): ?? numbness, tingling, or burning pain in [...] may report side effects to FDA at 7-900-IOF-9616. What other drugs will affect metronidazole? Sometimes [...] drugs may affect metronidazole, including prescription and fwef-lkq-dumwlrx medicines, vitamins, and herbal products. Not all [...] to ensure that the information provided by [employer]. ('[employer]') is accurate, up-to-date, and complete, but no guarantee is made to that effect. Drug information contained herein may be time sensitive. [employer] information has been compiled for use by healthcare practitioners and consumers in the [place] and therefore [employer] does not warrant that uses outside of the [place] are appropriate, unless specifically indicated otherwise. [employer] drug information does not endorse drugs, diagnose patients or recommend therapy. [employer] drug information is an informational resource designed [...] effective or appropriate for any given patient. [facility] does not assume any responsibility for any aspect of healthcare administered with the aid of information [facility] provides. The information contained herein is not intended to cover all possible uses, directions, precautions, warnings, drug interactions, allergic reactions, or adverse effects. If you have questions about the drugs you are taking, check with your doctor, nurse or pharmacist. Copyright 5091-0606 [facility] [employer]. Version: 12.02. Revision Date: 02/16/2018. polyethylene glycol 3350 (shirlene ee ETH il een GLYE kol) ClearLax, GaviLAX, Gialax, GlycoLax, MiraLax, YFJ7539, SunMark ClearLax What is the most important [...] may report side effects to FDA at 8-117-ASA-2454. What other drugs will affect polyethylene glycol 3350? Other drugs may interact with polyethylene glycol 3350, including prescription and gnnh-nfc-afmbcwk medicines, vitamins, and herbal products. Tell each [...] to ensure that the information provided by [employer]. ('[employer]um') is accurate, up-to-date, and complete, but no guarantee is made to that effect. Drug information contained herein may be time sensitive. [employer] information has been compiled for use by healthcare practitioners and consumers in the [place] and therefore [employer] does not warrant that uses outside of the [place] are appropriate, unless specifically indicated otherwise. [employer]'s drug information does not endorse drugs, diagnose patients or recommend therapy. [employer] drug information is an informational resource designed [...] effective or appropriate for any given patient. [employer] does not assume any responsibility for any aspect of healthcare administered with the aid of information [employer] provides. The information contained herein is not intended to cover all possible uses, directions, precautions, warnings, drug interactions, allergic reactions, or adverse effects. If you have questions about the drugs you are taking, check with your doctor, nurse or pharmacist. Copyright 6166-3785 [employer]. Version: 2.04. Revision Date: 07/31/2016. acetaminophen and [...] may report side effects to FDA at 1-935-ZGE-5395. What other drugs will affect acetaminophen and [...] affect acetaminophen and oxycodone, including prescription and hcya-yjq-klnwpgw medicines, vitamins, and herbal products. Not all [...] to ensure that the information provided by [employer]. ('Caring[employer]') is accurate, up-to-date, and complete, but no guarantee is made to that effect. Drug information contained herein may be time sensitive. [employer] information has been compiled for use by healthcare practitioners and consumers in the [place] and therefore [employer] does not warrant that uses outside of the [place] are appropriate, unless specifically indicated otherwise. [employer]'s drug information does not endorse drugs, diagnose patients or recommend therapy. [employer] drug information is an informational resource designed [...] effective or appropriate for any given patient. [employer] does not assume any responsibility for any aspect of healthcare administered with the aid of information [employer] provides. The information contained herein is not intended to cover all possible uses, directions, precautions, warnings, drug interactions, allergic reactions, or adverse effects. If you have questions about the drugs you are taking, check with your doctor, nurse or pharmacist. Copyright 1364-2595 [employer]. Version: 18.02. Revision Date: 03/25/2018. Thank you for choosing [facility] Normal [facility] Main OR Intraoperative Recor don 08-18-2018 Main OR Intraoperative Record IntraOp Document Type FT Summary Primary Physician: Kameron OAKLEY MD Finalized Date/Time: 08/18/18 15:00:16 Pt. Name: ABDOULAYE BENTLEY/Sex: 1965 Female Med Rec #: [id number] Physician: Kameron OAKLEY MD Financial #: [id number] Pt. Type: A Room/Bed: [place] [address] Admit/Disch: 08/17/18 06:56:00 - 08/18/18 11:36:00 Institution: [...] Kameron PARKER MD, Shruthi Dominguez Role Performed Nurse Extern Surgeon - Primary Surgeon - Assist 1 Time In 08/17/18 08:34:00 08/17/18 08:34:00 08/17/18 08:34:00 Time Out 08/17/18 10:02:00 08/17/18 10:02:00 08/17/18 09:58:00 Procedure COLON RESECTION(.) COLON RESECTION(.) COLON RESECTION(.) Comments dr. basurto supervising Last Modified By: Jarvis RN, Simran Conley RN, Simran Chen RN 08/17/18 10:09:47 08/17/18 10:09:47 08/17/18 10:09:47 Entry 4 Entry 5 Entry 6 Case Attendee Jarvis PEREZ, Simran Ceja ARCHITECTURAL PRACTICE MANAGER, Margaret Wylie RN, CNOR, [place] Role Performed Email Designer - Primary Scrub - Primary Email Designer - Other Time In 08/17/18 08:34:00 08/17/18 [...] WINSTON, Jyothi Cordero, Given Participants CELE PACHECO, Kameron Simon, KEITH PACHECO, Shruthi Dominguez, Simran Conley RN, Brown CAA, Carly C, Inessa PEREZ, JUDYORAmerica Time Out [...] and tissue Entry 1 Skin Integrity Warm, [place], Other/See Skin Abnormality Yes Comments Outcomes Met? [...] Yellow Fins Press Points Checked Yes By Rustam WNISTON, CELE Herbert MD, Jarvis Booker RN, Inessa Lr RN, [...] Karen M, Farris RN, Karen M, Barney ARCHITECTURAL PRACTICE MANAGER, Margaret Ceja ARCHITECTURAL PRACTICE MANAGER, Margaret Ceja ARCHITECTURAL PRACTICE MANAGER, Margaret Outcomes Met? Yes Yes Yes Last [...] safely administered during the perioperative period For [facility] please see scanned medication reconcilliation form for medications used at the field during the procedure. Drains/Tubes FT Pre-Care Text: Administers care to invasive device sites Entry 1 Device Type TUBE NASOGASTIC SUMP Location oral 18FR [[id number]][F] Quantity 1 Inserted By Jyothi Avila Present [...] BLANKET MISTRAL AIR Quantity 1 Aid TORSO [[id number]][F] Fluid/[place] [facility] Mistral warming system Setting high Body Site Upper anterior torso Last Modified By: Simran Conley RN 08/17/18 09:26:50 Case Comments Finalized By: Simran Conley RN Document Signatures Signed By: Simran Conley RN 08/17/18 10:10 Simran Conley RN 08/17/18 10:16 Margaret Ceja CST 08/18/18 12:34 Margaret Ceja CST 08/18/18 12:30 Simran Conley RN 08/18/18 15:00 Normal [facility] Main OR Intraoperative Record IntraOp Document Type FT Summary Primary Physician: Kameron OAKLEY MD Finalized Date/Time: 08/18/18 14:07:09 Pt. Name: ABDOULAYE BENTLEY/Sex: 1965 Female Med Rec #: [id number] Physician: CELE PACHECO, Kameron Simon Financial #: [id number] Pt. Type: A Room/Bed: [facility]/01 Admit/Disch: 08/17/18 06:56:00 - 08/18/18 11:36:00 Institution: [...] DO, Donato OAKLEY MD, Kameron Sims RN, Esthela Dominguez Role Performed Anesthesiologist of Surgeon - Primary Email Designer - Primary Record Time In 08/17/18 07:26:00 [...] Sims RN 08/17/18 07:43:13 General Comments: [facility] present for procedure. Winston Sims RNcable dispatcher Protocols FT Pre-Care Text: Implements protective measures [...] Out Donato Marina JR, DO, SCHMIDT MD, Kameron Simon, Esthela Sims RN, Timmons CST/SA, Trudy Time Out Complete 08/17/18 07:30:00 Outcomes [...] and tissue Entry 1 Skin Integrity Intact, [place], Warm, and Skin Abnormality No Dry Outcomes [...] Yes Levi Zuluaga RN, Emily A, Timmons ARCHITECTURAL PRACTICE MANAGER/SATrudy Last Modified By: Esthela Sims RN 08/17/18 [...] RN Patient Status Stable Skin. Condition Intact, [place], Warm, and Dry Airway Maintenance Oxygen in Use? No Outcomes Met? 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 Winston sims rn Medication Administration FT Pre-Care [...] safely administered during the perioperative period For [facility] please see scanned medication reconcilliation form for medications used at the field during the procedure. Normal [facility] Operative Reporton 9 Operative Report Result type: Progres s Note-Physician Result date: August 17, 2018 09:04 EDT Result status: Auth (Verified) Result title: TAP block Performed by: Rick Basurto Jr., DO on August 17, 2018 09:06 EDT Verified by: Rick Basurto Jr., DO on August 17, 2018 09:06 EDT Encounter info: [id number], [facility], Ambulatory/Same Day Surgery, 08/17/2018 - * Final [...] Time Signed: 08/17/18 09:06 EDT [facility] Comment on above: Result Comment: Elec tronically Signed By: Rick Basurto Jr., DO\.br\Date and Time Signed: 08/18/18 14:25 EDT Operative Report Date of Surgery: 08/17/2018 SURGEON: Kameron Oakley MD, FACS BUTTON ATTACHING MACHINE OPERATOR: Jennifer Parker M.D., FACS PREOPERATIVE DIAGNOSIS: Perforated [...] Kameron Oakley MD, FACS paul Dictated: 08/17/2018 #[id number] Typed: 08/17/2018 #[id number] cc: Kameron Oakley MD, FACS [facility] Comment on above: Result Comment: Elec tronically Signed By: CELE PACHECO, Kameron Lawrence.olivia\Date and Time Signed: 08/18/18 07:09 EDT Progress [...] sigmoid perforation - stable for DC. Normal [facility] Comment on above: Result Comment: Elec [...] preparations continued for the proposed operation.. Normal [facility] Comment on above: Result Comment: Elec tronically Signed By: Rick Basurto Jr., DO\.br\Date and Time Signed: 08/17/18 09:06 EDT error - wrong folder ABO/Rhon 08-17-2018 ABO/Rh AB NEG [facility] Comment on above: Performed By: #### 2 [id number], [id number], [id number], [id number] ####[facility] [address] [place] [address] ABSCon 08-17-2018 ABSC Gel Interp Negative Normal [facility] Comment on above: Performed By: #### 2 [id number], [id number], [id number], [id number] ####[facility] [address] [place] [address] Auto Diffon 08-17-2018 Basophils #/vol (Bld) 0.3 % Normal 0.0-2.0 [facility] Comment on above: Order Comment: Order Added by Discern Expert. Performed By: #### 2 [id number], [id number], [id number], [id number] #### [facility] [address] [place] [address] Basophils/Leukocytes Auto Pure number fraction (Bld) 0.1 E9/L Normal 0.0-0.2 [facility] Comment on above: Order Comment: Order Added by Discern Expert. Performed By: #### 2 [id number], [id number], [id number], [id number] #### [facility] [address] [place] [address] Eosinophils/100 WBC (Bld) 1.3 % Normal 0.0-8.0 [facility] Comment on above: Order Comment: Order Added by Discern Expert. Performed By: #### 2 [id number], [id number], [id number], [id number] #### [facility] [address] [place] [address] Eosinophils/Leukocyte s Auto Pure number fraction (Bld) 0.2 E9/L Normal 0.0-0.5 [facility] Comment on above: Order Comment: Order Added by Discern Expert. Performed By: #### 2 [id number], [id number], [id number], [id number] #### [facility] [address] [place] [address] Lymphocytes/100 WBC (Bld) 16.3 % Normal 14.0-50.0 [facility] Comment on above: Order Comment: Order Added by Neal Expert. Performed By: #### 2 [id number], [id number], [id number], [id number] #### [facility] [address] [place] [address] Lymphocytes/Leukocyte s Auto Pure number fraction (Bld) 2.7 E9/L Normal 1.0-4.0 [facility] Comment on above: Order Comment: Order Added by Neal Expert. Performed By: #### 2 [id number], [id number], [id number], [id number] #### [facility] [address] [place] [address] Monocytes/100 WBC (Bld) 5.3 % Normal 4.0-14.0 [facility] Comment on above: Order Comment: Order Added by Discern Expert. Performed By: #### 2 [id number], [id number], [id number], [id number] #### [facility] [address] [place] [address] Monocytes/Leukocytes Auto Pure number fraction (Bld) 0.9 E9/L Normal 0.2-1.0 [facility] Comment on above: Order Comment: Order Added by Neal Expert. Performed By: #### 2 [id number], [id number], [id number], [id number] #### [facility] [address] [place] [address] Neutrophils/100 WBC (Bld) 76.8 % High 36.0-75.0 [facility] Comment on above: Order Comment: Order Added by Discern Expert. Performed By: #### 2 796886, [id number], [id number], [id number] #### [facility] [address] [place] [address] Neutrophils/Leukocyte s Auto Pure number fraction (Bld) 12.9 E9/L High 2.0-7.5 [facility] Comment on above: Order Comment: Order Added by Discern Expert. Performed By: #### 2 [id number], [id number], [id number], [id number] #### [facility] [address] [place] [address] BMPon 08-17-2018 Anion gap molar conc 13 mmol/L Normal 6-16 [facility] Comment on above: Performed By: #### 2 [id number], [id number], [id number], [id number] #### [facility] [address] [place] [address] Calcium mass conc 9.0 mg/dL Normal 8.9-11.1 [facility] Comment on above: Performed By: #### 2 [id number], [id number], [id number], [id number] #### [facility] [address] [place] [address] Chloride molar conc 106 mmol/L Normal 101-111 [facility] Comment on above: Performed By: #### 2 362195, [id number], 4963141, 4386715 #### [facility] [address] [place] [address] CO2 molar conc 23 mmol/L Normal 21-31 [facility] Comment on above: Performed By: #### 2 592847, [id number], 7773179, 3041124 #### [facility] [address] [place] [address] Creatinine mass conc 0.7 mg/dL Normal 0.5-1.3 [facility] Comment on above: Performed By: #### 2 396942, [id number], 7181391, 7959528 #### [facility] [address] [place] [address] Glucose mass conc 149 mg/dL Normal 55-199 [facility] Comment on above: Result Comment: If t his glucose result represents a fasting glucose, interpretation should refer to the following reference range: 55-99 mg/dL Performed By: #### 2 299711, [id number], 3922430, 9637391 #### [facility] [address] [place] [address] Potassium molar conc 3.7 mmol/L Normal 3.5-5.3 [facility] Comment on above: Performed By: #### 2 295618, 97363155, 3507890, 4548709 #### [facility] [address] [place] [address] Sodium molar conc 138 mmol/L Normal 135-145 [facility] Comment on above: Performed By: #### 2 946269, 06325722, 3722728, 7278389 #### [facility] [address] [place] [address] Urea nitrogen mass conc 13 mg/dL Normal 5-21 [facility] Comment on above: Performed By: #### 2 149285, 04003163, 7536934, 7467117 #### [facility] [address] [place] [address] Urea nitrogen/Creatinine mass ratio 19 No Units Normal 10-20 [facility] Comment on above: Performed By: #### 2 834517, 58668621, 7211172, 0818647 #### [facility] [address] [place] [address] Blood Bank ID#on 08-17-2018 BBID# [id number] [facility] Comment on above: Performed By: #### 2 487277, [id number], [id number], [id number] ####[facility] [address] [place] [address] CBC w/ Auto Diffon 9 Erythrocyte distribution width Ratio (RBC) 13.5 % Normal 10.9-14.2 [facility] Comment on above: Performed By: #### 2 403472, 66986620, 4875738, 5360932 #### [facility] [address] [place] [address] Hematocrit Volume Fraction (Bld) 45.0 % Normal 34.0-46.0 [facility] Comment on above: Performed By: #### 2 104069, 59147592, 6537802, 9459193 #### [facility] [address] [place] [address] Hemoglobin mass conc (Bld) 16.1 g/dL High 12.0-16.0 [facility] Comment on above: Performed By: #### 2 955822, 52774096, 6190869, 6828359 #### [facility] [address] [place] [address] MCH Entitic mass (RBC) 33.8 pg Normal 27.0-34.0 [facility] Comment on above: Performed By: #### 2 636377, 47430509, 5815305, 3201475 #### [facility] [address] [place] [address] MCHC mass conc (RBC) 35.8 g/dL High 33.3-35.7 [facility] Comment on above: Performed By: #### 2 997509, 42612444, 4373378, 4293120 #### [facility] [address] [place] [address] MCV Entitic volume (RBC) 94.4 fL Normal 80.0-100.0 [facility] Comment on above: Performed By: #### 2 935304, 44234837, 9128179, 3721699 #### [facility] [address] [place] [address] Platelet mean volume Entitic volume (Bld) 7.4 fL Normal 6.4-10.8 [facility] Comment on above: Performed By: #### 2 051761, 01502318, 2758694, 3496848 #### [facility] [address] [place] [address] Platelets #/vol (Bld) 300.0 E9/L Normal 150.0-500.0 [facility] Comment on above: Performed By: #### 2 766926, 62194530, 6361304, 4175829 #### [facility] [address] [place] [address] RBC #/vol (Bld) 4.8 E12/L Normal 4.3-5.9 [facility] Comment on above: Performed By: #### 2 171305, 37692138, 8029049, 8883580 #### [facility] [address] [place] [address] WBC corrected for nucl RBC Auto #/vol (Bld) 16.8 E9/L High 4.0-11.0 [facility] Comment on above: Result Comment: Slid e reviewed by cmk. Performed By: #### 2 762258, 97541753, 7630432, 3730551 #### [facility] [address] [place] [address] Interdisciplinary Note - Leonid e Manageron 08-17-2018 Interdisciplinary Note - Linesperson Pt is awake and alert in bed, and no family present at this time. Pt lives in [place] and does not have PCP. Importance of PCP discussed, and PCP list provided. Pt states usually sees Barbara Palacio, who always ordered blood work or any further testing which needs done. Pt states will find PCP near home [facility] for future follow up. Observation status discussed. Insurance information veriified, and pt denies any concerns or DC needs. Normal [facility] Main OR PACU I Recordon 07-28 Main OR PACU I Record PACU Phase I Docum ent Type FT Summary Primary Physician: Kameron OAKLEY MD Finalized Date/Time: 08/17/18 10:51:47 Pt. Name: ABDOULAYE BENTLEY/Sex: 1965 Female Med Rec #: [id number] Physician: Kameron OAKLEY MD Financial #: [id number] Pt. Type: O Room/Bed: [employer] [facility]/ Admit/Disch: 08/17/18 06:56:30 - Institution: Case Times [...] By: Shana Plunkett RN 08/17/18 10:51 Normal [facility] Main OR PACU I Record PACU Phase I Docum ent Type FT Summary Primary Physician: Kameron OAKLEY MD Finalized Date/Time: 08/17/18 08:24:49 Pt. Name: ABDOULAYE BENTLEY/Sex: 1965 Female Med Rec #: [id number] Physician: Kameron OAKLEY MD Financial #: [id number] Pt. Type: A Room/Bed: [place] [address] Admit/Disch: 08/17/18 06:56:30 - Institution: Case Times [...] By: Jerilyn Zamudio RN 08/17/18 08:24 Normal [facility] Main OR Preoperative Recordo n 08-17-2018 Main OR Preoperative Record PreOp Document Type FT Summary Primary Physician: Kameron OAKLEY MD Finalized Date/Time: 08/17/18 10:56:03 Pt. Name: ABDOULAYE BENTLEY/Sex: 1965 Female Med Rec #: [id number] Physician: Kameron OAKLEY MD Financial #: [id number] Pt. Type: O Room/Bed: [place] [address] Admit/Disch: 08/17/18 06:56:30 - Institution: Case Times [...] Simran Conley RN 08/17/18 10:56 [facility] Main OR Preoperative Record Holding Area Document Type FT Summary Primary Physician: Kameron OAKLEY MD Finalized Date/Time: 08/17/18 07:18:23 Pt. Name: ABDOULAYE BENTLEY/Sex: 1965 Female Med Rec #: [id number] Physician: Kameron OAKLEY MD Financial #: [id number] Pt. Type: O Room/Bed: / Admit/Disch: 08/17/18 [...] By: Jacque Brewer RN 08/17/18 07:18 Normal [facility] Operative Reporton 9 Operative Report Date [...] Kameron Oakley MD, FACS gls Dictated: 08/17/2018 #[id number] Typed: 08/17/2018 #[id number] cc: Kameron Oakley MD, FACS [facility] Comment on above: Result Comment: Elec tronically Signed By: Kameron OAKLEY MD.br\Date and Time Signed: 08/17/18 16:01 EDT Progress Note-Physicianon Protein mass conc Patient: ABDOULAYE BENTLEY Age: 53 years Sex: Female : 1965 Associated Diagnoses: None Author: Kameron OAKLEY MD Postoperative Information Date/ Time: 08/17/18 10:06:00 Preoperative Diagnosis: Perforation of sigmoid colon (GSF33-ZC K63.1, Discharge, Medical). Postoperative Diagnosis: same. Performed by: Kameron OAKLEY MD Filler Sifter Machine: Shruthi PARKER MD Estimated Blood Loss: 5 ml. Complications: None. Suture repair of sigmoid perforation [facility] Comment on above: Result Comment: Elec tronically Signed By: Kmaeron OAKLEY MD.br\Date and Time Signed: 08/17/18 10:07 [...] (AUG 17 07:16) SBP 120 mmHg (AUG 17:16) DBP 78 mmHg (AUG 17 07:16) SpO2 93 % (AUG 17:) Height 160 cm (AUG 17 06:40) Weight 83.9 kg (AUG 17:40) BMI 32.77 kg/m2 (AUG 17:40) Respiratory: Adequate air exchange with religious of preoperative function.. Cardiovascular: Cardiovascular function is stable and has returned to preoperative levels.. Neurologic: Pt has returned to preoperative baseline.. Review / Management Condition: Stable. Assessment Anesthetic outcome No anesthetic complications noted. ENDOSCOPIC PERFORATION. CHELY EXPL LAP. Plan Transfer/ Discharge: Condition TO SURGERY FOR EXPL LAP. STABLE. Normal [facility] Comment on above: Result Comment: Elec [...] rhythm. Review / Management Results review Plan [place] [employer] of Anesthesiologists (ASA) physical status classification: Class II, E. Anesthetic Preoperative Plan Anesthesia: General. , Regional TAP block. Anesthetic plan, risks, benefits, and alternatives discussed with the patient and/or family. Patient verbalized understanding. Adverse reactions, complications, and alternatives discujssed. Consent signed and on chart.. Normal [facility] Comment on above: Result Comment: Elec tronically Signed By: Rick Basurto Jr., DO\.br\Date and Time Signed: 08/17/18 08:14 EDT Protein mass conc Patient: ABDOULAYE BENTLEY Age: 53 years Sex: Female : 1965 Associated Diagnoses: None Author: Kameron OAKLEY MD Postoperative Information Date/ Time: 08/17/18 07:50:00 Preoperative Diagnosis: SCREENING FOR MALIGNANT NEOPLASMS OF COLON (KYA27-ZC Z12.11, Working, Medical). Procedure: Colonoscopy. Postoperative Diagnosis: sigmoid perforation. Performed by: Kameron Oakley MD. Estimated Blood Loss: 0 ml. Complications: sigmoid perforation. Normal [facility] Comment on above: Result Comment: Elec [...] (AUG 17 07:16) SBP 120 mmHg (AUG 17:16) DBP 78 mmHg (AUG 17:16) SpO2 93 % (AUG 17:) Height 160 cm (AUG 17 06:40) Weight 83.9 kg (AUG 17 06:40) BMI 32.77 kg/m2 (AUG 17:40) Airway: Normal oral/pharyngeal anatomy.. Respiratory: Adequate air exchange.. Cardiovascular: Adequate perfusion and function. Review / Management Results review: No qualifying data available . 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 Anesthetic Preoperative Plan Anesthesia: Monitored anesthesia care and general anesthesia if required.. Anesthetic plan, risks, benefits, and alternatives discussed with the patient and/or family. Pt. and/or family present and agree to proceed as planned.. Discussed the importance of abstaining from tobacco products, and offered counseling if desired.. Normal [facility] Comment on above: Result Comment: Elec tronically Signed By: Donato Marina JR, DO\.br\Date and Time Signed: 08/17/18 07:33 EDT Protein mass conc Patient: ABDOULAYE BENTLEY Age: 53 years Sex: Female : 1965 Associated Diagnoses: None Author: Kameron OAKLEY MD Basic Information No change in H&P Normal [facility] Comment on above: Result Comment: Elec tronically Signed By: Kameron OAKLEY MD\.br\Date and Time Signed: 08/17/18 07:11 EDT UA With Cult Reflexon 2018 Bilirubin Ql (U) Negative Normal Negative [facility] Comment on above: Performed By: #### 1 [id number] ####[facility] [address] [place] [address] Clarity Nom (U) CLOUDY Abnormal Clear [facility] Comment on above: Performed By: #### 1 [id number] ####[facility] [address] [place] [address] Color Nom (U) YELLOW Normal Yellow [facility] Comment on above: Performed By: #### 1 [id number] ####[facility] [address] [place] [address] Crystals LM Ql (Urine sed) Present Normal [facility] Comment on above: Performed By: #### 1 [id number] ####[address] [place] [address] Epithelial cells.squamous LM.HPF #/area (Urine sed) 0-2 Normal 0-2 [facility] Comment on above: Performed By: #### 1 [id number] ####[facility] [address] [place] [address], [place] [address] Glucose Test strip mass conc (U) Negative Normal Negative [facility] Comment on above: Performed By: #### 1 7636237 ####[facility] [address] [place] [address] Hemoglobin Ql (U) Negative Normal Negative [facility] Comment on above: Performed By: #### 1 [id number] ####[facility] [address] [place] [address] Ketones mass conc (U) Negative Normal Negative Fis [facility] Comment on above: Performed By: #### 1 [id number] ####[place] [address] [place] [address] Sikes.plasma/Lithiu m.RBC mass ratio (Bld) 0-3 Normal 0-3 [facility] Comment on above: Performed By: #### 1 4888820 ####[facility] [address] [place] [address] Nitrite Ql (U) Negative Normal Negative [facility] Comment on above: Performed By: #### 1 [id number] ####[facility] [address] [place] [address] pH (U) 5.5 [pH] 5.0-9.0 [facility] Comment on above: Performed By: #### 1 [id number] ####[facility] [address] [place] [address] Protein mass conc (U) Negative Normal Negative [facility] Comment on above: Performed By: #### 1 [id number] ####[address] [address] Specific gravity Relative Density (U) 1.020 1.005-1.030 [facility] Comment on above: Performed By: #### 1 [id number] ####[address] [address] UA Spec Desc [place] Normal [facility] Comment on above: Performed By: #### 1 3468357 ####[address] [address] Urobilinogen Qn (U) 0.2 {Larry'U}/dL Normal 0.0-1.0 [facility] Comment on above: Performed By: #### 1 [id number] ####[facility] [address] [place] [address] WBC Auto Ql (U) Negative Normal Negative [facility] Comment on above: Performed By: #### 1 [id number] ####[address] [address] WBC LM.HPF #/area (Urine sed) 0-5 Normal 0-5 [facility] Comment on above: Performed By: #### 1 1531913 ####[address] [address] eGFRon 08-17-2018 GFR/1.73 sq M predicted among blacks MDRD vol rate/area (S/P/Bld) mL/min/{1.73_m2} Normal >=59 [facility] Comment on above: Order Comment: Order added by Discern Expert. Result Comment: eGFR is race adjusted. AA=. Performed By: #### 2 841580, 22943490, 9128351, 0317505 #### [facility] [address] [place] [address] GFR/1.73 sq M predicted among non-blacks MDRD vol rate/area (S/P/Bld) mL/min/{1.73_m2} Normal >=59 [facility] Comment on above: Order Comment: Order added by Discern Expert. Result Comment: Boat Canvas Installer amilcar kidney disease could be indicated at eGFR's of less than 60 mL/min/1.73m2. Kidney failure is indicated at less than 15 mL/min/1.73m2. Performed By: #### 2 113562, 90056103, 4354098, 5804934 #### [facility] [address] [place] [address] Vital Signs Date Time Vital Sign Value Performing Clinician Facility 07-28-2023 11:44-0400 Body temperature 98 [degF] Felisa Aichholz Work Phone: [facility] 07-28-2023 11:44-0400 Diastolic blood pressure 72 mm[Hg] Felisa Aichholz Work Phone: [facility] 07-28-2023 11:44-0400 Heart rate 84 /min Felias Aichholz Work Phone: [facility] 07-28-2023 11:44-0400 SaO2% (BldA) [Mass fraction] 96 % Felisa Aichholz Work Phone: [facility] 07-28-2023 11:44-0400 Systolic blood pressure 114 mm[Hg] Felisa Aichholz Work Phone: [facility] 07-22-2022 11:00-0400 Body height 160.02 cm Louann Rivas Other [facility] [employer] [facility] Other 07-22-2022 11:00-0400 Body mass index (BMI) [Ratio] 31.88 kg/m2 Louann Rivas Other [facility] [employer] [facility] Other 07-22-2022 11:00-0400 Body temperature 97.8 [degF] Louann Rivas Other [facility] [employer] [facility] Other 07-22-2022 11:00-0400 Body weight 81.65 kg Louann Rivas Other [facility] Other 07-22-2022 11:00-0400 Diastolic blood pressure 62 mm[Hg] Louann Rivas Other [facility] [employer] [facility] Other 07-22-2022 11:00-0400 SaO2% (BldA) [Mass fraction] 98 % Louann Rivas Other [facility] [employer] [facility] Other 07-22-2022 11:00-0400 Systolic blood pressure 110 mm[Hg] Louann Rivas Other [facility] [employer] [facility] Other Encounters Encounter Date Encounter Type Care Provider Facility Start: 05-24-2024 End: 05-24-2024 ambulatory ESTHELA Alberto OSHEA Not Available Start: 05-10-2024 End: 05-10-2024 ambulatory LORI MARITZA Not Available Start: 03-29-2024 End: 03-29-2024 ambulatory FELISA AICHHOLZ Not Available Start: 02-25-2024 End: 02-25-2024 ambulatory FELISA AICHHOLZ Not Available Start: 02-09-2024 End: 02-09-2024 ambulatory LORI MARITZA Not Available Start: 09-29-2023 End: 09-29-2023 ambulatory FELISA AICHHOLZ Not Available Start: 08-25-2023 End: 08-25-2023 ambulatory LORI MARITZA Not Available Start: 07-28-2023 End: 07-28-2023 ambulatory Louann Rivas Facility:[facility] Start: 07-28-2023 End: 07-28-2023 ambulatory Felisa Zan Sandermarielaholz Work Phone: [facility] Work Phone: Start: 07-28-2023 End: 07-28-2023 Patient encounter procedure Felisa Sandermarielaholz Work Phone: [facility] Vascular Surgery Work Phone: Start: 07-28-2023 End: 07-28-2023 ambulatory LORI SALAS Not Available Start: 07-14-2023 End: 07-14-2023 ambulatory RONY CLEMENS Not Available Start: 07-07-2023 End: 07-07-2023 ambulatory FELISA AICHHOLZ Not Available Start: 06-30-2023 End: 06-30-2023 ambulatory LORI SALAS Not Available Start: 06-16-2023 End: 06-16-2023 ambulatory RONY CLEMENS Not Available Start: 06-02-2023 End: 06-02-2023 ambulatory FELISA AICHHOLZ Not Available Start: 07-22-2022 End: 07-22-2022 ambulatory Louann Rivas Other [employer] Other Start: 07-22-2022 [facility] visit new patient Louann schaefer [facility] Start: 06-10-2022 End: 06-11-2022 ambulatory LEAD BURNER APPRENTICE FELISA AICHHOLZ Facility:[facility] Start: 11-12-2021 End: 11-13-2021 ambulatory LEAD BURNER APPRENTICE FELISA AICHHOLZ Facility:[facility] Start: 10-01-2021 End: 10-02-2021 ambulatory LEAD BURNER APPRENTICE FELISA AICHHOLZ Facility:[facility] Plan of Treatment Date Care Activity Detail Author Start: 07-28-2023 Doppler ultrasonogra phy of bilateral carotid arteries US carotid doppler BI [facility] Start: 07-28-2023 US.doppler Carotid a rteries - bilateral [facility] Payers Date Payer Category Payer Self-pay 1965 Unknown [id number] 2.16.84 [id number] 1965 Unknown [id number] 2.16.84 0.1.880561.3.579.2.593 1965 Unknown [id number] 2.16.84 0.1.017844.3.579.2.593 1965 Unknown [id number] 2.16.84 0.1.985987.3.579.2.1259 1965 Unknown [id number] 2.16.84 0.1.680655.3.579.2.1259 1965 Unknown [id number] 2.16.84 0.1.128619.3.579.2.1259 1965 Unknown [id number] 2.16.84 0.1.411820.3.579.2.1259 1965 Unknown [id number] 2.16.84 0.1.034050.3.579.2.1259 1965 Unknown [id number] 2.16.84 0.1.423637.3.579.2.1259 1965 Unknown [id number] 2.16.84 0.1.725127.3.579.2.1259 1965 Unknown [id number] 2.16.84 0.1.948399.3.579.2.1259 1965 Unknown [id number] 2.16.84 0.1.107450.3.579.2.1259 1965 Unknown [id number] 2.16.84 0.1.167538.3.579.2.1259 1965 Unknown [id number] 2.16.84 0.1.225377.3.579.2.1259 1965 Unknown [id number] 2.16.84 0.1.661369.3.579.2.1259 1965 Unknown [id number] 2.16.84 0.1.592644.3.579.2.1259 1957 Unknown [id number] Unknown [id number] 2.16.8 40.1.928676.3.579.2.531 Social History Date Type Detail Facility Sex Assigned At [facility] [employer] Other Start: 1965 Sex Assigned At Female F [facility] Medical Equipment Procedure Code Equipment Code [...] She was provided with information on the [place] tobacco program and she is in agreement to contact them and work on smoking cessation. [employer] [facility] [employer] Other Evaluation note Note Date & Type Note Facility Evaluation note No assessment information availa [facility] Work Phone: Evaluation note Note Date & Type Note Facility Evaluation note Diagnosis Onset Date Arteriosclerosis of left carotid artery acute Current smoker acute [facility] Work Phone: History general Narrative - Reported Note Date & Type Note Facility History general Narrative - Reported Type Medical History type II diabetes Surgical History PERFORATED COLON-DUE TO COLONOS COPY Hospitalization History see above [employer] [facility] Other Summary Purpose Family History No Family [...] section and content) DATE CREATED AUTHOR 10/07/2018 [facility] DATE CREATED AUTHOR AUTHOR'S ORGANIZ ATION 06/19/2022 [facility] DATE CREATED AUTHOR AUTHOR'S ORGANIZ ATION 08/06/2023 [facility] DATE CREATED AUTHOR AUTHOR'S ORGANIZ ATION 05/25/2024 [facility] EPIC REASON FOR VISIT (unrecogniz [...] BE BASED ON THE PRIMARY CLINICAL RECORDS. [facility]. provides no warranty or guarantee of the accuracy or completeness of information in this document.
[2024-09-27 08:59] LABS: Basophils Percent Auto 0.3 % (0.2-2.0); Eosinophils Absolute Auto 0.1 10^3/uL (0.0-0.7); Eosinophils Percent Auto 1.4 % (0.9-7.0); Hematocrit 35.9 % (36.0-48.0); Immature Granulocytes Abs Auto 0.03 10^3/uL (0.00-0.03); Immature Granulocytes Pct Auto 0.4 % (0.0-0.5); Lymphocytes Absolute Auto 1.7 10^3/uL (1.2-3.8); Lymphocytes Percent Auto 23.9 % (20.5-60.0); Mean Corpuscular HGB Conc 36.2 g/dL (29.9-35.2); Mean Corpuscular Hemoglobin 32.3 pg (26.7-34.0); Mean Corpuscular Volume 89.3 fL (81.0-99.0); Mean Platelet Volume 8.9 fL (9.5-13.5); Monocytes Absolute Auto 0.5 10^3/uL (0.3-0.8); Monocytes Percent Auto 6.5 % (1.7-12.0); Neutrophils Absolute Auto 4.8 10^3/uL (1.4-6.5); Neutrophils Percent Auto 67.5 % (43.0-75.0); Platelet Count 320 10^3/uL (150-450); Red Blood Count 4.02 10^6/uL (4.20-5.40); Red Cell Distribution Width 13.6 % (11.0-15.0)
[2024-09-27 09:23] LABS: Creatinine Urine Random 127.65 mg/dL (20.00-300.00); Microalbumin Urine Random <1.3 mg/dL (<=30.0)
[2024-09-27 09:25] LABS: Bilirubin Urine NEGATIVE (NEGATIVE); Blood Urine NEGATIVE (NEGATIVE); Clarity Urine CLEAR (CLEAR); Color Urine LT. YELLOW (YELLOW); Glucose Urine UA NEGATIVE (NEGATIVE); Ketones Urine NEGATIVE (NEGATIVE); Leukocyte Esterase Urine NEGATIVE (NEGATIVE); Nitrite Urine NEGATIVE (NEGATIVE); Protein Urine NEGATIVE (NEG/TRACE); Specific Gravity Urine 1.025 (1.005-1.025); Urobilinogen Urine 0.2 EU/dL (0.2-1.0)
[2024-09-27 09:29] LABS: Urine Microscopic Indicated NO
[2024-09-27 09:29] LABS: Alanine Aminotransferase 24 U/L (14-59); Albumin Level 3.6 g/dL (3.4-5.0); Alkaline Phosphatase 93 U/L (46-116); Anion Gap 10.7; Aspartate Amino Transferase 18 U/L (15-37); BUN Creatinine Ratio 21.9; Bilirubin Total 0.5 mg/dL (0.2-1.0); Calcium 9.5 mg/dL (8.5-10.1); Carbon Dioxide 30.4 mmol/L (21.0-32.0); Chloride 103 mmol/L (98-107); Chol HDL Ratio 2.7; Cholesterol 119 mg/dL (<=200); Estimated GFR (African America >60 (>=60 mL/min/1.73m^2); Estimated GFR (Non-African Ame >60 (>=60 mL/min/1.73m^2); Globulin 3.7 g/dL; Glucose 100 mg/dL (74-106); HDL Cholesterol 44 mg/dL (40-60); LDL Cholesterol Calculated 60.8 mg/dL; Potassium 4.1 mmol/L (3.5-5.1); Sodium 140 mmol/L (136-145); Total Protein 7.3 g/dL (6.4-8.2); Triglycerides 71 mg/dL (<=150); VLDL CHOLESTEROL 14.2 mg/dL
== END 2024-09-27 08:26 | disposition home or self-care (01) ==
LOC: LAB 08:28
PROVIDERS: PCP Nurse Practitioner; Visit Provider Nurse Practitioner
DX: I10 Essential (primary) hypertension (principal); E11.9 Type 2 diabetes mellitus without complications
CPT/HCPCS: 36415; 80053; 80061; 81003; 82043; 82570; 85025

== ENCOUNTER 2024-11-22 09:22 | Outpatient (OUT) | payer BC, SELFPAY ==
--- NOTE | 2024-11-22 09:24 | MM_ITS ---
Patient Name: MAHESH BENTLEY MR#: [id number] : 1965 Exam Date: 11/22/2024 Ordering Doctor: JASMIN MON CNP RADIOLOGY REPORT PROCEDURE: MM TOMOSYNTHESIS SCREENING BI COMPARISON: MM TOMOSYNTHESIS SCREENING BI, 06/23/2023. MG MAMM SCREEN 3D CYN CAD, 06/10/2022. MG MAMM SCREEN 3D CYN CAD, 05/14/2021. MG MAMM CYN SCRN W CAD DIG, 04/27/2013. INDICATIONS: Screening mammogram Calculator Name NCI Breast Cancer Risk Assessment Tool 5 Year Breast Cancer Risk 1.50% Lifetime Breast Cancer Risk 9.30% Personal Breast Cancer No Personal Ovarian Cancer No Treatments None Family Cancers None LOCATION: [facility] BREAST COMPOSITION: There are scattered areas of fibroglandular density. FINDINGS: DIAGNOSTIC CATEGORY 1--NEGATIVE. RIGHT BREAST: No significant suspicious finding. LEFT BREAST: No significant suspicious finding. RECOMMENDATIONS: ROUTINE MAMMOGRAM AND CLINICAL EVALUATION IN 12 MONTHS. PLEASE NOTE: A NORMAL MAMMOGRAM DOES NOT EXCLUDE THE POSSIBILITY OF BREAST CANCER. A CLINICALLY SUSPICIOUS PALPABLE LUMP SHOULD BE BIOPSIED. Dictated by: Edi Ward MD on 11/22/2024 at 12:02 Approved by: Edi Ward MD on 11/22/2024 at 12:08
--- OUTSIDE RECORDS SUMMARY | 2024-11-22 09:45 | XMS_ITS | CCD ---
Author Organization [facility] ion [facility] Care Team Providers Care Shop Repairer Name Role Phone AICHHOLZ, INTERNET MARKETING ASSISTANT FELISA Admitting Unavailable AICHHOLZ, INTERNET MARKETING ASSISTANT FELISA Attending Unavailable AICHHOLZ, INTERNET MARKETING ASSISTANT FELISA Primary Care Unavailable DR BEE WATTS V Consulting Unavailable AICHHOLZ, INTERNET MARKETING ASSISTANT FELISA Consulting Unavailable AICHHOLZ, INTERNET MARKETING ASSISTANT FELISA Admitting Unavailable AICHHOLZ, INTERNET MARKETING ASSISTANT FELISA Attending Unavailable AICHHOLZ, INTERNET MARKETING ASSISTANT FELISA Primary Care Unavailable AICHHOLZ, INTERNET MARKETING ASSISTANT FELISA Consulting Unavailable AICHHOLZ, INTERNET MARKETING ASSISTANT FELISA Admitting Unavailable AICHHOLZ, INTERNET MARKETING ASSISTANT FELISA Attending Unavailable AICHHOLZ, INTERNET MARKETING ASSISTANT FELISA Primary Care Unavailable AICHHOLZ, INTERNET MARKETING ASSISTANT FELISA Consulting Unavailable Louann Rivas Unavailable AMI Rivas Attending Provider Carolann Sheltona Zan Primary Care Provider Louann Rivas Attending Unavailable Louann Rivas Admitting Unavailable Carolann Sheltona Zan Primary Care Unavailable STEPHZ, FELISA Attending Unavailable LORI SALAS Attending Unavailable AICHHOLZ, FELISA Attending Unavailable LORI SALAS Attending Unavailable ESTHELA OSHEA Attending Unavailable AICHHOLZ, FELISA Attending Unavailable LORI [...] doppler BIon 04-0 US carotid doppler BI [facility] [place] [address] [place] [address] Ultrasound Report Signed Patient: Abdoulaye Bentley MR#: [id number] : 1965 Acct:[id number] Age/Sex: 58 / F ADM Date: 07/28/23 [facility] Type: [facility] Attending Dr: Louann Rivas RACE STEWARD-C Ordering Provider: Louann Rivas APRN Date of [...] Humza Suresh M.D.07/29/2023 12:36 PM Dictation Location: [place] [address] Tech: Carine Tona Transcribed By: MARANDA 07/29/23 1236 Dictated By: Humza Suresh MD 07/29/23 1235 Signed By: 07/29/23 1236 Normal [facility] CBC AUTO DIFFon 06-10-2022 BASO # 0.1 103/ul Normal 0.0-0.1 [facility] Comment on above: Performed By: #### C BC #### [facility] [address] [place] [address] Dr. Tracie Montalvo Basophils/100 WBC (Bld) 0.7 % Normal 0.2-2.0 [facility] Comment on above: Performed By: #### C BC #### [facility] [address] [place] [address] Dr. Tracie Montalvo EO # 0.1 103/ul Normal 0.0-0.7 [facility] Comment on above: Performed By: #### C BC #### [facility] [address] [place] [address] Dr. Tracie Montalvo Eosinophils/100 WBC (Bld) 0.8 % Critically low 0.9-7.0 [facility] Comment on above: Performed By: #### C BC #### [facility] [address] [place] [address] Dr. Tracie Montalvo Erythrocyte distribution width (RBC) [Ratio] 13.7 % Normal 11.0-15.0 [facility] Comment on above: Performed By: #### C BC #### [facility] [address] [place] [address] Dr. Tracie Montalvo Hematocrit (Bld) [Volume fraction] 41.7 % Normal 36.0-48.0 [facility] Comment on above: Performed By: #### C BC #### [facility] [address] [place] [address] Dr. Tracie Montalvo Hemoglobin (Bld) [Mass/Vol] 15.1 g/dL Normal 12.0-16.0 [facility] Comment on above: Performed By: #### C BC #### [facility] [address] [place] [address] [address] Tracie Montalvo IG # 0.10 10e3/ul Critically high 0.00-0.03 [facility] Comment on above: Performed By: #### C BC #### [facility] [address] [place] [address] Dr. Tracie Montalvo IG % 1.0 % Critically high 0.0-0.5 [facility] Comment on above: Performed By: #### C BC #### [facility] [address] [place] [address] Dr. Tracie Montalvo LYMPH # 2.8 103/ul Normal 1.2-3.8 [facility] Comment on above: Performed By: #### C BC #### [facility] [address] [place] [address] Dr. Tracie Montalvo Lymphocytes/100 WBC (Bld) 26.8 % Normal 20.5-60.0 [facility] Comment on above: Performed By: #### C BC #### [facility] [address] [place] [address] Dr. Tracie Montalvo MANUAL DIFF REQ NO Normal [facility] Comment on above: Performed By: #### C BC #### [facility] [address] [place] [address] Dr. Tracie Montalvo MCH (RBC) [Entitic mass] 32.7 pg Normal 26.7-34.0 [facility] Comment on above: Performed By: #### C BC #### [facility] [address] [place] [address] Dr. Tracie Montalvo MCHC (RBC) [Mass/Vol] 36.2 g/dL Critically high 29.9-35.2 [facility] Comment on above: Performed By: #### C BC #### [facility] [address] [place] [address] Dr. Tracie Montalvo MCV (RBC) [Entitic vol] 90.3 fL Normal 81.0-99.0 [facility] Comment on above: Performed By: #### C BC #### [facility] [address] [place] [address] Dr. Tracie Montalvo MONO # 0.6 103/ul Normal 0.3-0.8 [facility] Comment on above: Performed By: #### C BC #### [facility] [address] [place] [address] Dr. Tracie Montalvo Monocytes/100 WBC (Bld) 6.0 % Normal 1.7-12.0 [facility] Comment on above: Performed By: #### C BC #### [facility] [address] [place] [address] Dr. Tracie Montalvo NEUT # 6.8 103/ul Critically high 1.4-6.5 [facility] Comment on above: Performed By: #### C BC #### [facility] [address] [place] [address] Dr. Tracie Montalvo Neutrophils/100 WBC (Bld) 64.7 % Normal 43.0-75.0 [facility] Comment on above: Performed By: #### C BC #### [facility] [address] [place] [address] Dr. Tracie Montalvo Platelet mean volume (Bld) [Entitic vol] 9.1 fL Critically low 9.5-13.5 [facility] Comment on above: Performed By: #### C BC #### [facility] [address] [place] [address] Dr. Tracie Montalvo PLT 318 103/ul Normal 150-450 [facility] Comment on above: Performed By: #### C BC #### [facility] [address] [place] [address] Dr. Tracie Montalvo RBC 4.62 106/ul Normal 4.20-5.40 [facility] Comment on above: Performed By: #### C BC #### [facility] [address] [place] [address] [address] Tracie Montalvo WBC 10.4 103/ul Normal 4.0-11.0 [facility] Comment on above: Performed By: #### C BC #### [facility] [address] [place] [address] [address] Tracie Montalvo GLYCOHEMOGLOBIN A1Con 2022 ADA RECOMMENDATION SEE BELOW Normal [facility] Comment on above: Result Comment: ADA RECOMMENDED LIMIT 4.0 - 6.0 ADA THERAPEUTIC TARGET < 7.0 ACTION SUGGESTED > 7.0 Performed By: #### A 1C ####[facility] [address] [place] [address]Dr. Tracie Montalvo Glucose [Mass/Vol] 114 mg/dL Normal [facility] Comment on above: Performed By: #### A 1C ####[facility] [address] [place] [address]Dr. Tracie Montalvo HbA1c (Bld) [Mass fraction] 5.6 % Normal 4.5-6.2 [facility] Comment on above: Performed By: #### A 1C ####[facility] [address] [place] [address]Dr. Tracie Montalvo LIPID PROFILEon 06-10-2022 CHOL-HDL RATIO NORM SEE BELOW Normal [facility] Comment on above: Result Comment: 3.3 - 4.4 LOW RISK 4.4 - 7.1 AVERAGE RISK 7.1 - 11.0 MODERATE RISK >11.0 HIGH RISK Performed By: #### C MP, LIPID, TSH #### [facility] [address] [place] [address] [address] Tracie Montalvo Cholesterol [Mass/Vol] 151 mg/dL Normal <=200 [facility] Comment on above: Performed By: #### C MP, LIPID, TSH #### [facility] [address] [place] [address] [address] Tracie Montalvo Cholesterol in HDL [Mass/Vol] 33 mg/dL Critically low 40-60 [facility] Comment on above: Performed By: #### C MP, LIPID, TSH #### [facility] [address] [place] [address] [address] Tracie Montalvo Cholesterol in LDL [Mass/Vol] 77.4 mg/dL Normal [facility] Comment on above: Performed By: #### C MP, LIPID, TSH #### [facility] [address] [place] [address] [address] Tracie Montalvo Cholesterol.total/Cho lesterol in HDL [Mass ratio] 4.6 {ratio} Normal [facility] Comment on above: Performed By: #### C MP, LIPID, TSH #### [facility] [address] [place] [address] [address] Tracie Montalvo HDL NORMAL > or = 60 mg/dl - LO W CARDIOVASCULAR RISK <40 mg/dl - HIGH CARDIOVASCULAR RISK Normal [facility] Comment on above: Performed By: #### C MP, LIPID, TSH #### [facility] [address] [place] [address] Dr. Tracie Montalvo LDL CALC NORMAL SEE BELOW Normal [facility] Comment on above: Result Comment: <100 mg/dl OPTIMAL 100 - 129 mg/dl NEAR OR ABOVE OPTIMAL 130 - 159 mg/dl BORDERLINE HIGH 160 - 189 mg/dl HIGH >190 mg/dl VERY HIGH Performed By: #### C MP, LIPID, TSH #### [facility] [address] [place] [address] [address] Tracie Montalvo Triglyceride [Mass/Vol] 203 mg/dL Critically high <=150 [facility] Comment on above: Performed By: #### C MP, LIPID, TSH #### [facility] [address] [place] [address] Dr. Tracie Montalvo VLDL CALC 40.6 mg/dL Normal [facility] Comment on above: Performed By: #### C MP, LIPID, TSH #### [facility] [address] [place] [address] Dr. Tracie Montalvo MG MAMM SCREEN 3D CYN CADon 06-10-2022 MG MAMM SCREEN 3D CYN CAD Patient: MAHESH BENTLEY Exam Date: 06/10/2022 : 1965 Gender:F Ordering : JASMIN SHELTON INTERNET MARKETING ASSISTANT Admission #: [id number] Family : Order #: [id number] CLICK HERE TO VIEW EXAM RADIOLOGY REPORT [...] No Treatments None Family Cancers None LOCATION: [facility] BREAST COMPOSITION: Heterogeneously dense,which may obscure small [...] 11:28 Normal [facility] MICROALBUMIN, RAND URon - mALB <1.3 Normal <=30.0 [facility] Comment on above: Performed By: #### M ALBR #### [facility] [address] [place] [address] [address] Tracie Montalvo PROF 14(COMP METB)on 023 Albumin [Mass/Vol] 3.9 g/dL Normal 3.4-5.0 [facility] Comment on above: Performed By: #### C MP, LIPID, TSH #### [facility] [address] [place], [place] [address] Dr. Tracie Montalvo Albumin/Globulin [Mass ratio] 1.1 {ratio} Normal [facility] Comment on above: Performed By: #### C MP, LIPID, TSH #### [facility] [address] [place], [place] [address] Dr. Tracie Montalvo ALP [Catalytic activity/Vol] 79 U/L Normal 46-116 [facility] Comment on above: Performed By: #### C MP, LIPID, TSH #### [facility] [address] [place] [address] [address] Tracie Montalvo ALT [Catalytic activity/Vol] 50 U/L Normal 14-59 [facility] Comment on above: Performed By: #### C MP, LIPID, TSH #### [facility] [address] [place] [address] [address] Tracie Montalvo Anion gap [Moles/Vol] 12.9 mmol/L Normal [facility] Comment on above: Performed By: #### C MP, LIPID, TSH #### [facility] [address] [place] [address] [address] Tracie Montalvo AST [Catalytic activity/Vol] 16 U/L Normal 15-37 [facility] Comment on above: Performed By: #### C MP, LIPID, TSH #### [facility] [address] [place] [address] Dr. Tracie Montalvo Bilirubin [Mass/Vol] 0.4 mg/dL Normal 0.2-1.0 [facility] Comment on above: Performed By: #### C MP, LIPID, TSH #### [facility] [address] [place] [address] Dr. Tracie Montalvo Calcium [Mass/Vol] 9.5 mg/dL Normal 8.5-10.1 [facility] Comment on above: Performed By: #### C MP, LIPID, TSH #### [facility] [address] [place] [address] Dr. Tracie Montalvo Chloride [Moles/Vol] 104 mmol/L Normal 98-107 [facility] Comment on above: Performed By: #### C MP, LIPID, TSH #### [facility] [address] [place] [address] Dr. Tracie Montalvo CO2 [Moles/Vol] 27.2 mmol/L Normal 21.0-32.0 [facility] Comment on above: Performed By: #### C MP, LIPID, TSH #### [facility] [address] [place] [address] Dr. Tracie Montalvo Creatinine [Mass/Vol] 0.64 mg/dL Normal 0.55-1.02 [facility] Comment on above: Performed By: #### C MP, LIPID, TSH #### [facility] [address] [place] [address] Dr. Tracie Montalvo EGFR-AF BURKINAN >60 Normal >=60 [facility] Comment on above: Performed By: #### C MP, LIPID, TSH #### [facility] [address] [place] [address] [address] Tracie Montalvo EGFR-NON AF BURKINAN >60 Normal >=60 [facility] Comment on above: Performed By: #### C MP, LIPID, TSH #### [facility] [address] [place] [address] Dr. Tracie Montalvo Globulin (S) [Mass/Vol] 3.5 g/dL Normal [facility] Comment on above: Performed By: #### C MP, LIPID, TSH #### [facility] [address] [place] [address] Dr. Tracie Montalvo Glucose [Mass/Vol] 94 mg/dL Normal 74-106 [facility] Comment on above: Performed By: #### C MP, LIPID, TSH #### [facility] [address] [place] [address] Dr. Tracie Montalvo Potassium [Moles/Vol] 4.1 mmol/L Normal 3.5-5.1 [facility] Comment on above: Performed By: #### C MP, LIPID, TSH #### [facility] [address] [place] [address] Dr. Tracie Montalvo Protein [Mass/Vol] 7.4 g/dL Normal 6.4-8.2 [facility] Comment on above: Performed By: #### C MP, LIPID, TSH #### [facility] [address] [place] [address] Dr. Tracie Montalvo Sodium [Moles/Vol] 140 mmol/L Normal 136-145 [facility] Comment on above: Performed By: #### C MP, LIPID, TSH #### [facility] [address] [place] [address] Dr. Tracie Montalvo Urea nitrogen [Mass/Vol] 8.0 mg/dL Normal 7.0-18.0 [facility] Comment on above: Performed By: #### C MP, LIPID, TSH #### [facility] [address] [place] [address] Dr. Tracie Montalvo Urea nitrogen/Creatinine [Mass ratio] 12.5 mg/mg Normal [facility] Comment on above: Performed By: #### C MP, LIPID, TSH #### [facility] [address] [place] [address] Dr. Tracie Montalvo TSHon 06-10-2022 TSH 2.317 uIU/mL Normal 0.358-3.740 [facility] Comment on above: Performed By: #### C MP, LIPID, TSH #### [facility] [address] [place] [address] Dr. Tracie Montalvo UA RANDOM W/MICROSCOPICon BACTERIA NONE SEEN Normal NONE SEEN [facility] Comment on above: Performed By: #### U AMIC #### [facility] [address] [place] [address] Dr. Tracie Montalvo Bilirubin Ql (U) Negative Normal NEGATIVE [facility] Comment on above: Performed By: #### U AMIC #### [facility] [address] [place] [address] Dr. Tracie Montalvo CAST NONE SEEN Normal NONE SEEN [facility] Comment on above: Performed By: #### U AMIC #### [facility] [address] [place] [address] Dr. Tracie Montalvo Clarity (U) CLEAR Normal CLEAR [facility] Comment on above: Performed By: #### U AMIC #### [facility] [address] [place] [address] Dr. Tracie Montalvo Color (U) LT. YELLOW Normal YELLOW [facility] Comment on above: Performed By: #### U AMIC #### [facility] [address] [place] [address] Dr. Tracie Montalvo Crystals LM Nom (Urine sed) NONE SEEN Normal NONE SEEN [facility] Comment on above: Performed By: #### U AMIC #### [facility] [address] [place] [address] [address] Tracie Montalvo Epithelial cells LM Ql (Urine sed) NONE SEEN Normal NONE SEEN /RARE [facility] Comment on above: Performed By: #### U AMIC #### [facility] [address] [address] [address] Tracei Montalvo Glucose Ql (U) Negative Normal NEGATIVE [facility] Comment on above: Performed By: #### U AMIC #### [facility] [address] [address] [address] Tracie Montalvo Hemoglobin Ql (U) Negative Normal NEGATIVE [facility] Comment on above: Performed By: #### U AMIC #### [facility] [address] [address] [address] Tracie Montavlo Ketones Ql (U) Negative Normal NEGATIVE [facility] Comment on above: Performed By: #### U AMIC #### [facility] [address] [address] [address] Tracie Montalvo LEUKOCYTES Negative Normal NEGATIVE [facility] Comment on above: Performed By: #### U AMIC #### [facility] [address] [place] [address] [address] Tracie Montalvo MUCOUS NONE SEEN Normal NONE SEEN [facility] Comment on above: Performed By: #### U AMIC #### [facility] [address] [place] [address] [address] Tracie Montalvo Nitrite Ql (U) Negative Normal NEGATIVE [facility] Comment on above: Performed By: #### U AMIC #### [facility] [address] [place] [address] [address] Tracie Montalvo pH (U) 5.5 [pH] Normal 5-9 [facility] Comment on above: Performed By: #### U AMIC #### [facility] [address] [place] [address] Dr. Tracie Montalvo RBC 0-2 Normal 0-2 [facility] Comment on above: Performed By: #### U AMIC #### [facility] [address] [address] [address] Tracie Montalvo SPEC GRAVITY 1.015 Normal 1.005-<=1.025 [facility] Comment on above: Performed By: #### U AMIC #### [facility] [address] [place] [address] Dr. Tracie Montalvo UA PROTEIN Negative Normal NEGATIVE/ TRACE [facility] Comment on above: Performed By: #### U AMIC #### [facility] [address] [place] [address] Dr. Tracie Montalvo Urobilinogen Qn (U) 0.2 {Larry'U}/dL Normal 0.2 - 1. 0 [facility] Comment on above: Performed By: #### U AMIC #### [facility] [address] [place] [address] Dr. Tracie Montalvo WBC NONE SEEN Normal NONE SEEN [facility] Comment on above: Performed By: #### U AMIC #### [facility] [address] [place] [address] Dr. Tracie Montalvo US CAROTID ART BILon [...] by: BEE WATTS Date: 2022-06-10 16:15 Normal [facility] AMYLASEon 07-18-2022 Amylase [Catalytic activity/Vol] 45 U/L Normal 25-115 [facility] Comment on above: Performed By: #### C MP, LORI, LIPA ####[facility] [address] [place] [address]Dr. Tracie Montalvo GLYCOHEMOGLOBIN A1Con 2021 ADA RECOMMENDATION SEE BELOW Normal [facility] Comment on above: Result Comment: ADA RECOMMENDED LIMIT 4.0 - 6.0 ADA THERAPEUTIC TARGET < 7.0 ACTION SUGGESTED > 7.0 Performed By: #### A 1C #### [facility] [address] [place] [address] [address] Tracie Montalvo Glucose [Mass/Vol] 128 mg/dL Normal [facility] Comment on above: Performed By: #### A 1C #### [facility] [address] [place] [address] [address] Tracie Montalvo HbA1c (Bld) [Mass fraction] 6.1 % Normal 4.5-6.2 [facility] Comment on above: Performed By: #### A 1C #### [facility] [address] [place] [address] [address] Tracie Montalvo LIPASEon 11-12-2021 Lipase [Catalytic activity/Vol] 201.0 U/L Normal 73.0-393.0 [facility] Comment on above: Performed By: #### C MP, LORI, LIPA #### [facility] [address] [place] [address] [address] Tracie Montalvo PROF 14(COMP METB)on 022 Albumin [Mass/Vol] 4.2 g/dL Normal 3.4-5.0 [facility] Comment on above: Performed By: #### C MP, LORI, LIPA ####[facility] [address] [place] [address]Dr. Tracie Montalvo Albumin/Globulin [Mass ratio] 1.1 {ratio} Normal [facility] Comment on above: Performed By: #### C MP, LORI, LIPA ####[facility] [address] [place] [id number]. Tracie Montalvo ALP [Catalytic activity/Vol] 76 U/L Normal 46-116 [facility] Comment on above: Performed By: #### C MP, LORI, LIPA ####[facility] [address] [place] [address]Dr. Tracie Montalvo ALT [Catalytic activity/Vol] 31 U/L Normal 14-59 [facility] Comment on above: Performed By: #### C MP, LORI, LIPA ####[facility] [address] [place] [address]Dr. Tracie Montalvo Anion gap [Moles/Vol] 14.5 mmol/L Normal [facility] Comment on above: Performed By: #### C MP LORI, LIPA ####[facility] [address] [place] [address]Dr. Tracie Montalvo AST [Catalytic activity/Vol] 13 U/L Critically low 15-37 [facility] Comment on above: Performed By: #### C MP LORI, LIPA ####[facility] [address] [place] [address]Dr. Tracie Montalvo Bilirubin [Mass/Vol] 0.3 mg/dL Normal 0.2-1.0 [facility] Comment on above: Performed By: #### C MP LORI, LIPA ####[facility] [address] [place] [address]Dr. Tracie Montalvo Calcium [Mass/Vol] 9.7 mg/dL Normal 8.5-10.1 [facility] Comment on above: Performed By: #### C MP, LORI, LIPA ####[facility] [address] [place] [address]Dr. Tracie Montalvo Chloride [Moles/Vol] 102 mmol/L Normal 98-107 [facility] Comment on above: Performed By: #### C MP, LORI, LIPA ####[facility] [address] [place] [address]Dr. Tracie Montalvo CO2 [Moles/Vol] 26.7 mmol/L Normal 21.0-32.0 [facility] Comment on above: Performed By: #### C MP, LORI, LIPA ####[facility] [address] [place] [id number]. Tracie Montalvo Creatinine [Mass/Vol] 0.74 mg/dL Normal 0.55-1.02 [facility] Comment on above: Performed By: #### C MP, LORI, LIPA ####[facility] [address] [place] [id number]. Tracie Montalvo EGFR-AF BURKINAN >60 Normal >=60 [facility] Comment on above: Performed By: #### C MP, LORI, LIPA ####[facility] [address] [place] [address]Dr. Tracie Montalvo EGFR-NON AF BURKINAN >60 Normal >=60 [facility] Comment on above: Performed By: #### C MP, LORI, LIPA ####[facility] [address] [place] [address]Dr. Tracie Montalvo Globulin (S) [Mass/Vol] 3.7 g/dL Normal [facility] Comment on above: Performed By: #### C MP, LORI, LIPA ####[facility] [address] [place] [address]Dr. Tracie Montalvo Glucose [Mass/Vol] 98 mg/dL Normal 74-106 [facility] Comment on above: Performed By: #### C MP, LORI, LIPA ####[facility] [address] [place] [address]Dr. Tracie Montalvo Potassium [Moles/Vol] 4.2 mmol/L Normal 3.5-5.1 [facility] Comment on above: Performed By: #### C MP, LORI, LIPA ####[facility] [address] [place] [address]Dr. Tracie Montalvo Protein [Mass/Vol] 7.9 g/dL Normal 6.4-8.2 [facility] Comment on above: Performed By: #### C MP, LORI, LIPA ####[facility] [address] [place] [address]Dr. Tracie Montalvo Sodium [Moles/Vol] 139 mmol/L Normal 136-145 [facility] Comment on above: Performed By: #### C MP, LORI, LIPA ####[facility] [address] [place] [address]Dr. Tracie Montalvo Urea nitrogen [Mass/Vol] 15.0 mg/dL Normal 7.0-18.0 [facility] Comment on above: Performed By: #### C MP, LORI, LIPA ####[facility] [address] [place] [address]Dr. Tracie Montalvo Urea nitrogen/Creatinine [Mass ratio] 20.3 mg/mg Normal [facility] Comment on above: Performed By: #### C MP, LORI, LIPA ####[facility] [address] [place] [address]Dr. Tracie Montalvo GLYCOHEMOGLOBIN A1Con 2021 ADA RECOMMENDATION SEE BELOW Normal [facility] Comment on above: Result Comment: ADA RECOMMENDED LIMIT 4.0 - 6.0 ADA THERAPEUTIC TARGET < 7.0 ACTION SUGGESTED > 7.0 Performed By: #### A 1C ####[facility] [address] [place], [place] [address]Dr. Tracie Montalvo Glucose [Mass/Vol] 128 mg/dL Normal [facility] Comment on above: Performed By: #### A 1C ####[facility] [address] [place], [place] [address]Dr. Trcaie Montalvo HbA1c (Bld) [Mass fraction] 6.1 % Normal 4.5-6.2 [facility] Comment on above: Performed By: #### A 1C ####[facility] [address] [place], [place] [address]Dr. Tracie Montalvo Coding Summary.on 08-28-2018 Coding Summary. CODING DATE: 019 FINAL [facility] STATUS: Home (Routine DC) PAYOR: [...] Childs Date Saved: 08/28/2018 12:26 pm Normal [facility] MA Mamm Diag w/CAD if perfor med [...] VERY IMPORTANT TO YOUR HEALTH. THE CURRENT [employer] [...] 2-Benign finding Recommendation: Normal interval follow-up Normal [facility] US Breast biopsy Vac Asst, F irst [...] 08/28/2018 13:28 EDT by Fer Johnson MD [facility] Coding Summary.on 08-21-2018 Coding Summary. CODING DATE: 019 FINAL [facility] STATUS: Home (Routine DC) PAYOR: Eitzen APC DESCRIPTION 5311 Level 1 Lower GI [...] PROC APC STAT DESCRIPTION DOCTOR NAME DATE 87436 Suture of large Kameron OAKLEY MD 08/17/2018 intestine (colorrhaphy) for perforated ulcer, diverticulum, wound, injury or rupture (single or multiple perforations); without colostomy 56069 Transversus abdominis Rick Basurto Jr., DO 08/17/2018 plane (TAP) block (abdominal plane block, rectus sheath block) bilateral; by injections (includes imaging guidance, when performed) XP Separate practitioner, a service that is distinct because it was performed by a different practitioner [id number] Anesthesia for Rick Basurto Jr., DO 08/17/2018 [...] Childs Revised Date Saved: 08/20/2018 03:34 pm [facility] ABO/Rh History Checkon 08-18 ABO/Rh History Check Patient discharged prior Normal [facility] Comment on above: Performed By: #### 2 [id number], [id number], [id number], [id number] ####[facility] [address] [place] [address] Inpatient Clinical Summaryon 08-18-2018 Inpatient Clinical Summary [address] [address] Clinical Summary Person Information: Name: ABDOULAYE BENTLEY Age: 53 Years : 1965 12:00 AM Sex: Female PCP: NONE, XXXX Marital Status: Phone: [phone] Race: White Ethnicity: Non- or Language: Indonesian Visit Id: Visit Reason: SCREENING Speciality: Acuity: Enc Type: Ambulatory/Same Day Surgery Med Service: Surgery Arrival: 08/17/2018 6:56 AM Discharge: Dispo Type: Address: [address] [place] [phone] Provider Notes: Diagnosis: Perforation of sigmoid colon [...] OAKLEY MD Follow up: With: Address: When: [place] , [place] With: Address: When: Kameron OAKLEY [address] [facility] [address] [place], [place] [id number] Business (1) 08/24/2018 9:15 AM Comments: Call for any problems. Type Location Start Finish State US Breast (FT) FT.ULTRASOUND 08/24/2018 10:00 AM 08/24/2018 11:00 AM Confirmed MA Diagnostic (FT) FT.MAMMOGRAM 08/24/2018 10:45 AM 08/24/2018 11:15 AM Confirmed Patient Education Information: Cele - Post Op Instructions (CUSTOM) ciprofloxacin, Flagyl, MiraLax, Percocet Normal [facility] Inpatient Patient Summaryon 08-18-2018 Inpatient Patient Summary [address] [address] Patient Discharge Instructions PERSON INFORMATION [...] up: With: Address: When: XXXX [place] , [place] With: Address: When: Kameron OAKLEY [address] [place], [place] [address], [address] [place] [address] Clinical Ink (1) 08/24/2018 9:15 AM Comments: Call for any problems. In the event that this physician does not participate in your insurance network, please consult with your insurance company to find a nearby participating provider. Type Location Start [facility] US Breast (FT) FT.ULTRASOUND 08/24/2018 10:00 AM 08/24/2018 11:00 AM Confirmed MA Diagnostic (FT) FT.MAMMOGRAM 08/24/2018 10:45 AM 08/24/2018 11:15 AM Confirmed Comment: MC Johansen ANN, have received the attached patient education materials/instructions and have verbalized understanding: Patient Signature Date Clinican/Nurse Signature _ Date HERE ARE THE MEDICATION CHANGES THAT OCCURRED DURING YOUR HOSPITAL STAY New Medications [facility] [facility] [place], [place] [id number], [phone] acetaminophen-oxycodone (Percocet 325 mg-5 mg Tab) 1 [...] demian hardwick Comment: PATIENT EDUCATION INFORMATION Instructions: [place], [place] Kameron Oakley MD, FACS POST OPERATIVE [...] office to make a post-operative appointment for ____Aug 24 If you have any questions or problems prior to being seen in the office, please call. Your surgeon can be reached by calling: Hospital: or (ask the carton waxing machine operator for your surgeon) Office: Reviewed: [...] What is ciprofloxacin? Ciprofloxacin is a fluoroquinolone (uvcm-h-WDKI-o-lone) antibiotic that fights bacteria in the body. [...] may report side effects to FDA at 5-044-RLW-9083. What other drugs will affect ciprofloxacin? Some [...] drugs may affect ciprofloxacin, including prescription and nbbz-rgm-krpemnq medicines, vitamins, and herbal products. Not all [...] to ensure that the information provided by [employer]. ('[employer]') is accurate, up-to-date, and complete, but no guarantee is made to that effect. Drug information contained herein may be time sensitive. [employer] information has been compiled for use by healthcare practitioners and consumers in the [place] and therefore [employer] does not warrant that uses outside of the [place] are appropriate, unless specifically indicated otherwise. [employer] drug information does not endorse drugs, diagnose patients or recommend therapy. [employer] drug information is an informational resource designed [...] effective or appropriate for any given patient. [employer] does not assume any responsibility for any aspect of healthcare administered with the aid of information [employer] provides. The information contained herein is not intended to cover all possible uses, directions, precautions, warnings, drug interactions, allergic reactions, or adverse effects. If you have questions about the drugs you are taking, check with your doctor, nurse or pharmacist. Copyright 4383-5040 [employer]. Version: 22.01. Revision Date: 05/04/2018. metronidazole (me troe NI [...] (more likely to occur while taking metronidazole terminal operations manager): ?? numbness, tingling, or burning pain in [...] may report side effects to FDA at 3-996-GGV-5064. What other drugs will affect metronidazole? Sometimes [...] drugs may affect metronidazole, including prescription and inex-swo-eaazmow medicines, vitamins, and herbal products. Not all [...] to ensure that the information provided by [employer] ('[employer]') is accurate, up-to-date, and complete, but no guarantee is made to that effect. Drug information contained herein may be time sensitive. [employer] information has been compiled for use by healthcare practitioners and consumers in the [place] and therefore [employer] does not warrant that uses outside of the [place] are appropriate, unless specifically indicated otherwise. [employer] drug information does not endorse drugs, diagnose patients or recommend therapy. [employer] drug information is an informational resource designed [...] effective or appropriate for any given patient. [employer] does not assume any responsibility for any aspect of healthcare administered with the aid of information [facility] provides. The information contained herein is not intended to cover all possible uses, directions, precautions, warnings, drug interactions, allergic reactions, or adverse effects. If you have questions about the drugs you are taking, check with your doctor, nurse or pharmacist. Copyright 9834-8616 [employer]. Version: 12.02. Revision Date: 02/16/2018. polyethylene glycol 3350 (shirlene ee ETH il een GLYE kol) ClearLax, GaviLAX, Gialax, GlycoLax, MiraLax, DLA0809, [employer] ClearLax What is the most important [...] may report side effects to FDA at 3-229-TWP-0276. What other drugs will affect polyethylene glycol 3350? Other drugs may interact with polyethylene glycol 3350, including prescription and zrhk-yvo-zgmszig medicines, vitamins, and herbal products. Tell each [...] to ensure that the information provided by [employer]. ('[employer]') is accurate, up-to-date, and complete, but no guarantee is made to that effect. Drug information contained herein may be time sensitive. [employer] information has been compiled for use by healthcare practitioners and consumers in the [place] and therefore [employer] does not warrant that uses outside of the [place] are appropriate, unless specifically indicated otherwise. [employer] drug information does not endorse drugs, diagnose patients or recommend therapy. [employer] drug information is an informational resource designed [...] effective or appropriate for any given patient. [employer] does not assume any responsibility for any aspect of healthcare administered with the aid of information [employer] provides. The information contained herein is not intended to cover all possible uses, directions, precautions, warnings, drug interactions, allergic reactions, or adverse effects. If you have questions about the drugs you are taking, check with your doctor, nurse or pharmacist. Copyright 2853-4263 [employer]. Version: 2.04. Revision Date: 07/31/2016. acetaminophen and [...] may report side effects to FDA at 8-388-MTU-1156. What other drugs will affect acetaminophen and [...] affect acetaminophen and oxycodone, including prescription and fdpu-dph-vtrioxf medicines, vitamins, and herbal products. Not all [...] to ensure that the information provided by [employer]. ('[employer]') is accurate, up-to-date, and complete, but no guarantee is made to that effect. Drug information contained herein may be time sensitive. [employer] information has been compiled for use by healthcare practitioners and consumers in the [place] and therefore [employer] does not warrant that uses outside of the [place] are appropriate, unless specifically indicated otherwise. [employer] drug information does not endorse drugs, diagnose patients or recommend therapy. [employer] drug information is an informational resource designed [...] effective or appropriate for any given patient. [employer] does not assume any responsibility for any aspect of healthcare administered with the aid of information [employer] provides. The information contained herein is not intended to cover all possible uses, directions, precautions, warnings, drug interactions, allergic reactions, or adverse effects. If you have questions about the drugs you are taking, check with your doctor, nurse or pharmacist. Copyright 0587-7558 [employer]. Version: 18.02. Revision Date: 03/25/2018. Thank you for choosing [facility] Normal [facility] Main OR Intraoperative Recor don 08-18-2018 Main OR Intraoperative Record IntraOp Document Type FT Summary Primary Physician: Kameron OAKLEY MD Finalized Date/Time: 08/18/18 15:00:16 Pt. Name: ABDOULAYE BENTLEY/Sex: 1965 Female Med Rec #: [id number] Physician: Kameron OAKLEY MD Financial #: [id number] Pt. Type: A Room/Bed: [place] [address] Admit/Disch: 08/17/18 06:56:00 - 08/18/18 11:36:00 Institution: Case Times FT Entry 1 Patient Times In Room 08/17/18 08:34:00 Out Room 08/17/18 10:02:00 Procedure Times Start 08/17/18 09:09:00 Stop 08/17/18 09:56:00 Anesthesia Times Start 08/17/18 08:34:00 Stop 08/17/18 10:02:00 Block Timeout w/ 08/17/18 08:50:00 Anesthesia Last Modified By: Margaret Ceja [...] Kameron PARKER MD, Shruthi Dominguez Role Performed Bin Cleaner Surgeon - Primary Surgeon - Assist 1 Time In 08/17/18 08:34:00 08/17/18 08:34:00 08/17/18 08:34:00 Time Out 08/17/18 10:02:00 08/17/18 10:02:00 08/17/18 09:58:00 Procedure COLON RESECTION(.) COLON RESECTION(.) COLON RESECTION(.) Comments dr. basurto supervising Last Modified By: Jarvis RN, Simran Conley RN, Simran Conley RN, Simran Jaimes 08/17/18 10:09:47 08/17/18 10:09:47 08/17/18 10:09:47 Entry 4 Entry 5 Entry 6 Case Attendee Jarvis RN, Simran Ceja VETERANS ADVISER, Margaret Wylie RN, CNOR, [place] Role Performed Undertaker Helper - Primary Scrub - Primary Undertaker Helper - Other Time In 08/17/18 08:34:00 08/17/18 [...] (If Applicable) PreOp Antibiotic Yes Time Out Jyothi Avila C, Given Participants CELE PACHECO, KEITH Booker MD, [...] and tissue Entry 1 Skin Integrity Warm, Bobo, Other/See Skin Abnormality Yes Comments Outcomes Met? [...] Outcomes Met? Yes Yes Last Modified By: Jarvis PEREZ, Simran Chen RN 08/17/18 10:15:48 08/17/18 10:15:48 Post-Care Text: The [...] Karen M, Farris RN, Karen M, Barney VETERANS ADVISER, Margaret Ceja VETERANS ADVISER, Margaret Ceja CST, Margaret Outcomes Met? Yes [...] safely administered during the perioperative period For [place] please see scanned medication reconcilliation form for medications used at the field during the procedure. Drains/Tubes FT Pre-Care Text: Administers care to invasive device sites Entry 1 Device Type TUBE NASOGASTIC SUMP Location oral 18FR [[id number]][F] Quantity 1 Inserted By Jyothi Avila Present [...] BLANKET MISTRAL AIR Quantity 1 Aid TORSO [[id number]][F] Fluid/[place] Unit Mistral warming system Setting high Body Site Upper anterior torso Last Modified By: Simran Conley RN 08/17/18 09:26:50 Case Comments Finalized By: Simran Conley RN Document Signatures Signed By: Simran Conley RN 08/17/18 10:10 Simran Conley RN 08/17/18 10:16 Margaret Ceja CST 08/18/18 12:34 Margaret Ceja CST 08/18/18 12:30 Simran Conley RN 08/18/18 15:00 Normal [facility] Main OR Intraoperative Record IntraOp Document Type FT Summary Primary Physician: Kameron OAKLEY MD Finalized Date/Time: 08/18/18 14:07:09 Pt. Name: ABDOULAYE BENTLEY/Sex: 1965 Female Med Rec #: [id number] Physician: Kameron OAKLEY MD Financial #: [id number] Pt. Type: A Room/Bed: [facility]/ Admit/Disch: 08/17/18 06:56:00 - 08/18/18 11:36:00 Institution: [...] Role Performed Anesthesiologist of Surgeon - Primary Undertaker Helper - Primary Record Time In 08/17/18 07:26:00 [...] RN 08/17/18 07:43:13 General Comments: Baljit March [facility] student present for procedure. Winston Sims RNprepress proofer Protocols FT Pre-Care Text: Implements protective measures [...] MD, Levi Booker RN, Emily A, Timmons VETERANS ADVISER/SA, Trudy Time Out Complete 08/17/18 07:30:00 Outcomes [...] and tissue Entry 1 Skin Integrity Intact, Bobo, Warm, and Skin Abnormality No Dry Outcomes [...] Yes Levi Zuluaga RN, Emily A, Timmons VETERANS ADVISER/SA, Trudy Last Modified By: Esthela Sims RN [...] RN Patient Status Stable Skin. Condition Intact, Bobo, Warm, and Dry Airway Maintenance Oxygen in Use? No Outcomes Met? Yes Last Modified By: Esthela Sims RN 08/17/18 06:58:20 Post-Care Text: The patient is free from signs and symptoms of injury related to transfer/transport General Comments: report given to burnisherChino sims music intern Administration FT Pre-Care Text: Verifies allergies, administers prescribed medications and solutions, administers prescribed antibiotic therapy and immunizing agents as ordered, evaluates response to medications Administers prescribed medications and solutions Entry 1 Route of Admin Field Expiration Date Yes Verified Outcomes Met? Yes Last Modified By: Levi PEREZ, Esthela Dominguez 08/17/18 06:56:18 Post-Care Text: The patient received appropriate medication(s) safely administered during the perioperative period For [place] please see scanned medication reconcilliation form for medications used at the field during the procedure. Normal [facility] Operative Reporton 9 Operative Report Result type: Progres s Note-Physician Result date: August 17, 2018 09:04 EDT Result status: Auth (Verified) Result title: TAP block Performed by: Rick Basurto Jr., DO on August 17, 2018 09:06 EDT Verified by: Rick Basurto Jr., DO on August 17, 2018 09:06 EDT Encounter info: [id number], Krunal Nichole, Ambulatory/Same Day Surgery, 08/17/2018 - [...] Date and Time Signed: 08/17/18 09:06 EDT [facility] Comment on above: Result Comment: Elec tronically Signed By: Rick Basurto Jr., DO\.br\Date and Time Signed: 08/18/18 14:25 EDT Operative Report Date of Surgery: 08/17/2018 SURGEON: Kameron Oakley MD, FACS COAL CAGER: Jennifer Parker M.D., FACS PREOPERATIVE DIAGNOSIS: Perforated [...] in stable condition. Kameron Oakley MD, FACS [facility] Dictated: 08/17/2018 #[id number] Typed: 08/17/2018 #[id number] cc: Kameron Oakley MD, FACS [facility] Comment on above: Result Comment: Elec tronically Signed By: Kameron OAKLEY MD\Date and Time Signed: 08/18/18 07:09 EDT Progress [...] sigmoid perforation - stable for DC. Normal [facility] Comment on above: Result Comment: Elec tronically [...] preparations continued for the proposed operation.. Normal [facility] Comment on above: Result Comment: Elec tronically Signed By: Rick Basurto Jr., DO.olivia\Date and Time Signed: 08/17/18 09:06 EDT error - wrong folder ABO/Rhon 08-17-2018 ABO/Rh AB NEG [facility] Comment on above: Performed By: #### 2 798484, [id number], [id number], [id number] ####[facility] [address] [place] [address] ABSCon 08-17-2018 ABSC Gel Interp Negative Normal [facility] Comment on above: Performed By: #### 2 138503, [id number], [id number], [id number] ####[facility] [address] [place] [address] Auto Diffon 08-17-2018 Basophils #/vol (Bld) 0.3 % Normal 0.0-2.0 [facility] Comment on above: Order Comment: Order Added by Discern Expert. Performed By: #### 2 046690, [id number], [id number], [id number] #### [facility] [address] [place] [address] Basophils/Leukocytes Auto Pure number fraction (Bld) 0.1 E9/L Normal 0.0-0.2 [facility] Comment on above: Order Comment: Order Added by Discern Expert. Performed By: #### 2 418117, [id number], 9400381, [id number] #### [facility] [address] [place] [address] Eosinophils/100 WBC (Bld) 1.3 % Normal 0.0-8.0 [facility] Comment on above: Order Comment: Order Added by Discern Expert. Performed By: #### 2 444761, [id number], [id number], [id number] #### [facility] [address] [place] [address] Eosinophils/Leukocyte s Auto Pure number fraction (Bld) 0.2 E9/L Normal 0.0-0.5 [facility] Comment on above: Order Comment: Order Added by Discern Expert. Performed By: #### 2 654895, [id number], [id number], [id number] #### [facility] [address] [place] [address] Lymphocytes/100 WBC (Bld) 16.3 % Normal 14.0-50.0 [facility] Comment on above: Order Comment: Order Added by Discern Expert. Performed By: #### 2 119781, [id number], 3656189, [id number] #### [facility] [address] [place] [address] Lymphocytes/Leukocyte s Auto Pure number fraction (Bld) 2.7 E9/L Normal 1.0-4.0 [facility] Comment on above: Order Comment: Order Added by Discern Expert. Performed By: #### 2 318979, [id number], 9345136, [id number] #### [facility] [address] [place] [address] Monocytes/100 WBC (Bld) 5.3 % Normal 4.0-14.0 [facility] Comment on above: Order Comment: Order Added by Discern Expert. Performed By: #### 2 005786, [id number], 5106496, 6965515 #### [facility] [address] [place] [address] Monocytes/Leukocytes Auto Pure number fraction (Bld) 0.9 E9/L Normal 0.2-1.0 [facility] Comment on above: Order Comment: Order Added by Discern Expert. Performed By: #### 2 672716, [id number], 6577607, [id number] #### [facility] [address] [place] [address] Neutrophils/100 WBC (Bld) 76.8 % High 36.0-75.0 [facility] Comment on above: Order Comment: Order Added by Discern Expert. Performed By: #### 2 227947, [id number], 1512423, [id number] #### [facility] [address] [place] [address] Neutrophils/Leukocyte s Auto Pure number fraction (Bld) 12.9 E9/L High 2.0-7.5 [facility] Comment on above: Order Comment: Order Added by Discern Expert. Performed By: #### 2 093429, [id number], 1726771, [id number] #### [facility] [address] [place] [address] BMPon 08-17-2018 Anion gap molar conc 13 mmol/L Normal 6-[address] [facility] Comment on above: Performed By: #### 2 318472, [id number], 9583571, [id number] #### [facility] [address] [place] [address] Calcium mass conc 9.0 mg/dL Normal 8.9-11.1 [facility] Comment on above: Performed By: #### 2 145532, [id number], 8547360, [id number] #### [facility] [address] [place] [address] Chloride molar conc 106 mmol/L Normal 101-111 [facility] Comment on above: Performed By: #### 2 256301, 65432253, 9382688, 3554590 #### [facility] [address] [place] [address] CO2 molar conc 23 mmol/L Normal 21-31 [facility] Comment on above: Performed By: #### 2 418663, [id number], 6037716, 3643721 #### [facility] [address] [place] [address] Creatinine mass conc 0.7 mg/dL Normal 0.5-1.[address] [facility] Comment on above: Performed By: #### 2 453456, [id number], 2112182, 0869498 #### [facility] [address] [place] [address] Glucose mass conc 149 mg/dL Normal 55-199 [facility] Comment on above: Result Comment: If t his glucose result represents a fasting glucose, interpretation should refer to the following reference range: 55-99 mg/dL Performed By: #### 2 096899, 13046144, 6342317, 1955442 #### [facility] [address] [place] [address] Potassium molar conc 3.7 mmol/L Normal 3.5-5.[address] [facility] Comment on above: Performed By: #### 2 688105, [id number], 1459783, 3393160 #### [facility] [address] [place] [address] Sodium molar conc 138 mmol/L Normal 135-145 [facility] Comment on above: Performed By: #### 2 590650, 76107550, 3066163, 9068723 #### [facility] [address] [place] [address] Urea nitrogen mass conc 13 mg/dL Normal 5-21 [facility] Comment on above: Performed By: #### 2 [id number], [id number], [id number], [id number] #### [facility] [address] [place] [address] Urea nitrogen/Creatinine mass ratio 19 No Units Normal 10-20 [facility] Comment on above: Performed By: #### 2 [id number], [id number], [id number], [id number] #### [facility] [address] [place] [address] Blood Bank ID#on 08-17-2018 BBID# [id number] [facility] Comment on above: Performed By: #### 2 [id number], [id number], [id number], [id number] ####[facility] [address] [place] [address] CBC w/ Auto Diffon 9 Erythrocyte distribution width Ratio (RBC) 13.5 % Normal 10.9-14.2 [facility] Comment on above: Performed By: #### 2 [id number], [id number], [id number], [id number] #### [facility] [address] [place] [address] Hematocrit Volume Fraction (Bld) 45.0 % Normal 34.0-46.0 [facility] Comment on above: Performed By: #### 2 [id number], [id number], [id number], [id number] #### [facility] [address] [place] [address] Hemoglobin mass conc (Bld) 16.1 g/dL High 12.0-16.0 [facility] Comment on above: Performed By: #### 2 [id number], [id number], [id number], [id number] #### [facility] [address] [place] [address] MCH Entitic mass (RBC) 33.8 pg Normal 27.0-34.0 [facility] Comment on above: Performed By: #### 2 816844, [id number], 7060927, [id number] #### [facility] [address] [place] [address] MCHC mass conc (RBC) 35.8 g/dL High 33.3-35.[address] [facility] Comment on above: Performed By: #### 2 786150, [id number], 0972947, 1072233 #### [facility] [address] [place] [address] MCV Entitic volume (RBC) 94.4 fL Normal 80.0-100.0 [facility] Comment on above: Performed By: #### 2 871941, [id number], 6269231, [id number] #### [facility] [address] [place] [address] Platelet mean volume Entitic volume (Bld) 7.4 fL Normal 6.4-10.8 [facility] Comment on above: Performed By: #### 2 617271, [id number], 5338768, 7409103 #### [facility] [address] [place] [address] Platelets #/vol (Bld) 300.0 E9/L Normal 150.0-500.0 [facility] Comment on above: Performed By: #### 2 672284, [id number], 2987852, 8774692 #### [facility] [address] [place] [address] RBC #/vol (Bld) 4.8 E12/L Normal 4.3-5.9 [facility] Comment on above: Performed By: #### 2 069566, 11958276, 5361660, 7038170 #### [facility] [address] [place] [address] WBC corrected for nucl RBC Auto #/vol (Bld) 16.8 E9/L High 4.0-11.0 [facility] Comment on above: Result Comment: Slid e reviewed by cmk. Performed By: #### 2 223626, [id number], 6957142, [id number] #### [facility] [address] [place] [address] Interdisciplinary Note - Leonid e Manageron 08-17-2018 Interdisciplinary Note - Gravity Meter Operator Pt is awake and alert in bed, and no family present at this time. [place] and does not have PCP. Importance of PCP discussed, and PCP list provided. Pt states usually sees Barbara Palacio, who always ordered blood work or any further testing which needs done. Pt states will find PCP near home town [facility] for future follow up. Observation status discussed. Insurance information veriified, and pt denies any concerns or DC needs. Normal [facility] Main OR PACU I Recordon 07-28 Main OR PACU I Record PACU Phase I Docum ent Type FT Summary Primary Physician: Kameron OAKLEY MD Finalized Date/Time: 08/17/18 10:51:47 Pt. Name: ABDOULAYE BENTLEY/Sex: 1965 Female Med Rec #: [id number] Physician: Kameron OAKLEY MD Financial #: [id number] Pt. Type: O Room/Bed: 10/01 Admit/Disch: 08/17/18 06:56:30 - Institution: Case Times [...] By: Shana Plunkett RN 08/17/18 10:51 Normal [facility] Main OR PACU I Record PACU Phase I Docum ent Type FT Summary Primary Physician: Kameron OAKLEY MD Finalized Date/Time: 08/17/18 08:24:49 Pt. Name: MCABDOULAYE/Sex: 1965 Female Med Rec #: [id number] Physician: Kameron OAKLEY MD Financial #: [id number] Pt. Type: A Room/Bed: [facility]/ Admit/Disch: 08/17/18 06:56:30 - Institution: Case Times [...] By: Jerilyn Zamudio RN 08/17/18 08:24 Normal [facility] Main OR Preoperative Recordo n 08-17-2018 Main OR Preoperative Record PreOp Document Type FT Summary Primary Physician: Kameron OAKLEY MD Finalized Date/Time: 08/17/18 10:56:03 Pt. Name: ABDOULAYE BENTLEY/Sex: 1965 Female Med Rec #: [id number] Physician: Kameron OAKLEY MD Financial #: [id number] Pt. Type: O Room/Bed: [place] [address] Admit/Disch: 08/17/18 06:56:30 - Institution: Case Times [...] By: Simran Conley RN 08/17/18 10:56 Normal [facility] Main OR Preoperative Record Holding Area Document Type FT Summary Primary Physician: Kameorn OAKLEY MD Finalized Date/Time: 08/17/18 07:18:23 Pt. Name: ABDOULAYE BENTLEY/Sex: 1965 Female Med Rec #: [id number] Physician: Kameron OAKLEY MD Financial #: [id number] Pt. Type: O Room/Bed: / Admit/Disch: 08/17/18 [...] By: Jacque Brewer RN 08/17/18 07:18 Normal [facility] Operative Reporton [id number] Operative Report Date of Surgery: 08/17/2018 [...] her and her father and consent obtained. Kamreon Oakley MD, FACS gls Dictated: 08/17/2018 #[id number] Typed: 08/17/2018 #[id number] cc: Kameron Oakley MD, FACS [facility] Comment on above: Result Comment: Elec tronically Signed By: Kameron OAKLEY MD\.br\Date and Time Signed: 08/17/18 16:01 EDT Progress Note-Physicianon Protein mass conc Patient: ABDOULAYE BENTLEY Age: 53 years Sex: Female : 1965 Associated Diagnoses: None Author: Kameron OAKLEY MD Postoperative Information Date/ Time: 08/17/18 10:06:00 Preoperative Diagnosis: Perforation of sigmoid colon (CPM63-MV K63.1, Discharge, Medical). Postoperative Diagnosis: same. Performed by: Kameron OAKLEY MD. Project Scheduler: Shruthi PARKER MD Estimated Blood Loss: 5 ml. Complications: None. Suture repair of sigmoid perforation [facility] Comment on above: Result Comment: Elec [...] mmHg (AUG 17:) DBP 78 mmHg (AUG 17:16) SpO2 93 % (AUG 17:) Height 160 cm (AUG 17 06:40) Weight 83.9 kg (AUG 17:40) BMI 32.77 kg/m2 (AUG 17:40) Respiratory: Adequate air exchange with anabaptism of preoperative function.. Cardiovascular: Cardiovascular function is stable and has returned to preoperative levels.. Neurologic: Pt has returned to preoperative baseline.. Review / Management Condition: Stable. Assessment Anesthetic outcome No anesthetic complications noted. ENDOSCOPIC PERFORATION. CHELY EXPL LAP. Plan Transfer/ Discharge: Condition TO SURGERY FOR EXPL LAP. STABLE. Normal [facility] Comment on above: Result Comment: Elec tronically [...] rhythm. Review / Management Results review Plan [place] [employer]hesi[employer] (ASA) physical status classification: Class II, E. Anesthetic Preoperative Plan Anesthesia: General. , Regional TAP block. Anesthetic plan, risks, benefits, and alternatives discussed with the patient and/or family. Patient verbalized understanding. Adverse reactions, complications, and alternatives discujssed. Consent signed and on chart.. Jessica [facility] Comment on above: Result Comment: Elec tronically Signed By: Rick Basurto Jr., DO.br\Date and Time Signed: 08/17/18 08:14 EDT Protein mass conc Patient: ABDOULAYE BENTLEY Age: 53 years Sex: Female : 1965 Associated Diagnoses: None Author: Kameron OAKLEY MD Postoperative Information Date/ Time: 08/17/18 07:50:00 Preoperative Diagnosis: SCREENING FOR MALIGNANT NEOPLASMS OF COLON ([id number]-PG Z12.11, Working, Medical). Procedure: Colonoscopy. Postoperative Diagnosis: sigmoid perforation. Performed by: Kameron Oakley MD. Estimated Blood Loss: 0 ml. Complications: sigmoid perforation. Normal [facility] Comment on above: Result Comment: Elec tronically Signed By: Kameron OAKLEY MD.br\Date and Time Signed: 08/17/18 07:51 EDT Protein [...] review: No qualifying data available . Plan [place] [employer]iologists (ASA) physical status classification: Class II. Anesthetic Preoperative Plan Anesthesia: Monitored anesthesia care and general anesthesia if required.. Anesthetic plan, risks, benefits, and alternatives discussed with the patient and/or family. Pt. and/or family present and agree to proceed as planned.. Discussed the importance of abstaining from tobacco products, and offered counseling if desired.. Normal [facility] Comment on above: Result Comment: Elec tronically Signed By: Donato Marina JR, DO\.br\Date and Time Signed: 08/17/18 07:33 EDT Protein mass conc Patient: ABDOULAYE BENTLEY Age: 53 years Sex: Female : 1965 Associated Diagnoses: None Author: Kameron OAKLEY MD Basic Information No change in H&P Normal [facility] Comment on above: Result Comment: Elec tronically Signed By: Kameron OAKLEY MD\.br\Date and Time Signed: 08/17/18 07:11 EDT UA With Cult Reflexon 2018 Bilirubin Ql (U) Negative Normal Negative [facility] Comment on above: Performed By: #### 1 [id number] ####[facility] [address] [place] [address] Clarity Nom (U) CLOUDY Abnormal Clear [facility] Comment on above: Performed By: #### 1 [id number] ####[facility] [address] [facility] [place] [address] Color Nom (U) YELLOW Normal Yellow [facility] Comment on above: Performed By: #### 1 [id number] ####[facility] [address] [facility] [place] [address] Crystals LM Ql (Urine sed) Present Normal [facility] Comment on above: Performed By: #### 1 [id number] ####[facility] [address] [place] [address] Epithelial cells.squamous LM.HPF #/area (Urine sed) 0-2 Normal 0-2 [facility] Comment on above: Performed By: #### 1 [id number] ####[facility] [address] [facility] [place] [address] Glucose Test strip mass conc (U) Negative Normal Negative [facility] Comment on above: Performed By: #### 1 [id number] ####[facility] [address] [facility] [place] [address] Hemoglobin Ql (U) Negative Normal Negative [facility] Comment on above: Performed By: #### 1 [id number] ####[facility] [address] [facility] [place] [address] Ketones mass conc (U) Negative Normal Negative Fis [facility] Comment on above: Performed By: #### 1 [id number] ####[facility] [address] [facility] [place] [address] [place].plasma/Lithiu m.RBC mass ratio (Bld) 0-3 Normal 0-3 [facility] Comment on above: Performed By: #### 1 [id number] ####[facility] [address] [facility] [place] [address] Nitrite Ql (U) Negative Normal Negative [facility] Comment on above: Performed By: #### 1 [id number] ####[facility] [address] [place] [address] pH (U) 5.5 [pH] 5.0-9.0 [facility] Comment on above: Performed By: #### 1 [id number] ####[facility] [address] [place] [address] Protein mass conc (U) Negative Normal Negative Fis [facility] Comment on above: Performed By: #### 1 [id number] ####[place] [address] [place] [address] Specific gravity Relative Density (U) 1.020 1.005-1.030 [facility] Comment on above: Performed By: #### 1 [id number] ####[facility] [address] [place] [address] UA Spec Desc [place] Normal [facility] Comment on above: Performed By: #### 1 [id number] ####[address] [address] Urobilinogen Qn (U) 0.2 {Larry'U}/dL Normal 0.0-1.0 [facility] Comment on above: Performed By: #### 1 [id number] ####[facility] [address] [place] [address] WBC Auto Ql (U) Negative Normal Negative [facility] Comment on above: Performed By: #### 1 [id number] ####[facility] [address] [place] [address] WBC LM.HPF #/area (Urine sed) 0-5 Normal 0-5 [facility] Comment on above: Performed By: #### 1 [id number] ####[facility] [address] [place] [address] eGFRon 08-17-2018 GFR/1.73 sq M predicted among blacks MDRD vol rate/area (S/P/Bld) mL/min/{1.73_m2} Normal >=59 [facility] Comment on above: Order Comment: Order added by Discern Expert. Result Comment: eGFR is race adjusted. AA=. Performed By: #### 2 236141, [id number], 3951754, 7452101 #### [facility] [address] [place] [address] GFR/1.73 sq M predicted among non-blacks MDRD vol rate/area (S/P/Bld) mL/min/{1.73_m2} Normal >=59 [facility] Comment on above: Order Comment: Order added by Discern Expert. Result Comment: Copyright Expert amilcar kidney disease could be indicated at eGFR's of less than 60 mL/min/1.73m2. Kidney failure is indicated at less than 15 mL/min/1.73m2. Performed By: #### 2 125024, [id number], 7075826, [id number] #### [facility] [address] [place] [address] Vital Signs Date Time Vital Sign Value Performing Clinician Facility 07-28-2023 11:44-0400 Body temperature 98 [degF] Felisa Shelton Work Phone: [facility] 07-28-2023 11:44-0400 Diastolic blood pressure 72 mm[Hg] Felisa Aichholz Work Phone: [facility] 07-28-2023 11:44-0400 Heart rate 84 /min Felisa Sanderhholz Work Phone: [facility] 07-28-2023 11:44-0400 SaO2% (BldA) [Mass fraction] 96 % Felisa Faustoholz Work Phone: [facility] 07-28-2023 11:44-0400 Systolic blood pressure 114 mm[Hg] Felisa Aichholz Work Phone: [facility] 07-22-2022 11:00-0400 Body height 160.02 cm Louann Rivas Other [facility] Other 07-22-2022 11:00-0400 Body mass index (BMI) [Ratio] 31.88 kg/m2 Louann Rivas Other [facility] Other 07-22-2022 11:00-0400 Body temperature 97.8 [degF] Louann Rivas Other [facility] Other 07-22-2022 11:00-0400 Body weight 81.65 kg Louann Rivas Other [facility] Other 07-22-2022 11:00-0400 Diastolic blood pressure 62 mm[Hg] Louann Rivas Other [facility] Other 07-22-2022 11:00-0400 SaO2% (BldA) [Mass fraction] 98 % Louann Rivas Other [facility] Other 07-22-2022 11:00-0400 Systolic blood pressure 110 mm[Hg] Louann Rivas Other [facility] Other Encounters Encounter Date Encounter Type Care Provider Facility Start: 11-08-2024 End: 11-08-2024 ambulatory FELISA AICHHOLZ Not Available Start: 10-11-2024 End: 10-11-2024 ambulatory LORI MARITZA Not Available Start: 05-24-2024 End: 05-24-2024 ambulatory ESTHELA Alberto PETKATIAI Not Available Start: 05-10-2024 End: 05-10-2024 ambulatory LORI MARITZA Not Available Start: 03-29-2024 End: 03-29-2024 ambulatory FELISA AICHHOLZ Not Available Start: 02-25-2024 End: 02-25-2024 ambulatory FELISA AICHHOLZ Not Available Start: 02-09-2024 End: 02-09-2024 ambulatory LORI MARITZA Not Available Start: 07-28-2023 End: 07-28-2023 ambulatory Louann Rivas Facility:[facility] Start: 07-28-2023 End: 07-28-2023 ambulatory Felisa J Aichholz Work Phone: [facility] Work Phone: Start: 07-28-2023 End: 07-28-2023 Patient encounter procedure Felisa Shelton Work Phone: [facility] Work Phone: Start: 07-22-2022 End: 07-22-2022 ambulatory Louann Rivas Other [facility] [employer] Other Start: 07-22-2022 [facility] visit new patient Louann schaefer [facility] Start: 06-10-2022 End: 06-11-2022 ambulatory JASMIN SHELTON Facility:[facility] Start: 11-12-2021 End: 11-13-2021 ambulatory JASMIN SHELTON Facility:[facility] Start: 10-01-2021 End: 10-02-2021 ambulatory JASMIN SHELTON Facility:[facility] Plan of Treatment Date Care Activity Detail Author Start: 07-28-2023 Doppler ultrasonogra phy of bilateral carotid arteries US carotid doppler BI [facility] Start: 07-28-2023 US.doppler Carotid a rteries - bilateral [facility] Payers Date Payer Category Payer Self-pay 1965 Unknown [id number] 2.16.84 [id number] 1965 Unknown [id number] 2.16.84 [id number] 1965 Unknown [id number] 2.16.84 [id number] 1965 Unknown [id number] 2.16.8 [id number] 1965 Unknown [id number] 2.16.8 [id number] 1965 Unknown [id number] 2.16.84 [id number] 1965 Unknown [id number] 2.16.84 [id number] 1965 Unknown [id number] 2.16.84 [id number] 1965 Unknown [id number] 2.16.84 [id number] 1965 Unknown [id number] 2.16.84 [id number] 1957 Unknown [id number] Unknown [id number] 2.16.8 [id number] Social History Date Type Detail Facility Sex Assigned At [facility] [employer] Other Start: 1965 Sex Assigned At Female F [facility] Medical Equipment Procedure Code Equipment Code [...] She was provided with information on the [place] tobacco program and she is in agreement to contact them and work on smoking cessation. [facility] Other Evaluation note Note Date & Type Note Facility Evaluation note No assessment information availa ble [facility] Work Phone: Evaluation note Note Date & Type Note Facility Evaluation note Diagnosis Onset Date Arteriosclerosis of left carotid artery acute Current smoker acute [facility] Work Phone: History general Narrative - Reported Note Date & Type Note Facility History general Narrative - Reported Type Medical History type II diabetes Surgical History PERFORATED COLON-DUE TO COLONOS COPY Hospitalization History see above [facility] Other Summary Purpose Family History No Family [...] section and content) DATE CREATED AUTHOR 10/07/2018 [facility] DATE CREATED AUTHOR AUTHOR'S ORGANIZ ATION 06/19/2022 [facility] DATE CREATED AUTHOR AUTHOR'S ORGANIZ ATION 08/06/2023 [facility] DATE CREATED AUTHOR AUTHOR'S ORGANIZ ATION 11/11/2024 [facility] EPIC REASON FOR VISIT (unrecogniz [...] BE BASED ON THE PRIMARY CLINICAL RECORDS. [employer] provides no warranty or guarantee of the accuracy or completeness of information in this document.
== END 2024-11-22 09:23 | disposition home or self-care (01) ==
LOC: MAMMO 09:23
PROVIDERS: PCP Nurse Practitioner; Visit Provider Nurse Practitioner
DX: Z12.31 Encounter for screening mammogram for malignant neoplasm of breast (principal)
CPT/HCPCS: 77063; 77067